=== PATIENT | male | born 1985 | race African-American/Black ===

== ENCOUNTER 2020-08-25 09:07 | Emergency (ER) | payer MEDICAID, OTHER ==
[~2020-08-25] VITALS: Ht 180.3 cm; Wt 83.5 kg
[2020-08-25 09:45] LABS: Basophils # (auto) 0 10 ^3/uL (0-0.2); Basophils % (auto) 0.1 % (0.0-2.0); Eosinophils # (auto) 0.1 10 ^3/uL (0-0.8); Eosinophils % (auto) 2.1 % (0.0-7.0); Hematocrit 33.2 % (41.0-53.0); Hemoglobin 10.3 g/dL (13.5-17.5); Lymphocytes # (auto) 2.1 10 ^3/uL (0.4-5.4); Lymphocytes % (auto) 34.7 % (10.0-50.0); Mean Corpuscular Hemoglobin 19.6 pg (28.0-32.0); Mean Corpuscular Volume 63.2 fL (80.0-100.0); Monocytes # (auto) 0.6 10 ^3/uL (0-1.3); Monocytes % (auto) 10.6 % (0.0-12.0); Neutrophils # (auto) 3.2 10 ^3/uL (1.6-8.6); Neutrophils % (auto) 52.5 % (37.0-80.0); Nucleated Red Blood Cells % 0.1 %; Platelet Count (auto) 218 10^3/uL (140-450); Red Blood Cells 5.25 10^6/uL (4.5-5.90); Red Cell Distribution Width 18.7 % (11.8-14.3)
[2020-08-25] MEDS ORDERED: GASTROGRAFIN 120 ML SOL ONE (09:52)
[2020-08-25 10:01] LABS: Albumin 3.2 g/dL (3.4-5.0); Calcium 9.1 mg/dL (8.5-10.1); Potassium 4.2 mmol/L (3.5-5.1)
[2020-08-25 10:04] LABS: BUN/Creatinine Ratio 17.6; Bilirubin, Total 0.4 mg/dL (0.2-1.0); Total Protein 9.6 g/dL (6.4-8.2)
[2020-08-25] MEDS ORDERED: EZ-GAS II GRANULES (RADIOLOGY USE) PO ONE (10:21)
[2020-08-25 10:35] LABS: Urine Bacteria NONE SEEN /hpf (None Seen); Urine Blood Negative /uL (Negative); Urine Mucus FEW (None Seen); Urine Specific Gravity 1.029 (1.001-1.035); Urine WBC <1 /hpf (0 - 3)
[2020-08-25 11:33] VITALS: BP 121/75
== END 2020-08-25 11:34 | disposition home or self-care (01) ==
LOC: ER 09:07
DX: K21.00 Gastro-esophageal reflux disease with esophagitis, without bleeding (principal); D53.9 Nutritional anemia, unspecified; E46 Unspecified protein-calorie malnutrition; F17.210 Nicotine dependence, cigarettes, uncomplicated; Z68.25 Body mass index [BMI] 25.0-25.9, adult
CPT/HCPCS: 36415; 74220; 80053; 81001; 82150; 83690; 85025; 85049; 99284; Q9963

== ENCOUNTER 2021-05-25 10:00 | Emergency (ER) | payer MEDICAID ==
[~2021-05-25] VITALS: Ht 180.3 cm; Wt 83.5 kg
[2021-05-25 10:02] VITALS: BP 168/94
[2021-05-25] MEDS ORDERED: KETOROLAC TROMETH 60MG/2ML VIAL IM ONE (10:45)
[2021-05-25] MEDS ORDERED: BACL10TA PO (11:42)
[2021-05-25] MEDS ORDERED: IBUP800T27 PO (11:42)
== END 2021-05-25 11:56 | disposition home or self-care (01) ==
LOC: ER 10:00
DX: S29.011A Strain of muscle and tendon of front wall of thorax, initial encounter (principal); K21.9 Gastro-esophageal reflux disease without esophagitis; F17.210 Nicotine dependence, cigarettes, uncomplicated; X58.XXXA Exposure to other specified factors, initial encounter; Y93.89 Activity, other specified; Y92.89 Other specified places as the place of occurrence of the external cause; Y99.8 Other external cause status
CPT/HCPCS: 71101; 96372; 99283; J1885

== ENCOUNTER 2023-08-05 09:08 | Inpatient (IN) | payer MEDICAID ==
[2023-08-05] VITALS (8 sets, daily range): BP systolic 129–151; BP diastolic 75–91; PULSE 63–84; RESP 16–20; TEMP 98–98.8; O2SAT 99–100
[~2023-08-05] VITALS: Ht 180.3 cm; Wt 75.9 kg
[~2023-08-05 09:08] MED LIST: BACL10TA PO; IBUP-1456 PO
[2023-08-05 09:31] LABS: Basophils # (auto) 0 10 ^3/uL (0-0.2); Lymphocytes # (auto) 2.1 10 ^3/uL (0.4-5.4); Neutrophils # (auto) 3.5 10 ^3/uL (1.6-8.6)
[2023-08-05 09:33] LABS: Basophils % (auto) 0.1 % (0.0-2.0); Eosinophils # (auto) 0.1 10 ^3/uL (0-0.8); Eosinophils % (auto) 0.9 % (0.0-7.0); Hematocrit 22.9 % (41.0-53.0); Lymphocytes % (auto) 32.3 % (10.0-50.0); Mean Corpuscular Hemoglobin 14.8 pg (28.0-32.0); Mean Corpuscular Hgb Conc. 27.8 g/dL (32.0-36.0); Monocytes # (auto) 0.8 10 ^3/uL (0-1.3); Monocytes % (auto) 12.6 % (0.0-12.0); Neutrophils % (auto) 54.1 % (37.0-80.0); Nucleated Red Blood Cells % 0.2 %; Red Blood Cells 4.32 10^6/uL (4.5-5.90); White Blood Cell 6.4 10^3/uL (4.4-10.8)
[2023-08-05 09:34] LABS: Red Cell Distribution Width 20.6 % (11.8-14.3)
[2023-08-05 09:38] LABS: Hemoglobin 6.4 g/dL (13.5-17.5)
[2023-08-05 09:47] LABS: Hypochromia Marked; Platelet Estimate Adequate
[2023-08-05 09:48] LABS: Anisocytosis Slight; Ovalocytes FEW; Tear Drop Cells FEW
[2023-08-05 10:05] LABS: Alanine Aminotransferase 14 U/L (7-40); Albumin 3.8 g/dL (3.2-4.8); Alkaline Phosphatase 73 U/L (46-116); Anion Gap 4 (5-15); Aspartate Aminotransferase 31 U/L (13-40); Blood Urea Nitrogen 9 mg/dL (9-23); Calcium 9.3 mg/dL (8.5-10.1); Carbon Dioxide 27 mmol/L (20-30); Chloride 104 mmol/L (98-107); Glucose 100 mg/dL (74-106); Potassium 3.7 mmol/L (3.5-5.1); Sodium 135 mmol/L (136-145)
[2023-08-05 10:06] LABS: Bilirubin, Total 0.4 mg/dL (0.2-1.0); Total Protein 9.3 g/dL (5.7-8.2)
[2023-08-05] MEDS ORDERED: NITROGLYCERIN 0.4 MG SL TAB SL PRN (11:15)
[2023-08-05] MEDS ORDERED: ACETAMINOPHEN 325 MG TAB PO PRN (11:15)
[2023-08-05] MEDS ORDERED: MORPHINE SULFATE INJ 2 MG/ml SYRG IV PRN (11:15)
[2023-08-05] MEDS: PANTOPRAZOLE 80 MG in SODIUM CHL 0.9% 100 ML IV ONE (11:15)
[2023-08-05] MEDS: SODIUM CHLORIDE 0.9% 1,000 ML IV SCH (11:15)
[2023-08-05 11:53] LABS: Urine Bacteria None Seen /hpf (None Seen)
[2023-08-05 12:07] LABS: Urine Blood Negative /uL (Negative); Urine Clarity Clear (Clear); Urine Color Light-Yellow (Yellow); Urine Protein, UAD Negative (Negative); Urine Specific Gravity 1.012 (1.001-1.035); Urine Urobilinogen Normal (Negative); Urine WBC <1 /hpf (0 - 3); Urine pH 6.5 (5.0-9.0)
[2023-08-05 12:15] LABS: Amphetamine Screen, Urine Pos (NEGATIVE); Barbiturate Scree,Urine Neg (NEGATIVE); Benzodiazephine Screen, Urine Neg (NEGATIVE); Cannabinoid Screen, Urine Neg (NEGATIVE); Cocaine Screen, Urine Neg (NEGATIVE); Opiate Scree,Urine Neg (NEGATIVE); Phencyclidine Screen, Urine Neg (NEGATIVE)
[2023-08-05 20:21] LABS: Hematocrit 22.7 % (41.0-53.0)
[2023-08-05 20:33] LABS: Hemoglobin 6.6 g/dL (13.5-17.5)
[2023-08-05] MEDS: BACLOFEN 10 MG TAB PO SCH (23:43)
[2023-08-05] MEDS ORDERED: ARIP20TA4 PO (23:51)
[2023-08-05] MEDS ORDERED: FLUO-125 PO (23:51)
[2023-08-06] VITALS (13 sets, daily range): BP systolic 128–151; BP diastolic 68–91; PULSE 61–69; RESP 15–19; TEMP 98–98.6; O2SAT 95–100
[2023-08-06 08:36] LABS: Basophils # (auto) 0 10 ^3/uL (0-0.2); Hemoglobin 9.3 g/dL (13.5-17.5); White Blood Cell 7.1 10^3/uL (4.4-10.8)
[2023-08-06 08:38] LABS: Basophils % (auto) 0.2 % (0.0-2.0); Eosinophils # (auto) 0.2 10 ^3/uL (0-0.8); Eosinophils % (auto) 2.4 % (0.0-7.0); Hematocrit 30.6 % (41.0-53.0); Lymphocytes # (auto) 2.1 10 ^3/uL (0.4-5.4); Mean Corpuscular Hemoglobin 18.8 pg (28.0-32.0); Mean Corpuscular Hgb Conc. 30.5 g/dL (32.0-36.0); Mean Corpuscular Volume 61.6 fL (80.0-100.0); Monocytes # (auto) 0.7 10 ^3/uL (0-1.3); Monocytes % (auto) 10.2 % (0.0-12.0); Neutrophils # (auto) 4.1 10 ^3/uL (1.6-8.6); Neutrophils % (auto) 57.2 % (37.0-80.0); Nucleated Red Blood Cells % 0.2 %; Red Blood Cells 4.96 10^6/uL (4.5-5.90)
[2023-08-06 08:43] LABS: Red Cell Distribution Width 33.7 % (11.8-14.3)
[2023-08-06 08:59] LABS: Alanine Aminotransferase 13 U/L (7-40); Albumin 3.5 g/dL (3.2-4.8); Alkaline Phosphatase 75 U/L (46-116); Anion Gap 1 (5-15); Aspartate Aminotransferase 27 U/L (13-40); BUN/Creatinine Ratio 9.1 (10.0-20.0); Bilirubin, Total 0.4 mg/dL (0.2-1.0); Blood Urea Nitrogen 9 mg/dL (9-23); Calcium 9.4 mg/dL (8.5-10.1); Carbon Dioxide 28 mmol/L (20-30); Chloride 105 mmol/L (98-107); Glucose 102 mg/dL (74-106); Potassium 4.9 mmol/L (3.5-5.1); Sodium 134 mmol/L (136-145); Total Protein 8.8 g/dL (5.7-8.2)
[2023-08-06 11:09] LABS: INR 1.02 (0.9-1.15); Partial Thromboplastin Time 25.4 SEC (24.5-34.5); Prothrombin Time 10.8 sec (9.3-11.8)
[2023-08-06 11:10] LABS: % Iron Saturation 9.6 % (20-55)
[2023-08-06] MEDS: SODIUM FERR GLUC 62.5MG/5ML 110 ML IV SCH (12:00)
[2023-08-06 12:01] LABS: CRP High Sensitivity 0.03 mg/dL (<1.0)
[2023-08-06 12:19] LABS: Hepatitis B Surface Antibody Positive (Negative)
[2023-08-06 12:31] LABS: Hepatitis B Surface Antigen Negative (Negative)
[2023-08-06 12:52] LABS: Hepatitis C Antibody Negative (Negative)
[2023-08-06] MEDS ORDERED: PANTOPRAZOLE 40 MG/10 ML VIAL INJ IV SCH (22:00)
== END 2023-08-06 13:00 | disposition left against medical advice (07) | DRG 253 ==
LOC: ER 09:15 → OVERFLOW 11:05 → WEST WING 23:25
PROVIDERS: ADMIT Internal Medicine; ATTEND Emergency Medicine
PROC: 30233N1 Transfusion of Nonautologous Red Blood Cells into Peripheral Vein, Percutaneous Approach (ICD-10-PCS; principal; 2023-08-05)
DX: K92.2 Gastrointestinal hemorrhage, unspecified (principal); R16.0 Hepatomegaly, not elsewhere classified; K92.1 Melena; D64.9 Anemia, unspecified; R07.9 Chest pain, unspecified; K21.9 Gastro-esophageal reflux disease without esophagitis; F17.210 Nicotine dependence, cigarettes, uncomplicated; F20.9 Schizophrenia, unspecified; F32.A Depression, unspecified; F41.9 Anxiety disorder, unspecified; F15.10 Other stimulant abuse, uncomplicated; Z53.29 Procedure and treatment not carried out because of patient's decision for other reasons; I51.7 Cardiomegaly
CPT/HCPCS: 36415; 71045; 76705; 80053; 80061; 80307; 81001; 82270; 82728; 83540; 83550; 83735; 84443; 84484; 85014; 85018; 85025; 85045; 85610; 85730; 86141; 86706; 86803; 86850; 86900; 86901; 86920; 87340; 93005; 93306; C9113; G0378

== ENCOUNTER 2023-09-18 19:21 | Inpatient (IN) | payer MEDICAID ==
[~2023-09-18] VITALS: Ht 180.3 cm; Wt 70.0 kg
[~2023-09-18 19:21] MED LIST changes: +ARIP20TA4 PO; +FLUO-125 PO
[2023-09-18 21:00] LABS: Basophils # (auto) 0 10 ^3/uL (0-0.2); Basophils % (auto) 0.1 % (0.0-2.0); Eosinophils # (auto) 0.1 10 ^3/uL (0-0.8); Eosinophils % (auto) 1.3 % (0.0-7.0); Lymphocytes # (auto) 2.2 10 ^3/uL (0.4-5.4); Monocytes # (auto) 0.4 10 ^3/uL (0-1.3); Neutrophils # (auto) 2.5 10 ^3/uL (1.6-8.6); White Blood Cell 5.2 10^3/uL (4.4-10.8)
[2023-09-18 21:02] LABS: Hematocrit 27.9 % (41.0-53.0); Hemoglobin 8.8 g/dL (13.5-17.5); Lymphocytes % (auto) 42.3 % (10.0-50.0); Mean Corpuscular Hemoglobin 21.7 pg (28.0-32.0); Mean Corpuscular Hgb Conc. 31.5 g/dL (32.0-36.0); Mean Corpuscular Volume 68.9 fL (80.0-100.0); Monocytes % (auto) 7.5 % (0.0-12.0); Neutrophils % (auto) 48.8 % (37.0-80.0); Red Blood Cells 4.05 10^6/uL (4.5-5.90)
[2023-09-18 21:04] LABS: Red Cell Distribution Width 36.1 % (11.8-14.3)
[2023-09-18 21:12] LABS: Alanine Aminotransferase 31 U/L (7-40); Albumin 3.2 g/dL (3.2-4.8); Alkaline Phosphatase 68 U/L (46-116); Anion Gap 4 (5-15); Aspartate Aminotransferase 34 U/L (13-40); Bilirubin, Total 0.3 mg/dL (0.2-1.0); Calcium 9.2 mg/dL (8.7-10.4); Carbon Dioxide 27 mmol/L (20-30); Chloride 109 mmol/L (98-107); Glucose 94 mg/dL (74-106); Potassium 3.7 mmol/L (3.5-5.1); Sodium 140 mmol/L (136-145)
[2023-09-18 21:13] LABS: Total Protein 7.9 g/dL (5.7-8.2)
[2023-09-18 21:18] LABS: Blood Urea Nitrogen < 5 mg/dL (9-23)
[2023-09-18 21:31] LABS: Anisocytosis Slight
[2023-09-18 21:32] LABS: Hypochromia Slight; Large Platelets FEW; Macrocytosis Slight; Ovalocytes FEW; Platelet Estimate Adequa
[2023-09-18] MEDS ORDERED: ONDANSETRON HCL 4 MG/2 ML VIAL IV PRN (22:15)
[2023-09-18] MEDS: SODIUM CHLORIDE 0.9% 1,000 ML IV SCH (22:15)
[2023-09-19] MEDS: PANTOPRAZOLE 40 MG/10 ML VIAL INJ IV ONE (00:04)
[2023-09-19 07:37] LABS: Basophils # (auto) 0 10 ^3/uL (0-0.2); Basophils % (auto) 0.1 % (0.0-2.0); Eosinophils # (auto) 0.1 10 ^3/uL (0-0.8); Eosinophils % (auto) 2.1 % (0.0-7.0); Hematocrit 29.1 % (41.0-53.0); Hemoglobin 9.1 g/dL (13.5-17.5); Lymphocytes # (auto) 1.5 10 ^3/uL (0.4-5.4); Lymphocytes % (auto) 38.6 % (10.0-50.0); Mean Corpuscular Hemoglobin 21.8 pg (28.0-32.0); Mean Corpuscular Hgb Conc. 31.2 g/dL (32.0-36.0); Mean Corpuscular Volume 69.7 fL (80.0-100.0); Monocytes # (auto) 0.4 10 ^3/uL (0-1.3); Monocytes % (auto) 9.4 % (0.0-12.0); Neutrophils % (auto) 49.8 % (37.0-80.0); Nucleated Red Blood Cells % 0.2 %; Red Blood Cells 4.17 10^6/uL (4.5-5.90); White Blood Cell 3.9 10^3/uL (4.4-10.8)
[2023-09-19 07:38] LABS: Chloride 109 mmol/L (98-107); Potassium 3.7 mmol/L (3.5-5.1); Sodium 139 mmol/L (136-145)
[2023-09-19 07:39] LABS: Anion Gap 5 (5-15); Calcium 8.9 mg/dL (8.7-10.4); Carbon Dioxide 25 mmol/L (20-30); Red Cell Distribution Width 35.7 % (11.8-14.3)
[2023-09-19 07:44] LABS: BUN/Creatinine Ratio 6.5 (10.0-20.0); Blood Urea Nitrogen 6 mg/dL (9-23); Glucose 99 mg/dL (74-106)
[2023-09-19] MEDS: PANTOPRAZOLE 40 MG/10 ML VIAL INJ IV SCH ×2 (10:08→22:38)
[2023-09-19 11:30] VITALS: PULSE 57; RESP 16; O2SAT 99
[2023-09-19 16:52] VITALS: BP 126/76; PULSE 58; RESP 18; RESP 19; TEMP 98.2; O2SAT 100
[2023-09-19] MEDS: IRON SUCROSE COMPLEX 100 ML IV ONE (18:35)
[2023-09-19 21:00] VITALS: BP 136/73; PULSE 60; RESP 20; TEMP 99.1; O2SAT 97
[2023-09-20] VITALS (7 sets, daily range): BP systolic 122–143; BP diastolic 68–83; PULSE 55–97; RESP 16–22; TEMP 98.2–98.7; O2SAT 95–100
[2023-09-20] MEDS: GOLYTELY 4L KIT PO ONE ×2 (05:27→13:37)
[2023-09-20 07:08] LABS: Anion Gap 3 (5-15); Carbon Dioxide 26 mmol/L (20-30); Chloride 109 mmol/L (98-107); INR 1.09 (0.9-1.15); Potassium 3.9 mmol/L (3.5-5.1); Prothrombin Time 11.5 sec (9.3-11.8); Sodium 138 mmol/L (136-145)
[2023-09-20 07:10] LABS: Calcium 8.5 mg/dL (8.7-10.4)
[2023-09-20 07:11] LABS: Basophils # (auto) 0 10 ^3/uL (0-0.2); Eosinophils # (auto) 0.1 10 ^3/uL (0-0.8); Monocytes # (auto) 0.4 10 ^3/uL (0-1.3); Neutrophils # (auto) 2.1 10 ^3/uL (1.6-8.6); Nucleated Red Blood Cells % 0.1 %; White Blood Cell 3.9 10^3/uL (4.4-10.8)
[2023-09-20 07:14] LABS: Basophils % (auto) 0.1 % (0.0-2.0); Glucose 93 mg/dL (74-106); Hematocrit 28.2 % (41.0-53.0); Lymphocytes # (auto) 1.3 10 ^3/uL (0.4-5.4); Lymphocytes % (auto) 34.7 % (10.0-50.0); Mean Corpuscular Hemoglobin 22.1 pg (28.0-32.0); Mean Corpuscular Hgb Conc. 31.9 g/dL (32.0-36.0); Mean Corpuscular Volume 69.5 fL (80.0-100.0); Monocytes % (auto) 9.1 % (0.0-12.0); Neutrophils % (auto) 54.1 % (37.0-80.0); Red Blood Cells 4.07 10^6/uL (4.5-5.90)
[2023-09-20 07:17] LABS: BUN/Creatinine Ratio 5.9 (10.0-20.0); Blood Urea Nitrogen < 5 mg/dL (9-23)
[2023-09-20 07:28] LABS: Red Cell Distribution Width 35.2 % (11.8-14.3)
[2023-09-20 08:48] LABS: Anisocytosis Moderate; Platelet Estimate Adequate
[2023-09-20 08:49] LABS: Hypochromia Moderate
[2023-09-20] MEDS: IRON SUCROSE COMPLEX 100 ML IV SCH (12:00)
[2023-09-20 23:06] LABS: Urine Bacteria None Seen /hpf (None Seen)
[2023-09-20 23:17] LABS: Urine Blood Negative /uL (Negative); Urine Clarity Clear (Clear); Urine Color Colorless (Yellow); Urine Protein, UAD Negative (Negative); Urine Specific Gravity 1.005 (1.001-1.035); Urine Urobilinogen Normal (Negative); Urine WBC <1 /hpf (0 - 3); Urine pH 6.5 (5.0-9.0)
[2023-09-20 23:29] LABS: Amphetamine Screen, Urine Neg (NEGATIVE); Barbiturate Scree,Urine Neg (NEGATIVE); Benzodiazephine Screen, Urine Neg (NEGATIVE); Cannabinoid Screen, Urine Neg (NEGATIVE); Cocaine Screen, Urine Neg (NEGATIVE); Opiate Scree,Urine Neg (NEGATIVE); Phencyclidine Screen, Urine Neg (NEGATIVE)
[2023-09-21 01:00] VITALS: BP 141/79; PULSE 70; RESP 17; TEMP 98.4; O2SAT 98
[2023-09-21 05:00] VITALS: BP 137/88; PULSE 52; RESP 17; TEMP 98.1; O2SAT 100
[2023-09-21] MEDS: MAGNESIUM CITRATE SOLUTION 300 ML BTL PO ONE (05:33)
[2023-09-21 08:00] VITALS: PULSE 60; RESP 20; O2SAT 98
[2023-09-21 08:45] VITALS: BP 131/80; PULSE 60; RESP 20; TEMP 98; O2SAT 98
[2023-09-21] MEDS ORDERED: MIDAZOLAM HCL 2MG/2ML 2ml VIAL (1mg/ml) ONE (11:04)
[2023-09-21 11:23] VITALS: PULSE 63; RESP 16; O2SAT 100
[2023-09-21] MEDS ORDERED: ONDANSETRON HCL 4 MG/2 ML VIAL IV ONE (11:45)
[2023-09-21 11:58] VITALS: BP 144/92; PULSE 60; RESP 18; TEMP 98.2; O2SAT 100
[2023-09-21] MEDS: NYSTATIN (MOUTH-THROAT) 500,000 UNITS/5 ML SUSP MT SCH (12:42)
[2023-09-21] MEDS: SUCRALFATE 1 GM/10 ML ORAL SUSP PO SCH (12:53)
[2023-09-21] MEDS ORDERED: PANT40TA2 PO (13:58)
[2023-09-21] MEDS ORDERED: NYS5LQ MT (13:58)
[2023-09-21] MEDS ORDERED: SUCR1SUS26 PO (13:58)
[2023-09-21] MEDS ORDERED: PROPOFOL 10 MG/ML 20 ML IV ONE (17:14)
== END 2023-09-21 17:15 | disposition home or self-care (01) | DRG 241 ==
LOC: ER 19:21 → OVERFLOW 22:11 → CENTRAL 09-19 16:52
PROVIDERS: ADMIT Internal Medicine Geriatric Medicine; ATTEND Internal Medicine Geriatric Medicine
PROC: 0DB68ZX Excision of Stomach, Via Natural or Artificial Opening Endoscopic, Diagnostic (ICD-10-PCS; 2023-09-21)
PROC: 0DB58ZX Excision of Esophagus, Via Natural or Artificial Opening Endoscopic, Diagnostic (ICD-10-PCS; 2023-09-21)
PROC: 0DB98ZX Excision of Duodenum, Via Natural or Artificial Opening Endoscopic, Diagnostic (ICD-10-PCS; principal; 2023-09-21 11:01)
DX: K29.71 Gastritis, unspecified, with bleeding (principal); B37.81 Candidal esophagitis; D50.9 Iron deficiency anemia, unspecified; F17.210 Nicotine dependence, cigarettes, uncomplicated; D72.819 Decreased white blood cell count, unspecified; F19.20 Other psychoactive substance dependence, uncomplicated; F20.9 Schizophrenia, unspecified; K59.00 Constipation, unspecified; K21.9 Gastro-esophageal reflux disease without esophagitis; K27.4 Chronic or unspecified peptic ulcer, site unspecified, with hemorrhage; K44.9 Diaphragmatic hernia without obstruction or gangrene; Z79.899 Other long term (current) drug therapy
CPT/HCPCS: 36415; 74176; 80048; 80053; 80307; 81001; 82270; 83036; 83605; 84443; 85025; 85610; 86703; 86850; 86900; 86901; 87389; 93005; 96361; 96365; 96374; 96375; G0378; J1756; J2250; J2470; J2704

== ENCOUNTER 2023-09-21 17:41 | Emergency (ER) | payer MEDICAID ==
[~2023-09-21] VITALS: Ht 180.3 cm; Wt 78.0 kg
[~2023-09-21 17:41] MED LIST changes: +NYS5LQ MT; +PANT40TA2 PO; +SUCR1SUS26 PO
[2023-09-21 18:31] LABS: Basophils # (auto) 0 10 ^3/uL (0-0.2); Eosinophils # (auto) 0.1 10 ^3/uL (0-0.8); Neutrophils # (auto) 4.7 10 ^3/uL (1.6-8.6)
[2023-09-21 18:33] LABS: Basophils % (auto) 0.6 % (0.0-2.0); Eosinophils % (auto) 1.7 % (0.0-7.0); Hematocrit 31.8 % (41.0-53.0); Hemoglobin 10.4 g/dL (13.5-17.5); Mean Corpuscular Hemoglobin 22.9 pg (28.0-32.0); Mean Corpuscular Hgb Conc. 32.7 g/dL (32.0-36.0); Monocytes # (auto) 0.4 10 ^3/uL (0-1.3); Monocytes % (auto) 5.8 % (0.0-12.0); Neutrophils % (auto) 64.9 % (37.0-80.0); Nucleated Red Blood Cells % 0.3 %; Red Blood Cells 4.54 10^6/uL (4.5-5.90); White Blood Cell 7.3 10^3/uL (4.4-10.8)
[2023-09-21 18:39] LABS: Red Cell Distribution Width 35.3 % (11.8-14.3)
[2023-09-21 18:45] LABS: Chloride 106 mmol/L (98-107); Sodium 137 mmol/L (136-145)
[2023-09-21 18:46] LABS: Anion Gap 4 (5-15); Carbon Dioxide 27 mmol/L (20-30)
[2023-09-21 18:47] LABS: Calcium 9.2 mg/dL (8.7-10.4)
[2023-09-21 18:51] LABS: BUN/Creatinine Ratio 10.4 (10.0-20.0); Blood Urea Nitrogen 10 mg/dL (9-23); Glucose 102 mg/dL (74-106)
[2023-09-21 18:52] LABS: Blood Alcohol 3.1 mg/dL (<10)
[2023-09-21 19:13] LABS: Urine Bacteria None Seen /hpf (None Seen)
[2023-09-21 19:28] LABS: Urine Blood Negative /uL (Negative); Urine Clarity Clear (Clear); Urine Color Light-Yellow (Yellow); Urine Protein, UAD Negative (Negative); Urine Urobilinogen Normal (Negative); Urine WBC 1 /hpf (0 - 3)
[2023-09-21 19:44] LABS: Amphetamine Screen, Urine Neg (NEGATIVE); Barbiturate Scree,Urine Neg (NEGATIVE); Benzodiazephine Screen, Urine Pos (NEGATIVE); Cannabinoid Screen, Urine Neg (NEGATIVE); Cocaine Screen, Urine Neg (NEGATIVE); Opiate Scree,Urine Neg (NEGATIVE); Phencyclidine Screen, Urine Neg (NEGATIVE)
[2023-09-21] MEDS: FLUoxetine HCL 20 MG CAP PO ONE (23:02)
[2023-09-21] MEDS: OLANZapine 5 MG TAB PO ONE (23:08)
[2023-09-21] MEDS: LORazepam 0.5 MG TAB PO ONE (23:08)
[2023-09-22 11:40] VITALS: BP 138/88; PULSE 50; RESP 18; TEMP 98.3; O2SAT 98
== END 2023-09-22 11:50 | disposition short-term general hospital (02) ==
LOC: ER 17:41
DX: R45.851 Suicidal ideations (principal); F20.9 Schizophrenia, unspecified; F32.A Depression, unspecified; F41.9 Anxiety disorder, unspecified; K21.9 Gastro-esophageal reflux disease without esophagitis; F17.210 Nicotine dependence, cigarettes, uncomplicated; Z59.00 Homelessness unspecified
CPT/HCPCS: 36415; 80048; 80307; 80320; 81001; 85025

== ENCOUNTER 2024-04-24 20:46 | Inpatient (IN) | payer MEDICAID ==
[~2024-04-24] VITALS: Ht 175.3 cm; Wt 76.0 kg
--- NOTE | 2024-04-24 21:07 | ED.PDOC ---
History of Present Illness HPI Comments 38-year-old male came to emergency room due to headaches. Patient has history of diabetes but as poor compliance to medications. For the past few days patient has been having headaches, dizziness, blurring of vision. Blood pressure taken was 150/100 mm Hg, with a blood sugar of 73 on scene. Patient is homeless. Chief Complaint: High Blood Pressure Time Seen by MD: 21:06 Primary Care Provider: NONE Reviewed Notes: Nurses Notes Allergies: Coded Allergies: NO KNOWN ALLERGIES (Unverified , 08/25/20) Home Meds Active Scripts Pantoprazole Sodium Sesquihydr (Protonix) 40 Mg Tab, 40 MG PO DAILY PRN for 90 Days, #90 TAB Prov:SALOME ELIZABETH RESIDENT 09/21/23 Sucralfate (CARAFATE SUSP) 1 Gm/10 Ml Ss, 1 GM PO QID@0600,1130,1700,2200 for 30 Days, #120 ML Prov:SALOME ELIZABETH RESIDENT 09/21/23 Nystatin (Mouth-Throat) (Mycostatin (Mouth-Throat)) 500,000 Units/5 Ml Ss, 5 ML MT QID for 14 Days, #60 ML Prov:SALOME ELIZABETH RESIDENT 09/21/23 Baclofen (Baclofen) 10 Mg Tab, 10 MG PO BID, #20 TAB Prov:LOLA SOSA 05/25/21 Ibuprofen (Ibuprofen) 800 Mg Tab, 800 MG PO Q8HP PRN, #30 TAB Prov:LOLA SOSA 05/25/21 Reported Medications Fluoxetine Hcl (Fluoxetine Hcl) 20 Mg Cap, 20 MG PO DAILY for 30 Days, MG 08/05/23 Aripiprazole (Abilify) 20 Mg Tab, 15 MG PO QPM, TAB 08/05/23 Mode of Arrival: Ambulatory Severity: Moderate Timing: Hours Duration: Since onset Prehospital treatment: None Medication Refill: For: Other Past Medical History PAST MEDICAL HISTORY: Anxiety, Depression, DM, GERD, Schizophrenia Surgical History: Denies all surgeries Family History Family History: Reviewed,noncontributory to illness Social History Smoker: Cigarettes Alcohol: Denies ETOH Use Drugs: Denies Drug Use Lives In: Home Constitutional: denies: chills, diaphoresis, fatigue, fever, malaise, sweats, weakness, others EENTM: reports: blurred vision; denies: double vision, ear bleeding, ear discharge, ear drainage, ear pain, ear ringing, eye pain, eye redness, hearing loss, mouth pain, mouth swelling, nasal discharge, nose bleeding, nose congestion, nose pain, photophobia, tearing, throat pain, throat swelling, voice changes, others Cardiovascular: denies: chest pain, dizzy spells, diaphoresis, Dyspnea on exertion, edema, irregular heart beat, left arm pain, lightheadedness, palpitations, PND, syncope, others Gastrointestinal: denies: abdomen distended, abdominal pain, blood streaked bowels, constipated, diarrhea, dysphagia, difficulty swallowing, hematemesis, melena, nausea, poor appetite, poor fluid intake, rectal bleeding, rectal pain, vomiting, others Genitourinary: denies: burning, dysuria, flank pain, frequency, hematuria, incontinence, penile discharge, penile sore, pain, testicle pain, testicle swelling, urgency, others Neurological: reports: dizziness, headache; denies: fainting, left sided numbness, left sided weakness, numbness, paresthesia, pre-existing deficit, right sided numbness, right sided weakness, seizure, speech problems, tingling, tremors, weakness, others Musculoskeletal: denies: back pain, gout, joint pain, joint swelling, muscle pain, muscle stiffness, neck pain, others Integumetry: denies: bruises, change in color, change in hair/nails, dryness, laceration, lesions, lumps, rash, wounds, others Allergic/Immunocompromised: denies: Difficulty Healing, Frequent Infections, Hives, Itching, others Hematologic/Lymphatic: denies: anemia, blood clots, easy bleeding, easy bruising, swollen glands, others Endocrine: denies: excessive hunger, excessive sweating, excessive thirst, excessive urination, flushing, intolerance to cold, intolerance to heat, unexplained weight gain, unexplained weight loss, others Psychiatric: reports: anxiety; denies: bipolar disorder, depression, hopeless, panic disorder, schizophrenia, sleepless, suicidal, others Physical Exam General Appearance: No Apparent Distress, Normal HEENT: Normal ENT Inspection, Pharynx Normal, TMs Normal Neck: Full Range of Motion, Non-Tender, Normal, Normal Inspection Respiratory: Chest Non-Tender, Lungs Clear, No Accessory Muscle Use, No Respiratory Distress, Normal Breath Sounds Cardiovascular: No Edema, No JVD, No Murmur, No Gallop, Normal Peripheral Pulses, Regular Rate/Rhythm Breast Exam: Deferred Gastrointestinal: No Organomegaly, Non Tender, No Pulsatile Mass, Normal Bowel Sounds, Soft Genitalia: Deferred Pelvic: Deferred Rectal: Deferred Extremities: No calf tenderness, Normal capillary refill, Normal inspection, Normal range of motion, Non-tender, No pedal edema Musculoskeletal : Apperance: Normal Neurologic: Alert, apron trimmer II-XII nml as Tested, No Motor Deficits, Normal Affect, Normal Mood, No Sensory Deficits Cerebellar Function: Normal Reflexes: Normal Skin: Dry, Normal Color, Warm Lymphatic: No Adenopathy Was a procedure done? Was a procedure done?: No EKG EKG : Pulse Rate (adult): 74 Cardiac Rhythm: NSR Hypertrophy: LVH Differential Dx Considerations may include: Hypoglycemia, electrolyte imbalance, urinary tract infection, homeless X-Ray, Labs, Meds, VS Vital Signs Date Time Temp Pulse Resp B/P (MAP) Pulse Ox O2 Delivery O2 Flow Rate FiO2 04/24/24 21:07 74 04/24/24 20:47 74 04/24/24 20:46 98.9 77 20 153/101 (118) 100 Lab Test 04/24/24 22:05 04/24/24 21:01 Range/Units Troponin I High Sensitivity 8 8 </=54 ng/L White Blood Count 4.6 4.4-10.8 10^3/uL Red Blood Count 4.75 4.5-5.90 10^6/uL Hemoglobin 12.5 L 13.5-17.5 g/dL Hematocrit 38.1 L 41.0-53.0 % Mean Corpuscular Volume 80.1 80.0-100.0 fL Mean Corpuscular Hemoglobin 26.3 L 28.0-32.0 pg Mean Corpuscular Hemoglobin Concent 32.8 32.0-36.0 g/dL Red Cell Distribution Width 17.5 H 11.8-14.3 % Platelet Count 257 140-450 10^3/uL Mean Platelet Volume 7.8 6.9-10.8 fL Neutrophils (%) (Auto) 43.3 37.0-80.0 % Lymphocytes (%) (Auto) 47.0 10.0-50.0 % Monocytes (%) (Auto) 8.5 0.0-12.0 % Eosinophils (%) (Auto) 1.0 0.0-7.0 % Basophils (%) (Auto) 0.2 0.0-2.0 % Neutrophils # (Auto) 2.0 1.6-8.6 10 ^3/uL Lymphocytes # (Auto) 2.2 0.4-5.4 10 ^3/uL Monocytes # (Auto) 0.4 0-1.3 10 ^3/uL Eosinophils # (Auto) 0 0-0.8 10 ^3/uL Basophils # (Auto) 0 0-0.2 10 ^3/uL Nucleated Red Blood Cells 0.1 % Sodium Level 136 136-145 mmol/L Potassium Level 3.5 3.5-5.1 mmol/L Chloride Level 105 98-107 mmol/L Carbon Dioxide Level 25 20-31 mmol/L Anion Gap 6 5-15 Blood Urea Nitrogen 9 9-23 mg/dL Creatinine 1.04 0.700-1.30 mg/dL Glomerular Filtration Rate Calc 93 >90 mL/min BUN/Creatinine Ratio 8.7 L 10.0-20.0 Serum Glucose 129 H 74-106 mg/dL Calcium Level 9.6 8.7-10.4 mg/dL Time of 1ST Reevaluation: 21:00 Reevaluation 1ST: Unchanged Patient Education/Counseling: Diagnosis, Treatment Family Education/Counseling: Need For Follow Up Departure 1 Departure Time of Disposition: 00:11 (Patient presented with hypertension and symptoms concerning for hypertensive emergency. Patient is receiving iv blood pressure medications requiring intensive monitoring. Data: 1. I ordered and reviewed the result of at least 3 labs including a CBC, BMP, and Urinalysis. 2. I independently interpreted the following tests: CT Brain: Which appears benign. EKG which is Normal Sinus RhythmRisk:This patient has a high risk of morbidity due to further diagnostic testing or treatment and may suffer from an acute cardiac disorder. Workup reveals hypertensive emergency and patient should be admitted for further workup. and possible expert consultation. ) Impression: Primary Impression: Hypertensive urgency Additional Impressions: Shortness of breath Paresthesias Disposition: ADMITTED INPATIENT Admit to: Med Surg Condition: Serious Critical Care Note Critical Care Time?: Yes (35 min-critical care time only) Critical care comment: Hypertensive emergency, hypoglycemia Authorized and Performed by: Latasha Viveros MD Total critical care time: Approximately 38 minutes Due to a high probability of clinically significant, life threatening dete rioration, the patient required my highest level of preparedness to intervene emergently and I personally spent this critical care time directly and personally managing the patient. This critical care time included obtaining a history; examining the patient; pulse oximetry; ordering and review of studies; arranging urgent treatment with development of a management plan; evaluation of patient's response to treatment; frequent reassessment; and, discussions with other providers. This critical care time was performed to assess and manage the high probability of imminent, life-threatening deterioration that could result in multi-organ f ailure. It was exclusive of separately billable procedures and treating other patients and teaching time. Please see my other sections and the rest of the note for further information on patient assessment and treatment. Stability Stability form required: No Heart Score Heart Score: Heart Score Response (Comments) Value History N/A 0 EKG N/A 0 Age N/A 0 Risk Factors N/A 0 Troponin N/A 0 Total 0 I personally scribed for LATASHA VIVEROS MD ([email or web address]) on 04/24/24 at 21:07. Electronically submitted by Denver Lea ([facility]). LATASHA VIVEROS MD Apr 24, 2024 21:07
--- NOTE | 2024-04-24 21:21 | DVH ---
CHEST RADIOGRAPH Indication: htn, sob Technique: Single frontal view of the chest was obtained Comparison: XY CHEST PORTABLE on DOS: 08/05/23 FINDINGS: Lines and Tubes: None Lungs: Clear Pleura: No effusion. No pneumothorax. Cardiomediastinal contours: Unremarkable Bones: Unremarkable IMPRESSION: Clear lungs.
[2024-04-24 21:49] LABS: Basophils # (auto) 0 10 ^3/uL (0-0.2); Basophils % (auto) 0.2 % (0.0-2.0); Eosinophils # (auto) 0 10 ^3/uL (0-0.8); Hematocrit 38.1 % (41.0-53.0); Hemoglobin 12.5 g/dL (13.5-17.5); Lymphocytes # (auto) 2.2 10 ^3/uL (0.4-5.4); Mean Corpuscular Hemoglobin 26.3 pg (28.0-32.0); Mean Corpuscular Hgb Conc. 32.8 g/dL (32.0-36.0); Mean Corpuscular Volume 80.1 fL (80.0-100.0); Monocytes # (auto) 0.4 10 ^3/uL (0-1.3); Monocytes % (auto) 8.5 % (0.0-12.0); Neutrophils % (auto) 43.3 % (37.0-80.0); Nucleated Red Blood Cells % 0.1 %; Platelet Count (auto) 257 10^3/uL (140-450); Red Blood Cells 4.75 10^6/uL (4.5-5.90); Red Cell Distribution Width 17.5 % (11.8-14.3); White Blood Cell 4.6 10^3/uL (4.4-10.8)
[2024-04-24 21:51] LABS: Chloride 105 mmol/L (98-107); Sodium 136 mmol/L (136-145)
[2024-04-24 21:52] LABS: Anion Gap 6 (5-15); Calcium 9.6 mg/dL (8.7-10.4); Carbon Dioxide 25 mmol/L (20-31)
[2024-04-24 21:57] LABS: BUN/Creatinine Ratio 8.7 (10.0-20.0); Blood Urea Nitrogen 9 mg/dL (9-23)
[2024-04-24 22:01] LABS: Glucose 129 mg/dL (74-106); Potassium 3.5 mmol/L (3.5-5.1)
[2024-04-25] MEDS ORDERED: HYDROcodone-ACET 5/325MG TAB PO PRN (00:45)
[2024-04-25] MEDS ORDERED: DOCUSATE SOD 100 MG CAP PO PRN (00:45)
[2024-04-25] MEDS ORDERED: ONDANSETRON HCL 4 MG/2 ML VIAL IV PRN (00:45)
[2024-04-25] MEDS ORDERED: DEXTROSE (50%) 50ML SYRG IV PRN (00:45)
[2024-04-25] MEDS ORDERED: ACETAMINOPHEN 325 MG TAB PO PRN (00:45)
[2024-04-25] MEDS ORDERED: hydrALAZINE HCL 20 MG/ML VL IV PRN (00:45)
[2024-04-25] MEDS: SODIUM CHLORIDE 0.9% 1,000 ML IV SCH (03:38)
[2024-04-25] MEDS: LABETALOL HCL 20 MG/4 ML VL IV ONE (03:52)
[2024-04-25 03:59] LABS: Hemoglobin 12.4 g/dL (13.5-17.5); Platelet Count (auto) 248 10^3/uL (140-450); White Blood Cell 4.3 10^3/uL (4.4-10.8)
[2024-04-25 04:03] LABS: Hematocrit 37.7 % (41.0-53.0); Mean Corpuscular Hemoglobin 26.4 pg (28.0-32.0); Mean Corpuscular Volume 80.2 fL (80.0-100.0); Red Cell Distribution Width 17.6 % (11.8-14.3)
[2024-04-25 04:14] LABS: Band Neutrophils % (manual) 0; Basophils % (manual) 0 (0.0-2.0); Blast Cells 0; Metamyelocytes % 0; Monocytes % (manual) 0 (0-12); Myelocytes % 0; Promyelocytes % 0; Reactive Lymphocytes 0
[2024-04-25 04:21] LABS: Alanine Aminotransferase 40 U/L (7-40); Alkaline Phosphatase 76 U/L (46-116); Anion Gap 10 (5-15); BUN/Creatinine Ratio 8.6 (10.0-20.0); Bilirubin, Total 0.4 mg/dL (0.2-1.0); Calcium 9.7 mg/dL (8.7-10.4); Carbon Dioxide 23 mmol/L (20-31); Chloride 105 mmol/L (98-107); Sodium 138 mmol/L (136-145)
[2024-04-25 04:26] LABS: Aspartate Aminotransferase 77 U/L (13-40); Blood Urea Nitrogen 9 mg/dL (9-23); Glucose 144 mg/dL (74-106); Potassium 3.5 mmol/L (3.5-5.1)
--- NOTE | 2024-04-25 04:34 | DVHHP2 ---
History of Present Illness Reason for Visit: Hypertensive urgency History of Present Illness The patient is a 38-year-old male with past medical history of depression, anxiety, DM, GERD, and schizophrenia who presented to [facility] ED with complaint of headache. Patient reports symptoms progressively get worse with blurry vision, dizziness, elevated blood pressure, getting worse that prompted this visit. Patient was seen and evaluated in the ED, laboratory data shows WBC 4.6, platelets 257, sodium 136, potassium 3.5, BUN 9, creatinine 1.04, GFR 93, glucose 129, troponin 8, blood pressure 153/101, heart rate 74, temperature 98.9 F, O2 saturation 99% on room air. Please see medication orders section in the computer. On my assessment, patient denies chest pain, no dizziness, no diaphoresis, no headache at this moment, no shortness of breath, no nausea, no vomiting, no fever, no chills. Patient was admitted further evaluation and medical management. Past Medical History Anxiety, Depression, DM, GERD, Schizophrenia Past Surgical History Denies all surgeries Family History Reviewed, noncontributory to the management of this case. Past Social History The patient lives at home, denies smoking, alcohol or illicit drugs abuse. Review of Systems Constitutional: No: Fever, Chills, Sweats, Weakness, Malaise, Other Eyes: Other (Blurry vision); No: Pain, Vision change, Conjunctivae inflammation, Eyelid inflammation, Redness ENT: No: Ear pain, Ear discharge, Nose pain, Nose discharge, Nose congestion, Mouth pain, Mouth swelling, Throat pain, Throat swelling, Other Respiratory: No: Cough, Dry, Shortness of breath, SOB with excertion, Wheezing, Hemoptysis, Pleuritic Pain, Sputum, Wheezing, Other Cardiovascular: No: Chest Pain, Palpitations, Orthopnea, Paroxysmal Noc. Dyspnea, Edema, Lt Headedness, Other Gastrointestinal: No: Nausea, Vomiting, Abdominal Pain, Diarrhea, Constipation, Melena, Hematochezia, Other Genitourinary: No Dysuria, No Frequency, No Incontinence, No Hematuria, No Retention, No Other Musculoskeletal: No: other, neck pain, shoulder pain, arm pain, back pain, hand pain, leg pain, foot pain Skin: No: Rash, Lesions, Jaundice, Bruising, Other Neurological: Other (Headache, dizziness.); No: Weakness, Numbness, Incoordination, Change in speech, Confusion, Seizures Allergies: Coded Allergies: NO KNOWN ALLERGIES (Unverified , 08/25/20) Medications Current Medications Medications Dose Ordered Sig/Elen Route Start Time Stop Time Status Last Admin Dose Admin Hydralazine HCl 10 mg Q6HP PRN IV 04/25/24 00:45 Amlodipine Besylate 5 mg DAILY PO 04/25/24 10:00 Pantoprazole Sodium 40 mg DAILY IV 04/25/24 10:00 Fluoxetine HCl 20 mg DAILY PO 04/25/24 10:00 Diagnostic Test (Pha) 1 strip ACHS 04/25/24 07:00 Insulin Human Regular ACHS SC 04/25/24 07:00 Dextrose 50 ml UD PRN IV 04/25/24 00:45 Sodium Chloride 1,000 ml @ 60 mls/hr [id number] IV 04/25/24 00:45 04/25/24 03:38 60 MLS/HR Acetaminophen/ Hydrocodone Bitart 1 tab Q4HP PRN PO 04/25/24 00:45 Ondansetron HCl 4 mg Q4HP PRN IV 04/25/24 00:45 Docusate Sodium 100 mg BIDPRN PRN PO 04/25/24 00:45 Acetaminophen 650 mg Q6HP PRN PO 04/25/24 00:45 Exam Vital Signs Vital Signs Date Time Temp Pulse Resp B/P (MAP) Pulse Ox O2 Delivery O2 Flow Rate FiO2 04/25/24 03:52 72 139/90 04/25/24 03:11 18 97 04/24/24 20:46 98.9 General Appearance: Alert, Oriented X3, Cooperative, No acute distress HEENT: Atraumatic, PERRLA, EOMI, Mucous membr. moist/pink Respiratory: Clear to auscultation, Normal air movement Cardiovascular: Regular rate, Normal S1, Normal S2, No murmurs Abdominal: Normal bowel sounds, Soft, No tenderness, No hepatospenomegaly, No masses Extremities: No clubbing, No cyanosis, No edema, Normal pulses, No tenderness/swelling Skin: No rashes, No breakdown, No significant lesion Neuro: Normal gait, Normal speech, Strength at 5/5 X4 ext, Normal tone, Sensation intact, Cranial nerves 3-12 NL, Reflexes 2+ Psych/Mental Status: Mental status NL, Mood NL Labs/Xrays Labs Test 04/25/24 03:28 04/25/24 00:11 04/24/24 21:01 Range/Units White Blood Count 4.3 L 4.4-10.8 10^3/uL Red Blood Count 4.70 4.5-5.90 10^6/uL Hemoglobin 12.4 L 13.5-17.5 g/dL Hematocrit 37.7 L 41.0-53.0 % Mean Corpuscular Volume 80.2 80.0-100.0 fL Mean Corpuscular Hemoglobin 26.4 L 28.0-32.0 pg Mean Corpuscular Hemoglobin Concent 33.0 32.0-36.0 g/dL Red Cell Distribution Width 17.6 H 11.8-14.3 % Platelet Count 248 140-450 10^3/uL Mean Platelet Volume 7.7 6.9-10.8 fL Neutrophils (%) (Auto) 37.0-80.0 % Lymphocytes (%) (Auto) 10.0-50.0 % Monocytes (%) (Auto) 0.0-12.0 % Basophils (%) (Auto) 0.0-2.0 % Neutrophils # (Auto) 1.6-8.6 10 ^3/uL Lymphocytes # (Auto) 0.4-5.4 10 ^3/uL Monocytes # (Auto) 0-1.3 10 ^3/uL Sodium Level 138 136-145 mmol/L Potassium Level 3.5 3.5-5.1 mmol/L Chloride Level 105 98-107 mmol/L Carbon Dioxide Level 23 20-31 mmol/L Anion Gap 10 5-15 Blood Urea Nitrogen 9 9-23 mg/dL Creatinine 1.05 0.700-1.30 mg/dL Glomerular Filtration Rate Calc 92 >90 mL/min BUN/Creatinine Ratio 8.6 L 10.0-20.0 Serum Glucose 144 H 74-106 mg/dL Calcium Level 9.7 8.7-10.4 mg/dL Total Bilirubin 0.4 0.2-1.0 mg/dL Aspartate Amino Transferase (AST) 77 H 13-40 U/L Alanine Aminotransferase (ALT) 40 7-40 U/L Alkaline Phosphatase 76 46-116 U/L Total Protein 8.0 5.7-8.2 g/dL Albumin 4.0 3.2-4.8 g/dL Troponin I High Sensitivity 8 </=54 ng/L Eosinophils (%) (Auto) 1.0 0.0-7.0 % Eosinophils # (Auto) 0 0-0.8 10 ^3/uL Basophils # (Auto) 0 0-0.2 10 ^3/uL Nucleated Red Blood Cells 0.1 % PATIENT: MATTEO L[address] II ACCT: [id number] UNIT: [id number] : 1985 LOC: ER ROOM / BED: / AGE / SEX: 38 / M ADM STATUS: REG ER SERVICE 53 ORDERING PHYSICIAN: LATASHA VIVEROS MD PROCEDURE(s): CXRP - CHEST PORTABLE REASON: htn, sob ORDER NUMBER(s): [id number], ACCESSION NUMBER(s): [id number] CHEST RADIOGRAPH Indication: htn, sob Technique: Single frontal view of the chest was obtained Comparison: XY CHEST PORTABLE on DOS: 08/05/23 FINDINGS: Lines and Tubes: None Lungs: Clear Pleura: No effusion. No pneumothorax. Cardiomediastinal contours: Unremarkable Bones: Unremarkable IMPRESSION: Clear lungs. Assessment/Plan Assessment/Plan Hypertensive urgency Paresthesias Shortness of breath Plan 1. Admit to telemetry unit 2. Breathing treatment 3. Pain control management 4. Management of fluids and electrolytes 5. Consultation for hospitalist 6. Diagnostic tests chest x-ray 7. DVT prophylaxis on SCDs 8. Repeat labs CBC, CMP in a.m. 9. Continue with current medical management 10. Treatment plan discussed with patient and RN. Patient verbalized unders tanding. Plan discussed with: Patient, Other (RN) My Orders Orders - BANDAR QUINTERO DNP Procedure Category Date Status Time Hydralazine Injection PHA 04/25/24 In Process (Apresoline Inject 00:45 Amlodipine Tablet PHA 04/25/24 In Process (Norvasc Tablet) 10:00 Consistent DIET 04/25/24 Transmitted Carb(Ccho)Diabetes Breakfast Pantoprazole PHA 04/25/24 In Process (Protonix) 10:00 Fluoxetine Capsule PHA 04/25/24 In Process (Prozac Capsule) 10:00 Glucose Blood PHA 04/25/24 In Process (Accu-Chek Comfort 07:00 Insulin R (Human) PHA 04/25/24 In Process (Insulin R) 07:00 Dextrose 50% Syringe PHA 04/25/24 In Process 00:45 Allergies VELVET 04/25/24 In Process 00:31 Code Status CODE 04/25/24 Transmitted 00:31 Sodium Chloride 0.9% PHA 04/25/24 In Process 00:45 Oxygen Per Hour RT 04/25/24 Transmitted 00:31 Hydrocodone-Acet PHA 04/25/24 In Process 5/325mg Tab ([place] 00:45 Ondansetron Hcl PHA 04/25/24 In Process (Zofran) 00:45 Docusate Sodium PHA 04/25/24 In Process Capsule (Colace 00:45 Complete Blood Count LAB 04/26/24 Verified 04:00 Comprehensive LAB 04/26/24 Verified Metabolic Panel 04:00 Condition: Serious VELVET 04/25/24 In Process 00:31 Acetaminophen Tablet PHA 04/25/24 In Process (Tylenol Tablet) 00:45 Bedrest With Bathroom VELVET 04/25/24 In Process Privileg 00:31 Sequential VELVET 04/25/24 In Process Compression Device Complete Blood Count LAB 04/25/24 In Process 04:00 Manual Differential LAB 04/25/24 In Process 03:28 Admit ADMIT 04/25/24 Transmitted 04:33 Nitroglycerin PHA 04/25/24 Transmitted Sublingual (Ntrostat 04:45 Morphine Sulfate PHA 04/25/24 Transmitted Injection 04:45 Notify Of Changes [facility] 04/25/24 Transmitted From Base 04:33 Mechanical Fitter For [facility] 04/25/24 Transmitted 24 Hours 04:33 Emergency Dysrhythmia VELVET 04/25/24 Transmitted Protocol 04:33 Rhythm Strips Once [facility] 04/25/24 Transmitted Every Shift 04:33 Oxygen By Nasal RT 04/25/24 Transmitted Cannula 04:33 Problem List: (1) Hypertensive urgency (2) Paresthesias (3) Shortness of breath Date of Service: Apr 25, 2024 Billing Provider: BANDAR QUINTERO DNP Common Visit Codes: [id number] INP/OBS CARE (HIGH) BANDAR QUINTERO DNP Apr 25, 2024 04:34
[2024-04-25] MEDS ORDERED: MORPHINE SULFATE INJ 2 MG/ml SYRG IV PRN (04:45)
[2024-04-25] MEDS ORDERED: NITROGLYCERIN 0.4 MG SL TAB SL PRN (04:45)
[2024-04-25 06:06] LABS: Eosinophils % (manual) 2 (0-7); Lymphocytes % (manual) 72 (10.0-50.0); Platelet Estimate Adequate
--- NOTE | 2024-04-25 06:13 | ECG ---
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
[2024-04-25] MEDS: InsuLIN REG 1unit/0.01ml Soln (100units/ml) SC SCH (07:00)
[2024-04-25] MEDS: ACCU-CHEK COMFORT CURVE STRIP VI SCH (07:03)
[2024-04-25] MEDS: PANTOPRAZOLE 40 MG/10 ML VIAL INJ IV SCH (10:47)
[2024-04-25] MEDS: FLUoxetine HCL 20 MG CAP PO SCH (10:48)
[2024-04-25] MEDS: amLODIPine BESYLATE 5 MG TAB PO SCH (10:48)
[2024-04-25 10:50] VITALS: BP 114/78; PULSE 50; RESP 20; TEMP 97.6; O2SAT 99
[2024-04-25 14:47] VITALS: BP 114/78; PULSE 50; RESP 18; RESP 20; TEMP 97.6; O2SAT 96; O2SAT 99
--- NOTE | 2024-04-25 16:47 | DVHDS2 ---
Discharge Summary Date of Admission Apr 25, 2024 at 05:08 Date of Discharge: Apr 25, 2024 Admitting Diagnosis Accelerated hypertension Labs/Diagnostic Data: Laboratory Results Test 04/25/24 11:34 04/25/24 03:28 04/25/24 00:11 04/24/24 21:01 POC Glucose 232 mg/dl (70-106) White Blood Count 4.3 10^3/uL (4.4-10.8) Red Blood Count 4.70 10^6/uL (4.5-5.90) Hemoglobin 12.4 g/dL (13.5-17.5) Hematocrit 37.7 % (41.0-53.0) Mean Corpuscular Volume 80.2 fL (80.0-100.0) Mean Corpuscular Hemoglobin 26.4 pg (28.0-32.0) Mean Corpuscular Hemoglobin Concent 33.0 g/dL (32.0-36.0) Red Cell Distribution Width 17.6 % (11.8-14.3) Platelet Count 248 10^3/uL (140-450) Mean Platelet Volume 7.7 fL (6.9-10.8) Neutrophils (%) (Auto) % (37.0-80.0) Lymphocytes (%) (Auto) % (10.0-50.0) Monocytes (%) (Auto) % (0.0-12.0) Basophils (%) (Auto) % (0.0-2.0) Neutrophils # (Auto) 10 ^3/uL (1.6-8.6) Lymphocytes # (Auto) 10 ^3/uL (0.4-5.4) Monocytes # (Auto) 10 ^3/uL (0-1.3) Differential Total Cells Counted 100.0 (100) Neutrophils % (Manual) 26 (37.0-80.0) Band Neutrophils % (Manual) 0 Lymphocytes % (Manual) 72 (10.0-50.0) Monocytes % (Manual) 0 (0-12) Eosinophils % (Manual) 2 (0-7) Basophils % (Manual) 0 (0.0-2.0) Metamyelocytes % (manual) 0 Myelocytes % (Manual) 0 Promyelocytes % (Manual) 0 Blast Cells % (Manual) 0 Reactive Lymphocytes 0 Platelet Estimate Adequate Sodium Level 138 mmol/L (136-145) Potassium Level 3.5 mmol/L (3.5-5.1) Chloride Level 105 mmol/L (98-107) Carbon Dioxide Level 23 mmol/L (20-31) Anion Gap 10 (5-15) Blood Urea Nitrogen 9 mg/dL (9-23) Creatinine 1.05 mg/dL (0.700-1.30) Glomerular Filtration Rate Calc 92 mL/min (>90) BUN/Creatinine Ratio 8.6 (10.0-20.0) Serum Glucose 144 mg/dL (74-106) Calcium Level 9.7 mg/dL (8.7-10.4) Total Bilirubin 0.4 mg/dL (0.2-1.0) Aspartate Amino Transferase (AST) 77 U/L (13-40) Alanine Aminotransferase (ALT) 40 U/L (7-40) Alkaline Phosphatase 76 U/L (46-116) Total Protein 8.0 g/dL (5.7-8.2) Albumin 4.0 g/dL (3.2-4.8) Troponin I High Sensitivity 8 ng/L (</=54) Eosinophils (%) (Auto) 1.0 % (0.0-7.0) Eosinophils # (Auto) 0 10 ^3/uL (0-0.8) Basophils # (Auto) 0 10 ^3/uL (0-0.2) Nucleated Red Blood Cells 0.1 % Other Laboratory Tests 04/25/24 03:28 Brief Hx & Hospital Course: History of Present Illness The patient is a 38-year-old male with past medical history of depression, anxiety, DM, GERD, and schizophrenia who presented to [facility] ED with complaint of headache. Patient reports symptoms progressively get worse with blurry vision, dizziness, elevated blood pressure, getting worse that prompted this visit. Patient was seen and evaluated in the ED, laboratory data shows WBC 4.6, platelets 257, sodium 136, potassium 3.5, BUN 9, creatinine 1.04, GFR 93, glucose 129, troponin 8, blood pressure 153/101, heart rate 74, temperature 98.9 F, O2 saturation 99% on room air. Please see medication orders section in the computer. On my assessment, patient denies chest pain, no dizziness, no diaphoresis, no headache at this moment, no shortness of breath, no nausea, no vomiting, no fever, no chills. Patient was admitted further evaluation and medical management. Course of hospitalization: Patient was blood pressure improved. At the time of assessment, the patient was sleeping soundly, and after being awakened, he states that he had hot flashes, cold flashes, headache. Long discussion was made with the patient was well as a nurse, with findings with the patient currently being homeless and needed a place to stay. Social service consultation will be obtained to assist patient with any matters that he may need. Patient will be discharged given there is no medical necessity to stay in the hospital. Patient was agreeable with discharge plan. Physical examination General: Alert and Oriented x3. No acute distress. Well-nourished. Eyes: EOMI. Anicteric. HENT: Moist mucous membranes. Lungs: Clear to auscultation bilaterally. No accessory muscle use. Cardiovascular: Regular rate and rhythm. No murmur. No JVD. Abdomen: Soft, non-tender and non-distended. No palpable masses. Extremities: No edema. Non-tender. Skin: No rashes or lesions. Warm. Neurologic: No focal neurological deficits. CN II-XII grossly intact, but not individually tested. Psychiatric: Cooperative. Appropriate mood and affect. Total time spent with patient discussing and formulating plan of care: 35 minutes. This medical document was created using an electronic medical record system with [employer] dictation system. Although this document has been carefully reviewed, there may still be some phonetic and typographical errors. These areas are purely typographical due to imperfections of the software programs, and do not reflect any compromise in the patient's medical care. Condition at Discharge: Fair Final Diagnosis/Problems List Accelerated hypertension Discharge Disposition: Home Discharge Instruct/Medications Diet: Regular Activity: No Restrictions, As Tolerated Follow Up/Referral: Follow up with PCP, Dr. Hernandez Medications: Continue all home medication 36 Discharge Statement: "Patient was advised to return to the ER or call 911 if any headaches, dizziness, shortness of breath, chest pain, abdominal pain, bleeding, fevers, or worsening of medical condition. Patient was counseled about treatment plan, medications, possible side effects, patientverbalized understanding. All questions were answered to the best of my ability. This discharge took greater then 30 minutes in planning, reviewing documentation, counseling the patient, and discussing with other team members." ASSESSMENT ASSESSMENT Assessment Accelerated hypertension Date of Service: Apr 25, 2024 Billing Provider: ADOLFO COLES NP Common Visit Codes: 09329-UHB/OBS DISCH DAY >30min ADOLFO COLES NP Apr 25, 2024 16:46
[2024-04-25 17:50] VITALS: BP 114/78; PULSE 63; RESP 18; TEMP 98.5; O2SAT 96
== END 2024-04-25 18:20 | disposition home or self-care (01) | DRG 199 ==
LOC: EDBD 20:46 → ER 20:46 → EDSEX 20:46 → OVERFLOW 04-25 04:34
PROVIDERS: ADMIT Nurse Practitioner Acute Care; ATTEND Nurse Practitioner Acute Care
DX: I16.0 Hypertensive urgency (principal); E11.9 Type 2 diabetes mellitus without complications; F17.210 Nicotine dependence, cigarettes, uncomplicated; F20.9 Schizophrenia, unspecified; F41.9 Anxiety disorder, unspecified; K21.9 Gastro-esophageal reflux disease without esophagitis; Z59.00 Homelessness unspecified; Z79.899 Other long term (current) drug therapy; Z79.4 Long term (current) use of insulin
CPT/HCPCS: 36415; 71045; 80048; 80053; 82962; 84484; 85007; 85025; 85027; 93005; 99291; G0378; J1815; J2470

== ENCOUNTER 2024-06-05 17:29 | Inpatient (IN) | payer MEDICAID ==
[~2024-06-05] VITALS: Ht 180.3 cm; Wt 76.2 kg
--- NOTE | 2024-06-05 18:18 | ED.PDOC ---
History of Present Illness(N Chief Complaint: Lower Extremity Time Seen by MD: 17:54 Primary Care Provider: NONE History of Present Illness: Nurses Notes, Medications, Allergies Allergies: Coded Allergies: NO KNOWN ALLERGIES (Unverified , 08/25/20) Home Meds Active Scripts Pantoprazole Sodium Sesquihydr (Protonix) 40 Mg Tab, 40 MG PO DAILY PRN for 90 Days, #90 TAB Prov:SALOME ELIZABETH RESIDENT 09/21/23 Sucralfate (CARAFATE SUSP) 1 Gm/10 Ml Ss, 1 GM PO QID@0600,1130,1700,2200 for 30 Days, #120 ML Prov:SALOME ELIZABETH RESIDENT 09/21/23 Nystatin (Mouth-Throat) (Mycostatin (Mouth-Throat)) 500,000 Units/5 Ml Ss, 5 ML MT QID for 14 Days, #60 ML Prov:SALOME ELIZABETH RESIDENT 09/21/23 Baclofen (Baclofen) 10 Mg Tab, 10 MG PO BID, #20 TAB Prov:LOLA SOSA 05/25/21 Ibuprofen (Ibuprofen) 800 Mg Tab, 800 MG PO Q8HP PRN, #30 TAB Prov:LOLA SOSA 05/25/21 Reported Medications Fluoxetine Hcl (Fluoxetine Hcl) 20 Mg Cap, 20 MG PO DAILY for 30 Days, MG 08/05/23 Aripiprazole (Abilify) 20 Mg Tab, 15 MG PO QPM, TAB 08/05/23 Information Source: Patient Mode of Arrival: Ambulatory Past Medical History PAST MEDICAL HISTORY: Anxiety, Depression, DM, GERD, Schizophrenia Surgical History: Denies all surgeries Family History Family History: Reviewed,noncontributory to illness Social History Smoker: Cigarettes Alcohol: Denies ETOH Use Drugs: Denies Drug Use Lives In: Home Constitutional: denies: chills, diaphoresis, fatigue, fever, malaise, sweats, weakness, others EENTM: denies: blurred vision, double vision, ear bleeding, ear discharge, ear drainage, ear pain, ear ringing, eye pain, eye redness, hearing loss, mouth pain, mouth swelling, nasal discharge, nose bleeding, nose congestion, nose pain, photophobia, tearing, throat pain, throat swelling, voice changes, others Respiratory: denies: cough, hemoptysis, orthopnea, SOB at rest, shortness of breath, SOB with excertion, stridor, wheezing, others Cardiovascular: denies: chest pain, dizzy spells, diaphoresis, Dyspnea on exertion, edema, irregular heart beat, left arm pain, lightheadedness, palpitations, PND, syncope, others Gastrointestinal: denies: abdomen distended, abdominal pain, blood streaked bowels, constipated, diarrhea, dysphagia, difficulty swallowing, hematemesis, melena, nausea, poor appetite, poor fluid intake, rectal bleeding, rectal pain, vomiting, others Genitourinary: denies: burning, dysuria, flank pain, frequency, hematuria, incontinence, penile discharge, penile sore, pain, testicle pain, testicle swelling, urgency, others Neurological: denies: dizziness, fainting, headache, left sided numbness, left sided weakness, numbness, paresthesia, pre-existing deficit, right sided numbness, right sided weakness, seizure, speech problems, tingling, tremors, weakness, others Musculoskeletal: denies: back pain, gout, joint pain, joint swelling, muscle pain, muscle stiffness, neck pain, others Integumetry: reports: wounds; denies: bruises, change in color, change in hair/nails, dryness, laceration, lesions, lumps, rash, others Allergic/Immunocompromised: denies: Difficulty Healing, Frequent Infections, Hives, Itching, others Hematologic/Lymphatic: denies: anemia, blood clots, easy bleeding, easy br uising, swollen glands, others Endocrine: denies: excessive hunger, excessive sweating, excessive thirst, excessive urination, flushing, intolerance to cold, intolerance to heat, unexplained weight gain, unexplained weight loss, others Psychiatric: denies: anxiety, bipolar disorder, depression, hopeless, panic disorder, schizophrenia, sleepless, suicidal, others Was a procedure done? Was a procedure done?: No X-Ray, Labs, Meds, VS Vital Signs Date Time Temp Pulse Resp B/P (MAP) Pulse Ox O2 Delivery O2 Flow Rate FiO2 06/05/24 17:29 97.4 82 18 135/87 (103) 99 97.4 Lab Test 06/05/24 17:49 Range/Units POC Glucose 120 H 70-106 mg/dl Departure 1 Departure Disposition: 01 HOME / SELF CARE / HOMELESS Condition: Stable Discharged With: Self Critical Care Note Critical Care Time?: No Stability Stability form required: GENARO Koroma Jun 05, 2024 18:18
--- NOTE | 2024-06-05 18:31 | ED.PDOC ---
History of Present Illness(SKN HPI Comments This is a 38-year-old type 2 diabetic homeless male with chief complaint of infected left toes. Patient states blister started 1 month ago between the 2nd 3rd and 4th digit left foot has been progressively getting worse over the past week. He reports drainage, severe pain, difficulty ambulating. He has fevers, nausea, vomiting, or chills. Chief Complaint: Lower Extremity Time Seen by MD: 17:54 Primary Care Provider: NONE History of Present Illness: Nurses Notes, Medications, Allergies Allergies: Coded Allergies: NO KNOWN ALLERGIES (Unverified , 08/25/20) Home Meds Active Scripts Pantoprazole Sodium Sesquihydr (Protonix) 40 Mg Tab, 40 MG PO DAILY PRN for 90 Days, #90 TAB Prov:SALOME ELIZABETH RESIDENT 09/21/23 Sucralfate (CARAFATE SUSP) 1 Gm/10 Ml Ss, 1 GM PO QID@0600,1130,1700,2200 for 30 Days, #120 ML Prov:SALOME ELIZABETH RESIDENT 09/21/23 Nystatin (Mouth-Throat) (Mycostatin (Mouth-Throat)) 500,000 Units/5 Ml Ss, 5 ML MT QID for 14 Days, #60 ML Prov:SALOME ELIZABETH RESIDENT 09/21/23 Baclofen (Baclofen) 10 Mg Tab, 10 MG PO BID, #20 TAB Prov:LOLA SOSA 05/25/21 Ibuprofen (Ibuprofen) 800 Mg Tab, 800 MG PO Q8HP PRN, #30 TAB Prov:LOLA SOSA 05/25/21 Reported Medications Fluoxetine Hcl (Fluoxetine Hcl) 20 Mg Cap, 20 MG PO DAILY for 30 Days, MG 08/05/23 Aripiprazole (Abilify) 20 Mg Tab, 15 MG PO QPM, TAB 08/05/23 Information Source: Patient Mode of Arrival: Ambulatory Past Medical History PAST MEDICAL HISTORY: Anxiety, Depression, DM, GERD, Schizophrenia Surgical History: Denies all surgeries Family History Family History: Reviewed,noncontributory to illness Social History Smoker: Cigarettes Alcohol: Denies ETOH Use Drugs: Denies Drug Use Lives In: Home Constitutional: denies: chills, diaphoresis, fatigue, fever, malaise, sweats, weakness, others EENTM: denies: blurred vision, double vision, ear bleeding, ear discharge, ear drainage, ear pain, ear ringing, eye pain, eye redness, hearing loss, mouth pa in, mouth swelling, nasal discharge, nose bleeding, nose congestion, nose pain, photophobia, tearing, throat pain, throat swelling, voice changes, others Respiratory: denies: cough, hemoptysis, orthopnea, SOB at rest, shortness of breath, SOB with excertion, stridor, wheezing, others Cardiovascular: denies: chest pain, dizzy spells, diaphoresis, Dyspnea on exertion, edema, irregular heart beat, left arm pain, lightheadedness, palpitations, PND, syncope, others Gastrointestinal: denies: abdomen distended, abdominal pain, blood streaked bowels, constipated, diarrhea, dysphagia, difficulty swallowing, hematemesis, melena, nausea, poor appetite, poor fluid intake, rectal bleeding, rectal pain, vomiting, others Genitourinary: denies: burning, dysuria, flank pain, frequency, hematuria, incontinence, penile discharge, penile sore, pain, testicle pain, testicle swelling, urgency, others Neurological: denies: dizziness, fainting, headache, left sided numbness, left sided weakness, numbness, paresthesia, pre-existing deficit, right sided numbness, right sided weakness, seizure, speech problems, tingling, tremors, weakness, others Musculoskeletal: denies: back pain, gout, joint pain, joint swelling, muscle pain, muscle stiffness, neck pain, others Integumetry: reports: wounds (left foot 2nd 3rd and 4th digits ); denies: bruises, change in color, change in hair/nails, dryness, laceration, lesions, lumps, rash, others Allergic/Immunocompromised: denies: Difficulty Healing, Frequent Infections, Hives, Itching, others Hematologic/Lymphatic: denies: anemia, blood clots, easy bleeding, easy bruising, swollen glands, others Endocrine: denies: excessive hunger, excessive sweating, excessive thirst, excessive urination, flushing, intolerance to cold, intolerance to heat, unexplained weight gain, unexplained weight loss, others Psychiatric: denies: anxiety, bipolar disorder, depression, hopeless, panic disorder, schizophrenia, sleepless, suicidal, others Physical Exam General Appearance: No Apparent Distress, Normal HEENT: Normal ENT Inspection, Pharynx Normal Neck: Full Range of Motion, Non-Tender Respiratory: Chest Non-Tender, Lungs Clear, No Accessory Muscle Use, No Respiratory Distress, Normal Breath Sounds Cardiovascular: No Edema, No JVD, No Murmur, No Gallop, Normal Peripheral Pulses, Regular Rate/Rhythm Breast Exam: Deferred Gastrointestinal: No Organomegaly, Non Tender, No Pulsatile Mass, Normal Bowel Sounds, Soft Genitalia: Deferred Pelvic: Deferred Rectal: Deferred Extremities: No calf tenderness, Normal capillary refill, Normal inspection, Normal range of motion, Non-tender, Pedal edema (Nonpitting left foot positive pedal pulse strength sensory motion intact) Musculoskeletal : Apperance: Normal Neurologic: Alert, dredge deckhand II-XII nml as Tested, No Motor Deficits, Normal Affect, Normal Mood, No Sensory Deficits Cerebellar Function: Normal Reflexes: Normal Skin: Dry, Normal Color, Warm, Wounds (Left foot 2nd 3rd and 4th digit ulcers with drainage surrounding erythema streaking) Lymphatic: No Adenopathy Was a procedure done? Was a procedure done?: No Differential Diagnosis (INTG) Differential Diagnosis: Abrasion, Cellulitis Differential Diagnosis: Contact Dermatitis, Impetigo X-Ray, Labs, Meds, VS Vital Signs Date Time Temp Pulse Resp B/P (MAP) Pulse Ox O2 Delivery O2 Flow Rate FiO2 06/05/24 19:08 98.3 71 18 159/90 (113) 99 98.3 06/05/24 19:06 71 18 159/90 06/05/24 18:30 82 18 99 Room Air 06/05/24 18:30 97.4 82 18 135/87 (103) 99 97.4 06/05/24 17:29 97.4 82 18 135/87 (103) 99 97.4 Lab Test 06/05/24 18:56 06/05/24 17:49 Range/Units White Blood Count 4.9 4.4-10.8 10^3/uL Red Blood Count 4.68 4.5-5.90 10^6/uL Hemoglobin 12.4 L 13.5-17.5 g/dL Hematocrit 38.0 L 41.0-53.0 % Mean Corpuscular Volume 81.2 80.0-100.0 fL Mean Corpuscular Hemoglobin 26.5 L 28.0-32.0 pg Mean Corpuscular Hemoglobin Concent 32.6 32.0-36.0 g/dL Red Cell Distribution Width 18.1 H 11.8-14.3 % Platelet Count 216 140-450 10^3/uL Mean Platelet Volume 7.9 6.9-10.8 fL Neutrophils (%) (Auto) 43.7 37.0-80.0 % Lymphocytes (%) (Auto) 39.5 10.0-50.0 % Monocytes (%) (Auto) 13.8 H 0.0-12.0 % Eosinophils (%) (Auto) 2.9 0.0-7.0 % Basophils (%) (Auto) 0.1 0.0-2.0 % Neutrophils # (Auto) 2.2 1.6-8.6 10 ^3/uL Lymphocytes # (Auto) 2.0 0.4-5.4 10 ^3/uL Monocytes # (Auto) 0.7 0-1.3 10 ^3/uL Eosinophils # (Auto) 0.1 0-0.8 10 ^3/uL Basophils # (Auto) 0 0-0.2 10 ^3/uL Nucleated Red Blood Cells 0.1 % Sodium Level 138 136-145 mmol/L Potassium Level 3.8 3.5-5.1 mmol/L Chloride Level 107 98-107 mmol/L Carbon Dioxide Level 27 20-31 mmol/L Anion Gap 4 L 5-15 Blood Urea Nitrogen 11 9-23 mg/dL Creatinine 0.88 0.700-1.30 mg/dL Glomerular Filtration Rate Calc 111 >90 mL/min BUN/Creatinine Ratio 12.5 10.0-20.0 Serum Glucose 93 74-106 mg/dL Calcium Level 9.2 8.7-10.4 mg/dL Total Bilirubin 0.4 0.2-1.0 mg/dL Aspartate Amino Transferase (AST) 44 H 13-40 U/L Alanine Aminotransferase (ALT) 31 7-40 U/L Alkaline Phosphatase 83 46-116 U/L Total Protein 8.4 H 5.7-8.2 g/dL Albumin 3.9 3.2-4.8 g/dL POC Glucose 120 H 70-106 mg/dl X-Ray, Labs, Meds, VS Comment IMAGINING: IMPRESSION: 1. Significant soft tissue edema. However there is a small dot of gas or air which is lateral to the 1st tarsometatarsal joint which is concerning for possible underlying infection. Follow-up MRI examination of the is recommended of left foot possible underlining infection with a noted small dot of gas. LABS: CBC within normal limits CMP within normal limits MEDS: Morphine 1 mg IV push Vancomycin 1 g IV piggyback PLAN: Patient diabetic and homeless multiple infected toes left foot we will admit for wound infection. Time of 1ST Reevaluation: 19:14 Reevaluation 1ST: Unchanged Patient Education/Counseling: Diagnosis, Treatment, Prognosis, Need For Follow Up Family Education/Counseling: No Family Present Departure 1 Departure Time of Disposition: 18:52 Impression: Primary Impression: Toe infection Disposition: 09 ADMITTED INPATIENT Condition: Stable Discharged With: Self Critical Care Note Critical Care Time?: No Stability Stability form required: GENARO Koroma Jun 05, 2024 18:31
[2024-06-05] MEDS: MORPHINE SULFATE INJ 2 MG/ml SYRG IV ONE (19:06)
[2024-06-05] MEDS: VANCOMYCIN 1GM/200ML PM 250 ML IV ONE (19:06)
[2024-06-05 19:13] LABS: Basophils # (auto) 0 10 ^3/uL (0-0.2); Basophils % (auto) 0.1 % (0.0-2.0); Eosinophils # (auto) 0.1 10 ^3/uL (0-0.8); Mean Corpuscular Hemoglobin 26.5 pg (28.0-32.0); Monocytes # (auto) 0.7 10 ^3/uL (0-1.3); Nucleated Red Blood Cells % 0.1 %; Platelet Count (auto) 216 10^3/uL (140-450); White Blood Cell 4.9 10^3/uL (4.4-10.8)
[2024-06-05 19:15] LABS: Eosinophils % (auto) 2.9 % (0.0-7.0); Hemoglobin 12.4 g/dL (13.5-17.5); Lymphocytes % (auto) 39.5 % (10.0-50.0); Mean Corpuscular Hgb Conc. 32.6 g/dL (32.0-36.0); Mean Corpuscular Volume 81.2 fL (80.0-100.0); Monocytes % (auto) 13.8 % (0.0-12.0); Neutrophils # (auto) 2.2 10 ^3/uL (1.6-8.6); Neutrophils % (auto) 43.7 % (37.0-80.0); Red Blood Cells 4.68 10^6/uL (4.5-5.90); Red Cell Distribution Width 18.1 % (11.8-14.3)
[2024-06-05 19:23] LABS: Alanine Aminotransferase 31 U/L (7-40); Albumin 3.9 g/dL (3.2-4.8); Alkaline Phosphatase 83 U/L (46-116); Anion Gap 4 (5-15); BUN/Creatinine Ratio 12.5 (10.0-20.0); Bilirubin, Total 0.4 mg/dL (0.2-1.0); Blood Urea Nitrogen 11 mg/dL (9-23); Calcium 9.2 mg/dL (8.7-10.4); Carbon Dioxide 27 mmol/L (20-31); Glucose 93 mg/dL (74-106); Potassium 3.8 mmol/L (3.5-5.1); Sodium 138 mmol/L (136-145)
[2024-06-05 19:25] LABS: Aspartate Aminotransferase 44 U/L (13-40); Chloride 107 mmol/L (98-107); Total Protein 8.4 g/dL (5.7-8.2)
--- NOTE | 2024-06-05 22:28 | DVH ---
EXAMINATION: CT CT L FOOT WO CONTRAST INDICATION: 2nd, 3rd and 4th digit pain and wounds COMPARISON: None TECHNIQUE: CT of the left foot was performed without contrast. Volume transverse images were obtained reconstructed in multiple planes using bone and soft tissue algorithms. CONTRAST: CTDI = 7.75 mGy and DLP = 209.97 mGy cm FINDINGS: Foot is edematous. Bones are intact there is a small dot of air or gas adjacent to the 1st tarsometatarsal joint which i s abnormal. It seen on axial image 90 sagittal image 53. Is worrisome for underlying infection. No ev idence for osteomyelitis. IMPRESSION: 1. Significant soft tissue edema. However there is a small dot of gas or air which is lateral to the 1st tarsometatarsal joint which is concerning for possible underlying infection. Follow-up MRI examin ation of the
[2024-06-06] VITALS (8 sets, daily range): BP systolic 124–142; BP diastolic 76–90; PULSE 64–79; RESP 15–20; TEMP 97.4–98.4; O2SAT 96–100
[2024-06-06] MEDS ORDERED: MORPHINE SULFATE INJ 2 MG/ml SYRG IV PRN
[2024-06-06] MEDS ORDERED: NITROGLYCERIN 0.4 MG SL TAB SL PRN
[2024-06-06] MEDS ORDERED: ONDANSETRON HCL 4 MG/2 ML VIAL IV PRN (00:45)
[2024-06-06] MEDS ORDERED: DEXTROSE (50%) 50ML SYRG IV PRN (00:45)
[2024-06-06] MEDS ORDERED: ACETAMINOPHEN 325 MG TAB PO PRN (00:45)
[2024-06-06] MEDS ORDERED: VANCOMYCIN PER PHARMACY 0 MG IV SCH (00:45)
--- NOTE | 2024-06-06 01:12 | DVHHP2 ---
History of Present Illness Reason for Visit: Left foot infection History of Present Illness 38-year-old male presents for evaluation of infection to his left foot. Patient reports a one month history of noticing redness between his toes and over the past one-week he noticed. Discharge and increased pain at the site. Reports occasional fever. No trauma to the area. No other acute complaints. Past Medical History Diabetes mellitus, GERD, schizophrenia, HIV, depression Past Surgical History Denies Family History Noncontributory Smoke: <1 pack per day ALCOHOL: none Drugs: None Lives: with Family Review of Systems Review of Systems Review of systems are currently negative otherwise addressed in HPI. Allergies: Coded Allergies: NO KNOWN ALLERGIES (Unverified , 08/25/20) Medications Current Medications Medications Dose Ordered Sig/Elen Route Start Time Stop Time Status Last Admin Dose Admin Nitroglycerin 0.4 mg Q5MINP PRN SL 06/06/24 00:00 Morphine Sulfate 2 mg Q30M PRN IV 06/06/24 00:00 Exam Vital Signs Vital Signs Date Time Temp Pulse Resp B/P (MAP) Pulse Ox O2 Delivery O2 Flow Rate FiO2 06/06/24 00:04 98.0 62 20 130/84 (99) 100 98.0 06/05/24 18:30 Room Air Exam Gen: 38-year-old male in mild distress Skin: Warm, dry, normal color and texture, no rash. HEENT: Normocephalic atraumatic, mucous membranes moist and pink. Neck: Cervical and supraclavicular nodes normal without enlargement, trachea is midline, thyroid gland is normal without masses. Pulmonary: Clear to auscultation and percussion bilaterally. Cardiac: Regular rate and rhythm. No murmur Abdomen: Soft, nontender, nondistended, bowel sounds present all 4 quadrants, no guarding, no rigidity, no organomegaly. Extremities: No cyanosis, clubbing, left foot cellulitis with mild purulent discharge in between toes Neuro: Cranial nerves II through XII grossly intact, normal affect and speech, no focal motor deficits. Labs/Xrays ORDERING PHYSICIAN: GENARO BELLE PROCEDURE(s): LFTCT - CT L FOOT WO CONTRAST REASON: 2nd, 3rd and 4th digit pain and wounds ORDER NUMBER(s): [id number], ACCESSION NUMBER(s): [id number] EXAMINATION: CT CT L FOOT WO CONTRAST INDICATION: 2nd, 3rd and 4th digit pain and wounds COMPARISON: None TECHNIQUE: CT of the left foot was performed without contrast. Volume transverse images were obtained reconstructed in multiple planes using bone and soft tissue algorithms. CONTRAST: CTDI = 7.75 mGy and DLP = 209.97 mGy cm FINDINGS: Foot is edematous. Bones are intact there is a small dot of air or gas adjacent to the 1st tarsometatarsal joint which is abnormal. It seen on axial image 90 sagittal image 53. Is worrisome for underlying infection. No evidence for osteomyelitis. IMPRESSION: 1. Significant soft tissue edema. However there is a small dot of gas or air which is lateral to the 1st tarsometatarsal joint which is concerning for possible underlying infection. Follow-up MRI examination of the Labs Test 06/05/24 18:56 06/05/24 17:49 Range/Units White Blood Count 4.9 4.4-10.8 10^3/uL Red Blood Count 4.68 4.5-5.90 10^6/uL Hemoglobin 12.4 L 13.5-17.5 g/dL Hematocrit 38.0 L 41.0-53.0 % Mean Corpuscular Volume 81.2 80.0-100.0 fL Mean Corpuscular Hemoglobin 26.5 L 28.0-32.0 pg Mean Corpuscular Hemoglobin Concent 32.6 32.0-36.0 g/dL Red Cell Distribution Width 18.1 H 11.8-14.3 % Platelet Count 216 140-450 10^3/uL Mean Platelet Volume 7.9 6.9-10.8 fL Neutrophils (%) (Auto) 43.7 37.0-80.0 % Lymphocytes (%) (Auto) 39.5 10.0-50.0 % Monocytes (%) (Auto) 13.8 H 0.0-12.0 % Eosinophils (%) (Auto) 2.9 0.0-7.0 % Basophils (%) (Auto) 0.1 0.0-2.0 % Neutrophils # (Auto) 2.2 1.6-8.6 10 ^3/uL Lymphocytes # (Auto) 2.0 0.4-5.4 10 ^3/uL Monocytes # (Auto) 0.7 0-1.3 10 ^3/uL Eosinophils # (Auto) 0.1 0-0.8 10 ^3/uL Basophils # (Auto) 0 0-0.2 10 ^3/uL Nucleated Red Blood Cells 0.1 % Sodium Level 138 136-145 mmol/L Potassium Level 3.8 3.5-5.1 mmol/L Chloride Level 107 98-107 mmol/L Carbon Dioxide Level 27 20-31 mmol/L Anion Gap 4 L 5-15 Blood Urea Nitrogen 11 9-23 mg/dL Creatinine 0.88 0.700-1.30 mg/dL Glomerular Filtration Rate Calc 111 >90 mL/min BUN/Creatinine Ratio 12.5 10.0-20.0 Serum Glucose 93 74-106 mg/dL Calcium Level 9.2 8.7-10.4 mg/dL Total Bilirubin 0.4 0.2-1.0 mg/dL Aspartate Amino Transferase (AST) 44 H 13-40 U/L Alanine Aminotransferase (ALT) 31 7-40 U/L Alkaline Phosphatase 83 46-116 U/L Total Protein 8.4 H 5.7-8.2 g/dL Albumin 3.9 3.2-4.8 g/dL POC Glucose 120 H 70-106 mg/dl Assessment/Plan Assessment/Plan Assessment Left foot cellulitis Diabetes mellitus Hypertension Plan Admit the patient to [facility] to the hospitalist Podiatry consultation Rocephin/vancomycin MRI of the left foot pending Continue treatment per orders. Plan discussed with: Patient My Orders Orders - TEMITOPE SYED [facility] Procedure Category Date Status Time Admit ADMIT 06/05/24 Transmitted 23:47 Nitroglycerin PHA 06/06/24 In Process Sublingual (Ntrostat 00:00 Morphine Sulfate PHA 06/06/24 In Process Injection 00:00 Stat Ekg For Chest VELVET 06/05/24 In Process Pain 23:47 Notify Of Changes VELVET 06/05/24 In Process From Base 23:47 Dialysis Nurse For VELVET 06/05/24 In Process 24 Hours 23:47 Emergency Dysrhythmia VELVET 06/05/24 In Process Protocol 23:47 Rhythm Strips Once VELVET 06/05/24 In Process Every Shift 23:47 Oxygen By Nasal RT 06/05/24 Transmitted Cannula 23:47 Wound Culture W/ Gs ABHINAV 06/06/24 Uncollected 00:44 Podiatry Consult CONS 06/06/24 Transmitted 00:44 Mri L Foot Wo Contrast MRI 06/06/24 Transmitted 00:44 Fluoxetine Capsule PHA 06/06/24 Logged (Prozac Capsule) 10:00 Losartan Tablet PHA 06/06/24 Logged (Cozaar Tablet) 10:00 Ceftriaxone 1gm/50ml PHA 06/06/24 Logged D5w (Rocephin) 09:00 Vancomycin Per PHA 06/06/24 Logged Pharmacy 00:45 Basic Metabolic Panel LAB 06/07/24 Verified 04:00 Glucose Blood PHA 06/06/24 Logged (Accu-Chek Comfort 07:00 Insulin R (Human) PHA 06/06/24 Logged (Insulin R) 07:00 Dextrose 50% Syringe PHA 06/06/24 Logged 00:45 Hydrocodone-Acet PHA 06/06/24 Logged 5/325mg Tab ([place] 00:45 Ondansetron Hcl PHA 06/06/24 Transmitted (Zofran) 00:45 Complete Blood Count LAB 06/07/24 Verified 04:00 Cardiac DIET 06/06/24 Transmitted Diet-2gna,Lofat,Lochol Breakfast Condition: Stable VELVET 06/06/24 Transmitted 00:44 Acetaminophen Tablet PHA 06/06/24 Transmitted (Tylenol Tablet) 00:45 Bedrest With Bathroom VELVET 06/06/24 Transmitted Privileg 00:44 Date of Service: Jun 05, 2024 Billing Provider: TEMITOPE SYED Common Visit Codes: [id number] INP/OBS CARE (HIGH) TEMITOPE SYED Jun 06, 2024 01:12
[2024-06-06] MEDS: HYDROcodone-ACET 5/325MG TAB PO PRN (01:16)
[2024-06-06] MEDS: InsuLIN REG 1unit/0.01ml Soln (100units/ml) SC SCH (06:09)
[2024-06-06] MEDS: ACCU-CHEK COMFORT CURVE STRIP VI SCH (06:12)
[2024-06-06] MEDS: LOSARTAN POTASSIUM 50 MG TAB PO SCH (08:35)
[2024-06-06] MEDS: FLUoxetine HCL 20 MG CAP PO SCH (08:35)
[2024-06-06] MEDS: cefTRIAXone 1GM/50ML D5W 50 ML IV SCH (08:57)
--- NOTE | 2024-06-06 12:20 | DVH ---
CLINICAL INDICATION: 38 years old, Male; foot infection. COMPARISON: CT CT L FOOT WO CONTRAST on DOS: 06/05/24 TECHNIQUE: Multiplanar, multisequence MRI of the left foot was performed without intravenous contrast . Contrast: None. INTERPRETATION: Bones: No evidence of acute fracture. There is T1 hypointensity in the 1st distal phalanx surrounded by extensive soft tissue edema. There is corresponding edema in the 1st distal phalanx on the sagit scott STIR images. This is consistent with osteomyelitis. Bone marrow signal is otherwise homogeneous a nd unremarkable. There is heterogeneous marrow signal in the distal phalanx of the 2nd through 5th to es which could be related to inhomogeneous fat suppression. There is no T1 hypointensity to suggest o steomyelitis. Soft tissues: No high-grade tendon or ligament injury. Diffuse soft tissue swelling in the dorsal as pect of the forefoot which may reflect cellulitis or sequelae of venous stasis. IMPRESSION: 1. Osteomyelitis in the 1st distal phalanx. 2. Soft tissue swelling in the dorsal forefoot, nonspecific but may represent cellulitis in the appro priate clinical setting.
[2024-06-06] MEDS: VANCOMYCIN 1.25GM/250ML 250 ML IV SCH (13:35)
[2024-06-06 13:42] LABS: Chloride 106 mmol/L (98-107); Potassium 4.4 mmol/L (3.5-5.1); Sodium 138 mmol/L (136-145)
[2024-06-06 13:43] LABS: Anion Gap 4 (5-15); Carbon Dioxide 28 mmol/L (20-31)
[2024-06-06 13:44] LABS: Hemoglobin 12.6 g/dL (13.5-17.5)
[2024-06-06 13:45] LABS: Mean Corpuscular Hemoglobin 26.5 pg (28.0-32.0); Mean Corpuscular Hgb Conc. 32.4 g/dL (32.0-36.0); Mean Corpuscular Volume 81.9 fL (80.0-100.0); Platelet Count (auto) 197 10^3/uL (140-450); Red Blood Cells 4.75 10^6/uL (4.5-5.90)
[2024-06-06 13:48] LABS: BUN/Creatinine Ratio 13.5 (10.0-20.0); Blood Urea Nitrogen 12 mg/dL (9-23); Glucose 102 mg/dL (74-106)
[2024-06-06 13:49] LABS: Basophils % (manual) 0 (0.0-2.0); Blast Cells 0; CRP High Sensitivity 0.45 mg/dL (<1.0); Metamyelocytes % 0; Myelocytes % 0; Promyelocytes % 0
[2024-06-06 13:50] LABS: Phosphorus 3.8 mg/dL (2.4-5.1)
[2024-06-06 13:53] LABS: INR 1.04 (0.9-1.15); Partial Thromboplastin Time 27.3 SEC (24.5-34.5)
[2024-06-06 14:21] LABS: Anisocytosis Slight; Band Neutrophils % (manual) 2; Eosinophils % (manual) 4 (0-7); Lymphocytes % (manual) 32 (10.0-50.0); Monocytes % (manual) 13 (0-12); Platelet Estimate Adequate; Reactive Lymphocytes 4
[2024-06-06 14:35] LABS: Urine Bacteria None Seen /hpf (None Seen)
[2024-06-06 14:46] LABS: Urine Blood Negative /uL (Negative); Urine Clarity Clear (Clear); Urine Color Light-Yellow (Yellow); Urine Protein, UAD Negative (Negative); Urine Specific Gravity 1.016 (1.001-1.035); Urine Squamous Epithelial Cell FEW /hpf (<5); Urine Urobilinogen Normal (Negative); Urine WBC < 1 /HPF (0-3); Urine pH 6.5 (5.0-9.0)
[2024-06-06 15:13] LABS: Amphetamine Screen, Urine Pos (NEGATIVE); Barbiturate Scree,Urine Neg (NEGATIVE); Benzodiazephine Screen, Urine Neg (NEGATIVE); Cannabinoid Screen, Urine Neg (NEGATIVE); Cocaine Screen, Urine Neg (NEGATIVE); Opiate Scree,Urine Neg (NEGATIVE); Phencyclidine Screen, Urine Neg (NEGATIVE)
--- NOTE | 2024-06-06 17:16 | DVHPNRES ---
Progress Note Date Seen: Jun 06, 2024 Resident Creating Document: RENÉ HAGAN RESIDENT Medical Necessity Reason Pt with a Central, PICC or Fol: No Subjective Review of Systems Mason Nguyen II is a 38-year-old male patient who presents to the ED with chief complaint of nonhealing left hallux foot wound which started approximately three weeks ago, but two days before his admission he presented foul-smelling purulent discharge, fever, chills, progressive dyspnea in functional class II associated with productive cough with green phlegm. Additionally patient refers unintentional weight loss of 40 lb in the past six weeks. Patient is homeless, he is trying to get admitted in a longterm, but does longterm did not allow him until he got examined for his nonhealing foot wound. Patient was recently diagnosed with HIV, he has not started any anti-retroviral medication since he could not follow up with any infectious disease specialist. Denies chest pain, palpitation, syncope, abdominal pain, nausea, vomiting, diarrhea, recent travel, sick contacts and motor or sensory deficits Past medical history: Diabetes, GERD, schizophrenia, depression, HIV recently diagnosed which is not treated at this moment. Surgical history: Denies Family history: Noncontributory Social history: He is homeless, trying to get admitted to longterm. Current smoker (approximate 60 pack-year history of smoking, occasionally smokes marijuana, denies drug use (history of methamphetamine use, UDS is positive for meth), he only consumes alcohol when he uses methamphetamines. Denies other drug abuse. Allergies: Denies Home medication: Aripiprazole, baclofen, fluoxetine, pantoprazole, sucralfate, ibuprofen p.r.n. Patient seen and examined at bedside. Currently has no new complaints. Completed MRI with confirms osteomyelitis of the 1st phalanges on left foot. Discussed with lead web developer, planning on surgery for Sunday (06/09/2024), continuing IV antibiotics and consulted Infectious Disease for HIV management. Objective vital signs Vital Sign Date Time Temp Pulse Resp B/P (MAP) Pulse Ox O2 Delivery O2 Flow Rate FiO2 06/06/24 13:00 97.6 66 15 124/89 (101) 100 97.6 06/06/24 08:44 Room Air* 0 21 medications Current Medications Medications Dose Ordered Sig/Elen Route Start Time Stop Time Status Last Admin Dose Admin Nitroglycerin 0.4 mg Q5MINP PRN SL 06/06/24 00:00 Morphine Sulfate 2 mg Q30M PRN IV 06/06/24 00:00 Fluoxetine HCl 20 mg DAILY PO 06/06/24 10:00 06/06/24 08:35 20 MG Losartan Potassium 50 mg DAILY PO 06/06/24 10:00 06/06/24 08:35 50 MG Ceftriaxone Sodium 50 ml @ 100 mls/hr DAILY@09 IV 06/06/24 09:00 06/06/24 08:57 100 MLS/HR Vancomycin HCl 0 ml @ 0 mls/hr UD IV 06/06/24 00:45 Diagnostic Test (Pha) 1 strip ACHS 06/06/24 07:00 06/06/24 16:58 1 STRIP Insulin Human Regular ACHS SC 06/06/24 07:00 Dextrose 50 ml UD PRN IV 06/06/24 00:45 Acetaminophen/ Hydrocodone Bitart 1 tab Q4HP PRN PO 06/06/24 00:45 06/06/24 12:26 1 TAB Ondansetron HCl 4 mg Q4HP PRN IV 06/06/24 00:45 Acetaminophen 650 mg Q6HP PRN PO 06/06/24 00:45 Vancomycin HCl 250 ml @ 200 mls/hr Q12H IV 06/06/24 14:00 06/06/24 13:35 200 MLS/HR Examination Patient lying in bed, in no acute distress General: Lucid, afebrile, mucosae are moist Cardiovascular: Normal S1 and S2. No murmurs, gallops or rubs Respiratory: Normal ventilation mechanics. Clear lung sounds on auscultation Abdomen: Soft, nontender, no organomegaly, normal bowel sounds MSK/skin: Mobilizes 4 limbs. Skin is dry and warm. Food wound between 1st and 2nd digit of left foot, currently with no discharge, dark discoloration of left hallux. Presents weak pulses of bilateral dorsal pedis and posterior tibial artery. Neurological: Oriented in 3 spheres. No motor no sensitive deficits. Pupils are isocoric and reactive laboratory and microbiology Laboratory Tests 06/06/24 13:27 Test 06/06/24 13:27 Range/Units Serum Glucose 102 74-106 mg/dL Problem List/Assessment/Plan Problem List/Assessment/Plan Assessment Osteomyelitis of left hallux Prediabetes (hemoglobin A1c 5.8%) Recent diagnosis of HIV - pending initial treatment Polysubstance abuse (methamphetamine, alcohol and tobacco) Schizophrenia and depression Rule out opportunistic infection Homelessness Hypertension Non adherence Plan Currently in med surge status. Completed foot CT and MRI, evidence soft tissue edema and osteomyelitis of 1st distal phalanx Currently under empiric IV antibiotic (ceftriaxone and vancomycin) Podiatry on board: Ordered MRI which confirms osteomyelitis. Planning on surgery for 06/09/2024, continue with IV antibiotics at the moment Consulted ID specialist for HIV management. Have ordered viral load, acute hepatitis panel and treponema test. Ordered QuantiFERON (low probability of tuberculosis). Obtain blood and wound cultures. Wound care on board Goals of care discussed with patient for over 18 minutes: Full code status Discussed plan with Dr. Govea, patient and nurses: Planning surgery for Sunday, we will continue with empiric IV antibiotic. Consulted ID specialist for management of HIV, pending viral load. Patient has poor prognosis Plan discussed with: Patient, Other (Nurses) My Orders My Orders Orders - RENÉ HAGAN RESIDENT Procedure Category Date Status Time Vitamin B12 LAB 06/06/24 In Process 12:53 * Infectious Filiberto- Dr. GREWAL 06/06/24 Transmitted Tiffanie Sabillon 12:56 Acute Hepatitis Panel LAB 06/06/24 In Process 16:43 Quantiferon-Tb Gold LAB 06/06/24 Logged 16:43 Respiratory Culture ABHINAV 06/06/24 Logged W/ Gs 16:43 Chest Xray 1 View XY 06/06/24 Taken 16:43 Date of Service: Jun 06, 2024 Billing Provider: KAMERON GOVEA MD Common Visit Codes: [id number] INP/OBS CARE(HIGH) RENÉ HAGAN RESIDENT Jun 06, 2024 17:16 ADILIA SABILLON MD Jun 12, 2024 17:54 KAMERON GOVEA MD Jun 17, 2024 20:40
--- NOTE | 2024-06-06 17:46 | DVH ---
EXAM: XR Chest, 1 View CLINICAL INDICATION: SOB TECHNIQUE: Frontal view of the chest. COMPARISON: XY CHEST PORTABLE on DOS: 04/24/24, XY CHEST PORTABLE on DOS: 08/05/23 FINDINGS: LUNGS AND PLEURAL SPACES: Unremarkable. No consolidation. No pneumothorax. HEART: Unremarkable. No cardiomegaly. MEDIASTINUM: Unremarkable. Normal mediastinal contour. BONES/JOINTS: Unremarkable. No acute fracture. OTHER FINDINGS: . None. IMPRESSION: No acute cardiopulmonary process.
[2024-06-07] VITALS (7 sets, daily range): BP systolic 131–151; BP diastolic 81–89; PULSE 62–77; RESP 16–18; TEMP 97.8–98.6; O2SAT 95–100
[2024-06-07 00:54] LABS: COVID19 ANTIGEN SOFIA FIA NEGATIVE (NEGATIVE); Rapid Influenza A Negative (Negative); Rapid Influenza B Negative (Negative)
[2024-06-07] MEDS: ENOXAPARIN SOD 40 MG/0.4 ML SYRINGE SC ONE (01:06)
[2024-06-07] MEDS: SUCRALFATE 1 GM/10 ML ORAL SUSP PO SCH (05:46)
[2024-06-07 05:56] LABS: Basophils # (auto) 0 10 ^3/uL (0-0.2); Basophils % (auto) 0.1 % (0.0-2.0); Eosinophils # (auto) 0.1 10 ^3/uL (0-0.8); Eosinophils % (auto) 3.8 % (0.0-7.0); Hematocrit 38.4 % (41.0-53.0); Hemoglobin 12.5 g/dL (13.5-17.5); Lymphocytes # (auto) 1.5 10 ^3/uL (0.4-5.4); Lymphocytes % (auto) 39.3 % (10.0-50.0); Mean Corpuscular Hemoglobin 26.7 pg (28.0-32.0); Mean Corpuscular Hgb Conc. 32.6 g/dL (32.0-36.0); Mean Corpuscular Volume 81.8 fL (80.0-100.0); Monocytes # (auto) 0.5 10 ^3/uL (0-1.3); Monocytes % (auto) 13.1 % (0.0-12.0); Neutrophils # (auto) 1.6 10 ^3/uL (1.6-8.6); Neutrophils % (auto) 43.7 % (37.0-80.0); Nucleated Red Blood Cells % 0.1 %; Platelet Count (auto) 197 10^3/uL (140-450); Red Blood Cells 4.69 10^6/uL (4.5-5.90); Red Cell Distribution Width 18.3 % (11.8-14.3); White Blood Cell 3.7 10^3/uL (4.4-10.8)
[2024-06-07 06:03] LABS: Anion Gap 7 (5-15); Carbon Dioxide 24 mmol/L (20-31); Chloride 107 mmol/L (98-107); Potassium 3.9 mmol/L (3.5-5.1); Sodium 138 mmol/L (136-145)
[2024-06-07 06:04] LABS: Calcium 9.1 mg/dL (8.7-10.4)
[2024-06-07 06:09] LABS: BUN/Creatinine Ratio 14.9 (10.0-20.0); Blood Urea Nitrogen 15 mg/dL (9-23); Glucose 96 mg/dL (74-106)
[2024-06-07] MEDS: ENOXAPARIN SOD 40 MG/0.4 ML SYRINGE SC SCH (09:31)
[2024-06-07] MEDS: BACLOFEN 10 MG TAB PO SCH (09:31)
[2024-06-07] MEDS: PANTOPRAZOLE 40 MG TAB PO SCH (09:31)
[2024-06-07] MEDS: Juven Orange Powder PACKET 27.5gm PO SCH (10:00)
[2024-06-07] MEDS: ASCORBIC ACID 500 MG TAB PO SCH (11:43)
[2024-06-07] MEDS: Glucerna Carbsteady SHAKE Chocolate 8oz PO SCH (11:52)
[2024-06-07] MEDS ORDERED: BACTRIM 5MG/KG Q8HR PER RX 0 ML IV SCH (13:45)
--- NOTE | 2024-06-07 14:28 | DVH ---
BILATERAL Lower Extremity Arterial Duplex Date: 06/07/2024 10:37 AM Clinical History: Rule out PAD Comparison: None Technique: Duplex Doppler evaluation including color Doppler and spectral/pulsed waveform analysis o f the lower extremity arteries was performed. Finding: RIGHT: Peak systolic velocities are as follows: [employer] P[employer]ER 117 cm/s triphasic Deep femoral 42 cm/s biphasic SFA proximal 97 cm/s triphasic SFA mid-portion 114 cm/s triphasic SFA distal 100 cm/ s triphasic Popliteal 68 cm/s triphasic Posterior tibial 78 cm/s triphasic Dorsalis pedis 71 cm/s triphasic The waveforms are triphasic biphasic waveforms. LEFT: Peak systolic velocities are as follows: [employer]ER 97 cm/s triphasic Deep femoral 76 cm/s triphasic SFA proximal 99 cm/s triphasic SFA mid-portion 109 cm/s triphasic SFA distal 95 cm/s triphasic Popliteal 86 cm/s triphasic Posterior tibial 85 cm/s triphasic Dorsalis pedis 84 cm/s triphasic The waveforms are triphasic. REFERENCE VALUES, [facility] ([facility]) vascular Imaging Lab Criteria: Peak systolic velocity ranges (in cm/sec) are as follows: <150 cm/s - <20 % stenosis 150-200 cm/s - 20-49% stenosis 200-300 cm/s - 50-75% stenosis >300 cm/s -> 75% stenosis IMPRESSION: 1. There is no evidence for peripheral vascular insufficiency in the right lower extremity. 2. There is no evidence for peripheral vascular insufficiency in the left lower extremity. 3. No significant focal stenosis is identified.
[2024-06-07] MEDS: D5W 5% IV SCH (16:00)
[2024-06-07] MEDS: SULFAMETH TRIMETH IV SCH (16:00)
--- NOTE | 2024-06-07 17:20 | DVHPNRES ---
Progress Note Date Seen: Jun 07, 2024 Resident Creating Document: RENÉ HAGAN RESIDENT Medical Necessity Reason Pt with a Central, PICC or Fol: No Subjective Review of Systems Mason Nguyen II is a 38-year-old male patient who presents to the ED with chief complaint of nonhealing left hallux foot wound which started approximately three weeks ago, but two days before his admission he presented foul-smelling purulent discharge, fever, chills, progressive dyspnea in functional class II associated with productive cough with green phlegm. Additionally patient refers unintentional weight loss of 40 lb in the past six weeks. Patient is homeless, he is trying to get admitted in a correction, but does correction did not allow him until he got examined for his nonhealing foot wound. Patient was recently diagnosed with HIV, he has not started any anti-retroviral medication since he could not follow up with any infectious disease specialist. Denies chest pain, palpitation, syncope, abdominal pain, nausea, vomiting, diarrhea, recent travel, sick contacts and motor or sensory deficits Past medical history: Diabetes, GERD, schizophrenia, depression, HIV recently diagnosed which is not treated at this moment. Patient was incarcerated in year 2011 in completed treatment for tuberculosis for four months. Surgical history: Denies Family history: Noncontributory Social history: He is homeless, trying to get admitted to correction. Current smoker (approximate 60 pack-year history of smoking, occasionally smokes marijuana, denies drug use (history of methamphetamine use, UDS is positive for meth), he only consumes alcohol when he uses methamphetamines. Denies other drug abuse. Allergies: Denies Home medication: Aripiprazole, baclofen, fluoxetine, pantoprazole, sucralfate, ibuprofen p.r.n. Patient seen and examined at bedside. Currently has no new complaints. Completed MRI with confirms osteomyelitis of the 1st phalanges on left foot. Discussed with hotel maid, planning on surgery for Sunday (06/09/2024), continuing IV antibiotics and consulted Infectious Disease for HIV management. Objective vital signs Vital Sign Date Time Temp Pulse Resp B/P (MAP) Pulse Ox O2 Delivery O2 Flow Rate FiO2 06/07/24 16:56 98.2 70 16 143/89 (107) 99 98.2 06/07/24 08:00 Room Air* 0 21 Total Intake and Output 06/06/24 06/06/24 06/07/24 15:00 23:00 07:00 Intake Total 50 ml 650 ml 200 ml Output Total 100 ml 100 ml Balance -50 ml 550 ml 200 ml medications Current Medications Medications Dose Ordered Sig/Elen Route Start Time Stop Time Status Last Admin Dose Admin Morphine Sulfate 2 mg Q30M PRN IV 06/06/24 00:00 Fluoxetine HCl 20 mg DAILY PO 06/06/24 10:00 06/07/24 09:31 20 MG Losartan Potassium 50 mg DAILY PO 06/06/24 10:00 06/07/24 09:31 50 MG Ceftriaxone Sodium 50 ml @ 100 mls/hr DAILY@09 IV 06/06/24 09:00 06/07/24 09:32 100 MLS/HR Vancomycin HCl 0 ml @ 0 mls/hr UD IV 06/06/24 00:45 Diagnostic Test (Pha) 1 strip ACHS 06/06/24 07:00 06/07/24 07:00 1 STRIP Insulin Human Regular ACHS SC 06/06/24 07:00 06/07/24 07:00 2 UNITS Dextrose 50 ml UD PRN IV 06/06/24 00:45 Acetaminophen/ Hydrocodone Bitart 1 tab Q4HP PRN PO 06/06/24 00:45 06/07/24 11:44 1 TAB Acetaminophen 650 mg Q6HP PRN PO 06/06/24 00:45 Vancomycin HCl 250 ml @ 200 mls/hr Q12H IV 06/06/24 14:00 06/07/24 15:36 200 MLS/HR Baclofen 10 mg BID PO 06/07/24 10:00 06/07/24 09:31 10 MG Pantoprazole Sodium 40 mg DAILY PO 06/07/24 10:00 06/07/24 09:31 40 MG Sucralfate 1 gm QID@0600,1130,1700,2200 PO 06/07/24 06:00 06/07/24 11:43 1 GM Patient Own Medication 15 mg HS PO 06/07/24 22:00 Enoxaparin Sodium 40 mg DAILY SC 06/07/24 10:00 Ascorbic Acid 500 mg BID PO 06/07/24 10:00 06/07/24 11:43 500 MG Enteral Nutritional Formula 240 ml DAILY@BREAKFAST PO 06/08/24 08:00 Enteral Nutritional Formula 240 ml DAILY@LUNCH PO 06/07/24 12:00 06/07/24 11:52 240 ML Enteral Nutritional Formula 27.5 gm BID PO 06/07/24 10:00 Trimethoprim/ Sulfamethoxazole 0 ml @ 0 mls/hr PER PHARMACY IV 06/07/24 13:45 Trimethoprim/ Sulfamethoxazole 5 ml/Dextrose 505 ml @ 343.333 mls/hr Q8H IV 06/07/24 16:00 Examination Patient lying in bed, in no acute distress General: Lucid, afebrile, mucosae are moist Cardiovascular: Normal S1 and S2. No murmurs, gallops or rubs Respiratory: Normal ventilation mechanics. Clear lung sounds on auscultation Abdomen: Soft, nontender, no organomegaly, normal bowel sounds MSK/skin: Mobilizes 4 limbs. Skin is dry and warm. Food wound between 1st and 2nd digit of left foot, currently with no discharge, dark discoloration of left hallux. Presents weak pulses of bilateral dorsal pedis and posterior tibial artery. Neurological: Oriented in 3 spheres. No motor no sensitive deficits. Pupils are isocoric and reactive laboratory and microbiology Laboratory Tests 06/07/24 04:38 Test 06/07/24 04:38 Range/Units Serum Glucose 96 74-106 mg/dL Microbiology Date/Time Source Procedure Growth Status 06/06/24 08:37 Blood Blood Culture - Preliminary NO GROWTH AFTER 24 HOURS OF INCUBATION. Resulted 06/06/24 08:14 Foot Left Gram Stain - Final Resulted 06/06/24 08:14 Foot Left Wound Culture - Preliminary Resulted Problem List/Assessment/Plan Problem List/Assessment/Plan Assessment Osteomyelitis of left hallux Prediabetes (hemoglobin A1c 5.8%) Recent diagnosis of HIV - pending initial treatment Polysubstance abuse (methamphetamine, alcohol and tobacco) Ruled out peripheral artery disease Schizophrenia and depression Rule out opportunistic infection Homelessness Hypertension Non adherence History of treated tuberculosis (patient was incarcerated) Plan Currently in med surge status. Completed foot CT and MRI, evidence soft tissue edema and osteomyelitis of 1st distal phalanx Currently under empiric IV antibiotic (ceftriaxone and vancomycin) Podiatry on board: Ordered MRI which confirms osteomyelitis. Planning on surgery for 06/09/2024, continue with IV antibiotics at the moment Consulted ID specialist for HIV management. Have ordered viral load, acute hepatitis panel and treponema test. Ordered QuantiFERON (most likely we will be positive due to previously treated tuberculosis). Have isolated patient for tuberculosis precautions, ordered sputum culture for AFB Initiated prophylactic Bactrim (waiting for CD4 count to deescalate) Completed lower extremity arterial duplex: No significant stenosis Obtain blood and wound cultures. Wound care on board Goals of care discussed with patient for over 18 minutes: Full code status Discussed plan with Dr. Sainz, patient and nurses: Planning surgery for Sunday, we will continue with empiric IV antibiotic. Consulted ID specialist for management of HIV, pending viral load. Patient has poor prognosis Plan discussed with: Patient, Other (Nurses) My Orders My Orders Orders - RENÉ HAGAN RESIDENT Procedure Category Date Status Time Baclofen Tablet PHA 06/07/24 In Process (Liorisal Tablet) 10:00 Pantoprazole Tablet PHA 06/07/24 In Process (Protonix Tablet) 10:00 Sucralfate Susp PHA 06/07/24 In Process (Carafate Susp) 06:00 (Nf) Aripiprazole PHA 06/07/24 In Process (Abilify) 22:00 Enoxaparin Sodium PHA 06/07/24 In Process (Lovenox) 10:00 Bilat Low Ext Art US 06/07/24 Resulted Duplex 10:00 Cd4/Cd8 Ratio Profile LAB 06/07/24 Logged 12:57 Afb Cult/Smear Broth ABHINAV 4/6/25 Logged Suscep 05:00 Afb Cult/Smear Broth ABHINAV 4/7/25 Logged Suscep 05:00 Afb Cult/Smear Broth ABHINAV 4/8/25 Logged Suscep 05:00 Isolation Order ORDERS 06/07/24 Transmitted 12:57 Bactrim 5mg/Kg Q8hr PHA 06/07/24 In Process Per Rx (Bactrim) 13:45 Sulfameth-Trimeth PHA 06/07/24 In Process 80/16mg-Ml (Bactrim) 16:00 Dietary Evaluation Review Recommendations by RD: Protein Supplementation Comments: 1) Initiate Glucerna bid d/t recent unintentional weight loss and increased needs 2) Initiate Dread @ 1 pk bid 3) Initiate vitamin C @ 500 mg bid and zinc sulfate @ 220 mg qd for 7-10 days 4) Follow-up with infectious disease specialist r/t recent HIV 5) Follow-up with administrator social welfare 6) Continue to monitor I&O, labs, and skin integrity Expected Outcomes/Goals: 1) appetite and labs to improve 2) wound to improve 2) f/u in 2-3 days Date of Service: Jun 07, 2024 Billing Provider: KAMERON SAINZ MD Common Visit Codes: [id number] INP/OBS CARE(HIGH) RENÉ HAGAN RESIDENT Jun 07, 2024 17:20 KAMERON SAINZ MD Jun 17, 2024 20:47
[2024-06-08] VITALS (8 sets, daily range): BP systolic 127–152; BP diastolic 72–85; PULSE 64–80; RESP 16–18; TEMP 98–98.9; O2SAT 98–100
[2024-06-08 06:55] LABS: Basophils # (auto) 0 10 ^3/uL (0-0.2); Eosinophils # (auto) 0.1 10 ^3/uL (0-0.8); Hemoglobin 12.7 g/dL (13.5-17.5); Lymphocytes # (auto) 1.9 10 ^3/uL (0.4-5.4); Nucleated Red Blood Cells % 0.3 %; White Blood Cell 4.8 10^3/uL (4.4-10.8)
[2024-06-08 06:59] LABS: Eosinophils % (auto) 2.9 % (0.0-7.0); Hematocrit 38.9 % (41.0-53.0); Lymphocytes % (auto) 38.3 % (10.0-50.0); Mean Corpuscular Hemoglobin 26.5 pg (28.0-32.0); Mean Corpuscular Hgb Conc. 32.7 g/dL (32.0-36.0); Mean Corpuscular Volume 81.1 fL (80.0-100.0); Monocytes # (auto) 0.6 10 ^3/uL (0-1.3); Monocytes % (auto) 12.7 % (0.0-12.0); Neutrophils # (auto) 2.2 10 ^3/uL (1.6-8.6); Neutrophils % (auto) 46.1 % (37.0-80.0); Platelet Count (auto) 190 10^3/uL (140-450); Red Blood Cells 4.79 10^6/uL (4.5-5.90); Red Cell Distribution Width 18.2 % (11.8-14.3)
[2024-06-08] MEDS: Glucerna Carbsteady SHAKE Vanilla 8oz PO SCH (09:19)
[2024-06-08] MEDS: SULFAMETH-TRIMETH 80/16MG-ML 20 ML in D5W 5% 500 ML IV SCH (12:11)
--- NOTE | 2024-06-08 12:42 | DVHPNRES ---
Progress Note Date Seen: Jun 08, 2024 Resident Creating Document: SALOME ELIZABETH RESIDENT Medical Necessity Reason Pt with a Central, PICC or Fol: No Subjective Review of Systems No new complaints NPO Possible incision and drainage of left foot and bone biopsy tomorrow Asymptomatic Objective vital signs Vital Sign Date Time Temp Pulse Resp B/P (MAP) Pulse Ox O2 Delivery O2 Flow Rate FiO2 06/08/24 09:21 146/85 06/08/24 09:07 98.7 72 16 99 98.7 06/08/24 07:30 Room Air* 0 21 Total Intake and Output 06/07/24 06/07/24 06/08/24 15:00 23:00 07:00 Intake Total 700 ml 1200 ml Balance 700 ml 1200 ml medications Current Medications Medications Dose Ordered Sig/Elen Route Start Time Stop Time Status Last Admin Dose Admin Morphine Sulfate 2 mg Q30M PRN IV 06/06/24 00:00 Fluoxetine HCl 20 mg DAILY PO 06/06/24 10:00 06/08/24 09:23 20 MG Losartan Potassium 50 mg DAILY PO 06/06/24 10:00 06/08/24 09:21 50 MG Ceftriaxone Sodium 50 ml @ 100 mls/hr DAILY@09 IV 06/06/24 09:00 06/08/24 09:19 100 MLS/HR Vancomycin HCl 0 ml @ 0 mls/hr UD IV 06/06/24 00:45 Diagnostic Test (Pha) 1 strip ACHS 06/06/24 07:00 06/07/24 21:36 1 STRIP Insulin Human Regular ACHS SC 06/06/24 07:00 06/07/24 07:00 2 UNITS Dextrose 50 ml UD PRN IV 06/06/24 00:45 Acetaminophen/ Hydrocodone Bitart 1 tab Q4HP PRN PO 06/06/24 00:45 06/07/24 21:33 1 TAB Acetaminophen 650 mg Q6HP PRN PO 06/06/24 00:45 Vancomycin HCl 250 ml @ 200 mls/hr Q12H IV 06/06/24 14:00 06/08/24 03:17 200 MLS/HR Baclofen 10 mg BID PO 06/07/24 10:00 06/08/24 09:21 10 MG Pantoprazole Sodium 40 mg DAILY PO 06/07/24 10:00 06/08/24 09:20 40 MG Sucralfate 1 gm QID@0600,1130,1700,2200 PO 06/07/24 06:00 06/08/24 12:02 1 GM Patient Own Medication 15 mg HS PO 06/07/24 22:00 Enoxaparin Sodium 40 mg DAILY SC 06/07/24 10:00 Ascorbic Acid 500 mg BID PO 06/07/24 10:00 06/08/24 09:20 500 MG Enteral Nutritional Formula 240 ml DAILY@BREAKFAST PO 06/08/24 08:00 06/08/24 09:19 240 ML Enteral Nutritional Formula 240 ml DAILY@LUNCH PO 06/07/24 12:00 06/08/24 12:03 240 ML Enteral Nutritional Formula 27.5 gm BID PO 06/07/24 10:00 Trimethoprim/ Sulfamethoxazole 0 ml @ 0 mls/hr PER PHARMACY IV 06/07/24 13:45 Trimethoprim/ Sulfamethoxazole 20 ml/Dextrose 520 ml @ 353.541 mls/hr Q8H IV 06/08/24 12:00 06/08/24 12:11 353.541 MLS/HR Examination General Appearance: Cooperative. Well developed. Well nourished. NAD Head Exam: Normal inspection Neck Exam: Normal inspection. Non-tender. Normal alignment Pulmonary/Respiratory: Chest non-tender. Clear bilateral breath sounds Cardiovascular/Chest: Regular rate and rhythm. No murmurs. No JVD. Peripheral Pulses: 2+ Radial (R). 2+ Radial (L). 2+ Pedal (R). 2+ Pedal (L) Abdominal Exam: Normal bowel sounds. Soft. Nontender. No hepatospenomegaly. No masses Ankle Exam: Negative ankle edema Lower extremities: Negative lower extremity edema Neuro/Mental Status: A&O x4. Coherent Thoughts/Psych: Normal thought pattern. Appropriate mood and affect. Good judgement and insight Appearance: In no acute distress Skin Exam: Normal inspection. Normal color. Warm. Dry laboratory and microbiology Laboratory Tests 06/08/24 06:05 06/07/24 04:38 Test 06/07/24 04:38 Range/Units Serum Glucose 96 74-106 mg/dL Microbiology Date/Time Source Procedure Growth Status 06/07/24 06:11 Sputum Gram Stain Pending Resulted 06/07/24 06:11 Sputum Respiratory Culture - Preliminary Resulted 06/06/24 08:37 Blood Blood Culture - Preliminary NO GROWTH AFTER 48 HOURS OF INCUBATION. Resulted 06/06/24 08:14 Foot Left Gram Stain - Final Resulted 06/06/24 08:14 Foot Left Wound Culture - Preliminary Resulted Problem List/Assessment/Plan Problem List/Assessment/Plan Osteomyelitis of left hallux Prediabetes (hemoglobin A1c 5.8%) Recent diagnosis of HIV - pending initial treatment Polysubstance abuse (methamphetamine, alcohol and tobacco) Ruled out peripheral artery disease Schizophrenia and depression Rule out opportunistic infection Homelessness Hypertension Non adherence History of treated tuberculosis (patient was incarcerated) Plan Keep NPO from midnight. As per podiatry possible incision and drainage of left hallux and bone biopsy tomorrow. Continue IV antibiotics, pending consultation with ID for HIV management. Completed foot CT and MRI, evidence soft tissue edema and osteomyelitis of 1st distal phalanx Currently under empiric IV antibiotic (ceftriaxone and vancomycin) Podiatry on board: Ordered MRI which confirms osteomyelitis. Planning on surgery for 06/09/2024, continue with IV antibiotics at the moment Consulted ID specialist for HIV management. Have ordered viral load, acute hepatitis panel and treponema test. Ordered QuantiFERON (most likely we will be positive due to previously treated tuberculosis). Have isolated patient for tuberculosis precautions, ordered sputum culture for AFB Initiated prophylactic Bactrim (waiting for CD4 count to deescalate) Completed lower extremity arterial duplex: No significant stenosis Obtain blood and wound cultures. Wound care on board Goals of care discussed with patient for over 18 minutes: Full code status Discussed plan with Dr. Sainz Plan discussed with: Patient, Other (RN) Dietary Evaluation Review Recommendations by RD: Protein Supplementation Comments: 1) Initiate Glucerna bid d/t recent unintentional weight loss and increased needs 2) Initiate Dread @ 1 pk bid 3) Initiate vitamin C @ 500 mg bid and zinc sulfate @ 220 mg qd for 7-10 days 4) Follow-up with infectious disease specialist r/t recent HIV 5) Follow-up with social human services assistants 6) Continue to monitor I&O, labs, and skin integrity Expected Outcomes/Goals: 1) appetite and labs to improve 2) wound to improve 2) f/u in 2-3 days Date of Service: Jun 08, 2024 Billing Provider: KAMERON SAINZ MD Common Visit Codes: [id number] INP/OBS CARE(HIGH) SALOME ELIZABETH RESIDENT Jun 08, 2024 12:42 KAMERON SAINZ MD Jun 17, 2024 20:59
[2024-06-08] MEDS: VANCOMYCIN 1.5GM/300ML 300 ML IV SCH (15:38)
--- NOTE | 2024-06-08 20:47 | DVHINCON2 ---
Date of service: Jun 06, 2024 Family History: FH: bipolar disorder G8 MOTHER, FH: schizophrenia G8 MOTHER, Allergies: Coded Allergies: NO KNOWN ALLERGIES (Unverified , 08/25/20) Home Meds Active Scripts Pantoprazole Sodium Sesquihydr (Protonix) 40 Mg Tab, 40 MG PO DAILY PRN for 90 Days, #90 TAB Prov:SALOME ELIZABETH RESIDENT 09/21/23 Sucralfate (CARAFATE SUSP) 1 Gm/10 Ml Ss, 1 GM PO QID@0600,1130,1700,2200 for 30 Days, #120 ML Prov:SALOME ELIZABETH RESIDENT 09/21/23 Nystatin (Mouth-Throat) (Mycostatin (Mouth-Throat)) 500,000 Units/5 Ml Ss, 5 ML MT QID for 14 Days, #60 ML Prov:SALOME ELIZABETH RESIDENT 09/21/23 Baclofen (Baclofen) 10 Mg Tab, 10 MG PO BID, #20 TAB Prov:LOLA SOSA 05/25/21 Ibuprofen (Ibuprofen) 800 Mg Tab, 800 MG PO Q8HP PRN, #30 TAB Prov:LOLA SOSA 05/25/21 Reported Medications Fluoxetine Hcl (Fluoxetine Hcl) 20 Mg Cap, 20 MG PO DAILY for 30 Days, MG 08/05/23 Aripiprazole (Abilify) 20 Mg Tab, 15 MG PO QPM, TAB 08/05/23 Current Medications Current Medications Medications (Trade) Dose Ordered Sig/Elen Route PRN Reason Start Time Stop Time Status Last Admin Patient Own Medication 15 mg HS PO 06/07/24 22:00 Enteral Nutritional Formula (Glucerna Carbsteady SHAKE) 240 ml DAILY@BREAKFAST PO 06/08/24 08:00 06/08/24 09:19 Trimethoprim/ Sulfamethoxazole 20 ml/Dextrose 520 ml @ 353.541 mls/hr Q8H IV 06/08/24 12:00 06/08/24 12:11 Vancomycin HCl 300 ml @ 200 mls/hr Q12H IV 06/08/24 15:00 06/08/24 15:38 Vital Signs Vital Signs Date Time Temp Pulse Resp B/P (MAP) Pulse Ox O2 Delivery O2 Flow Rate FiO2 06/08/24 16:49 98.0 76 16 129/82 (98) 99 98.0 06/08/24 07:30 Room Air* 0 21 Labs/Diagnostic Data Labs Test 06/08/24 06:05 06/08/24 05:23 06/08/24 01:44 06/07/24 04:38 Range/Units White Blood Count 4.8 # 4.4-10.8 10^3/uL Red Blood Count 4.79 4.5-5.90 10^6/uL Hemoglobin 12.7 L 13.5-17.5 g/dL Hematocrit 38.9 L 41.0-53.0 % Mean Corpuscular Volume 81.1 80.0-100.0 fL Mean Corpuscular Hemoglobin 26.5 L 28.0-32.0 pg Mean Corpuscular Hemoglobin Concent 32.7 32.0-36.0 g/dL Red Cell Distribution Width 18.2 H 11.8-14.3 % Platelet Count 190 140-450 10^3/uL Mean Platelet Volume 8.6 6.9-10.8 fL Neutrophils (%) (Auto) 46.1 37.0-80.0 % Lymphocytes (%) (Auto) 38.3 10.0-50.0 % Monocytes (%) (Auto) 12.7 H 0.0-12.0 % Eosinophils (%) (Auto) 2.9 0.0-7.0 % Basophils (%) (Auto) 0.0 0.0-2.0 % Neutrophils # (Auto) 2.2 1.6-8.6 10 ^3/uL Lymphocytes # (Auto) 1.9 0.4-5.4 10 ^3/uL Monocytes # (Auto) 0.6 0-1.3 10 ^3/uL Eosinophils # (Auto) 0.1 0-0.8 10 ^3/uL Basophils # (Auto) 0 0-0.2 10 ^3/uL Nucleated Red Blood Cells 0.3 % Creatinine 1.05 0.700-1.30 mg/dL Glomerular Filtration Rate Calc 92 >90 mL/min POC Glucose 107 H 70-106 mg/dl Vancomycin Level Trough 6.1 5-10 ug/mL Sodium Level 138 136-145 mmol/L Potassium Level 3.9 3.5-5.1 mmol/L Chloride Level 107 98-107 mmol/L Carbon Dioxide Level 24 20-31 mmol/L Anion Gap 7 5-15 Blood Urea Nitrogen 15 9-23 mg/dL BUN/Creatinine Ratio 14.9 10.0-20.0 Serum Glucose 96 74-106 mg/dL Calcium Level 9.1 8.7-10.4 mg/dL Test 06/06/24 23:59 06/06/24 17:17 06/06/24 14:25 06/06/24 13:27 Range/Units Influenza Type A Antigen Negative Negative Influenza Type B Antigen Negative Negative SARS-CoV-2 Antigen (Rapid) Negative NEGATIVE Urine Color Light-yellow Yellow Urine Clarity Clear Clear Urine pH 6.5 5.0-9.0 Urine Specific [place] 1.016 1.001-1.035 Urine Protein Negative Negative Urine Ketones Negative Negative Urine Blood Negative Negative /uL Urine Nitrite Negative Negative Urine Bilirubin Negative Negative Urine Urobilinogen Normal Negative mg/dL Urine Leukocyte Esterase Negative Negative /uL Urine RBC 1 0 - 3 /hpf Urine Microscopic WBC < 1 0-3 /HPF Urine Squamous Epithelial Cells Few <5 /hpf Urine Bacteria None seen None Seen /hpf Urine Glucose Normal Normal mg/dL Urine Opiates Screen Neg NEGATIVE Urine Fentanyl Screen Neg NEGATIVE Urine Barbiturates Screen Neg NEGATIVE Urine Phencyclidine Screen Neg NEGATIVE Urine Amphetamines Screen Pos NEGATIVE Urine Benzodiazepines Screen Neg NEGATIVE Urine Cocaine Screen Neg NEGATIVE Urine Cannabinoids Screen Neg NEGATIVE Differential Total Cells Counted 100.0 100 Neutrophils % (Manual) 45 37.0-80.0 Band Neutrophils % (Manual) 2 Lymphocytes % (Manual) 32 10.0-50.0 Monocytes % (Manual) 13 H 0-12 Eosinophils % (Manual) 4 0-7 Basophils % (Manual) 0 0.0-2.0 Metamyelocytes % (manual) 0 Myelocytes % (Manual) 0 Promyelocytes % (Manual) 0 Blast Cells % (Manual) 0 Reactive Lymphocytes 4 Platelet Estimate Adequate Anisocytosis (manual) Slight Prothrombin Time 11.0 9.3-11.8 sec Prothrombin Time INR 1.04 0.9-1.15 Activated Partial Thromboplast Time 27.3 24.5-34.5 SEC Hemoglobin A1c 5.8 H <5.7 % A1C Phosphorus Level 3.8 2.4-5.1 mg/dL Magnesium Level 2.0 1.6-2.6 mg/dL C-Reactive Protein High Sensitivity 0.45 <1.0 mg/dL Vitamin D 25-Hydroxy 36.8 30.0-100 ng/mL Thyroid Stimulating Hormone (TSH) 0.71 0.55-4.78 uIU/mL Treponema pallidum Antibody Non-reactive Negative Test 06/06/24 01:28 06/05/24 18:56 Range/Units Lactic Acid Level 1.1 0.4-2.0 mmol/L Total Bilirubin 0.4 0.2-1.0 mg/dL Aspartate Amino Transferase (AST) 44 H 13-40 U/L Alanine Aminotransferase (ALT) 31 7-40 U/L Alkaline Phosphatase 83 46-116 U/L Total Protein 8.4 H 5.7-8.2 g/dL Albumin 3.9 3.2-4.8 g/dL Microbiology Date/Time Source Procedure Growth Status 06/07/24 06:11 Sputum Gram Stain - Final Resulted 06/07/24 06:11 Sputum Respiratory Culture - Preliminary Resulted 06/06/24 08:37 Blood Blood Culture - Preliminary NO GROWTH AFTER 48 HOURS OF INCUBATION. Resulted 06/06/24 08:14 Foot Left Gram Stain - Final Resulted 06/06/24 08:14 Foot Left Wound Culture - Preliminary Resulted Problems(with codes): (1) Cellulitis of left foot (2) Osteomyelitis of left foot (3) HIV (human immunodeficiency virus infection) (4) IVDU (intravenous drug user) (5) Latent tuberculosis (6) Toe infection (7) Suicidal ideation (8) Schizophrenia (9) Depression Plan/Recommendation ASSESSMENT AND PLAN: ID Problem List: - HIV infection (non-compliant with ART) - Left great toe osteomyelitis - Left foot cellulitis - Diabetes mellitus - Schizophrenia - Depression - Homelessness - IV drug use (methamphetamine) - Non-compliance with medications GERD - latent TB Assessment This is a 38 y.o. male with a past medical history of HIV infection (non- compliant with ART), diabetes mellitus, schizophrenia, depression, GERD, and IV drug use (methamphetamine), who presents with a left foot infection. Left great toe with osteomyelitis confirmed by MRI, with associated cellulitis and a small ulcer with malodorous discharge between the toes. Laboratory studies notable for hemoglobin 12.6 g/dL, platelet count of 97 x10^3/L, BUN 15 mg/dL, creatinine 1.01 mg/dL, ALT 31 U/L, alkaline phosphatase 83 U/L, and total bilirubin 1.4 mg/dL. Foot CT showed significant soft tissue edema and a small abscess lateral to the first metatarsal. MRI confirms osteomyelitis of the distal phalanx of the left great toe. Chest X-ray without acute cardiopulmonary process. Doppler arterial ultrasound without evidence of peripheral arterial disease. Urine drug screen positive for amphetamines. Plan: - Continue vancomycin and ceftriaxone for osteomyelitis. > defer to podiatry on need for operative debridement of L great toe ulcer. if done please send for deep tissue and bone cultures (aerobic, anaerobic, fungal, afb) - for likely hx of latent tb, can confirm positive quantiferon and pursue treatment as outpatient (fu with infectious disease in 2 weeks) - confirm HIV diagnosis, check viral load and CD4 - Monitor wound and clinical response while inpatient. - Recommend initiation of antiretroviral therapy; however, patient expresses concerns about medication adherence due to homelessness. hold art, will need Bactrim 1DS daily plus or minus azithromycin MWF depending on CD4 count. - Consult social work for assistance with housing and resources to improve medication compliance. - Consult psychiatry for evaluation and management of schizophrenia and depression. - Discuss harm reduction strategies and treatment options for substance use. - not a candidate for IV antibiotics (IVDU) can use oral antibiotics based on operative findings. Isolation Precautions: standard Assessment and plan was discussed with the patient as written above Plan is subject to change pending incorporation of new incoming information/diagnostics. Updates may be added as addendum at the bottom (OR TOP) of this note Thank you for interesting consult. ID will continue to follow. Please contact Infectious disease for any questions or concerns. Adilia Sabillon M.D. [facility] Ph: ? Electronically signed by: Adilia Sabillon MD, 06/06/2024 History: The patient's chart and medications were reviewed in detail and the patient was seen and examined. History obtained from: patient, medical records Mr. Boykin is a 38 y.o. male with a past medical history of HIV infection (non- compliant with ART), diabetes mellitus, schizophrenia, depression, GERD, and IV drug use (methamphetamine), who presents with a left foot infection. Over the last month, he noticed increasing redness, pain, and discharge at the tip of the left great toe near the base of the nail bed. He reports a malodorous discharge and a small ulcer between the toes. He is homeless, smokes less than one pack per day, denies alcohol use, and has been generally non-compliant with medications at home. Review of Systems: A complete 10 system review of systems was completed and negative except as noted in the HPI or here. ROS: - CONSTITUTIONAL: Reports fever and left foot pain. - HEENT: Denies changes in vision and hearing. - RESPIRATORY: Denies shortness of breath and cough. - CV: Denies palpitations and chest pain. - GI: Denies abdominal pain, nausea, vomiting, and diarrhea. - : Denies dysuria and urinary frequency. - MSK: Reports pain and swelling in the left foot. - SKIN: Reports redness and discharge from the left foot. - NEUROLOGICAL: Denies headache and syncope. - PSYCHIATRIC: Reports history of depression and schizophrenia. Past Medical History: Diagnosis Date HIV infection (non-compliant with ART) Diabetes mellitus Schizophrenia Depression GERD IV drug use (methamphetamine) Past Surgical History: History reviewed. No pertinent surgical history. Home Medications: Patient not currently taking any home medications due to non-compliance. Allergies: Allergies No Known Drug Allergies Family History: Family history is unknown due to patient's homelessness and lack of contact with family. Social History: Socioeconomic History Marital status: Not on file Number of children: Not on file Years of education: Not on file Highest education level: Not on file Occupational History Not on file Tobacco Use Smoking status: Smokes less than one pack per day Smokeless tobacco: Never Vaping Use Vaping status: Never Used Substance and Sexual Activity Alcohol use: Denies Drug use: Positive for amphetamines on urine drug screen Sexual activity: Not on file Other Topics Concern Homelessness Social History Narrative The patient is homeless and expresses concerns about medication adherence due to lack of stable housing. Social Determinants of Health Financial Resource Strain: High Risk Difficulty of Paying Living Expenses: Reports significant difficulty due to homelessness. Food Insecurity: High Risk Reports difficulty accessing regular meals. Transportation Needs: High Risk Has limited access to transportation for medical appointments. Physical Activity: Not on file Stress: Not on file Social Connections: Not on file Intimate Partner Violence: Not on file Objective: Vital Signs on Arrival: Temp: 100.9 F (38.3 C)?BP: 152/68?Pulse: 75?Resp: 16?SpO2: 100% on room air Most Recent Vital Signs: Temp: 100.9 F?BP: 152/68?Pulse: 75?Resp: 16?SpO2: 100% on room air Admission Weight: Weight: Not specified??BMI: Not specified Physical Exam: General: Patient appears uncomfortable due to foot pain. Neck: Supple. No masses. HEENT: PERRL. Normal lids and conjunctiva. Moist mucous membranes. Oropharynx without lesions, exudates or excessive erythema. Normal appearance of the external aspects of the nose and ears. Heart: Regular rhythm, normal rate. No murmur. No lower extremity edema. Lungs: Normal respiratory effort. Clear to auscultation bilaterally. No wheezes. No crackles. Abdomen: Soft. Non-tender. Non-distended. No masses or abdominal hernia. Msk: Left foot with tenderness, redness, and swelling over the great toe. Decreased range of motion due to pain. Skin: Left foot with malodorous discharge between the toes and a small ulcer. Redness and swelling of the left great toe. Neuro: Alert. No facial droop or slurred speech. Extra-ocular movements intact. Sensation intact to soft touch in all 4 limbs. Psych: Affect appropriate to situation. Patient appears anxious. Repo rts history of depression and schizophrenia. Oriented to person, place, time, and situation. Diagnostic Studies: Available diagnostic studies were reviewed personally. Significant relevant results and findings are outlined below or addressed in the Assessment and Plan above. Pertinent Imaging: Recent Results (from the past 360 hour(s)) MRI Left Foot - Impression IMPRESSION: MRI confirms osteomyelitis of the distal phalanx of the left great toe with associated soft tissue swelling. CT Left Foot - Impression IMPRESSION: Significant soft tissue edema with a small abscess lateral to the first metatarsal. Chest X-Ray - Impression IMPRESSION: No acute cardiopulmonary process. Doppler Arterial Ultrasound Left Lower Extremity - Impression IMPRESSION: No evidence of peripheral arterial disease. Laboratory Studies: - Hemoglobin: 12.6 g/dL - Platelet count: 97 x10^3/L - WBC count: [Value not provided] - Sodium: 138 mmol/L - BUN: 15 mg/dL - Creatinine: 1.01 mg/dL - Lactic acid: 1.1 mmol/L INR: 1.04 ALT: 31 U/L - Alkaline phosphatase: 83 U/L - Total bilirubin: 1.4 mg/dL - Urine drug screen: Positive for amphetamines Plan discussed with: Patient ADILIA SABILLON MD Jun 08, 2024 20:47
[2024-06-09] VITALS (8 sets, daily range): BP systolic 92–153; BP diastolic 59–87; PULSE 59–85; RESP 16–18; TEMP 97.9–98.8; O2SAT 97–100
[2024-06-09 10:38] LABS: Hepatitis A Ab IgM Negative; Hepatitis B Core IgM Negative (Negative); Hepatitis B Surface Antigen Negative (Negative); Hepatitis C Antibody Negative (Negative)
[2024-06-09 11:23] LABS: Basophils # (auto) 0 10 ^3/uL (0-0.2); Basophils % (auto) 0.1 % (0.0-2.0); Eosinophils # (auto) 0.1 10 ^3/uL (0-0.8); Eosinophils % (auto) 1.2 % (0.0-7.0); Hematocrit 43.2 % (41.0-53.0); Hemoglobin 14.5 g/dL (13.5-17.5); Lymphocytes # (auto) 2.3 10 ^3/uL (0.4-5.4); Lymphocytes % (auto) 41.2 % (10.0-50.0); Mean Corpuscular Hemoglobin 27.7 pg (28.0-32.0); Mean Corpuscular Hgb Conc. 33.7 g/dL (32.0-36.0); Mean Corpuscular Volume 82.2 fL (80.0-100.0); Monocytes # (auto) 0.5 10 ^3/uL (0-1.3); Monocytes % (auto) 8.8 % (0.0-12.0); Neutrophils # (auto) 2.7 10 ^3/uL (1.6-8.6); Neutrophils % (auto) 48.7 % (37.0-80.0); Nucleated Red Blood Cells % 0.1 %; Platelet Count (auto) 214 10^3/uL (140-450); Red Blood Cells 5.25 10^6/uL (4.5-5.90); Red Cell Distribution Width 17.9 % (11.8-14.3); White Blood Cell 5.6 10^3/uL (4.4-10.8)
[2024-06-09 11:37] LABS: Anion Gap 6 (5-15); Carbon Dioxide 30 mmol/L (20-31); Chloride 99 mmol/L (98-107); Potassium 4.2 mmol/L (3.5-5.1)
[2024-06-09 11:38] LABS: Calcium 9.9 mg/dL (8.7-10.4)
[2024-06-09 11:43] LABS: BUN/Creatinine Ratio 18.8 (10.0-20.0); Blood Urea Nitrogen 18 mg/dL (9-23); Glucose 82 mg/dL (74-106)
[2024-06-09 11:47] LABS: Sodium 135 mmol/L (136-145)
--- NOTE | 2024-06-09 13:34 | DVHPNRES ---
Progress Note Date Seen: Jun 09, 2024 Resident Creating Document: SALOME ELIZABETH RESIDENT Medical Necessity Reason Pt with a Central, PICC or Fol: No Subjective Review of Systems patient was planned for surgery but he ate breakfast no other complains Objective vital signs Vital Sign Date Time Temp Pulse Resp B/P (MAP) Pulse Ox O2 Delivery O2 Flow Rate FiO2 06/09/24 10:00 92/59 06/09/24 09:00 97.9 69 18 97 97.9 06/09/24 08:00 Room Air* 0 21 Total Intake and Output 06/08/24 06/08/24 06/09/24 15:00 23:00 07:00 Intake Total 2040 ml 1700 ml Output Total 4 ml Balance 2040 ml 1696 ml medications Current Medications Medications Dose Ordered Sig/Elen Route Start Time Stop Time Status Last Admin Dose Admin Morphine Sulfate 2 mg Q30M PRN IV 06/06/24 00:00 Fluoxetine HCl 20 mg DAILY PO 06/06/24 10:00 06/09/24 09:40 20 MG Losartan Potassium 50 mg DAILY PO 06/06/24 10:00 06/08/24 09:21 50 MG Ceftriaxone Sodium 50 ml @ 100 mls/hr DAILY@09 IV 06/06/24 09:00 06/09/24 09:41 100 MLS/HR Vancomycin HCl 0 ml @ 0 mls/hr UD IV 06/06/24 00:45 Diagnostic Test (Pha) 1 strip ACHS 06/06/24 07:00 06/09/24 11:46 1 STRIP Insulin Human Regular ACHS SC 06/06/24 07:00 06/07/24 07:00 2 UNITS Dextrose 50 ml UD PRN IV 06/06/24 00:45 Acetaminophen/ Hydrocodone Bitart 1 tab Q4HP PRN PO 06/06/24 00:45 06/09/24 11:46 1 TAB Acetaminophen 650 mg Q6HP PRN PO 06/06/24 00:45 Baclofen 10 mg BID PO 06/07/24 10:00 06/09/24 09:40 10 MG Pantoprazole Sodium 40 mg DAILY PO 06/07/24 10:00 06/09/24 09:40 40 MG Sucralfate 1 gm QID@0600,1130,1700,2200 PO 06/07/24 06:00 06/09/24 06:00 1 GM Patient Own Medication 15 mg HS PO 06/07/24 22:00 Enoxaparin Sodium 40 mg DAILY SC 06/07/24 10:00 Ascorbic Acid 500 mg BID PO 06/07/24 10:00 06/09/24 09:40 500 MG Enteral Nutritional Formula 240 ml DAILY@BREAKFAST PO 06/08/24 08:00 06/08/24 09:19 240 ML Enteral Nutritional Formula 240 ml DAILY@LUNCH PO 06/07/24 12:00 06/08/24 12:03 240 ML Enteral Nutritional Formula 27.5 gm BID PO 06/07/24 10:00 06/08/24 22:01 27.5 GM Trimethoprim/ Sulfamethoxazole 0 ml @ 0 mls/hr PER PHARMACY IV 06/07/24 13:45 Cancel Vancomycin HCl 300 ml @ 200 mls/hr Q12H IV 06/08/24 15:00 06/09/24 03:00 200 MLS/HR Examination General Appearance: Cooperative. Well developed. Well nourished. NAD Head Exam: Normal inspection Neck Exam: Normal inspection. Non-tender. Normal alignment Pulmonary/Respiratory: Chest non-tender. Clear bilateral breath sounds Cardiovascular/Chest: Regular rate and rhythm. No murmurs. No JVD. Peripheral Pulses: 2+ Radial (R). 2+ Radial (L). 2+ Pedal (R). 2+ Pedal (L) Abdominal Exam: Normal bowel sounds. Soft. Nontender. No hepatospenomegaly. No masses Ankle Exam: Negative ankle edema Lower extremities: Negative lower extremity edema Neuro/Mental Status: A&O x4. Coherent Thoughts/Psych: Normal thought pattern. Appropriate mood and affect. Good judgement and insight Appearance: In no acute distress Skin Exam: Normal inspection. Normal color. Warm. Dry laboratory and microbiology Laboratory Tests 06/09/24 10:30 Test 06/09/24 10:30 Range/Units Serum Glucose 82 74-106 mg/dL Microbiology Date/Time Source Procedure Growth Status 06/07/24 06:11 Sputum Gram Stain - Final Resulted 06/07/24 06:11 Sputum Respiratory Culture - Preliminary Resulted 06/06/24 08:37 Blood Blood Culture - Preliminary NO GROWTH AFTER 72 HOURS OF INCUBATION. Resulted 06/06/24 08:14 Foot Left Gram Stain - Final Resulted 4/4/25 08:14 Foot Left Wound Culture - Preliminary Resulted Problem List/Assessment/Plan Problem List/Assessment/Plan Osteomyelitis of left hallux Prediabetes (hemoglobin A1c 5.8%) Recent diagnosis of HIV - pending initial treatment Polysubstance abuse (methamphetamine, alcohol and tobacco) Ruled out peripheral artery disease Schizophrenia and depression Rule out opportunistic infection Homelessness Hypertension Non adherence History of treated tuberculosis (patient was incarcerated) Plan Keep NPO from midnight. possible incision and drainage of left hallux and bone biopsy . Continue IV antibiotics, pending consultation with ID for HIV management. Completed foot CT and MRI, evidence soft tissue edema and osteomyelitis of 1st distal phalanx Currently under empiric IV antibiotic (ceftriaxone and vancomycin) Podiatry on board: Ordered MRI which confirms osteomyelitis. Planning on surgery for 06/09/2024, continue with IV antibiotics at the moment Consulted ID specialist for HIV management. Have ordered viral load, acute hepatitis panel and treponema test. Ordered QuantiFERON (most likely we will be positive due to previously treated tuberculosis). pending CD 4 count Completed lower extremity arterial duplex: No significant stenosis Obtain blood and wound cultures. Wound care on board Goals of care discussed with patient for over 18 minutes: Full code status Discussed plan with Dr. Sainz Plan discussed with: Patient Dietary Evaluation Review Recommendations by RD: Protein Supplementation Comments: 1) Initiate Glucerna bid d/t recent unintentional weight loss and increased needs 2) Initiate Dread @ 1 pk bid 3) Initiate vitamin C @ 500 mg bid and zinc sulfate @ 220 mg qd for 7-10 days 4) Follow-up with infectious disease specialist r/t recent HIV 5) Follow-up with clinical social worker 6) Continue to monitor I&O, labs, and skin integrity Expected Outcomes/Goals: 1) appetite and labs to improve 2) wound to improve 2) f/u in 2-3 days Date of Service: Jun 09, 2024 Billing Provider: KAMERON SAINZ MD Common Visit Codes: [id number] INP/OBS CARE(HIGH) SALOME ELIZABETH RESIDENT Jun 09, 2024 13:34 KAMERON SAINZ MD Jun 17, 2024 21:04
--- NOTE | 2024-06-09 14:29 | DVHINCON2 ---
Date Seen: Jun 09, 2024 Reason for Consultation Left foot wound History of Present Illness 38-year-old male presents for evaluation of infection to his left foot. Patient reports a one month history of noticing redness between his toes and over the past one-week he noticed. Discharge and increased pain at the site. Reports occasional fever. No trauma to the area. No other acute complaints. Past Medical History See H&P Past Surgical History See H&P Family History: FH: bipolar disorder G8 MOTHER, FH: schizophrenia G8 MOTHER, Allergies: Coded Allergies: NO KNOWN ALLERGIES (Unverified , 08/25/20) Home Meds Active Scripts Pantoprazole Sodium Sesquihydr (Protonix) 40 Mg Tab, 40 MG PO DAILY PRN for 90 Days, #90 TAB Prov:SALOME ELIZABETH RESIDENT 09/21/23 Sucralfate (CARAFATE SUSP) 1 Gm/10 Ml Ss, 1 GM PO QID@0600,1130,1700,2200 for 30 Days, #120 ML Prov:SALOME ELIZABETH RESIDENT 09/21/23 Nystatin (Mouth-Throat) (Mycostatin (Mouth-Throat)) 500,000 Units/5 Ml Ss, 5 ML MT QID for 14 Days, #60 ML Prov:SALOME ELIZABETH RESIDENT 09/21/23 Baclofen (Baclofen) 10 Mg Tab, 10 MG PO BID, #20 TAB Prov:LOLA SOSA 05/25/21 Ibuprofen (Ibuprofen) 800 Mg Tab, 800 MG PO Q8HP PRN, #30 TAB Prov:LOLA SOSA 05/25/21 Reported Medications Fluoxetine Hcl (Fluoxetine Hcl) 20 Mg Cap, 20 MG PO DAILY for 30 Days, MG 08/05/23 Aripiprazole (Abilify) 20 Mg Tab, 15 MG PO QPM, TAB 08/05/23 Current Medications Current Medications Medications (Trade) Dose Ordered Sig/Elen Route PRN Reason Start Time Stop Time Status Last Admin Vancomycin HCl 300 ml @ 200 mls/hr Q12H IV 06/08/24 15:00 06/09/24 03:00 Vital Signs Vital Signs Date Time Temp Pulse Resp B/P (MAP) Pulse Ox O2 Delivery O2 Flow Rate FiO2 06/09/24 10:00 92/59 06/09/24 09:00 97.9 69 18 97 97.9 06/09/24 08:00 Room Air* 0 21 Physical Exam DERMATOLOGIC EXAM: - Skin is dry and cool to the touch dry bilaterally. - Nails 1-5 of the bilateral foot are thickened, discolored, dystrophic, and tender to palpate with subungual debris - Hair loss noted to bilateral feet - multiple wounds on the left foot VASCULAR EXAM: - DP and PT pulses are palpable bilaterally. - FITTINGS FINISHER is brisk to all digits. - Feet are cool to touch compared to lower legs bilaterally. NEUROLOGIC EXAM: - Normal light touch sensation to the superficial peroneal, deep peroneal, sural, saphenous, and tibial nerve branches. - Protective sensation is diminished as tested with a 5.07 10g [place] bilaterally. MUSCULOSKELETAL EXAM: - No gross deformities - Muscle strength is 5/5 and active motion is pain-free and symmetrical bilaterally - No pain or crepitation with passive range of motion bilaterally to all major pedal joints Labs/Diagnostic Data Labs Test 06/09/24 11:43 06/09/24 10:30 06/08/24 01:44 06/06/24 23:59 Range/Units POC Glucose 85 70-106 mg/dl White Blood Count 5.6 4.4-10.8 10^3/uL Red Blood Count 5.25 4.5-5.90 10^6/uL Hemoglobin 14.5 13.5-17.5 g/dL Hematocrit 43.2 # 41.0-53.0 % Mean Corpuscular Volume 82.2 80.0-100.0 fL Mean Corpuscular Hemoglobin 27.7 L 28.0-32.0 pg Mean Corpuscular Hemoglobin Concent 33.7 32.0-36.0 g/dL Red Cell Distribution Width 17.9 H 11.8-14.3 % Platelet Count 214 140-450 10^3/uL Mean Platelet Volume 8.7 6.9-10.8 fL Neutrophils (%) (Auto) 48.7 37.0-80.0 % Lymphocytes (%) (Auto) 41.2 10.0-50.0 % Monocytes (%) (Auto) 8.8 0.0-12.0 % Eosinophils (%) (Auto) 1.2 0.0-7.0 % Basophils (%) (Auto) 0.1 0.0-2.0 % Neutrophils # (Auto) 2.7 1.6-8.6 10 ^3/uL Lymphocytes # (Auto) 2.3 0.4-5.4 10 ^3/uL Monocytes # (Auto) 0.5 0-1.3 10 ^3/uL Eosinophils # (Auto) 0.1 0-0.8 10 ^3/uL Basophils # (Auto) 0 0-0.2 10 ^3/uL Nucleated Red Blood Cells 0.1 % Sodium Level 135 L 136-145 mmol/L Potassium Level 4.2 3.5-5.1 mmol/L Chloride Level 99 98-107 mmol/L Carbon Dioxide Level 30 20-31 mmol/L Anion Gap 6 5-15 Blood Urea Nitrogen 18 9-23 mg/dL Creatinine 0.96 0.700-1.30 mg/dL Glomerular Filtration Rate Calc 102 >90 mL/min BUN/Creatinine Ratio 18.8 10.0-20.0 Serum Glucose 82 74-106 mg/dL Calcium Level 9.9 8.7-10.4 mg/dL HIV (1&2) Antibody Deferred Negative Vancomycin Level Trough 6.1 5-10 ug/mL Influenza Type A Antigen Negative Negative Influenza Type B Antigen Negative Negative SARS-CoV-2 Antigen (Rapid) Negative NEGATIVE Test 06/06/24 17:17 06/06/24 14:25 06/06/24 13:27 06/06/24 01:28 Range/Units Urine Color Light-yellow Yellow Urine Clarity Clear Clear Urine pH 6.5 5.0-9.0 Urine Specific [place] 1.016 1.001-1.035 Urine Protein Negative Negative Urine Ketones Negative Negative Urine Blood Negative Negative /uL Urine Nitrite Negative Negative Urine Bilirubin Negative Negative Urine Urobilinogen Normal Negative mg/dL Urine Leukocyte Esterase Negative Negative /uL Urine RBC 1 0 - 3 /hpf Urine Microscopic WBC < 1 0-3 /HPF Urine Squamous Epithelial Cells Few <5 /hpf Urine Bacteria None seen None Seen /hpf Urine Glucose Normal Normal mg/dL Urine Opiates Screen Neg NEGATIVE Urine Fentanyl Screen Neg NEGATIVE Urine Barbiturates Screen Neg NEGATIVE Urine Phencyclidine Screen Neg NEGATIVE Urine Amphetamines Screen Pos NEGATIVE Urine Benzodiazepines Screen Neg NEGATIVE Urine Cocaine Screen Neg NEGATIVE Urine Cannabinoids Screen Neg NEGATIVE Differential Total Cells Counted 100.0 100 Neutrophils % (Manual) 45 37.0-80.0 Band Neutrophils % (Manual) 2 Lymphocytes % (Manual) 32 10.0-50.0 Monocytes % (Manual) 13 H 0-12 Eosinophils % (Manual) 4 0-7 Basophils % (Manual) 0 0.0-2.0 Metamyelocytes % (manual) 0 Myelocytes % (Manual) 0 Promyelocytes % (Manual) 0 Blast Cells % (Manual) 0 Reactive Lymphocytes 4 Platelet Estimate Adequate Anisocytosis (manual) Slight Prothrombin Time 11.0 9.3-11.8 sec Prothrombin Time INR 1.04 0.9-1.15 Activated Partial Thromboplast Time 27.3 24.5-34.5 SEC Hemoglobin A1c 5.8 H <5.7 % A1C Phosphorus Level 3.8 2.4-5.1 mg/dL Magnesium Level 2.0 1.6-2.6 mg/dL C-Reactive Protein High Sensitivity 0.45 <1.0 mg/dL Vitamin B12 Level 680 211-911 pg/mL Vitamin D 25-Hydroxy 36.8 30.0-100 ng/mL Thyroid Stimulating Hormone (TSH) 0.71 0.55-4.78 uIU/mL Treponema pallidum Antibody Non-reactive Negative Hepatitis A IgM Antibody Negative Hepatitis B Surface Antigen Negative Negative Hepatitis B Core IgM Antibody Negative Negative Hepatitis C Antibody Negative Negative Lactic Acid Level 1.1 0.4-2.0 mmol/L Test 06/05/24 18:56 Range/Units Total Bilirubin 0.4 0.2-1.0 mg/dL Aspartate Amino Transferase (AST) 44 H 13-40 U/L Alanine Aminotransferase (ALT) 31 7-40 U/L Alkaline Phosphatase 83 46-116 U/L Total Protein 8.4 H 5.7-8.2 g/dL Albumin 3.9 3.2-4.8 g/dL Microbiology Date/Time Source Procedure Growth Status 06/07/24 06:11 Sputum Gram Stain - Final Resulted 06/07/24 06:11 Sputum Respiratory Culture - Preliminary Resulted 06/06/24 08:37 Blood Blood Culture - Preliminary NO GROWTH AFTER 72 HOURS OF INCUBATION. 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 - reviewed advanced imaging - discussed plan is to perform an incision and drainage - patient will be NPO at midnight - take him to the OR tomorrow - would have taken patient today but he had breakfast - we will get cultures in the OR - can weightbear as tolerated in postoperative shoe All questions were answered and concerns addressed to the patient's satisfaction. The patient was given the phone number to the clinic and was told how to make contact with the clinic should any concerns or questions arise. Patient understands that if any questions or concerns arise prior to the next appointment, we should be contacted immediately. FOLLOW-UP: Continue to follow while inpatient Plan discussed with: Patient Date of Service: Jun 09, 2024 Billing Provider: BARBARA CAMPA DPM Common Visit Codes: CONSULT ONLY Consultation Codes: [id number] CONSULT <80MIN BARBARA CAMPA DPM Jun 09, 2024 14:29
[2024-06-10] VITALS (7 sets, daily range): BP systolic 128–141; BP diastolic 71–83; PULSE 63–97; RESP 12–30; TEMP 97.9–98.5; O2SAT 98–100
[2024-06-10 05:08] LABS: Basos 0 % (Not Estab.); Eos 1 % (Not Estab.); Eos (Absolute) 0.1 x10E3/uL (0.0-0.4); Hematocrit 46.4 % (37.5-51.0); Hemoglobin 14.9 g/dL (13.0-17.7); Immature Granulocytes (Abs) 0 x10E3/uL (0.0-0.1); Lymphs 42 % (Not Estab.); Lymphs (Absolute) 2.3 x10E3/uL (0.7-3.1); MCH 26.8 pg (26.6-33.0); MCHC 32.1 g/dL (31.5-35.7); MCV 84 fL (79-97); Monocytes 7 % (Not Estab.); Monocytes (Absolute) 0.4 x10E3/uL (0.1-0.9); Neutrophils 50 % (Not Estab.); Neutrophils (Absolute) 2.7 x10E3/uL (1.4-7.0); Platelets 256 x10E3/uL (150-450); RBC 5.55 x10E6/uL (4.14-5.80); WBC 5.6 x10E3/uL (3.4-10.8)
[2024-06-10] MEDS ORDERED: VANCOMYCIN 1GM/200ML PM 250 ML IV SCH (11:00)
[2024-06-10 11:07] LABS: % CD 4 Pos Lymph 13.6 % (30.8-58.5); % CD 8 Pos Lymph 76.1 % (12.0-35.5); Absolute CD 4 Helper 313 /uL (359-1519); CD4/CD8 Ratio 0.18 (0.92-3.72)
[2024-06-10] MEDS: VANCOMYCIN 1GM/200ML PM 200 ML IV SCH (11:07)
[2024-06-10] MEDS ORDERED: MORPHINE SULFATE INJ 2 MG/ml SYRG IV PRN (11:45)
[2024-06-10] MEDS ORDERED: ONDANSETRON HCL 4 MG/2 ML VIAL IV ONE (11:45)
[2024-06-10] MEDS ORDERED: ACCU-CHEK COMFORT CURVE STRIP VI ONE (11:45)
[2024-06-10] MEDS ORDERED: MORPHINE SULFATE 4 MG/ML SYR/VIAL IV PRN (11:45)
[2024-06-10] MEDS ORDERED: HYDROmorphone HCL 2 MG/ML VL/or syr IV PRN ×2 (11:45)
[2024-06-10] MEDS ORDERED: KETOROLAC TROMETH 30 MG/ML 1ML VIAL IV ONE (11:45)
[2024-06-10] MEDS ORDERED: KETAMINE 50mg/ML 1ml syringe ONE (11:51)
[2024-06-10] MEDS ORDERED: MIDAZOLAM HCL 2MG/2ML 2ml VIAL (1mg/ml) ONE (11:52)
[2024-06-10] MEDS ORDERED: ONDANSETRON HCL 4 MG/2 ML VIAL ONE (11:52)
[2024-06-10] MEDS ORDERED: PROPOFOL 10 MG/ML 20 ML IV ONE (11:52)
[2024-06-10] MEDS ORDERED: SODIUM CHLORIDE LOCK 10 ML ONE (11:52)
[2024-06-10] MEDS ORDERED: LIDOCAINE 1% INJ PF 5ML AMP ONE (11:52)
[2024-06-10] MEDS ORDERED: fentaNYL CITRATE 100 MCG/2 ML VL ONE (11:52)
[2024-06-10] MEDS ORDERED: KETOROLAC TROMETH 30 MG/ML 1ML VIAL ONE (11:52)
[2024-06-10] MEDS ORDERED: VANCOMYCIN HCL 1000 MG VL ONE (12:04)
[2024-06-10 12:19] LABS: Basophils # (auto) 0 10 ^3/uL (0-0.2); Eosinophils # (auto) 0.1 10 ^3/uL (0-0.8); Eosinophils % (auto) 2.1 % (0.0-7.0); Hematocrit 40.9 % (41.0-53.0); Hemoglobin 13.4 g/dL (13.5-17.5); Lymphocytes # (auto) 1.8 10 ^3/uL (0.4-5.4); Lymphocytes % (auto) 38.7 % (10.0-50.0); Mean Corpuscular Hemoglobin 26.8 pg (28.0-32.0); Mean Corpuscular Hgb Conc. 32.7 g/dL (32.0-36.0); Mean Corpuscular Volume 81.9 fL (80.0-100.0); Monocytes # (auto) 0.5 10 ^3/uL (0-1.3); Monocytes % (auto) 11.2 % (0.0-12.0); Neutrophils # (auto) 2.2 10 ^3/uL (1.6-8.6); Nucleated Red Blood Cells % 0.1 %; Platelet Count (auto) 174 10^3/uL (140-450); Red Blood Cells 4.99 10^6/uL (4.5-5.90); Red Cell Distribution Width 18.2 % (11.8-14.3); White Blood Cell 4.6 10^3/uL (4.4-10.8)
--- NOTE | 2024-06-10 12:35 | DVHPN2 ---
Subjective 38-year-old male presents for evaluation of infection to his left foot. Patient reports a one month history of noticing redness between his toes and over the past one-week he noticed. Discharge and increased pain at the site. Reports occasional fever. No trauma to the area. No other acute complaints. Changes from previous H/P or p: No Changes Objective Vitals Vital Signs Date Time Temp Pulse Resp B/P (MAP) Pulse Ox O2 Delivery O2 Flow Rate FiO2 06/10/24 09:48 128/77 06/10/24 09:00 98.0 65 16 98 98.0 06/10/24 08:00 Room Air* 0 21 Intake/Output Intake and Output 06/10/24 07:00 Intake Total 1362 ml Balance 1362 ml Intake Oral 600 ml IV Total 50 ml Tube Feeding 712 ml # Voids 9 # Bowel Movements 2 Exam DERMATOLOGIC EXAM: - Skin is dry and cool to the touch dry bilaterally. - Nails 1-5 of the bilateral foot are thickened, discolored, dystrophic, and tender to palpate with subungual debris - Hair loss noted to bilateral feet - multiple wounds on the left foot VASCULAR EXAM: - DP and PT pulses are palpable bilaterally. - TEXTILE KNITTER is brisk to all digits. - Feet are cool to touch compared to lower legs bilaterally. NEUROLOGIC EXAM: - Normal light touch sensation to the superficial peroneal, deep peroneal, sural, saphenous, and tibial nerve branches. - Protective sensation is diminished as tested with a 5.07 10g [place] bilaterally. MUSCULOSKELETAL EXAM: - No gross deformities - Muscle strength is 5/5 and active motion is pain-free and symmetrical bilaterally - No pain or crepitation with passive range of motion bilaterally to all major pedal joints Medications Current Medications Medications Dose Ordered Sig/Elen Route Start Time Stop Time Status Last Admin Dose Admin Morphine Sulfate 2 mg Q30M PRN IV 06/06/24 00:00 Fluoxetine HCl 20 mg DAILY PO 06/06/24 10:00 06/09/24 09:40 20 MG Losartan Potassium 50 mg DAILY PO 06/06/24 10:00 06/08/24 09:21 50 MG Ceftriaxone Sodium 50 ml @ 100 mls/hr DAILY@09 IV 06/06/24 09:00 06/10/24 09:48 100 MLS/HR Vancomycin HCl 0 ml @ 0 mls/hr UD IV 06/06/24 00:45 Diagnostic Test (Pha) 1 strip ACHS 06/06/24 07:00 06/10/24 12:16 1 STRIP Insulin Human Regular ACHS SC 06/06/24 07:00 06/07/24 07:00 2 UNITS Dextrose 50 ml UD PRN IV 06/06/24 00:45 Acetaminophen/ Hydrocodone Bitart 1 tab Q4HP PRN PO 06/06/24 00:45 06/09/24 16:44 1 TAB Acetaminophen 650 mg Q6HP PRN PO 06/06/24 00:45 Baclofen 10 mg BID PO 06/07/24 10:00 06/09/24 22:42 10 MG Pantoprazole Sodium 40 mg DAILY PO 06/07/24 10:00 06/09/24 09:40 40 MG Sucralfate 1 gm QID@0600,1130,1700,2200 PO 06/07/24 06:00 06/09/24 22:42 1 GM Patient Own Medication 15 mg HS PO 06/07/24 22:00 Enoxaparin Sodium 40 mg DAILY SC 06/07/24 10:00 Ascorbic Acid 500 mg BID PO 06/07/24 10:00 06/09/24 22:42 500 MG Enteral Nutritional Formula 240 ml DAILY@BREAKFAST PO 06/08/24 08:00 06/08/24 09:19 240 ML Enteral Nutritional Formula 240 ml DAILY@LUNCH PO 06/07/24 12:00 06/08/24 12:03 240 ML Enteral Nutritional Formula 27.5 gm BID PO 06/07/24 10:00 06/09/24 22:00 27.5 GM Trimethoprim/ Sulfamethoxazole 0 ml @ 0 mls/hr PER PHARMACY IV 06/07/24 13:45 Cancel Vancomycin HCl 200 ml @ 200 mls/hr Q8H IV 06/10/24 11:00 06/10/24 11:07 200 MLS/HR Morphine Sulfate 2 mg Q4H PRN IV 06/10/24 11:45 06/10/24 15:46 Morphine Sulfate 1 mg Q30M PRN IV 06/10/24 11:45 06/10/24 13:46 Laboratory Results Laboratory Tests 06/09/24 10:30 06/10/24 12:00 Urinalysis Test 06/06/24 14:25 Urine Color Light-yellow (Yellow) Urine Clarity Clear (Clear) Urine pH 6.5 (5.0-9.0) Urine Specific [place] 1.016 (1.001-1.035) Urine Protein Negative (Negative) Urine Ketones Negative (Negative) Urine Blood Negative /uL (Negative) Urine Nitrite Negative (Negative) Urine Bilirubin Negative (Negative) Urine Urobilinogen Normal mg/dL (Negative) Urine Leukocyte Esterase Negative /uL (Negative) Urine RBC 1 /hpf (0 - 3) Urine Microscopic WBC < 1 /HPF (0-3) Urine Squamous Epithelial Cells Few /hpf (<5) Urine Bacteria None seen /hpf (None Seen) Urine Glucose Normal mg/dL (Normal) Microbiology Microbiology Date/Time Source Procedure Growth Status 06/07/24 06:11 Sputum Gram Stain - Final Complete 06/07/24 06:11 Respiratory Culture - Final Staphylococcus aureus Complete 06/06/24 08:37 Blood Blood Culture - Preliminary NO GROWTH AFTER 72 HOURS OF INCUBATION. Resulted 06/06/24 08:14 Foot Left Gram Stain - Final Resulted 06/06/24 08:14 Foot Left Wound Culture - Preliminary Resulted Assessment/Plan Assessment/Plan ASSESSMENT: Patient is a [age] year old seen on the floor for a worsening ulcer PLAN: - The patients chart was reviewed, clinical findings were discussed with the patient, the etiologies of the conditions were discussed in detail, and a treatment plan was agreed to at this time, with both oral and written instructions provided. - reviewed advanced imaging - discussed plan is to perform an incision and drainage - patient will be NPO at midnight - take him to the OR tomorrow - would have taken patient today but he had breakfast - we will get cultures in the OR - can weightbear as tolerated in postoperative shoe All questions were answered and concerns addressed to the patient's satisfaction. The patient was given the phone number to the clinic and was told how to make contact with the clinic should any concerns or questions arise. Patient understands that if any questions or concerns arise prior to the next appointment, we should be contacted immediately. FOLLOW-UP: Continue to follow while inpatient Plan discussed with: Patient My Orders Orders - BARBARA CAMPA DPM Procedure Category Date Status Time Cardiac DIET 06/09/24 Transmitted Diet-2gna,Lofat,Lochol Dinner Npo After Midnight ORDERS 06/09/24 Transmitted Problem List: (1) Toe infection (2) Depression (3) Schizophrenia (4) Suicidal ideation (5) HIV (human immunodeficiency virus infection) (6) Latent tuberculosis (7) Osteomyelitis of left foot (8) Cellulitis of left foot (9) Constipation (10) Muscle strain (11) Muscle strain (12) Shortness of breath (13) Microcytic anemia (14) Paresthesias (15) GI bleed (16) Lower GI bleed (17) Mild protein malnutrition (18) Hypertensive urgency (19) Nonspecific abdominal pain (20) Severe anemia (21) Chest pain of unknown etiology (22) GERD with esophagitis Date of Service: Jun 10, 2024 Billing Provider: BARBARA CAMPA DPM Common Visit Codes: [id number] INP/OBS CARE(HIGH) BARBARA CAMPA DPM Jun 10, 2024 12:35
[2024-06-10] MEDS: BUPIVACAINE 0.5% MPF INJ 30ML SDV IJ ONE (12:45)
--- NOTE | 2024-06-10 12:56 | DVHOP2 ---
Operative Report - 2 Report Details Date: 06/10/24 Preop Diagnosis: 1. Left foot third toe osteomyelitis 2. Left foot fourth toe osteomyelitis 3. Left foot abscess 4. Left foot cellulitis Postop Diagnosis: Same as preop Surgeon: Barbara Campa MD Anesthesiologist: See anesthesia Anesthesia: Mac Consent: The patient was informed of the risks and benefits of the procedure. These include but are not limited to complications of anesthesia, postoperative infection, incomplete relief of symptoms, recurrence of symptoms, damage to blood vessels, nerves and tendons, deep venous thrombosis, pulmonary embolism and possible need for repeat surgery in the future. Complications: None Estimated Blood Loss: Minimal Fluids: See anesthesia Findings: Consistent with diagnosis Indications for Surgery: Worsening left foot wounds Name of Procedure Performed 1. Left foot third toe I&D () 2. Left foot fourth toe I&D () 3. Left foot bone biopsy third toe () 4. Left foot delayed closure (03570) Procedure Details Procedure Details: PRE-PROCEDURE INFORMATION: In the pre-op holding area, the extremity to be operated on was clearly marked and the patient verified correct laterality of the marking. The patient was transferred to the OR table and placed in a supine position. A timeout was performed in which identification of the correct patient, procedure, location, and materials was done. The _ foot and leg were prepped and draped in normal sterile fashion. The foot and leg were exsanguinated and the _ tourniquet was inflated to 300 mmHg. DESCRIPTION OF PROCEDURE: Attention was directed to the left 4th medial toe where area of fluctuance was noted. An incision was made over this area and was deepened through blunt dissection. The incision was deepened to the level of abscess and bone. Care was taken to the dissection to avoid any neurovascular and tendinous structures. The incision was deepened to the bone, and the abscess appeared to be purulent fluid consistent with pus. The cortices of the bone was then removed with Hardik an all necrotic tissue. After the abscess was drained, the area was irrigated with 3 L normal saline using cysto tubing. Deep cultures were then obtained from the wound. The area was then inspected and any areas of tracking, especially along the tendons were also drained. A delayed closure was then performed using 2-0 nylon after was deemed appropriate with no longer concern for infection. Attention was directed to the left 3rd medial toe where area of fluctuance was noted. An incision was made over this area and was deepened through blunt dissection. The incision was deepened to the level of abscess and bone. Care was taken to the dissection to avoid any neurovascular and tendinous structures. The incision was deepened to the bone, and the abscess appeared to be purulent fluid consistent with pus. The cortices of the bone was then removed with Hardik an all necrotic tissue. After the abscess was drained, the area was irrigated with 3 L normal saline using cysto tubing. Deep cultures were then obtained from the wound. The area was then inspected and any areas of tracking, especially along the tendons were also drained. A delayed closure was then performed using 2-0 nylon after was deemed appropriate with no longer concern for infection. All surgical wounds were irrigated copiously with saline and closed in layers with the aforementioned suture material. A dry sterile dressing was placed on the surgical extremity. The patient was placed in a postop shoe POSTOPERATIVE INFORMATION: The patient tolerated the above noted procedure and anesthesia well and was transferred to the PACU with vital signs stable, and vascular status intact with capillary refill intact to all digits. Deep cultures were taken and bone biopsy 7. Patient will return to the floor and continue IV antibiotics. Patient can be placed on 3 weeks of p.o. antibiotics. Patient can have dressings changed every other day with Betadine-soaked gauze, Kerlix, Aaron bandage. Specimen: Left 3rd proximal phalanx Condition Good Disposition Still a Patient BARBARA CAMPA DPM Jun 10, 2024 12:56
[2024-06-10 15:07] LABS: QuantiFERON-TB Gold Plus Negative (Negative)
--- NOTE | 2024-06-10 16:50 | DVHPNRES ---
Progress Note Date Seen: Jun 10, 2024 Resident Creating Document: SALOME ELIZABETH RESIDENT Medical Necessity Reason Pt with a Central, PICC or Fol: No Subjective Patient reports: No new complaints Changes from previous H/P or p: No Changes Review of Systems: HEENT:Normal, CVS:Normal, RESPIRATORY:Normal, GI:Normal, :Normal, MSK:Abnormal, NEURO:Normal Objective vital signs Vital Sign Date Time Temp Pulse Resp B/P (MAP) Pulse Ox O2 Delivery O2 Flow Rate FiO2 06/10/24 13:26 71 17 130/91 (104) 100 06/10/24 12:56 97.8 97.8 06/10/24 12:56 Mask 6.0 06/10/24 08:00 21 Total Intake and Output 06/09/24 06/09/24 06/10/24 15:00 23:00 07:00 Intake Total 762 ml 600 ml Balance 762 ml 600 ml medications Current Medications Medications Dose Ordered Sig/Elen Route Start Time Stop Time Status Last Admin Dose Admin Morphine Sulfate 2 mg Q30M PRN IV 06/06/24 00:00 Fluoxetine HCl 20 mg DAILY PO 06/06/24 10:00 06/10/24 16:04 20 MG Losartan Potassium 50 mg DAILY PO 06/06/24 10:00 06/08/24 09:21 50 MG Ceftriaxone Sodium 50 ml @ 100 mls/hr DAILY@09 IV 06/06/24 09:00 06/10/24 09:48 100 MLS/HR Vancomycin HCl 0 ml @ 0 mls/hr UD IV 06/06/24 00:45 Diagnostic Test (Pha) 1 strip ACHS 06/06/24 07:00 06/10/24 12:16 1 STRIP Insulin Human Regular ACHS SC 06/06/24 07:00 06/07/24 07:00 2 UNITS Dextrose 50 ml UD PRN IV 06/06/24 00:45 Acetaminophen/ Hydrocodone Bitart 1 tab Q4HP PRN PO 06/06/24 00:45 06/10/24 16:04 1 TAB Acetaminophen 650 mg Q6HP PRN PO 06/06/24 00:45 Baclofen 10 mg BID PO 06/07/24 10:00 06/09/24 22:42 10 MG Pantoprazole Sodium 40 mg DAILY PO 06/07/24 10:00 06/09/24 09:40 40 MG Sucralfate 1 gm QID@0600,1130,1700,2200 PO 06/07/24 06:00 06/09/24 22:42 1 GM Patient Own Medication 15 mg HS PO 06/07/24 22:00 Enoxaparin Sodium 40 mg DAILY SC 06/07/24 10:00 Ascorbic Acid 500 mg BID PO 06/07/24 10:00 06/09/24 22:42 500 MG Enteral Nutritional Formula 240 ml DAILY@BREAKFAST PO 06/08/24 08:00 06/08/24 09:19 240 ML Enteral Nutritional Formula 240 ml DAILY@LUNCH PO 06/07/24 12:00 06/08/24 12:03 240 ML Enteral Nutritional Formula 27.5 gm BID PO 06/07/24 10:00 06/09/24 22:00 27.5 GM Trimethoprim/ Sulfamethoxazole 0 ml @ 0 mls/hr PER PHARMACY IV 06/07/24 13:45 Cancel Vancomycin HCl 200 ml @ 200 mls/hr Q8H IV 06/10/24 11:00 06/10/24 11:07 200 MLS/HR Examination General Appearance: Cooperative. Well developed. Well nourished. NAD Head Exam: Normal inspection Neck Exam: Normal inspection. Non-tender. Normal alignment Pulmonary/Respiratory: Chest non-tender. Clear bilateral breath sounds Cardiovascular/Chest: Regular rate and rhythm. No murmurs. No JVD. Peripheral Pulses: 2+ Radial (R). 2+ Radial (L). 2+ Pedal (R). 2+ Pedal (L) Abdominal Exam: Normal bowel sounds. Soft. Nontender. No hepatospenomegaly. No masses Ankle Exam: Negative ankle edema Lower extremities: Negative lower extremity edema Neuro/Mental Status: A&O x4. Coherent Thoughts/Psych: Normal thought pattern. Appropriate mood and affect. Good judgement and insight Appearance: In no acute distress Skin Exam: Normal inspection. Normal color. Warm. Dry laboratory and microbiology Laboratory Tests 06/10/24 12:00 06/09/24 10:30 Test 06/09/24 10:30 Range/Units Serum Glucose 82 74-106 mg/dL Microbiology Date/Time Source Procedure Growth Status 06/07/24 06:11 Sputum Gram Stain - Final Complete 06/07/24 06:11 Respiratory Culture - Final Staphylococcus aureus Complete 06/06/24 08:37 Blood Blood Culture - Preliminary NO GROWTH AFTER 72 HOURS OF INCUBATION. Resulted 06/06/24 08:14 Foot Left Gram Stain - Final Resulted 06/06/24 08:14 Foot Left Wound Culture - Preliminary Resulted Problem List/Assessment/Plan Problem List/Assessment/Plan Left foot 3rd toe osteomyelitis Left foot 4th toe osteomyelitis Left foot abscess Left foot cellulitis Prediabetes (hemoglobin A1c 5.8%) Recent diagnosis of HIV - pending initial treatment Polysubstance abuse (methamphetamine, alcohol and tobacco) Ruled out peripheral artery disease Schizophrenia and depression Rule out opportunistic infection Homelessness Hypertension Non adherence History of treated tuberculosis (patient was incarcerated) Plan Status post I&D of left foot on 06/10/[address] and MRI, evidence soft tissue edema and osteomyelitis of 1st distal phalanx Currently under empiric IV antibiotic (ceftriaxone and vancomycin) Podiatry on board: Ordered MRI which confirms osteomyelitis. Planning on surgery for 06/09/2024, continue with IV antibiotics at the moment Consulted ID specialist for HIV management. Have ordered viral load, acute hepatitis panel and treponema test. Ordered QuantiFERON (most likely we will be positive due to previously treated tuberculosis). Absolute CD4 count 313. Completed lower extremity arterial duplex: No significant stenosis Goals of care discussed with patient for over 18 minutes: Full code status Discussed plan with Dr. Davies Plan discussed with: Patient, Other (RN) Dietary Evaluation Review Recommendations by RD: Protein Supplementation Comments: 1) Initiate Glucerna bid d/t recent unintentional weight loss and increased needs 2) Initiate Dread @ 1 pk bid 3) Initiate vitamin C @ 500 mg bid and zinc sulfate @ 220 mg qd for 7-10 days 4) Follow-up with infectious disease specialist r/t recent HIV 5) Follow-up with vp digital marketing social media and crm 6) Continue to monitor I&O, labs, and skin integrity Expected Outcomes/Goals: 1) appetite and labs to improve 2) wound to improve 2) f/u in 2-3 days Date of Service: Jun 10, 2024 Billing Provider: NARESH DAVIES MD Common Visit Codes: [id number] INP/OBS CARE(HIGH) SALOME ELIZABETH RESIDENT Jun 10, 2024 16:50 NARESH DAVIES MD Jun 10, 2024 18:33
[2024-06-11 07:25] LABS: Basophils # (auto) 0 10 ^3/uL (0-0.2); Basophils % (auto) 0.1 % (0.0-2.0); Eosinophils # (auto) 0.2 10 ^3/uL (0-0.8); Eosinophils % (auto) 2.5 % (0.0-7.0); Hematocrit 36.3 % (41.0-53.0); Hemoglobin 12.2 g/dL (13.5-17.5); Lymphocytes # (auto) 2.5 10 ^3/uL (0.4-5.4); Lymphocytes % (auto) 35.2 % (10.0-50.0); Mean Corpuscular Hemoglobin 27.7 pg (28.0-32.0); Mean Corpuscular Hgb Conc. 33.6 g/dL (32.0-36.0); Mean Corpuscular Volume 82.5 fL (80.0-100.0); Monocytes # (auto) 0.8 10 ^3/uL (0-1.3); Monocytes % (auto) 11.4 % (0.0-12.0); Neutrophils # (auto) 3.7 10 ^3/uL (1.6-8.6); Neutrophils % (auto) 50.8 % (37.0-80.0); Nucleated Red Blood Cells % 0.1 %; Platelet Count (auto) 153 10^3/uL (140-450); Red Blood Cells 4.41 10^6/uL (4.5-5.90); Red Cell Distribution Width 17.9 % (11.8-14.3); White Blood Cell 7.2 10^3/uL (4.4-10.8)
[2024-06-11 07:28] LABS: Anion Gap 6 (5-15); Carbon Dioxide 27 mmol/L (20-31); Chloride 105 mmol/L (98-107); Potassium 4.3 mmol/L (3.5-5.1); Sodium 138 mmol/L (136-145)
[2024-06-11 07:29] LABS: Calcium 9.3 mg/dL (8.7-10.4)
[2024-06-11 07:34] LABS: BUN/Creatinine Ratio 24.2 (10.0-20.0); Glucose 94 mg/dL (74-106)
[2024-06-11 07:39] LABS: Blood Urea Nitrogen 24 mg/dL (9-23)
[2024-06-11 08:00] VITALS: PULSE 61; RESP 20; O2SAT 100
[2024-06-11 09:00] VITALS: BP 143/63; PULSE 60; RESP 20; TEMP 98; O2SAT 100
--- NOTE | 2024-06-11 10:53 | DVHPNRES ---
Progress Note Date Seen: Jun 11, 2024 Resident Creating Document: SAOLME ELIZABETH RESIDENT Medical Necessity Reason Pt with a Central, PICC or Fol: No Objective vital signs Vital Sign Date Time Temp Pulse Resp B/P (MAP) Pulse Ox O2 Delivery O2 Flow Rate FiO2 06/11/24 10:24 143/84 06/11/24 09:00 98.0 60 20 100 98.0 06/10/24 20:00 Room Air* 0 21 Total Intake and Output 06/10/24 06/10/24 06/11/24 15:00 23:00 07:00 Intake Total 260 ml 600 ml 2000 ml Balance 260 ml 600 ml 2000 ml medications Current Medications Medications Dose Ordered Sig/Elen Route Start Time Stop Time Status Last Admin Dose Admin Morphine Sulfate 2 mg Q30M PRN IV 06/06/24 00:00 Fluoxetine HCl 20 mg DAILY PO 06/06/24 10:00 06/11/24 10:25 20 MG Losartan Potassium 50 mg DAILY PO 06/06/24 10:00 06/11/24 10:24 50 MG Vancomycin HCl 0 ml @ 0 mls/hr UD IV 06/06/24 00:45 Diagnostic Test (Pha) 1 strip ACHS 06/06/24 07:00 06/11/24 06:13 1 STRIP Insulin Human Regular ACHS SC 06/06/24 07:00 06/10/24 17:58 2 UNITS Dextrose 50 ml UD PRN IV 06/06/24 00:45 Acetaminophen/ Hydrocodone Bitart 1 tab Q4HP PRN PO 06/06/24 00:45 06/11/24 07:58 1 TAB Acetaminophen 650 mg Q6HP PRN PO 06/06/24 00:45 Baclofen 10 mg BID PO 06/07/24 10:00 06/11/24 10:24 10 MG Pantoprazole Sodium 40 mg DAILY PO 06/07/24 10:00 06/11/24 10:24 40 MG Sucralfate 1 gm QID@0600,1130,1700,2200 PO 06/07/24 06:00 06/11/24 06:13 1 GM Patient Own Medication 15 mg HS PO 06/07/24 22:00 Enoxaparin Sodium 40 mg DAILY SC 06/07/24 10:00 06/11/24 10:25 40 MG Ascorbic Acid 500 mg BID PO 06/07/24 10:00 06/11/24 10:24 500 MG Enteral Nutritional Formula 240 ml DAILY@BREAKFAST PO 06/08/24 08:00 06/08/24 09:19 240 ML Enteral Nutritional Formula 240 ml DAILY@LUNCH PO 06/07/24 12:00 06/08/24 12:03 240 ML Enteral Nutritional Formula 27.5 gm BID PO 06/07/24 10:00 06/09/24 22:00 27.5 GM Trimethoprim/ Sulfamethoxazole 0 ml @ 0 mls/hr PER PHARMACY IV 06/07/24 13:45 Cancel Vancomycin HCl 200 ml @ 200 mls/hr Q8H IV 06/10/24 11:00 06/10/24 18:32 200 MLS/HR laboratory and microbiology Laboratory Tests 06/11/24 05:13 Test 06/11/24 05:13 Range/Units Serum Glucose 94 74-106 mg/dL Microbiology Date/Time Source Procedure Growth Status 06/07/24 06:11 Sputum Gram Stain - Final Complete 06/07/24 06:11 Respiratory Culture - Final Staphylococcus aureus Complete 06/06/24 08:37 Blood Blood Culture - Final NO GROWTH AFTER 5 DAYS OF INCUBATION. Complete 06/06/24 08:14 Foot Left Gram Stain - Final Complete 06/06/24 08:14 Wound Culture - Final Staphylococcus aureus Streptococcus Group A Complete Problem List/Assessment/Plan Problem List/Assessment/Plan Left foot 3rd toe osteomyelitis Left foot 4th toe osteomyelitis Left foot abscess Left foot cellulitis -IV antibiotic with vancomycin, underwent I and D of left foot on 06/10/2024 -podiatry -Infectious Disease on board -wound culture -Completed lower extremity arterial duplex: No significant stenosis Newly diagnosed HIV -CD4 count 317 -Infectious Disease on board: Not on home anti-retroviral therapy at this point -pending viral load, negative trepenama palladium antibody, negative hepatitis panel. Prediabetic hemoglobin A1c 5.8 -advised on lifestyle modification including healthy diet options, regular exercise Schizophrenia and depression -resume home medication -repeat psych evaluation Homelessness -social service consulted History of treated latent TB -TB gold interferon negative Medication nonadherence Hypertension -resume home medication Goals of care discussed with patient for over 18 minutes: Full code status Discussed plan with Dr. Davies Plan discussed with: Patient, Other (RN) My Orders My Orders Orders - SALOME ELIZABETH RESIDENT Procedure Category Date Status Time Soc Telemed Psych CONS 06/11/24 Transmitted Consult 10:42 Dietary Evaluation Review Recommendations by RD: Protein Supplementation Comments: 1) Initiate Glucerna bid d/t recent unintentional weight loss and increased needs 2) Initiate Dread @ 1 pk bid 3) Initiate vitamin C @ 500 mg bid and zinc sulfate @ 220 mg qd for 7-10 days 4) Follow-up with infectious disease specialist r/t recent HIV 5) Follow-up with delinquency prevention social worker 6) Continue to monitor I&O, labs, and skin integrity Expected Outcomes/Goals: 1) appetite and labs to improve 2) wound to improve 2) f/u in 2-3 days Date of Service: Jun 11, 2024 Billing Provider: NARESH DAVIES MD Common Visit Codes: [id number] INP/OBS CARE(HIGH) SALOME ELIZABETH RESIDENT Jun 11, 2024 10:53 NARESH DAVIES MD Jun 11, 2024 17:16
[2024-06-11 20:00] VITALS: PULSE 74; RESP 20; O2SAT 98
[2024-06-12] VITALS (7 sets, daily range): BP systolic 113–141; BP diastolic 57–109; PULSE 63–79; RESP 18–19; TEMP 98–98.6; O2SAT 96–100
[2024-06-12 05:49] LABS: Basophils # (auto) 0 10 ^3/uL (0-0.2); Eosinophils # (auto) 0.2 10 ^3/uL (0-0.8); Eosinophils % (auto) 3.4 % (0.0-7.0); Hematocrit 35.8 % (41.0-53.0); Hemoglobin 11.9 g/dL (13.5-17.5); Lymphocytes # (auto) 2.6 10 ^3/uL (0.4-5.4); Lymphocytes % (auto) 41.7 % (10.0-50.0); Mean Corpuscular Hemoglobin 27.2 pg (28.0-32.0); Mean Corpuscular Hgb Conc. 33.1 g/dL (32.0-36.0); Mean Corpuscular Volume 82.2 fL (80.0-100.0); Monocytes # (auto) 0.7 10 ^3/uL (0-1.3); Monocytes % (auto) 12.2 % (0.0-12.0); Neutrophils # (auto) 2.6 10 ^3/uL (1.6-8.6); Neutrophils % (auto) 42.7 % (37.0-80.0); Nucleated Red Blood Cells % 0.2 %; Platelet Count (auto) 153 10^3/uL (140-450); Red Blood Cells 4.36 10^6/uL (4.5-5.90); Red Cell Distribution Width 17.9 % (11.8-14.3); White Blood Cell 6.1 10^3/uL (4.4-10.8)
--- NOTE | 2024-06-12 09:39 | DVHPNRES ---
Progress Note Date Seen: Jun 12, 2024 Resident Creating Document: SALOME ELIZABETH RESIDENT Medical Necessity Reason Pt with a Central, PICC or Fol: No Subjective Review of Systems Mason Nguyen II is a 38-year-old male patient who presents to the ED with chief complaint of nonhealing left hallux foot wound which started approximately three weeks ago, but two days before his admission he presented foul-smelling purulent discharge, fever, chills, progressive dyspnea in functional class II associated with productive cough with green phlegm. Additionally patient refers unintentional weight loss of 40 lb in the past six weeks. Patient is homeless, he [place] [facility] [facility] [place] until he got examined for his nonhealing foot wound. Patient was recently diagnosed with HIV, he has not started any anti-retroviral medication since he could not follow up with any infectious disease specialist. Denies chest pain, palpitation, syncope, abdominal pain, nausea, vomiting, diarrhea, recent travel, sick contacts and motor or sensory deficits Past medical history: Diabetes, GERD, schizophrenia, depression, HIV recently diagnosed which is not treated at this moment. Patient was incarcerated in year 2011 in completed treatment for tuberculosis for four months. Surgical history: Denies Family history: Noncontributory Social history: He is homeless, trying [place] [facility]. Current smoker (approximate 60 pack-year history of smoking, occasionally smokes marijuana, denies drug use (history of methamphetamine use, UDS is positive for meth), he only consumes alcohol when he uses methamphetamines. Denies other drug abuse. Allergies: Denies Home medication: Aripiprazole, baclofen, fluoxetine, pantoprazole, sucralfate, ibuprofen p.r.n. Patient seen and examined at bedside. Currently has no new complaints. S/P I and D. complaining of mild foot pain. Denied fever, chills, any other symptoms. ROS Eyes: No Pain, No Vision change, No Conjunctivae inflammation, No Eyelid inflammation, No Other, No Redness ENT: No Ear pain, No Ear discharge, No Nose pain, No Nose discharge, No Nose congestion, No Mouth pain, No Mouth swelling, No Throat pain, No Throat swelling, No Other Cardiovascular: No Chest Pain, No Palpitations, No Orthopnea, No Paroxysmal Noc. Dyspnea, No Edema, No Lt Headedness, No Other Respiratory: No Cough, No Dry, No Shortness of breath, No SOB with excertion, No Wheezing, No Hemoptysis, No Pleuritic Pain, No Sputum, No Other Gastrointestinal: No Nausea, No Vomiting, No Abdominal Pain, No Diarrhea, No Constipation, No Melena, No Hematochezia, No Other Genitourinary: No Dysuria, No Frequency, No Incontinence, No Hematuria, No Retention, No Other Musculoskeletal: No other, No neck pain, No shoulder pain, No arm pain, No back pain, No hand pain, No leg pain, foot pain Skin: No Rash, No Lesions, No Jaundice, No Bruising, No Other Objective vital signs Vital Sign Date Time Temp Pulse Resp B/P (MAP) Pulse Ox O2 Delivery O2 Flow Rate FiO2 06/12/24 08:34 98.3 63 19 131/109 (116) 100 98.3 06/11/24 20:00 Room Air* 0 21 Total Intake and Output 06/11/24 06/11/24 06/12/24 15:00 23:00 07:00 Intake Total 200 ml 1300 ml 150 ml Balance 200 ml 1300 ml 150 ml medications Current Medications Medications Dose Ordered Sig/Elen Route Start Time Stop Time Status Last Admin Dose Admin Morphine Sulfate 2 mg Q30M PRN IV 06/06/24 00:00 Fluoxetine HCl 20 mg DAILY PO 06/06/24 10:00 06/11/24 10:25 20 MG Losartan Potassium 50 mg DAILY PO 06/06/24 10:00 06/11/24 10:24 50 MG Vancomycin HCl 0 ml @ 0 mls/hr UD IV 06/06/24 00:45 Dextrose 50 ml UD PRN IV 06/06/24 00:45 Acetaminophen/ Hydrocodone Bitart 1 tab Q4HP PRN PO 06/06/24 00:45 06/12/24 01:54 1 TAB Acetaminophen 650 mg Q6HP PRN PO 06/06/24 00:45 Baclofen 10 mg BID PO 06/07/24 10:00 06/11/24 10:24 10 MG Pantoprazole Sodium 40 mg DAILY PO 06/07/24 10:00 06/11/24 10:24 40 MG Sucralfate 1 gm QID@0600,1130,1700,2200 PO 06/07/24 06:00 06/12/24 05:18 1 GM Patient Own Medication 15 mg HS PO 06/07/24 22:00 Enoxaparin Sodium 40 mg DAILY SC 06/07/24 10:00 06/11/24 10:25 40 MG Ascorbic Acid 500 mg BID PO 06/07/24 10:00 06/11/24 10:24 500 MG Enteral Nutritional Formula 240 ml DAILY@BREAKFAST PO 06/08/24 08:00 06/08/24 09:19 240 ML Enteral Nutritional Formula 240 ml DAILY@LUNCH PO 06/07/24 12:00 06/11/24 12:50 240 ML Enteral Nutritional Formula 27.5 gm BID PO 06/07/24 10:00 06/11/24 21:35 27.5 GM Trimethoprim/ Sulfamethoxazole 0 ml @ 0 mls/hr PER PHARMACY IV 06/07/24 13:45 Cancel Vancomycin HCl 200 ml @ 200 mls/hr Q8H IV 06/10/24 11:00 06/12/24 02:50 200 MLS/HR Examination General Appearance: Cooperative. Well developed. Well nourished. NAD Head Exam: Normal inspection Neck Exam: Normal inspection. Non-tender. Normal alignment Pulmonary/Respiratory: Chest non-tender. Clear bilateral breath sounds Cardiovascular/Chest: Regular rate and rhythm. No murmurs. No JVD. Peripheral Pulses: 2+ Radial (R). 2+ Radial (L). 2+ Pedal (R). 2+ Pedal (L) Abdominal Exam: Normal bowel sounds. Soft. Nontender. No hepatospenomegaly. No masses Ankle Exam: Negative ankle edema Lower extremities: Negative lower extremity edema Neuro/Mental Status: A&O x4. Coherent Thoughts/Psych: Normal thought pattern. Appropriate mood and affect. Good judgement and insight Appearance: In no acute distress Skin Exam: Normal inspection. Normal color. Warm. Dry laboratory and microbiology Laboratory Tests 06/12/24 05:11 06/11/24 05:13 Test 06/11/24 05:13 Range/Units Serum Glucose 94 74-106 mg/dL Microbiology Date/Time Source Procedure Growth Status 06/07/24 06:11 Sputum Gram Stain - Final Complete 06/07/24 06:11 Respiratory Culture - Final Staphylococcus aureus Complete 06/06/24 08:37 Blood Blood Culture - Final NO GROWTH AFTER 5 DAYS OF INCUBATION. Complete 06/06/24 08:14 Foot Left Gram Stain - Final Complete 06/06/24 08:14 Wound Culture - Final Staphylococcus aureus Streptococcus Group A Complete Problem List/Assessment/Plan Problem List/Assessment/Plan Left foot 3rd toe osteomyelitis Left foot 4th toe osteomyelitis Left foot abscess Left foot cellulitis -IV antibiotic with vancomycin, underwent I and D of left foot on 06/10/2024 -podiatry -Infectious Disease on board -wound culture -Completed lower extremity arterial duplex: No significant stenosis Newly diagnosed HIV -CD4 count 317 -Infectious Disease on board: Not on home anti-retroviral therapy at this point -pending viral load, negative trepenama palladium antibody, negative hepatitis panel. -Outpatient follow up with ID Prediabetic hemoglobin A1c 5.8 -advised on lifestyle modification including healthy diet options, regular exercise Schizophrenia and depression -resume home medication -repeat psych evaluation:refused Homelessness -social service consulted History of treated latent TB -TB gold interferon negative Medication nonadherence Hypertension -resume home medication Goals of care discussed with patient for over 18 minutes: Full code status Discussed plan with Dr. Davies Plan discussed with: Patient, Other My Orders My Orders Orders - SALOME ELIZABETH RESIDENT Procedure Category Date Status Time Soc Telemed Psych CONS 06/11/24 Transmitted Consult 10:42 Dietary Evaluation Review Recommendations by RD: Protein Supplementation Comments: 1) Initiate Glucerna bid d/t recent unintentional weight loss and increased needs 2) Initiate Dread @ 1 pk bid 3) Initiate vitamin C @ 500 mg bid and zinc sulfate @ 220 mg qd for 7-10 days 4) Follow-up with infectious disease specialist r/t recent HIV 5) Follow-up with psychologist social 6) Continue to monitor I&O, labs, and skin integrity Expected Outcomes/Goals: 1) appetite and labs to improve 2) wound to improve 2) f/u in 2-3 days Date of Service: Jun 12, 2024 Billing Provider: NARESH DAVIES MD Common Visit Codes: [id number] INP/OBS CARE(MOD) SALOME ELIZABETH RESIDENT Jun 12, 2024 09:39 NARESH DAVIES MD Jun 12, 2024 10:09
--- NOTE | 2024-06-12 17:56 | DVHPN2 ---
Consult Progress Note Date Seen: Jun 09, 2024 Subjective Patient reports: Feels better (no fever or chills) Objective vital signs Vital Sign Date Time Temp Pulse Resp B/P (MAP) Pulse Ox O2 Delivery O2 Flow Rate FiO2 06/12/24 16:31 98.0 77 18 113/57 (75) 96 98.0 06/11/24 20:00 Room Air* 0 21 Total Intake and Output 06/11/24 06/11/24 06/12/24 15:00 23:00 07:00 Intake Total 200 ml 1300 ml 150 ml Balance 200 ml 1300 ml 150 ml medications Current Medications Medications Dose Ordered Sig/Elen Route Start Time Stop Time Status Last Admin Dose Admin Morphine Sulfate 2 mg Q30M PRN IV 06/06/24 00:00 Fluoxetine HCl 20 mg DAILY PO 06/06/24 10:00 06/12/24 09:55 20 MG Losartan Potassium 50 mg DAILY PO 06/06/24 10:00 06/12/24 09:55 50 MG Vancomycin HCl 0 ml @ 0 mls/hr UD IV 06/06/24 00:45 Dextrose 50 ml UD PRN IV 06/06/24 00:45 Acetaminophen/ Hydrocodone Bitart 1 tab Q4HP PRN PO 06/06/24 00:45 06/12/24 09:57 1 TAB Acetaminophen 650 mg Q6HP PRN PO 06/06/24 00:45 Baclofen 10 mg BID PO 06/07/24 10:00 06/12/24 09:55 10 MG Pantoprazole Sodium 40 mg DAILY PO 06/07/24 10:00 06/12/24 09:56 40 MG Sucralfate 1 gm QID@0600,1130,1700,2200 PO 06/07/24 06:00 06/12/24 13:34 1 GM Patient Own Medication 15 mg HS PO 06/07/24 22:00 Enoxaparin Sodium 40 mg DAILY SC 06/07/24 10:00 06/12/24 09:55 40 MG Ascorbic Acid 500 mg BID PO 06/07/24 10:00 06/12/24 09:56 500 MG Enteral Nutritional Formula 240 ml DAILY@BREAKFAST PO 06/08/24 08:00 06/08/24 09:19 240 ML Enteral Nutritional Formula 240 ml DAILY@LUNCH PO 06/07/24 12:00 06/11/24 12:50 240 ML Enteral Nutritional Formula 27.5 gm BID PO 06/07/24 10:00 06/11/24 21:35 27.5 GM Trimethoprim/ Sulfamethoxazole 0 ml @ 0 mls/hr PER PHARMACY IV 06/07/24 13:45 Cancel Vancomycin HCl 200 ml @ 200 mls/hr Q8H IV 06/10/24 11:00 06/12/24 13:34 200 MLS/HR laboratory and microbiology Laboratory Tests 06/12/24 05:11 06/11/24 05:13 Test 06/11/24 05:13 Range/Units Serum Glucose 94 74-106 mg/dL Problem List/Assessment/Plan Problem List/Assessment/Plan Physical Exam: General: Patient appears uncomfortable due to foot pain. Neck: Supple. No masses. HEENT: PERRL. Normal lids and conjunctiva. Moist mucous membranes. Oropharynx without lesions, exudates or excessive erythema. Normal appearance of the external aspects of the nose and ears. Heart: Regular rhythm, normal rate. No murmur. No lower extremity edema. Lungs: Normal respiratory effort. Clear to auscultation bilaterally. No wheezes. No crackles. Abdomen: Soft. Non-tender. Non-distended. No masses or abdominal hernia. Msk: Left foot with tenderness, redness, and swelling over the great toe. Decreased range of motion due to pain. Skin: Left foot with malodorous discharge between the toes and a small ulcer. Redness and swelling of the left great toe. Neuro: Alert. No facial droop or slurred speech. Extra-ocular movements intact. Sensation intact to soft touch in all 4 limbs. Psych: Affect appropriate to situation. Patient appears anxious. Reports history of depression and schizophrenia. Oriented to person, place, time, and situation. Problems(with codes): (1) Cellulitis of left foot (2) Osteomyelitis of left foot (3) HIV (human immunodeficiency virus infection) (4) IVDU (intravenous drug user) (5) Latent tuberculosis (6) Toe infection (7) Suicidal ideation (8) Schizophrenia (9) Depression Plan/Recommendation ASSESSMENT AND PLAN: ID Problem List: - HIV infection (non-compliant with ART) - Left great toe osteomyelitis - Left foot cellulitis - Diabetes mellitus - Schizophrenia - Depression - Homelessness - IV drug use (methamphetamine) - Non-compliance with medications GERD - latent TB Assessment This is a 38 y.o. male with a past medical history of HIV infection (non- compliant with ART), diabetes mellitus, schizophrenia, depression, GERD, and IV drug use (methamphetamine), who presents with a left foot infection. Left great toe with osteomyelitis confirmed by MRI, with associated cellulitis and a small ulcer with malodorous discharge between the toes. Laboratory studies notable for hemoglobin 12.6 g/dL, platelet count of 97 x10^3/L, BUN 15 mg/dL, creatinine 1.01 mg/dL, ALT 31 U/L, alkaline phosphatase 83 U/L, and total bilirubin 1.4 mg/dL. Foot CT showed significant soft tissue edema and a small abscess lateral to the first metatarsal. MRI confirms osteomyelitis of the distal phalanx of the left great toe. Chest X-ray without acute cardiopulmonary process. Doppler arterial ultrasound without evidence of peripheral arterial disease. Urine drug screen positive for amphetamines. Plan: - Continue vancomycin and ceftriaxone for osteomyelitis. > defer to podiatry on need for operative debridement of L great toe ulcer. if done please send for deep tissue and bone cultures (aerobic, anaerobic, fungal, afb) - for likely hx of latent tb, can confirm positive quantiferon and pursue treatment as outpatient (fu with infectious disease in 2 weeks) - Monitor wound and clinical response while inpatient. - Recommend initiation of antiretroviral therapy; however, patient expresses concerns about medication adherence due to homelessness. hold art, CD4>200, can stop bactrim and azithromycin ppx. - Consult social work for assistance with housing and resources to improve medication compliance. - Consult psychiatry for evaluation and management of schizophrenia and depression. - Discuss harm reduction strategies and treatment options for substance use. - not a candidate for IV antibiotics (IVDU) can use oral antibiotics based on operative findings. Isolation Precautions: standard Assessment and plan was discussed with the patient as written above Plan is subject to change pending incorporation of new incoming information/diagnostics. Updates may be added as addendum at the bottom (OR TOP) of this note Thank you for interesting consult. ID will continue to follow. Please contact Infectious disease for any questions or concerns. Adilia Sabillon M.D. [facility] Ph: ? Plan discussed with: Patient Dietary Evaluation Review Recommendations by RD: Protein Supplementation Comments: 1) Initiate Glucerna bid d/t recent unintentional weight loss and increased needs 2) Initiate Dread @ 1 pk bid 3) Initiate vitamin C @ 500 mg bid and zinc sulfate @ 220 mg qd for 7-10 days 4) Follow-up with infectious disease specialist r/t recent HIV 5) Follow-up with social and political studies professor 6) Continue to monitor I&O, labs, and skin integrity Expected Outcomes/Goals: 1) appetite and labs to improve 2) wound to improve 2) f/u in 2-3 days ADILIA SABILLON MD Jun 12, 2024 17:56
[2024-06-12] MEDS: VANCOMYCIN 1.5GM/300ML 300 ML IV SCH (22:31)
[2024-06-13 00:50] VITALS: BP 137/79; PULSE 67; RESP 16; TEMP 98.2; O2SAT 98
[2024-06-13 04:54] VITALS: BP 148/87; PULSE 65; RESP 16; TEMP 97.9; O2SAT 97
[2024-06-13 08:10] VITALS: PULSE 66; RESP 18; O2SAT 100
[2024-06-13 09:00] VITALS: BP 128/77; PULSE 66; RESP 17; TEMP 98; O2SAT 98
[2024-06-13] MEDS ORDERED: LOSA-534 PO (09:24)
[2024-06-13] MEDS ORDERED: LEVO750T40 PO (09:24)
[2024-06-13] MEDS ORDERED: DOXY1CAP57 PO (09:24)
--- NOTE | 2024-06-13 09:24 | DVHDSRES ---
Discharge Summary Date of Admission Resident Creating Document: SALOME ELIZABETH RESIDENT Jun 05, 2024 at 23:47 Date of Discharge: Jun 13, 2024 Labs/Diagnostic Data: Laboratory Results Test 06/12/24 20:00 06/12/24 05:11 06/11/24 12:47 06/11/24 05:13 Vancomycin Level Trough 9.5 ug/mL (5-10) White Blood Count 6.1 10^3/uL (4.4-10.8) Red Blood Count 4.36 10^6/uL (4.5-5.90) Hemoglobin 11.9 g/dL (13.5-17.5) Hematocrit 35.8 % (41.0-53.0) Mean Corpuscular Volume 82.2 fL (80.0-100.0) Mean Corpuscular Hemoglobin 27.2 pg (28.0-32.0) Mean Corpuscular Hemoglobin Concent 33.1 g/dL (32.0-36.0) Red Cell Distribution Width 17.9 % (11.8-14.3) Platelet Count 153 10^3/uL (140-450) Mean Platelet Volume 8.7 fL (6.9-10.8) Neutrophils (%) (Auto) 42.7 % (37.0-80.0) Lymphocytes (%) (Auto) 41.7 % (10.0-50.0) Monocytes (%) (Auto) 12.2 % (0.0-12.0) Eosinophils (%) (Auto) 3.4 % (0.0-7.0) Basophils (%) (Auto) 0.0 % (0.0-2.0) Neutrophils # (Auto) 2.6 10 ^3/uL (1.6-8.6) Lymphocytes # (Auto) 2.6 10 ^3/uL (0.4-5.4) Monocytes # (Auto) 0.7 10 ^3/uL (0-1.3) Eosinophils # (Auto) 0.2 10 ^3/uL (0-0.8) Basophils # (Auto) 0 10 ^3/uL (0-0.2) Nucleated Red Blood Cells 0.2 % Creatinine 0.92 mg/dL (0.700-1.30) Glomerular Filtration Rate Calc 108 mL/min (>90) POC Glucose 81 mg/dl (70-106) Sodium Level 138 mmol/L (136-145) Potassium Level 4.3 mmol/L (3.5-5.1) Chloride Level 105 mmol/L (98-107) Carbon Dioxide Level 27 mmol/L (20-31) Anion Gap 6 (5-15) Blood Urea Nitrogen 24 mg/dL (9-23) BUN/Creatinine Ratio 24.2 (10.0-20.0) Serum Glucose 94 mg/dL (74-106) Calcium Level 9.3 mg/dL (8.7-10.4) Test 06/09/24 10:30 06/06/24 23:59 06/06/24 17:17 06/06/24 14:25 Absolute Neutrophils (auto) 2.7 x10E3/uL (1.4-7.0) Absolute Lymphocytes (auto) 2.3 x10E3/uL (0.7-3.1) Absolute Monocytes (auto) 0.4 x10E3/uL (0.1-0.9) Absolute Eosinophils (auto) 0.1 x10E3/uL (0.0-0.4) Absolute Basophils (auto) 0.0 x10E3/uL (0.0-0.2) Immature Granulocytes % 0 % (Not Estab.) Immature Granulocytes # 0 x10E3/uL (0.0-0.1) Immature Blood Cells (.) Hematology Comments (.) Percent CD4 Cells 13.6 % (30.8-58.5) Absolute CD4 Count 313 /uL (359-1519) T-Lymphocyte CD4/CD8 Ratio 0.18 (0.92-3.72) Percent CD8 Cells 76.1 % (12.0-35.5) Absolute CD8 Count 1750 /uL (109-897) HIV-1 RNA (PCR) 24257 copies/mL (.) HIV-1 RNA (PCR) log10 Value 4.644 (.) HIV (1&2) Ag and Ab, 4th Generation (.) HIV (1&2) Antibody Deferred (Negative) Influenza Type A Antigen Negative (Negative) Influenza Type B Antigen Negative (Negative) SARS-CoV-2 Antigen (Rapid) Negative (NEGATIVE) TB Test (QFT) Gold Plus Negative (Negative) TB Test (QFT) Nil 0.07 IU/mL (.) TB Test (QFT) Mitogen >10.00 IU/mL (.) TB Test (QFT) Antigen 1 0.13 IU/mL (.) TB Test (QFT) Antigen 2 0.08 IU/mL (.) TB Test (QFT) Criteria Comment (.) Urine Color Light-yellow (Yellow) Urine Clarity Clear (Clear) Urine pH 6.5 (5.0-9.0) Urine Specific [place] 1.016 (1.001-1.035) Urine Protein Negative (Negative) Urine Ketones Negative (Negative) Urine Blood Negative /uL (Negative) Urine Nitrite Negative (Negative) Urine Bilirubin Negative (Negative) Urine Urobilinogen Normal mg/dL (Negative) Urine Leukocyte Esterase Negative /uL (Negative) Urine RBC 1 /hpf (0 - 3) Urine Microscopic WBC < 1 /HPF (0-3) Urine Squamous Epithelial Cells Few /hpf (<5) Urine Bacteria None seen /hpf (None Seen) Urine Glucose Normal mg/dL (Normal) Urine Opiates Screen Neg (NEGATIVE) Urine Fentanyl Screen Neg (NEGATIVE) Urine Barbiturates Screen Neg (NEGATIVE) Urine Phencyclidine Screen Neg (NEGATIVE) Urine Amphetamines Screen Pos (NEGATIVE) Urine Benzodiazepines Screen Neg (NEGATIVE) Urine Cocaine Screen Neg (NEGATIVE) Urine Cannabinoids Screen Neg (NEGATIVE) Test 06/06/24 13:27 06/06/24 01:28 06/05/24 18:56 Differential Total Cells Counted 100.0 (100) Neutrophils % (Manual) 45 (37.0-80.0) Band Neutrophils % (Manual) 2 Lymphocytes % (Manual) 32 (10.0-50.0) Monocytes % (Manual) 13 (0-12) Eosinophils % (Manual) 4 (0-7) Basophils % (Manual) 0 (0.0-2.0) Metamyelocytes % (manual) 0 Myelocytes % (Manual) 0 Promyelocytes % (Manual) 0 Blast Cells % (Manual) 0 Reactive Lymphocytes 4 Platelet Estimate Adequate Anisocytosis (manual) Slight Prothrombin Time 11.0 sec (9.3-11.8) Prothrombin Time INR 1.04 (0.9-1.15) Activated Partial Thromboplast Time 27.3 SEC (24.5-34.5) Hemoglobin A1c 5.8 % A1C (<5.7) Phosphorus Level 3.8 mg/dL (2.4-5.1) Magnesium Level 2.0 mg/dL (1.6-2.6) C-Reactive Protein High Sensitivity 0.45 mg/dL (<1.0) Vitamin B12 Level 680 pg/mL (211-911) Vitamin D 25-Hydroxy 36.8 ng/mL (30.0-100) Thyroid Stimulating Hormone (TSH) 0.71 uIU/mL (0.55-4.78) Treponema pallidum Antibody Non-reactive (Negative) Hepatitis A IgM Antibody Negative Hepatitis B Surface Antigen Negative (Negative) Hepatitis B Core IgM Antibody Negative (Negative) Hepatitis C Antibody Negative (Negative) Lactic Acid Level 1.1 mmol/L (0.4-2.0) Total Bilirubin 0.4 mg/dL (0.2-1.0) Aspartate Amino Transferase (AST) 44 U/L (13-40) Alanine Aminotransferase (ALT) 31 U/L (7-40) Alkaline Phosphatase 83 U/L (46-116) Total Protein 8.4 g/dL (5.7-8.2) Albumin 3.9 g/dL (3.2-4.8) Other Laboratory Tests 06/12/24 05:11 06/11/24 05:13 Brief Hx & Hospital Course: Patient is a 38-year-old male with past medical history of Diabetes, GERD, schizophrenia, depression, HIV recently diagnosed , IV drug use, homeless which is not treated at this moment. Patient was incarcerated in year 2011 in completed treatment for tuberculosis for four month who presented to hospital with a chief complaint of nonhealing left hallux foot wound which started approximately three weeks ago, but two days before his admission he presented foul-smelling purulent discharge, fever, chills, progressive dyspnea in functional class II associated with productive cough with green phlegm. Additionally patient refers unintentional weight loss of 40 lb in the past six weeks. Patient was diagnosed with HIV, osteomyelitis of left foot.Osteomyelitis in the 1st distal phalanx. Underwent 1. Left foot third toe I&D 2. Left foot fourth toe I&D 3.Left foot bone biopsy third toe Left foot delayed closure recommended oral antibiotic. Meanwhile patient received IV antibiotic with IV vancomycin. Podiatry and Infectious Disease recommended oral antibiotic of at least six weeks. Patient discharged levofloxacin and doxycycline orally for six weeks. Patient advised to follow with primary care physician, infectious Disease and Podiatry for future follow up. Patient will be discharged to his residential arrangement to retirement. Consults/Reason for consult Condition at Discharge: Good Final Diagnosis/Problems List Left foot 3rd toe osteomyelitis Left foot 4th toe osteomyelitis Left foot abscess Left foot cellulitis Newly diagnosed HIV Prediabetic hemoglobin A1c 5.8 Schizophrenia and depression Homelessness History of treated latent TB Medication nonadherence Hypertension Discharge Disposition: Home Discharge Instruct/Medications Diet: Regular Activity: No Restrictions, As Tolerated Follow Up/Referral: -FOLLOW UP WITH pcp IN 2 WEEKS. [facility] CLINIC IN 1 WEEK Medications: SEE PRESCRITION: LEVOFLOXIN AND DOXYCYLINE 6 WEEKS Discharge Statement: "Patient was advised to return to the ER or call 911 if any headaches, dizziness, shortness of breath, chest pain, abdominal pain, bleeding, fevers, or worsening of medical condition. Patient was counseled about treatment plan, medications, possible side effects, patientverbalized understanding. All questions were answered to the best of my ability. This discharge took greater then 30 minutes in planning, reviewing documentation, counseling the patient, and discussing with other team members." ASSESSMENT ASSESSMENT Assessment Left foot 3rd toe osteomyelitis Left foot 4th toe osteomyelitis Left foot abscess Left foot cellulitis hiv SALOME ELIZABETH RESIDENT Jun 13, 2024 09:24
[2024-06-13 15:58] VITALS: BP 128/77; PULSE 66; TEMP 36.7; O2SAT 98
--- NOTE | 2024-06-14 21:09 | DVHPN2 ---
Consult Progress Note Date Seen: Jun 10, 2024 Subjective Patient reports: Feels better (sp toe debridement, lethargic post procedure) Objective vital signs Vital Sign Date Time Temp Pulse Resp B/P (MAP) Pulse Ox O2 Delivery O2 Flow Rate FiO2 06/13/24 15:58 36.7 66 98 06/13/24 09:00 17 128/77 (94) 06/13/24 08:10 Room Air* 0 21 medications Current Medications Medications Dose Ordered Sig/Elen Route Start Time Stop Time Status Last Admin Dose Admin Trimethoprim/ Sulfamethoxazole 0 ml @ 0 mls/hr PER PHARMACY IV 06/07/24 13:45 Cancel laboratory and microbiology Laboratory Tests 06/12/24 05:11 06/11/24 05:13 Test 06/11/24 05:13 Range/Units Serum Glucose 94 74-106 mg/dL Problem List/Assessment/Plan Problem List/Assessment/Plan Physical Exam: General: Patient appears uncomfortable due to foot pain. Neck: Supple. No masses. HEENT: PERRL. Normal lids and conjunctiva. Moist mucous membranes. Oropharynx without lesions, exudates or excessive erythema. Normal appearance of the external aspects of the nose and ears. Heart: Regular rhythm, normal rate. No murmur. No lower extremity edema. Lungs: Normal respiratory effort. Clear to auscultation bilaterally. No wheezes. No crackles. Abdomen: Soft. Non-tender. Non-distended. No masses or abdominal hernia. Msk: Left foot with tenderness, redness, and swelling over the great toe. Decreased range of motion due to pain. Skin: Left foot with malodorous discharge between the toes and a small ulcer. Redness and swelling of the left great toe. Neuro: Alert. No facial droop or slurred speech. Extra-ocular movements intact. Sensation intact to soft touch in all 4 limbs. Psych: Affect appropriate to situation. Patient appears anxious. Reports history of depression and schizophrenia. Oriented to person, place, time, and situation. Problems(with codes): (1) Cellulitis of left foot (2) Osteomyelitis of left foot (3) HIV (human immunodeficiency virus infection) (4) IVDU (intravenous drug user) (5) Latent tuberculosis (6) Toe infection (7) Suicidal ideation (8) Schizophrenia (9) Depression Plan/Recommendation ASSESSMENT AND PLAN: ID Problem List: - HIV infection (non-compliant with ART) - Left great toe osteomyelitis - Left foot cellulitis - Diabetes mellitus - Schizophrenia - Depression - Homelessness - IV drug use (methamphetamine) - Non-compliance with medications GERD - latent TB Assessment This is a 38 y.o. male with a past medical history of HIV infection (non- compliant with ART), diabetes mellitus, schizophrenia, depression, GERD, and IV drug use (methamphetamine), who presents with a left foot infection. Left great toe with osteomyelitis confirmed by MRI, with associated cellulitis and a small ulcer with malodorous discharge between the toes. Laboratory studies notable for hemoglobin 12.6 g/dL, platelet count of 97 x10^3/L, BUN 15 mg/dL, creatinine 1.01 mg/dL, ALT 31 U/L, alkaline phosphatase 83 U/L, and total bilirubin 1.4 mg/dL. Foot CT showed significant soft tissue edema and a small abscess lateral to the first metatarsal. MRI confirms osteomyelitis of the distal phalanx of the left great toe. Chest X-ray without acute cardiopulmonary process. Doppler arterial ultrasound without evidence of peripheral arterial disease. Urine drug screen positive for amphetamines. sp 3rd toe ind 06/10, per operative results ,"left 3rd medial toe where area of fluctuance was noted. An incision was made over this area and was deepened through blunt dissection. The incision was deepened to the level of abscess and bone. Care was taken to the dissection to avoid any neurovascular and tendinous structures. The incision was deepened to the bone, and the abscess appeared to be purulent fluid consistent with pus. " Plan: - Continue vancomycin and ceftriaxone for osteomyelitis. > will fu on deep tissue and bone cultures (aerobic, anaerobic, fungal, afb) - for likely hx of latent tb, can confirm positive quantiferon and pursue treatment as outpatient (fu with infectious disease in 2 weeks) - Monitor wound and clinical response while inpatient. - Recommend initiation of antiretroviral therapy; however, patient expresses concerns about medication adherence due to homelessness. hold art, CD4>200, can stop bactrim and azithromycin ppx. - Consult social work for assistance with housing and resources to improve medication compliance. - Consult psychiatry for evaluation and management of schizophrenia and depression. - Discuss harm reduction strategies and treatment options for substance use. - not a candidate for IV antibiotics (IVDU) can use oral antibiotics based on operative findings. Isolation Precautions: standard Assessment and plan was discussed with the patient as written above Plan is subject to change pending incorporation of new incoming information/diagnostics. Updates may be added as addendum at the bottom (OR TOP) of this note Thank you for interesting consult. ID will continue to follow. Please contact Infectious disease for any questions or concerns. Adilia Sabillon M.D. [facility] Ph: ? Plan discussed with: Patient Dietary Evaluation Review Recommendations by RD: Protein Supplementation Comments: 1) Initiate Glucerna bid d/t recent unintentional weight loss and increased needs 2) Initiate Dread @ 1 pk bid 3) Initiate vitamin C @ 500 mg bid and zinc sulfate @ 220 mg qd for 7-10 days 4) Follow-up with infectious disease specialist r/t recent HIV 5) Follow-up with child protective services social worker 6) Continue to monitor I&O, labs, and skin integrity Expected Outcomes/Goals: 1) appetite and labs to improve 2) wound to improve 2) f/u in 2-3 days ADILIA SABILLON MD Jun 14, 2024 21:09
--- NOTE | 2024-06-14 21:12 | DVHPN2 ---
Consult Progress Note Date Seen: Jun 11, 2024 Subjective Patient reports: Feels better (imrpvoed pain in L foot, open surgical site with gauze protection) Objective vital signs Vital Sign Date Time Temp Pulse Resp B/P (MAP) Pulse Ox O2 Delivery O2 Flow Rate FiO2 06/13/24 15:58 36.7 66 98 06/13/24 09:00 17 128/77 (94) 06/13/24 08:10 Room Air* 0 21 medications Current Medications Medications Dose Ordered Sig/Elen Route Start Time Stop Time Status Last Admin Dose Admin Trimethoprim/ Sulfamethoxazole 0 ml @ 0 mls/hr PER PHARMACY IV 06/07/24 13:45 Cancel laboratory and microbiology Laboratory Tests 06/12/24 05:11 06/11/24 05:13 Test 06/11/24 05:13 Range/Units Serum Glucose 94 74-106 mg/dL Problem List/Assessment/Plan Problem List/Assessment/Plan Physical Exam: General: Patient appears uncomfortable due to foot pain. Neck: Supple. No masses. HEENT: PERRL. Normal lids and conjunctiva. Moist mucous membranes. Oropharynx without lesions, exudates or excessive erythema. Normal appearance of the external aspects of the nose and ears. Heart: Regular rhythm, normal rate. No murmur. No lower extremity edema. Lungs: Normal respiratory effort. Clear to auscultation bilaterally. No wheezes. No crackles. Abdomen: Soft. Non-tender. Non-distended. No masses or abdominal hernia. Msk: Left foot with tenderness, redness, and swelling over the great toe. Decreased range of motion due to pain. Skin: Left foot with malodorous discharge between the toes and a small ulcer. Redness and swelling of the left great toe. Neuro: Alert. No facial droop or slurred speech. Extra-ocular movements intact. Sensation intact to soft touch in all 4 limbs. Psych: Affect appropriate to situation. Patient appears anxious. Reports history of depression and schizophrenia. Oriented to person, place, time, and situation. Problems(with codes): (1) Cellulitis of left foot (2) Osteomyelitis of left foot (3) HIV (human immunodeficiency virus infection) (4) IVDU (intravenous drug user) (5) Latent tuberculosis (6) Toe infection (7) Suicidal ideation (8) Schizophrenia (9) Depression Plan/Recommendation ASSESSMENT AND PLAN: ID Problem List: - HIV infection (non-compliant with ART) - Left great toe osteomyelitis - Left foot cellulitis - Diabetes mellitus - Schizophrenia - Depression - Homelessness - IV drug use (methamphetamine) - Non-compliance with medications GERD - latent TB Assessment This is a 38 y.o. male with a past medical history of HIV infection (non- compliant with ART), diabetes mellitus, schizophrenia, depression, GERD, and IV drug use (methamphetamine), who presents with a left foot infection. Left great toe with osteomyelitis confirmed by MRI, with associated cellulitis and a small ulcer with malodorous discharge between the toes. Laboratory studies notable for hemoglobin 12.6 g/dL, platelet count of 97 x10^3/L, BUN 15 mg/dL, creatinine 1.01 mg/dL, ALT 31 U/L, alkaline phosphatase 83 U/L, and total bilirubin 1.4 mg/dL. Foot CT showed significant soft tissue edema and a small abscess lateral to the first metatarsal. MRI confirms osteomyelitis of the distal phalanx of the left great toe. Chest X-ray without acute cardiopulmonary process. Doppler arterial ultrasound without evidence of peripheral arterial disease. Urine drug screen positive for amphetamines. sp 3rd toe ind 06/10, per operative results ,"left 3rd medial toe where area of fluctuance was noted. An incision was made over this area and was deepened through blunt dissection. The incision was deepened to the level of abscess and bone. Care was taken to the dissection to avoid any neurovascular and tendinous structures. The incision was deepened to the bone, and the abscess appeared to be purulent fluid consistent with pus. " 06/11: prelim GPC on operative cultures, strep group A and MSSA on superificial cultures Plan: - Continue vancomycin and ceftriaxone for osteomyelitis. > will fu on deep tissue and bone cultures (aerobic, anaerobic, fungal, afb) - for likely hx of latent tb, can confirm positive quantiferon and pursue treatment as outpatient (fu with infectious disease in 2 weeks) - Monitor wound and clinical response while inpatient. - Recommend initiation of antiretroviral therapy; however, patient expresses concerns about medication adherence due to homelessness. hold art, CD4>200, can stop bactrim and azithromycin ppx. - Consult social work for assistance with housing and resources to improve medication compliance. - Consult psychiatry for evaluation and management of schizophrenia and depression. - Discuss harm reduction strategies and treatment options for substance use. - not a candidate for IV antibiotics (IVDU) can use oral antibiotics based on operative findings. Isolation Precautions: standard Assessment and plan was discussed with the patient as written above Plan is subject to change pending incorporation of new incoming information/diagnostics. Updates may be added as addendum at the bottom (OR TOP) of this note Thank you for interesting consult. ID will continue to follow. Please contact Infectious disease for any questions or concerns. Adilia Sabillon M.D. [facility] Ph: ? Plan discussed with: Patient Dietary Evaluation Review Recommendations by RD: Protein Supplementation Comments: 1) Initiate Glucerna bid d/t recent unintentional weight loss and increased needs 2) Initiate Dread @ 1 pk bid 3) Initiate vitamin C @ 500 mg bid and zinc sulfate @ 220 mg qd for 7-10 days 4) Follow-up with infectious disease specialist r/t recent HIV 5) Follow-up with social security assessor 6) Continue to monitor I&O, labs, and skin integrity Expected Outcomes/Goals: 1) appetite and labs to improve 2) wound to improve 2) f/u in 2-3 days ADILIA SABILLON MD Jun 14, 2024 21:12
--- NOTE | 2024-06-14 21:16 | DVHPN2 ---
Consult Progress Note Date Seen: Jun 13, 2024 Subjective Patient reports: Feels better (able to ambulate on left foot) Objective vital signs Vital Sign Date Time Temp Pulse Resp B/P (MAP) Pulse Ox O2 Delivery O2 Flow Rate FiO2 06/13/24 15:58 36.7 66 98 06/13/24 09:00 17 128/77 (94) 06/13/24 08:10 Room Air* 0 21 medications Current Medications Medications Dose Ordered Sig/Elen Route Start Time Stop Time Status Last Admin Dose Admin Trimethoprim/ Sulfamethoxazole 0 ml @ 0 mls/hr PER PHARMACY IV 06/07/24 13:45 Cancel laboratory and microbiology Laboratory Tests 06/12/24 05:11 06/11/24 05:13 Test 06/11/24 05:13 Range/Units Serum Glucose 94 74-106 mg/dL Problem List/Assessment/Plan Problem List/Assessment/Plan Physical Exam: General: Patient appears uncomfortable due to foot pain. Neck: Supple. No masses. HEENT: PERRL. Normal lids and conjunctiva. Moist mucous membranes. Oropharynx without lesions, exudates or excessive erythema. Normal appearance of the external aspects of the nose and ears. Heart: Regular rhythm, normal rate. No murmur. No lower extremity edema. Lungs: Normal respiratory effort. Clear to auscultation bilaterally. No wheezes. No crackles. Abdomen: Soft. Non-tender. Non-distended. No masses or abdominal hernia. Msk: Left foot with tenderness, redness, and swelling over the great toe. Decreased range of motion due to pain. Skin: Left foot with malodorous discharge between the toes and a small ulcer. Redness and swelling of the left great toe. Neuro: Alert. No facial droop or slurred speech. Extra-ocular movements intact. Sensation intact to soft touch in all 4 limbs. Psych: Affect appropriate to situation. Patient appears anxious. Reports history of depression and schizophrenia. Oriented to person, place, time, and situation. Problems(with codes): (1) Cellulitis of left foot (2) Osteomyelitis of left foot (3) HIV (human immunodeficiency virus infection) (4) IVDU (intravenous drug user) (5) Latent tuberculosis (6) Toe infection (7) Suicidal ideation (8) Schizophrenia (9) Depression Plan/Recommendation ASSESSMENT AND PLAN: ID Problem List: - HIV infection (non-compliant with ART) - Left great toe osteomyelitis - Left foot cellulitis - Diabetes mellitus - Schizophrenia - Depression - Homelessness - IV drug use (methamphetamine) - Non-compliance with medications GERD - latent TB Assessment This is a 38 y.o. male with a past medical history of HIV infection (non- compliant with ART), diabetes mellitus, schizophrenia, depression, GERD, and IV drug use (methamphetamine), who presents with a left foot infection. Left great toe with osteomyelitis confirmed by MRI, with associated cellulitis and a small ulcer with malodorous discharge between the toes. Laboratory studies notable for hemoglobin 12.6 g/dL, platelet count of 97 x10^3/L, BUN 15 mg/dL, creatinine 1.01 mg/dL, ALT 31 U/L, alkaline phosphatase 83 U/L, and total bilirubin 1.4 mg/dL. Foot CT showed significant soft tissue edema and a small abscess lateral to the first metatarsal. MRI confirms osteomyelitis of the distal phalanx of the left great toe. Chest X-ray without acute cardiopulmonary process. Doppler arterial ultrasound without evidence of peripheral arterial disease. Urine drug screen positive for amphetamines. sp 3rd toe ind 06/10, per operative results ,"left 3rd medial toe where area of fluctuance was noted. An incision was made over this area and was deepened through blunt dissection. The incision was deepened to the level of abscess and bone. Care was taken to the dissection to avoid any neurovascular and tendinous structures. The incision was deepened to the bone, and the abscess appeared to be purulent fluid consistent with pus. " 06/11: prelim GPC on operative cultures, strep group A and MSSA on superificial cultures 06/12 MSSA on operative culture Plan: - arrange wound care for l toe as outpatient - Continue vancomycin and ceftriaxone for osteomyelitis. recommend 6 weeks oral doxycycline 100mg po bid and levofloxacin 750mg qd when patient is ready for discharge > will fu on deep tissue and bone cultures (aerobic, anaerobic, fungal, afb) - for likely hx of latent tb, can confirm positive quantiferon and pursue treatment as outpatient (fu with infectious disease in 2 weeks) - Monitor wound and clinical response while inpatient. - Recommend initiation of antiretroviral therapy; however, patient expresses concerns about medication adherence due to homelessness. hold art, CD4>200, can stop bactrim and azithromycin ppx. - Consult social work for assistance with housing and resources to improve medication compliance. - Consult psychiatry for evaluation and management of schizophrenia and depression. - Discuss harm reduction strategies and treatment options for substance use. - not a candidate for IV antibiotics (IVDU) can use oral antibiotics based on operative findings. Isolation Precautions: standard Assessment and plan was discussed with the patient as written above Plan is subject to change pending incorporation of new incoming information/diagnostics. Updates may be added as addendum at the bottom (OR TOP) of this note Thank you for interesting consult. ID will continue to follow. Please contact Infectious disease for any questions or concerns. Adilia Sabillon M.D. [facility] Ph: ? Plan discussed with: Patient Dietary Evaluation Review Recommendations by RD: Protein Supplementation Comments: 1) Initiate Glucerna bid d/t recent unintentional weight loss and increased needs 2) Initiate Dread @ 1 pk bid 3) Initiate vitamin C @ 500 mg bid and zinc sulfate @ 220 mg qd for 7-10 days 4) Follow-up with infectious disease specialist r/t recent HIV 5) Follow-up with social organization professor 6) Continue to monitor I&O, labs, and skin integrity Expected Outcomes/Goals: 1) appetite and labs to improve 2) wound to improve 2) f/u in 2-3 days ADILIA SABILLON MD Jun 14, 2024 21:16
== END 2024-06-13 16:20 | disposition home or self-care (01) | DRG 320 ==
LOC: ER 17:29 → OVERFLOW 23:47 → WEST WING 06-06 18:38 → EAST 06-11 22:03
PROVIDERS: ADMIT Nurse Practitioner Acute Care; ATTEND Nurse Practitioner Adult Health
PROC: 0Q9R0ZZ Drainage of Left Toe Phalanx, Open Approach (ICD-10-PCS; 2024-06-10)
PROC: 0QBR0ZX Excision of Left Toe Phalanx, Open Approach, Diagnostic (ICD-10-PCS; 2024-06-10)
PROC: 0Q9R0ZZ Drainage of Left Toe Phalanx, Open Approach (ICD-10-PCS; principal; 2024-06-10 12:37)
DX: E11.69 Type 2 diabetes mellitus with other specified complication (principal); M86.8X7 Other osteomyelitis, ankle and foot; L03.116 Cellulitis of left lower limb; F17.210 Nicotine dependence, cigarettes, uncomplicated; L02.612 Cutaneous abscess of left foot; F15.90 Other stimulant use, unspecified, uncomplicated; F20.9 Schizophrenia, unspecified; I10 Essential (primary) hypertension; F32.A Depression, unspecified; K21.9 Gastro-esophageal reflux disease without esophagitis; Z59.00 Homelessness unspecified; Z79.1 Long term (current) use of non-steroidal anti-inflammatories (NSAID); Z79.899 Other long term (current) drug therapy; Z81.8 Family history of other mental and behavioral disorders; Z91.148 Patient's other noncompliance with medication regimen for other reason
CPT/HCPCS: 36415; 71045; 73700; 73718; 80048; 80053; 80074; 80202; 80307; 81001; 82306; 82565; 82607; 82962; 83036; 83605; 83735; 84100; 84443; 85007; 85025; 85027; 85610; 85730; 86141; 86360; 86703; 86780; 87040; 87070; 87077; 87186; 87205; 87389; 87426; 87536; 87804; 93925; G0378; J1815; J1885; J2250; J2405; J2704; J3490

== ENCOUNTER 2024-07-27 16:16 | Emergency (ER) | payer MEDICAID ==
[~2024-07-27] VITALS: Ht 180.3 cm; Wt 74.1 kg
[~2024-07-27 16:16] MED LIST changes: +DOXY1CAP57 PO; +LEVO750T40 PO; +LOSA-534 PO
--- NOTE | 2024-07-27 17:23 | ED.PDOC ---
GI ASSESSMENT HPI Comments 38 y.o male with PMHx of HTN, DM, schizophrenia, bipolar disorder, anxiety, presents to the ED for an evaluation of bloody stool that started 2 weeks ago. Patient reports bleeding is a dark shade of red with no melena noted. He denies any history of hemorrhoids, diarrhea, fever, chills, nausea or vomiting. Patient admits to using methamphetamine 9 days ago and mentions smoking 2 packs of cigarettes per day. Chief Complaint: GI Bleed Time Seen by MD: 17:09 Primary Care Provider: GREY Reviewed Notes: Nurses Notes, Medications, Allergies Allergies: Coded Allergies: NO KNOWN ALLERGIES (Unverified , 08/25/20) Home Meds Active Scripts Hydrocortisone Acetate (Anusol-Hc) 25 Mg Sup, 1 SUPP OR BID, #14 SUPP Prov:TAD VELASCO MD 07/27/24 Doxycycline Monohydrate (Doxycycline Monohydrate) 100 Mg Cap, 1 CAP PO BID for 42 Days, #84 CAP Prov:SALOME ELIZABETH 06/13/24 Levofloxacin Hemihydrate (LEVOFLOXACIN) 750 Mg Tab, 1 TAB PO DAILY for 42 Days, #42 TAB Prov:SALOME ELIZABETH 06/13/24 Losartan Potassium (Losartan Potassium) 50 Mg Tab, 50 MG PO DAILY for 20 Days, #20 TAB Prov:SALOME ELIZABETH 06/13/24 Pantoprazole Sodium Sesquihydr (Protonix) 40 Mg Tab, 40 MG PO DAILY PRN for 90 Days, #90 TAB Prov:SALOME ELIZABETH 09/21/23 Sucralfate (CARAFATE SUSP) 1 Gm/10 Ml Ss, 1 GM PO QID@0600,1130,1700,2200 for 30 Days, #120 ML Prov:SALOME ELIZABETH 09/21/23 Nystatin (Mouth-Throat) (Mycostatin (Mouth-Throat)) 500,000 Units/5 Ml Ss, 5 ML MT QID for 14 Days, #60 ML Prov:SALOME ELIZABETH RESIDENT 09/21/23 Baclofen (Baclofen) 10 Mg Tab, 10 MG PO BID, #20 TAB Prov:LOLA SOSA 05/25/21 Ibuprofen (Ibuprofen) 800 Mg Tab, 800 MG PO Q8HP PRN, #30 TAB Prov:LOLA SOSA 05/25/21 Reported Medications Fluoxetine Hcl (Fluoxetine Hcl) 20 Mg Cap, 20 MG PO DAILY for 30 Days, MG 08/05/23 Aripiprazole (Abilify) 20 Mg Tab, 15 MG PO QPM, TAB 08/05/23 Information Source: Patient Mode of Arrival: Ambulatory Timing: Weeks (2) Duration: Since onset Quality: Aching Vomitus: None Stool: Blood Streaked Severity: Moderate Recent: None Recent Hx of: None Pain Location: Diffuse Modifying Factors: Nothing Associated sign and symptoms: Blood in Stool Past Medical History PAST MEDICAL HISTORY: Anxiety, Depression, DM, GERD, High Lipids, Schizophrenia Past Medical History (Other): Bipolar disorder Surgical History (Other): left foot Family History Family History: Reviewed,noncontributory to illness Social History Smoker: Cigarettes, Greater Than 1 Pack/Day Alcohol: Denies ETOH Use Drugs: Methamphetamine Lives In: Home Constitutional: denies: chills, diaphoresis, fatigue, fever, malaise, sweats, weakness, others EENTM: denies: blurred vision, double vision, ear bleeding, ear discharge, ear drainage, ear pain, ear ringing, eye pain, eye redness, hearing loss, mouth pain, mouth swelling, nasal discharge, nose bleeding, nose congestion, nose pain, photophobia, tearing, throat pain, throat swelling, voice changes, others Respiratory: denies: cough, hemoptysis, orthopnea, SOB at rest, shortness of breath, SOB with excertion, stridor, wheezing, others Cardiovascular: denies: chest pain, dizzy spells, diaphoresis, Dyspnea on exertion, edema, irregular heart beat, left arm pain, lightheadedness, palpitations, PND, syncope, others Gastrointestinal: reports: abdominal pain, rectal bleeding; denies: abdomen distended, blood streaked bowels, constipated, diarrhea, dysphagia, difficulty swallowing, hematemesis, melena, nausea, poor appetite, poor fluid intake, rectal pain, vomiting, others Genitourinary: denies: burning, dysuria, flank pain, frequency, hematuria, incontinence, penile discharge, penile sore, pain, testicle pain, testicle swelling, urgency, others Neurological: denies: dizziness, fainting, headache, left sided numbness, left sided weakness, numbness, paresthesia, pre-existing deficit, right sided numbness, right sided weakness, seizure, speech problems, tingling, tremors, weakness, others Musculoskeletal: denies: back pain, gout, joint pain, joint swelling, muscle pain, muscle stiffness, neck pain, others Integumetry: denies: bruises, change in color, change in hair/nails, dryness, laceration, lesions, lumps, rash, wounds, others Allergic/Immunocompromised: denies: Difficulty Healing, Frequent Infections, Hives, Itching, others Hematologic/Lymphatic: denies: anemia, blood clots, easy bleeding, easy bruising, swollen glands, others Endocrine: denies: excessive hunger, excessive sweating, excessive thirst, excessive urination, flushing, intolerance to cold, intolerance to heat, unexplained weight gain, unexplained weight loss, others Psychiatric: denies: anxiety, bipolar disorder, depression, hopeless, panic disorder, schizophrenia, sleepless, suicidal, others All Other Systems: Reviewed and Negative Physical Exam General Appearance: No Apparent Distress HEENT: Normal ENT Inspection, Pharynx Normal, TMs Normal Neck: Full Range of Motion, Non-Tender, Normal, Normal Inspection Respiratory: Chest Non-Tender, Lungs Clear, No Accessory Muscle Use, No Respiratory Distress, Normal Breath Sounds Cardiovascular: No Edema, No JVD, No Murmur, No Gallop, Normal Peripheral Pulses, Regular Rate/Rhythm Breast Exam: Deferred Gastrointestinal: No Organomegaly, Non Tender, No Pulsatile Mass, Normal Bowel Sounds, Soft Genitalia: Deferred Pelvic: Deferred Rectal: Deferred Extremities: No calf tenderness, Normal capillary refill, Normal inspection, Normal range of motion, Non-tender, No pedal edema Musculoskeletal : Apperance: Normal Neurologic: Alert, coupler II-XII nml as Tested, No Motor Deficits, Normal Affect, Normal Mood, No Sensory Deficits Cerebellar Function: Normal Reflexes: Normal Skin: Dry, Normal Color, Warm Lymphatic: No Adenopathy Was a procedure done? Was a procedure done?: No GI differential Dx Differential Diagnosis: Gastritis/PUD, GI hemorrhage, Inflammatory BD, Drug toxicity, Anemia, Esophageal Varicies, Stress Ulcer X-Ray, Labs, Meds, VS Vital Signs Date Time Temp Pulse Resp B/P (MAP) Pulse Ox O2 Delivery O2 Flow Rate FiO2 07/27/24 17:12 99.9 96 18 127/84 (98) 97 99.9 Patient was given prescription of Anusol The patient is being discharged with a diagnosis of internal hemorrhoids The KUB was negative for any masses or foreign body There are no signs of any obstructive bowel pattern Images Reviewed?: Images reviewed and evaluated by me Time of 1ST Reevaluation: 17:19 Reevaluation 1ST: Unchanged Patient Education/Counseling: Diagnosis, Treatment, Prognosis, Need For Follow Up Family Education/Counseling: No Family Present Departure 1 Departure Time of Disposition: 18:14 Impression: Primary Impression: Internal hemorrhoids Disposition: 01 HOME / SELF CARE / HOMELESS Condition: Fair e-Prescriptions Hydrocortisone Acetate (Anusol-Hc) 25 Mg Sup 1 SUPP OR BID, #14 SUPP Prov: TAD VELASCO MD 07/27/24 Discharged With: Self Critical Care Note Critical Care Time?: No Stability Stability form required: No Heart Score Heart Score: Heart Score Response (Comments) Value History N/A 0 EKG N/A 0 Age N/A 0 Risk Factors N/A 0 Troponin N/A 0 Total 0 I personally scribed for TAD VELASCO MD ([email or web address]) on 07/27/24 at 17:23. Electronically submitted by Lianet Tang ([facility]). TAD VELASCO MD July 27, 2024 17:23
--- NOTE | 2024-07-27 18:11 | DVH ---
Date: 07/27/2024 05:53 PM Examination: XY KUB ABDOMEN SINGLE VIEW History: pain Comparison: None TECHNIQUE: Frontal views of the abdomen was obtained. FINDINGS: Bowel gas pattern is unremarkable. The lung bases are unremarkable. No acute osseous abnormality identified. IMPRESSION: 1. Nonobstructive bowel gas pattern. 2. Stool in the right and transverse colon. HS:Y
[2024-07-27] MEDS ORDERED: HYDR25SU21 PR (18:13)
[2024-07-27 18:55] VITALS: BP 146/84; PULSE 100; RESP 18; TEMP 98; O2SAT 100
== END 2024-07-27 19:03 | disposition home or self-care (01) ==
LOC: ER 16:16
DX: K64.8 Other hemorrhoids (principal); F41.9 Anxiety disorder, unspecified; E11.9 Type 2 diabetes mellitus without complications; I10 Essential (primary) hypertension; F20.9 Schizophrenia, unspecified; F32.A Depression, unspecified; E78.5 Hyperlipidemia, unspecified; K21.9 Gastro-esophageal reflux disease without esophagitis; F17.210 Nicotine dependence, cigarettes, uncomplicated; F19.90 Other psychoactive substance use, unspecified, uncomplicated; Z98.890 Other specified postprocedural states; Z79.899 Other long term (current) drug therapy
CPT/HCPCS: 74018; 82947

== ENCOUNTER 2024-10-02 19:36 | Inpatient (IN) | payer MEDICAID ==
[~2024-10-02] VITALS: Ht 177.8 cm; Wt 77.1 kg
[~2024-10-02 19:36] MED LIST changes: +HYDR25SU21 PR
--- NOTE | 2024-10-02 19:50 | ED.PDOC ---
History of Present Illness HPI Comments 38 year old male with a Hx of HTN, HIV, DM, High Lipids, and Methamphetamine abuse was BIBA for the c/c of Generalized Weakness w/ associated diffuse body pains. EMS states that pts symptoms started at approx 1300 this afternoon, and has found no alleviating factors, prompting his visit to the ED. Pt notes of his Oral Secretions tasting like "bleach". Pt is noted to be a poor historian, and refusing to cooperate to answering questions appropriately. No other associated symptoms, modifiers, recent injuries or sick contacts present at this time. Time Seen by MD: 19:45 Primary Care Provider: GREY Reviewed Notes: Nurses Notes, Principal Examiner Notes, Medications, Allergies Allergies: Coded Allergies: NO KNOWN ALLERGIES (Unverified , 08/25/20) Home Meds Active Scripts Hydrocortisone Acetate (Anusol-Hc) 25 Mg Sup, 1 SUPP OR BID, #14 SUPP Prov:TAD VELASCO MD 07/27/24 Doxycycline Monohydrate (Doxycycline Monohydrate) 100 Mg Cap, 1 CAP PO BID for 42 Days, #84 CAP Prov:SALOME ELIZABETH 06/13/24 Levofloxacin Hemihydrate (LEVOFLOXACIN) 750 Mg Tab, 1 TAB PO DAILY for 42 Days, #42 TAB Prov:SALOME ELIZABETH 06/13/24 Losartan Potassium (Losartan Potassium) 50 Mg Tab, 50 MG PO DAILY for 20 Days, #20 TAB Prov:SALOME ELIZABETH 06/13/24 Pantoprazole Sodium Sesquihydr (Protonix) 40 Mg Tab, 40 MG PO DAILY PRN for 90 Days, #90 TAB Prov:SALOME ELIZABETH 09/21/23 Sucralfate (CARAFATE SUSP) 1 Gm/10 Ml Ss, 1 GM PO QID@0600,1130,1700,2200 for 30 Days, #120 ML Prov:SALOME ELIZABETH 09/21/23 Nystatin (Mouth-Throat) (Mycostatin (Mouth-Throat)) 500,000 Units/5 Ml Ss, 5 ML MT QID for 14 Days, #60 ML Prov:SALOME ELIZABETH 09/21/23 Baclofen (Baclofen) 10 Mg Tab, 10 MG PO BID, #20 TAB Prov:LOLA SOSA 05/25/21 Ibuprofen (Ibuprofen) 800 Mg Tab, 800 MG PO Q8HP PRN, #30 TAB Prov:LOLA SOSA AVE 05/25/21 Reported Medications Fluoxetine Hcl (Fluoxetine Hcl) 20 Mg Cap, 20 MG PO DAILY for 30 Days, MG 08/05/23 Aripiprazole (Abilify) 20 Mg Tab, 15 MG PO QPM, TAB 08/05/23 Information Source: Patient, Emergency Med Personnel Mode of Arrival: EMS Severity: Moderate Timing: Hours Duration: Since onset, Hours Prehospital treatment: None Past Medical History PAST MEDICAL HISTORY: Anxiety, Depression, DM, GERD, High Lipids, HTN, Schizophrenia Family History Family History: Reviewed,noncontributory to illness Social History Smoker: Cigarettes, Greater Than 1 Pack/Day Alcohol: Denies ETOH Use Drugs: Methamphetamine Lives In: Home Constitutional: reports: weakness; denies: chills, diaphoresis, fatigue, fever, malaise, sweats, others EENTM: denies: blurred vision, double vision, ear bleeding, ear discharge, ear drainage, ear pain, ear ringing, eye pain, eye redness, hearing loss, mouth pain, mouth swelling, nasal discharge, nose bleeding, nose congestion, nose pain, photophobia, tearing, throat pain, throat swelling, voice changes, others Respiratory: denies: cough, hemoptysis, orthopnea, SOB at rest, shortness of breath, SOB with excertion, stridor, wheezing, others Cardiovascular: denies: chest pain, dizzy spells, diaphoresis, Dyspnea on exertion, edema, irregular heart beat, left arm pain, lightheadedness, palpitations, PND, syncope, others Gastrointestinal: denies: abdomen distended, abdominal pain, blood streaked bowels, constipated, diarrhea, dysphagia, difficulty swallowing, hematemesis, melena, nausea, poor appetite, poor fluid intake, rectal bleeding, rectal pain, vomiting, others Genitourinary: denies: burning, dysuria, flank pain, frequency, hematuria, incontinence, penile discharge, penile sore, pain, testicle pain, testicle swelling, urgency, others Neurological: denies: dizziness, fainting, headache, left sided numbness, left sided weakness, numbness, paresthesia, pre-existing deficit, right sided numbness, right sided weakness, seizure, speech problems, tingling, tremors, weakness, others Musculoskeletal: denies: back pain, gout, joint pain, joint swelling, muscle pain, muscle stiffness, neck pain, others Integumetry: denies: bruises, change in color, change in hair/nails, dryness, laceration, lesions, lumps, rash, wounds, others Allergic/Immunocompromised: denies: Difficulty Healing, Frequent Infections, Hives, Itching, others Hematologic/Lymphatic: denies: anemia, blood clots, easy bleeding, easy bruising, swollen glands, others Endocrine: denies: excessive hunger, excessive sweating, excessive thirst, excessive urination, flushing, intolerance to cold, intolerance to heat, unexplained weight gain, unexplained weight loss, others Psychiatric: denies: anxiety, bipolar disorder, depression, hopeless, panic disorder, schizophrenia, sleepless, suicidal, others All Other Systems: Reviewed and Negative Physical Exam General Appearance: Moderate Distress, Normal, Other (chronic ill appeaing) HEENT: Normal ENT Inspection, Pharynx Normal, TMs Normal Neck: Full Range of Motion, Non-Tender, Normal, Normal Inspection Respiratory: Chest Non-Tender, Lungs Clear, No Accessory Muscle Use, No Respiratory Distress, Normal Breath Sounds Cardiovascular: No Edema, No JVD, No Murmur, Normal Peripheral Pulses, Tachycardia Breast Exam: Deferred Gastrointestinal: No Organomegaly, Non Tender, No Pulsatile Mass, Normal Bowel Sounds, Soft Genitalia: Deferred Pelvic: Deferred Rectal: Deferred Extremities: No calf tenderness, Normal capillary refill, Normal inspection, Normal range of motion, Non-tender, No pedal edema Musculoskeletal : Apperance: Normal Neurologic: Alert, contract manager II-XII nml as Tested, No Motor Deficits, Normal Affect, Normal Mood, No Sensory Deficits Cerebellar Function: Normal Reflexes: Normal Skin: Dry, Normal Color, Warm Lymphatic: No Adenopathy Was a procedure done? Was a procedure done?: No Differential Dx Considerations may include: Differential diagnosis includes but is not limited to: coronary ischemia, dehydration, sepsis, electrolyte abnormality, symptomatic anemia, hypovolemia and others X-Ray, Labs, Meds, VS Vital Signs Date Time Temp Pulse Resp B/P (MAP) Pulse Ox O2 Delivery O2 Flow Rate FiO2 10/03/24 01:45 103.0 117 20 103/50 (67) 100 103.0 10/02/24 19:40 122 10/02/24 19:36 98.2 112 18 148/78 98 98.2 Lab Test 10/03/24 02:25 10/02/24 21:30 10/02/24 19:53 10/02/24 19:44 Range/Units Lactic Acid Level 0.9 0.4-2.0 mmol/L Troponin I High Sensitivity 7 6 </=54 ng/L White Blood Count 12.2 H 4.4-10.8 10^3/uL Red Blood Count 5.17 4.5-5.90 10^6/uL Hemoglobin 14.4 13.5-17.5 g/dL Hematocrit 41.4 41.0-53.0 % Mean Corpuscular Volume 79.9 L 80.0-100.0 fL Mean Corpuscular Hemoglobin 27.9 L 28.0-32.0 pg Mean Corpuscular Hemoglobin Concent 34.9 32.0-36.0 g/dL Red Cell Distribution Width 16.1 H 11.8-14.3 % Platelet Count 188 140-450 10^3/uL Mean Platelet Volume 8.8 6.9-10.8 fL Neutrophils (%) (Auto) 85.3 H 37.0-80.0 % Lymphocytes (%) (Auto) 9.5 L 10.0-50.0 % Monocytes (%) (Auto) 4.9 0.0-12.0 % Eosinophils (%) (Auto) 0.1 0.0-7.0 % Basophils (%) (Auto) 0.2 0.0-2.0 % Neutrophils # (Auto) 10.4 H 1.6-8.6 10 ^3/uL Lymphocytes # (Auto) 1.2 0.4-5.4 10 ^3/uL Monocytes # (Auto) 0.6 0-1.3 10 ^3/uL Eosinophils # (Auto) 0 0-0.8 10 ^3/uL Basophils # (Auto) 0 0-0.2 10 ^3/uL Nucleated Red Blood Cells 0.1 % Sodium Level 136 136-145 mmol/L Potassium Level 3.9 3.5-5.1 mmol/L Chloride Level 102 98-107 mmol/L Carbon Dioxide Level 26 20-31 mmol/L Anion Gap 8 5-15 Blood Urea Nitrogen 19 9-23 mg/dL Creatinine 1.23 0.700-1.30 mg/dL Glomerular Filtration Rate Calc 76 >90 mL/min BUN/Creatinine Ratio 15.4 10.0-20.0 Serum Glucose 101 74-106 mg/dL Calcium Level 10.1 8.7-10.4 mg/dL Magnesium Level 1.6 1.6-2.6 mg/dL Total Bilirubin 0.5 0.2-1.0 mg/dL Aspartate Amino Transferase (AST) 39 13-40 U/L Alanine Aminotransferase (ALT) 26 7-40 U/L Alkaline Phosphatase 70 46-116 U/L Total Protein 9.7 H 5.7-8.2 g/dL Albumin 4.0 3.2-4.8 g/dL Plasma/Serum Blood Alcohol < 3.0 <10 mg/dL Urine Color Light-yellow Yellow Urine Clarity Clear Clear Urine pH 6.5 5.0-9.0 Urine Specific [place] 1.022 1.001-1.035 Urine Protein Negative Negative Urine Ketones Negative Negative Urine Blood Negative Negative /uL Urine Nitrite Negative Negative Urine Bilirubin Negative Negative Urine Urobilinogen Normal Negative mg/dL Urine Leukocyte Esterase Negative Negative /uL Urine RBC 1 0 - 3 /hpf Urine Microscopic WBC 1 0-3 /HPF Urine Squamous Epithelial Cells Few <5 /hpf Urine Bacteria None seen None Seen /hpf Urine Glucose Normal Normal mg/dL Urine Opiates Screen Neg NEGATIVE Urine Fentanyl Screen Neg NEGATIVE Urine Barbiturates Screen Neg NEGATIVE Urine Phencyclidine Screen Neg NEGATIVE Urine Amphetamines Screen Neg NEGATIVE Urine Benzodiazepines Screen Neg NEGATIVE Urine Cocaine Screen Neg NEGATIVE Urine Cannabinoids Screen Pos NEGATIVE Current Medications Medications (Trade) Dose Ordered Sig/[facility] Route Start Time Stop Time Status Last Admin Ondansetron HCl (Zofran) 4 mg ONCE ONCE IV 10/02/24 19:45 10/02/24 19:48 DC 10/03/24 02:00 Sodium Chloride 1,000 ml @ 1,000 mls/hr Q1H ONCE IVB 10/02/24 19:45 10/02/24 20:44 DC 10/03/24 02:00 Sodium Chloride 1,000 ml @ 1,000 mls/hr Q1H ONCE IV 10/03/24 02:15 10/03/24 03:14 DC 10/03/24 02:15 Piperacillin Sod/ Tazobactam Sod 100 ml @ 100 mls/hr ONCE ONCE IV 10/03/24 02:15 10/03/24 03:14 DC 10/03/24 02:40 Time of 1ST Reevaluation: 20:15 Reevaluation 1ST: Unchanged Patient Education/Counseling: Diagnosis, Treatment, Need For Follow Up Family Education/Counseling: No Family Present SEPSIS Sepsis Screen Physician Orders Electrocardigram (10/02/24 19:42) Blood Culture (10/03/24 02:10) Rapid Influenza A&B (10/03/24 02:10) Covid19 Antigen Hailey (10/03/24 ) Urinalysis (10/03/24 02:10) Chest Xray 1 View (10/03/24 02:13) Vital Signs Date Time Temp Pulse Resp B/P (MAP) Pulse Ox O2 Delivery O2 Flow Rate FiO2 10/03/24 01:45 103.0 117 20 103/50 (67) 100 103.0 10/02/24 19:40 122 10/02/24 19:36 98.2 112 18 148/78 98 98.2 Laboratory Tests Test 10/02/24 19:53 10/03/24 02:25 White Blood Count 12.2 10^3/uL (4.4-10.8) H Lactic Acid Level 0.9 mmol/L (0.4-2.0) Medications Medications Dose Ordered Sig/Elen Route Start Time Stop Time Status Last Admin Dose Admin Ondansetron HCl 4 mg ONCE ONCE IV 10/02/24 19:45 10/02/24 19:48 DC 10/03/24 02:00 Piperacillin Sod/ Tazobactam Sod 100 ml @ 100 mls/hr ONCE ONCE IV 10/03/24 02:15 10/03/24 03:14 DC 10/03/24 02:40 Sodium Chloride 1,000 ml @ 1,000 mls/hr Q1H ONCE IV 10/03/24 02:15 10/03/24 03:14 DC 10/03/24 02:15 Sodium Chloride 1,000 ml @ 1,000 mls/hr Q1H ONCE IVB 10/02/24 19:45 10/02/24 20:44 DC 10/03/24 02:00 Departure 1 Departure Time of Disposition: 03:42 Impression: Primary Impression: HIV (human immunodeficiency virus infection) Additional Impression: Fever, unknown origin Disposition: 09 ADMITTED INPATIENT Admit to: Med Surg Condition: Guarded Discharged With: Self Comments Generalized Weakness with Fever in HIV Patient Chief Complaint: Generalized weakness for 2 days History of Present Illness: Patient is a 38-year-old male with a history of HIV, hypertension, type 2 diabetes, and hypercholesterolemia who presented to the ED via ambulance with complaints of generalized weakness for the past two days. He also reports myalgias, malaise, and fatigue. Initially, the patient was afebrile, but during his ED stay, he developed a fever of 103F with tachycardia and hypotension, suggesting progression to possible sepsis. The source of infection is currently unknown. Review of Systems: Constitutional: Positive for fever, fatigue, malaise, and myalgias. Cardiovascular: Negative for chest pain, palpitations. Respiratory: Negative for shortness of breath, cough. Gastrointestinal: Not documented. Genitourinary: Not documented. Neurological: Negative for altered mental status. Musculoskeletal: Positive for generalized myalgias. Remainder of systems: Not documented or noncontributory. Medications: Home medications not documented in detail. Presumed to be on antiretroviral therapy for HIV. Likely on antihypertensive medication. Likely on medication for diabetes management. Likely on medication for hypercholesterolemia. Past Medical History: HIV Hypertension Type 2 Diabetes Mellitus Hypercholesterolemia Methamphetamine abuse Social History: Substance use: Positive for methamphetamine abuse. Toxicology screen positive for marijuana and cannabinoids. Other social history details not documented. Family History: No family history documented. Vital Signs: Initial: Temperature: 98.2F Heart rate: 112 bpm Blood pressure: 148/78 mmHg Upon reevaluation: Temperature: 103F Heart rate: 117 bpm Blood pressure: 103/50 mmHg Physical Exam: General: Patient presents with generalized weakness. Vital Signs: As documented above, with development of fever, persistent tachycardia, and hypotension during ED stay. 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 Lab Results: CBC: WBC elevated at 12.2 K/?L Chemistry panel: Unremarkable Lactic acid: Normal at 0.9 mmol/L Hemoglobin: Normal at 6 g/dL Urinalysis: Negative for infection Toxicology screen: Positive for marijuana and cannabinoids, negative for other substances Imaging and Other Relevant Results: Chest X-ray: No acute pathology Medical Decision Making: Summary Statement: 38-year-old male with HIV and multiple comorbidities presenting with generalized weakness who developed fever, tachycardia, and hypotension during ED observation, concerning for sepsis of unknown origin. Problem List: 1. Fever of unknown origin 2. HIV 3. Possible sepsis 4. Hypertension 5. Type 2 Diabetes 6. Hypercholesterolemia 7. Substance abuse Differential Diagnosis: 1. Opportunistic infection related to HIV 2. Community- acquired pneumonia 3. Urinary tract infection 4. Bacteremia 5. Viral syndrome 6. Medication side effect 7. Substance-induced illness ED Course: Patient initially presented with normal temperature but developed fever of 103F with tachycardia and hypotension during observation. Labs showed leukocytosis. Patient was given IV fluids, IV Zosyn (piperacillin-tazobactam) for broad-spectrum antibiotic coverage, and Tylenol for fever. Decision was made to admit for further workup and management of febrile illness in the setting of HIV. Assessment and Plan: 1. Fever of Unknown Origin with Possible Sepsis: - Patient developed fever, tachycardia, and hypotension during ED observation - Elevated WBC count of 12.2 suggests infectious process - Initiated broad-spectrum antibiotics (IV Zosyn) - Administered IV fluid resuscitation for hypotension - Antipyretic therapy with Tylenol - Admit to hospital for continued management and identification of source 2. HIV: - Chronic condition placing patient at risk for opportunistic infections - Will need to review current antiretroviral regimen and adherence - Consider opportunistic infections in differential diagnosis - Check CD4 count and viral load during admission 3. Hypertension: - Currently hypotensive, likely due to acute illness - Hold antihypertensive medications while hypotensive - Resume home medications once hemodynamically stable 4. Type 2 Diabetes: - Monitor blood glucose levels during admission - Adjust diabetic medications as needed during acute illness 5. Hypercholesterolemia: - Continue home medications as appropriate 6. Substance Abuse: - Positive for marijuana use - History of methamphetamine abuse - Consider addiction medicine consult during admission Disposition: Admit to medical floor for management of febrile illness in HIV patient with unknown source. Additional Notes: Patient admitted to medical floor for further management of febrile illness in the setting of HIV. Blood cultures pending at time of admission. Infectious Disease consultation recommended. Billing Information: ICD-10: R53.83 - Other fatigue ICD-10: R50.9 - Fever, unspecified ICD-10: B20 - Human immunodeficiency virus [HIV] disease ICD-10: A41.9 - Sepsis, unspecified organism ICD-10: E11.9 - Type 2 diabetes mellitus without complications ICD-10: I10 - Essential (primary) hypertension ICD-10: E78.5 - Hyperlipidemia, unspecified ICD-10: F15.20 - Methamphetamine dependence, uncomplicated Critical Care Note Critical Care Time?: Yes (35 min-critical care time only) Critical care comment: Total critical care time: Approximately 36 minutes Due to a high probability of clinically significant, life threatening deterioration, the patient required my highest level of preparedness to intervene emergently and I personally spent this critical care time directly and personally managing the patient. This critical care time included obtaining a history; examining the patient; pulse oximetry; ordering and review of studies; arranging urgent treatment with development of a management plan; evaluation of patient's response to treatment; frequent reassessment; and, discussions with other providers. This critical care time was performed to assess and manage the high probability of imminent, life-threatening deterioration that could result in multi-organ failure. It was exclusive of separately billable procedures and treating other patients. Stability Stability form required: No Heart Score Heart Score: Heart Score Response (Comments) Value History N/A 0 EKG N/A 0 Age N/A 0 Risk Factors N/A 0 Troponin N/A 0 Total 0 I personally scribed for JASVIR MATAMOROS MD ([email or web address]) on 10/02/24 at 19:50. Electronically submitted by Marin López ([email or web address]). JASVIR MATAMOROS MD Oct 02, 2024 19:50
[2024-10-02 20:06] LABS: Hematocrit 41.4 % (41.0-53.0); Hemoglobin 14.4 g/dL (13.5-17.5); Mean Corpuscular Hemoglobin 27.9 pg (28.0-32.0); Mean Corpuscular Volume 79.9 fL (80.0-100.0); Nucleated Red Blood Cells % 0.1 %
[2024-10-02 20:27] LABS: Urine Protein, UAD Negative (Negative)
[2024-10-02 20:43] LABS: Cannabinoid Screen, Urine Pos (NEGATIVE)
[2024-10-02 20:44] LABS: Alanine Aminotransferase 26 U/L (7-40); Albumin 4.0 g/dL (3.2-4.8); Alkaline Phosphatase 70 U/L (46-116); Anion Gap 8 (5-15); BUN/Creatinine Ratio 15.4 (10.0-20.0); Blood Urea Nitrogen 19 mg/dL (9-23); Calcium 10.1 mg/dL (8.7-10.4); Carbon Dioxide 26 mmol/L (20-31); Chloride 102 mmol/L (98-107); Glucose 101 mg/dL (74-106); Magnesium 1.6 mg/dL (1.6-2.6); Potassium 3.9 mmol/L (3.5-5.1); Sodium 136 mmol/L (136-145)
[2024-10-02 20:44] LABS: Amphetamine Screen, Urine Neg (NEGATIVE); Barbiturate Scree,Urine Neg (NEGATIVE); Benzodiazephine Screen, Urine Neg (NEGATIVE); Cocaine Screen, Urine Neg (NEGATIVE); Opiate Scree,Urine Neg (NEGATIVE); Phencyclidine Screen, Urine Neg (NEGATIVE)
[2024-10-02 20:45] LABS: Bilirubin, Total 0.5 mg/dL (0.2-1.0); Total Protein 9.7 g/dL (5.7-8.2)
[2024-10-03] MEDS: SODIUM CHLORIDE 0.9% 1,000 ML IVB ONE (02:00)
[2024-10-03] MEDS: ONDANSETRON HCL 4 MG/2 ML VIAL IV ONE (02:00)
[2024-10-03] MEDS: SODIUM CHLORIDE 0.9% 1,000 ML IV ONE (02:15)
[2024-10-03] MEDS: ACETAMINOPHEN 325 MG TAB PO ONE (02:40)
[2024-10-03] MEDS: PIPERACILLIN-TAZOB 3.375GM 100 ML IV ONE (02:40)
--- NOTE | 2024-10-03 03:17 | DVH ---
CHEST RADIOGRAPH Indication: fever Technique: Single frontal view of the chest was obtained COMPARISON: XY CHEST XRAY 1 VIEW on DOS: 06/06/24, XY CHEST PORTABLE on DOS: 04/24/24, XY CHEST PORTABLE on DOS: 08/05/23, RRIBS on DOS: 05/25/21, R RIB XRAY on DOS: 05/25/21 FINDINGS: Lines and Tubes: None Lungs: Clear Pleura: No effusion. No pneumothorax. Cardiomediastinal contours: Unremarkable Bones: Unremarkable IMPRESSION: 1. No acute disease.
[2024-10-03] MEDS ORDERED: DEXTROSE (50%) 50ML SYRG IV PRN (04:00)
[2024-10-03] MEDS ORDERED: MORPHINE SULFATE INJ 2 MG/ml SYRG IV PRN (04:00)
[2024-10-03] MEDS ORDERED: NITROGLYCERIN 0.4 MG SL TAB SL PRN (04:00)
[2024-10-03] MEDS ORDERED: ONDANSETRON HCL 4 MG/2 ML VIAL IV PRN (04:00)
--- NOTE | 2024-10-03 04:02 | DVHHP2 ---
History of Present Illness Reason for Visit: Generalized weakness History of Present Illness The patient is a 38-year-old male with past medical history of schizophrenia, anxiety, depression, DM, GERD, hyperlipidemia, and hypertension who presented to [facility] ED with complaint generalized weakness. Patient reports symptoms progressively get worse with diffuse body pain, rating 8/10 numeric scale, getting worse that prompted this visit. Patient was seen and evaluated in the ED, laboratory data shows WBC 12.2, platelets 188, sodium 136, potassium 3.9, BUN 19, creatinine 1.23, GFR 76, glucose 101, calcium 10.1, troponin 7, protein 9.7, lactic acid 0.9, blood pressure 103/50, heart rate 116 trending down to 104, temperature 103.0 F trending down to 97.6, O2 saturation 98% on room air. Chest x-ray show no acute disease. Patient was started on IV antibiotic regimen Zosyn, please see medication orders section in the computer. On my assessment, patient denied chest pain, no headache, no dizziness, no diaphoresis, no shortness of breaths, no nausea, no vomiting, no fever, no chills. Patient was admitted for further evaluation and medical management. Past Medical History Anxiety, Depression, DM, GERD, High Lipids, HTN, Schizophrenia Past Surgical History Denies all surgeries Family History Reviewed, noncontributory to the management of this case. Past Social History The patient lives at home, smokes cigarettes greater than 1 pack per day, denies alcohol use, uses marijuana and methamphetamine. Review of Systems Constitutional: Yes: Fever, Weakness; No: Chills, Sweats, Malaise, Other Eyes: No: Pain, Vision change, Conjunctivae inflammation, Eyelid inflammation, Other, Redness ENT: No: Ear pain, Ear discharge, Nose pain, Nose discharge, Nose congestion, Mouth pain, Mouth swelling, Throat pain, Throat swelling, Other Respiratory: No: Cough, Dry, Shortness of breath, SOB with excertion, Wheezing, Hemoptysis, Pleuritic Pain, Sputum, Wheezing, Other Cardiovascular: No: Chest Pain, Palpitations, Orthopnea, Paroxysmal Noc. Dyspnea, Edema, Lt Headedness, Other Gastrointestinal: No: Nausea, Vomiting, Abdominal Pain, Diarrhea, Constipation, Melena, Hematochezia, Other Genitourinary: No Dysuria, No Frequency, No Incontinence, No Hematuria, No Retention, No Other Musculoskeletal: No: other, neck pain, shoulder pain, arm pain, back pain, hand pain, leg pain, foot pain Skin: No: Rash, Lesions, Jaundice, Bruising, Other Neurological: No: Weakness, Numbness, Incoordination, Change in speech, Confusion, Seizures, Other Allergies: Coded Allergies: NO KNOWN ALLERGIES (Unverified , 08/25/20) Exam Vital Signs Vital Signs Date Time Temp Pulse Resp B/P (MAP) Pulse Ox O2 Delivery O2 Flow Rate FiO2 10/03/24 01:45 103.0 117 20 103/50 (67) 100 103.0 General Appearance: Alert, Oriented X3, Cooperative HEENT: Atraumatic, PERRLA, EOMI, Mucous membr. moist/pink Respiratory: Clear to auscultation, Normal air movement Cardiovascular: Regular rate, Normal S1, Normal S2, No murmurs Abdominal: Normal bowel sounds, Soft, No tenderness, No hepatospenomegaly, No masses Extremities: No clubbing, No cyanosis, No edema, Normal pulses, No tenderness/swelling Skin: No rashes, No breakdown, No significant lesion Neuro: Normal speech, Normal tone, Sensation intact, Cranial nerves 3-12 NL, Reflexes 2+, Other (Generalized weakness) Psych/Mental Status: Mental status NL, Mood NL Labs/Xrays Labs Test 10/03/24 02:25 10/02/24 21:30 10/02/24 19:53 10/02/24 19:44 Range/Units Lactic Acid Level 0.9 0.4-2.0 mmol/L Troponin I High Sensitivity 7 </=54 ng/L White Blood Count 12.2 H 4.4-10.8 10^3/uL Red Blood Count 5.17 4.5-5.90 10^6/uL Hemoglobin 14.4 13.5-17.5 g/dL Hematocrit 41.4 41.0-53.0 % Mean Corpuscular Volume 79.9 L 80.0-100.0 fL Mean Corpuscular Hemoglobin 27.9 L 28.0-32.0 pg Mean Corpuscular Hemoglobin Concent 34.9 32.0-36.0 g/dL Red Cell Distribution Width 16.1 H 11.8-14.3 % Platelet Count 188 140-450 10^3/uL Mean Platelet Volume 8.8 6.9-10.8 fL Neutrophils (%) (Auto) 85.3 H 37.0-80.0 % Lymphocytes (%) (Auto) 9.5 L 10.0-50.0 % Monocytes (%) (Auto) 4.9 0.0-12.0 % Eosinophils (%) (Auto) 0.1 0.0-7.0 % Basophils (%) (Auto) 0.2 0.0-2.0 % Neutrophils # (Auto) 10.4 H 1.6-8.6 10 ^3/uL Lymphocytes # (Auto) 1.2 0.4-5.4 10 ^3/uL Monocytes # (Auto) 0.6 0-1.3 10 ^3/uL Eosinophils # (Auto) 0 0-0.8 10 ^3/uL Basophils # (Auto) 0 0-0.2 10 ^3/uL Nucleated Red Blood Cells 0.1 % Sodium Level 136 136-145 mmol/L Potassium Level 3.9 3.5-5.1 mmol/L Chloride Level 102 98-107 mmol/L Carbon Dioxide Level 26 20-31 mmol/L Anion Gap 8 5-15 Blood Urea Nitrogen 19 9-23 mg/dL Creatinine 1.23 0.700-1.30 mg/dL Glomerular Filtration Rate Calc 76 >90 mL/min BUN/Creatinine Ratio 15.4 10.0-20.0 Serum Glucose 101 74-106 mg/dL Calcium Level 10.1 8.7-10.4 mg/dL Magnesium Level 1.6 1.6-2.6 mg/dL Total Bilirubin 0.5 0.2-1.0 mg/dL Aspartate Amino Transferase (AST) 39 13-40 U/L Alanine Aminotransferase (ALT) 26 7-40 U/L Alkaline Phosphatase 70 46-116 U/L Total Protein 9.7 H 5.7-8.2 g/dL Albumin 4.0 3.2-4.8 g/dL Plasma/Serum Blood Alcohol < 3.0 <10 mg/dL Urine Color Light-yellow Yellow Urine Clarity Clear Clear Urine pH 6.5 5.0-9.0 Urine Specific [place] 1.022 1.001-1.035 Urine Protein Negative Negative Urine Ketones Negative Negative Urine Blood Negative Negative /uL Urine Nitrite Negative Negative Urine Bilirubin Negative Negative Urine Urobilinogen Normal Negative mg/dL Urine Leukocyte Esterase Negative Negative /uL Urine RBC 1 0 - 3 /hpf Urine Microscopic WBC 1 0-3 /HPF Urine Squamous Epithelial Cells Few <5 /hpf Urine Bacteria None seen None Seen /hpf Urine Glucose Normal Normal mg/dL Urine Opiates Screen Neg NEGATIVE Urine Fentanyl Screen Neg NEGATIVE Urine Barbiturates Screen Neg NEGATIVE Urine Phencyclidine Screen Neg NEGATIVE Urine Amphetamines Screen Neg NEGATIVE Urine Benzodiazepines Screen Neg NEGATIVE Urine Cocaine Screen Neg NEGATIVE Urine Cannabinoids Screen Pos NEGATIVE PATIENT: MATTE[address] L[address] IICCT: [id number] UNIT: [id number] : 1985 LOC: ER ROOM / BED: / AGE / SEX: 38 / M ADM STATUS: REG ER SERVICE 021 ORDERING PHYSICIAN: JASVIR MATAMOROS MD PROCEDURE(s): CXR1 - CHEST XRAY 1 VIEW REASON: fever ORDER NUMBER(s): [id number], ACCESSION NUMBER(s): [id number] CHEST RADIOGRAPH Indication: fever Technique: Single frontal view of the chest was obtained COMPARISON: XY CHEST XRAY 1 VIEW on DOS: 06/06/24, XY CHEST PORTABLE on DOS: 04/24/24, XY CHEST PORTABLE on DOS: 08/05/23, RRIBS on DOS: 05/25/21, R RIB XRAY on DOS: 05/25/21 FINDINGS: Lines and Tubes: None Lungs: Clear Pleura: No effusion. No pneumothorax. Cardiomediastinal contours: Unremarkable Bones: Unremarkable IMPRESSION: 1. No acute disease. SEPSIS Sepsis Screen Date sepsis recognized/suspect: Oct 02, 2024 Time Sepsis recognized/suspect: 1935 Recent Procedure: No On Antibiotic Therapy: No Respiratory Rate >20: No Heart Rate >90: No Temp<36 C (96.8 F) or >38.3 C: No SBP <90 or MAP <65 mmHG: No New Acute Mental Status Change: No Is the patient on CPAP, BIPAP,: No Physician Orders Blood Culture (10/03/24 02:10) Rapid Influenza A&B (10/03/24 02:10) Covid19 Antigen Hailey (10/03/24 ) Urinalysis (10/03/24 02:10) Chest Xray 1 View (10/03/24 02:13) Complete Blood Count (10/03/24 03:53) Comprehensive Metabolic Panel (10/03/24 03:53) Fluoxetine Capsule (Prozac Capsule) (10/03/24 10:00) Zosyn Extended Infusion (10/03/24 06:00) Glucose Blood (Accu-Chek Comfort Curve T (10/03/24 07:00) Mild Sliding Scale (10/03/24 07:00) Dextrose 50% Syringe (10/03/24 04:00) Admit (10/03/24 03:53) Allergies (10/03/24 03:53) Code Status (10/03/24 03:53) 0.9% Ns 1000 Ml (10/03/24 04:00) Oxygen Per Hour (10/03/24 03:53) Hydrocodone-Acet 5/325mg Tab (Dushore 5/32 (10/03/24 04:00) Ondansetron Hcl (Zofran) (10/03/24 04:00) Docusate Sodium Capsule (Colace Capsule) (10/03/24 04:00) Complete Blood Count (10/04/24 04:00) Comprehensive Metabolic Panel (10/04/24 04:00) Condition: Serious (10/03/24 03:53) Acetaminophen Tablet (Tylenol Tablet) (10/03/24 04:00) Bedrest With Bathroom Privileg (10/03/24 03:53) Sequential Compression Device (10/03/24 ) Nitroglycerin Sublingual (Ntrostat Subli (10/03/24 04:00) Morphine Sulfate Injection (10/03/24 04:00) Stat Ekg For Chest Pain (10/03/24 03:53) Notify Md Of Changes From Base (10/03/24 03:53) Drum Sander Setter For 24 Hours (10/03/24 03:53) Emergency Dysrhythmia Protocol (10/03/24 03:53) Rhythm Strips Once Every Shift (10/03/24 03:53) Oxygen By Nasal Cannula (10/03/24 03:53) Consistent Carb(Ccho)Diabetes (10/03/24 Breakfast) Vital Signs Date Time Temp Pulse Resp B/P (MAP) Pulse Ox O2 Delivery O2 Flow Rate FiO2 10/03/24 01:45 103.0 117 20 103/50 (67) 100 103.0 Laboratory Tests Test 10/02/24 19:53 10/03/24 02:25 White Blood Count 12.2 10^3/uL (4.4-10.8) H Lactic Acid Level 0.9 mmol/L (0.4-2.0) Medications Medications Dose Ordered Sig/Elen Route Start Time Stop Time Status Last Admin Dose Admin Ondansetron HCl 4 mg ONCE ONCE IV 10/02/24 19:45 10/02/24 19:48 DC 10/03/24 02:00 4 MG Piperacillin Sod/ Tazobactam Sod 100 ml @ 100 mls/hr ONCE ONCE IV 10/03/24 02:15 10/03/24 03:14 DC 10/03/24 02:40 100 MLS/HR Sodium Chloride 1,000 ml @ 1,000 mls/hr Q1H ONCE IV 10/03/24 02:15 10/03/24 03:14 DC 10/03/24 02:15 1,000 MLS/HR Sodium Chloride 1,000 ml @ 1,000 mls/hr Q1H ONCE IVB 10/02/24 19:45 10/02/24 20:44 DC 10/03/24 02:00 1,000 MLS/HR Assessment/Plan Assessment/Plan Generalized weakness Fever, unknown origin Leukocytosis, unspecified HIV (human immunodeficiency virus infection) Plan 1. Admit to telemetry unit 2. Breathing treatment 3. Pain control management 4. IV antibiotic management 5. Management of fluids and electrolytes 6. Consultation for hospitalist 7. Diagnostic test chest x-ray 8. DVT prophylaxis on SCDs 9. Repeat labs CBC, CMP in a.m. 10. Home medication reviewed and reconciled 11. Continue with current medical management 12. Treatment plan discussed with patient and RN. Patient verbalized understanding. Plan discussed with: Patient, Other (RN) My Orders Orders - BANDAR QUINTERO DNP Procedure Category Date Status Time Complete Blood Count LAB 10/03/24 Transmitted 03:53 Comprehensive LAB 10/03/24 Transmitted Metabolic Panel 03:53 Fluoxetine Capsule PHA 10/03/24 Transmitted (Prozac Capsule) 10:00 Zosyn Extended PHA 10/03/24 Transmitted Infusion 06:00 Glucose Blood PHA 10/03/24 Transmitted (Accu-Chek Comfort 07:00 Mild Sliding Scale PHA 10/03/24 Transmitted 07:00 Dextrose 50% Syringe PHA 10/03/24 Transmitted 04:00 Admit ADMIT 10/03/24 Transmitted 03:53 Allergies [facility] 10/03/24 Transmitted 03:53 Code Status CODE 10/03/24 Transmitted 03:53 0.9% Ns 1000 Ml [facility] 10/03/24 Transmitted 04:00 Oxygen Per Hour RT 10/03/24 Transmitted 03:53 Hydrocodone-Acet [facility] 10/03/24 Transmitted 5/325mg Tab (Dushore 04:00 Ondansetron Hcl [facility] 10/03/24 Transmitted (Zofran) 04:00 Docusate Sodium [facility] 10/03/24 Transmitted Capsule (Colace 04:00 Complete Blood Count LAB 10/04/24 Verified 04:00 Comprehensive LAB 10/04/24 Verified Metabolic Panel 04:00 Condition: Serious [facility] 10/03/24 Transmitted 03:53 Acetaminophen Tablet [facility] 10/03/24 Transmitted (Tylenol Tablet) 04:00 Bedrest With Bathroom [facility] 10/03/24 Transmitted Privileg 03:53 Sequential [facility] 10/03/24 Transmitted Compression Device Nitroglycerin [facility] 10/03/24 Transmitted Sublingual (Ntrostat 04:00 Morphine Sulfate [facility] 10/03/24 Transmitted Injection 04:00 Stat Ekg For Chest [facility] 10/03/24 Transmitted Pain 03:53 Notify Md Of Changes [facility] 10/03/24 Transmitted From Base 03:53 Drum Sander Setter For [facility] 10/03/24 Transmitted 24 Hours 03:53 Emergency Dysrhythmia [facility] 10/03/24 Transmitted Protocol 03:53 Rhythm Strips Once [facility] 10/03/24 Transmitted Every Shift 03:53 Oxygen By Nasal RT 10/03/24 Transmitted Cannula 03:53 Consistent DIET 10/03/24 Transmitted Carb(Ccho)Diabetes Breakfast Problem List: (1) Generalized weakness (2) Leukocytosis, unspecified (3) Fever, unknown origin (4) HIV (human immunodeficiency virus infection) Date of Service: Oct 03, 2024 Billing Provider: BANDAR QUINTERO DNP Common Visit Codes: [id number] INP/OBS CARE (HIGH) BANDAR QUINTERO DNP Oct 03, 2024 04:02
[2024-10-03] MEDS: MORPHINE SULFATE 4 MG/ML SYR/VIAL IV ONE (05:00)
[2024-10-03] MEDS: ACETAMINOPHEN 325 MG TAB PO PRN (05:01)
[2024-10-03] MEDS: SODIUM CHLORIDE 0.9% 1,000 ML IV SCH ×2 (05:45→13:17)
[2024-10-03 07:21] LABS: Hematocrit 37.3 % (41.0-53.0); Hemoglobin 12.8 g/dL (13.5-17.5); Mean Corpuscular Hemoglobin 27.3 pg (28.0-32.0); Mean Corpuscular Volume 79.7 fL (80.0-100.0); Nucleated Red Blood Cells % 0.0 %
[2024-10-03 07:33] LABS: Alanine Aminotransferase 23 U/L (7-40); Albumin 3.7 g/dL (3.2-4.8); Alkaline Phosphatase 54 U/L (46-116); Anion Gap 8 (5-15); BUN/Creatinine Ratio 18.1 (10.0-20.0); Blood Urea Nitrogen 21 mg/dL (9-23); Calcium 9.2 mg/dL (8.7-10.4); Carbon Dioxide 24 mmol/L (20-31); Chloride 103 mmol/L (98-107); Potassium 3.8 mmol/L (3.5-5.1)
[2024-10-03 07:34] LABS: Bilirubin, Total 1.3 mg/dL (0.2-1.0); Glucose 160 mg/dL (74-106); Sodium 135 mmol/L (136-145); Total Protein 8.7 g/dL (5.7-8.2)
[2024-10-03] MEDS: FAMOTIDINE (10MG/ML) 2ML VL IV SCH (08:13)
[2024-10-03] MEDS: ACCU-CHEK COMFORT CURVE STRIP VI SCH (08:14)
[2024-10-03] MEDS: InsuLIN REG 1unit/0.01ml Soln (100units/ml) SC SCH (08:17)
[2024-10-03 08:18] VITALS: PULSE 96; RESP 18; O2SAT 94
[2024-10-03 09:13] LABS: COVID19 ANTIGEN SOFIA FIA NEGATIVE (NEGATIVE)
[2024-10-03] MEDS: HYDROcodone-ACET 5/325MG TAB PO PRN (09:42)
[2024-10-03] MEDS: PIPERACILLIN-TAZOB 3.375GM 100 ML IV SCH (09:43)
[2024-10-03 10:09] VITALS: BP 128/66; PULSE 94; TEMP 99.1; O2SAT 94
[2024-10-03] MEDS ORDERED: VANCOMYCIN PER PHARMACY 0 MG IV SCH (12:15)
[2024-10-03 12:53] VITALS: BP 126/66; PULSE 82; RESP 18; TEMP 97.6
[2024-10-03] MEDS: ERGOCALCIFEROL 50,000 UNIT(1.25MG) CAP PO SCH (13:16)
[2024-10-03] MEDS: MAGNESIUM SULFATE 1GM/100ML 100 ML IV ONE (13:16)
[2024-10-03] MEDS: VANCOMYCIN 1GM/200ML PM 250 ML IV SCH (13:17)
--- NOTE | 2024-10-03 13:39 | DVH ---
Indication: Fever. HIV patient. Thank You! Technique: CT axial images of the abdomen and pelvis are obtained without contrast. Coronal and sagit scott reformats were obtained. Radiation Dose Information: CTDI volume is 7.98 mGy. Dose-length product is 3.92 mGy*cm Comparison: 09/18/2023 FINDINGS: There is limited interpretation of the abdomen and pelvis without administration of intravenous contr ast. Lung bases demonstrate left lower lobe pulmonary airspace consolidation. Adrenal glands unremarkable. Spleen is enlarged measuring 13.1 cm AP. Pancreas, liver unremarkable in shape. Kidneys demonstrate no hydronephrosis /nephrolithiasis. Stomach is partially distended. Small bowel loops are moderately distended. Colonic diverticular disease. Moderate volume stool within the colon. Scattered air-fluid levels with in the small and large bowel. No secondary signs for appendicitis. Bladder partially distended. No free pelvic fluid. No inguinal lymphadenopathy. No aggressive osseous process. Mild thoracolumbar degenerative disc disease. IMPRESSION: Limited evaluation without contrast. Left lower lobe pulmonary airspace consolidation, likely pneumonia. Follow-up to resolution to exclud e underlying lesion/mass. Moderate fluid distention of the small and large bowel loops. Correlate for entero colitis, inflamma tory disease. Splenomegaly. Other findings as described.
[2024-10-03] MEDS ORDERED: PANTOPRAZOLE 40 MG TAB PO PRN (14:30)
--- NOTE | 2024-10-03 15:25 | DVHPNRES ---
Progress Note Date Seen: Oct 03, 2024 Resident Creating Document: CARMEN SALGADO RESIDENT Medical Necessity Reason Pt with a Central, PICC or Fol: No The following are medically ne: Arredondo Catheter Subjective Review of Systems This is a 38-year-old male with past medical history of HTN, HIV, DM2, HLD, and Methamphetamine use but stopped 6 months back, schizophrenia, bipolar disorder, homeless BIBEMS with a complaint of generalized body pain which started suddenly yesterday afternoon rating 8/10 numeric scale, getting worse called EMS and brought to the hospital. Patient patient generalized body pain associated with loss of appetite, malaise, bleach like sensation in taste and fatigue. Patient noncompliance with the medical management, last seen primary care 6 months ago and not on any medications. In ER, patient received Zosyn IV antibiotic, ondansetron, NSS, morphine injection, vancomycin and fluoxetine. On my encounter, patient stated he feels better in compared came to ER earlier. Lab shows leukocytosis with left shift WBC 12.2> 20.7, hemoglobin 14.4, hemoglobin A1c 5.7, troponin x 2-negative, lactic acid 0.9. Vitamin-D 25 hydroxy level 26.9. Urine toxicology positive for cannabinoids, alcohol level <3.0. COVID-19 and influenza type a and B-negative. QuantiFERON TB gold test- pending. CT abdomen and pelvis without contrast:Left lower lobe pulmonary airspace consolidation, likely pneumonia. Follow-up to resolution to exclude underlying lesion/mass. Moderate fluid distention of the small and large bowel loops. Correlate for entero colitis, inflammatory disease. Splenomegaly. CXR-no acute cardiopulmonary disease. Objective vital signs Vital Sign Date Time Temp Pulse Resp B/P (MAP) Pulse Ox O2 Delivery O2 Flow Rate FiO2 10/03/24 12:53 97.6 82 18 126/66 (86) 97.6 10/03/24 10:09 94 10/03/24 08:18 Room Air* 0 21 Total Intake and Output 10/02/24 10/02/24 10/03/24 15:00 23:00 07:00 Intake Total 2100 ml Balance 2100 ml medications Current Medications Medications Dose Ordered Sig/Elen Route Start Time Stop Time Status Last Admin Dose Admin Piperacillin Sod/ Tazobactam Sod 100 ml @ 25 mls/hr Q8HR@0300,1100,1900 IV 8/1/25 11:00 10/03/24 09:43 25 MLS/HR Diagnostic Test (Pha) 1 strip ACHS 10/03/24 07:00 10/03/24 11:44 1 STRIP Insulin Human Regular ACHS SC 10/03/24 07:00 Dextrose 50 ml UD PRN IV 10/03/24 04:00 Acetaminophen/ Hydrocodone Bitart 1 tab Q4HP PRN PO 10/03/24 04:00 10/03/24 09:42 1 TAB Ondansetron HCl 4 mg Q4HP PRN IV 10/03/24 04:00 Docusate Sodium 100 mg BIDPRN PRN PO 10/03/24 04:00 Acetaminophen 650 mg Q6HP PRN PO 10/03/24 04:00 10/03/24 05:01 650 MG Nitroglycerin 0.4 mg Q5MINP PRN SL 10/03/24 04:00 Morphine Sulfate 2 mg Q30M PRN IV 10/03/24 04:00 Famotidine 20 mg DAILY IV 10/03/24 10:00 10/03/24 08:13 20 MG Sodium Chloride 1,000 ml @ 120 mls/hr Q8H20M IV 10/03/24 12:15 10/03/24 13:17 120 MLS/HR Ergocalciferol 50,000 unit Q7D PO 10/03/24 12:15 10/03/24 13:16 50,000 UNIT Vancomycin HCl 0 ml @ 0 mls/hr UD IV 10/03/24 12:15 Fluoxetine HCl 20 mg DAILY PO 10/04/24 10:00 Losartan Potassium 50 mg DAILY PO 10/04/24 10:00 Pantoprazole Sodium 40 mg DAILY PRN PO 10/03/24 14:30 Patient Own Medication 10 mg QPM PO 10/03/24 18:00 Future Hold Vancomycin HCl 200 ml @ 200 mls/hr Q12H IV 10/04/24 01:00 Examination General examination- HEENT- PEERLA, no acute nasal discharge Cardiovascular- S1-S2 audible, rate and rhythm regular, no murmur Respiratory- CTAB, no wheeze or rhonchi Gastrointestinal-nontender, bowel sound+. Nondistended Musculoskeletal-no acute joint swelling or tenderness or redness Lower extremity- no edema, no joint swelling Neurological- cranial nerves intact, no acute dysarthria or dysphagia Psychiatry- denies depression or SI or HI Skin- no acute rash or purpura laboratory and microbiology Laboratory Tests 10/03/24 07:00 Test 10/03/24 07:00 Range/Units Serum Glucose 160 H 74-106 mg/dL Labs and/or images reviewed: Labs reviewed by me, Image(s) reviewed by me Problem List/Assessment/Plan Problem List/Assessment/Plan Assessment and plan: # Sepsis likely pneumonia due to Gram-positive on Gram-negative organism - fever-103.0, tachycardic HR 117, RR 20, -Blood pressure lower side during ED observation 103/50 - leukocytosis, WBC count of 12.2 >20.7 -CT ABDOMEN: Left lower lobe pulmonary airspace consolidation, likely pneumonia. -patient received vancomycin and Zosyn in ER -started broad-spectrum antibiotics (IV Zosyn) and vancomycin as per pharmacy protocol. -continue NSS 120 cc/hour - Tylenol 650 p.o. as needed for pain or fever - lactic acid level 0.9 -Blood culture, MRSA, sputum culture and urine culture will follow. # Suspected enterocolitis -CT abdomen and pelvis-Moderate fluid distention of the small and large bowel loops. Correlate for entero colitis, inflammatory disease. -Patient on Zosyn and vancomycin -Continue IV normal saline as prescribed -Monitor CBC, CMP # Human immunodeficiency virus with unknown CD4, noncompliant - Patient currently homeless, not on medication -Reviewed chart, patient was on Biktarvy - Consider opportunistic infections in differential diagnosis - Check CD4 count and viral load -ID consult # Essential Hypertension: -Start losartan 50 mg p.o. daily -Monitor blood pressure - Patient not on any antihypertensive medication last 6 months # Type 2 Diabetes mellitus with hyperglycemia -Serum glucose 101> 160 - Not on medication for last 6 months -Hemoglobin A1c level we will follow -INSULIN SLIDING SCALE # Hyperlipidemia - Not on medication -Order lipid profile # schizophrenia/bipolar disorder -Start aripiprazole 10 mg p.o. bedtime -Fluoxetine 20 mg p.o. daily # polysubstance use disorder including marijuana and tobacco on regular basis; methamphetamine and alcohol depending on the occasion - Urine drug screening Positive for marijuana use - History of methamphetamine abuse, stopped 6 months earlier -Counseled on polysubstance use cessation for 22 minutes including 14 minutes for tobacco use cessation # Vitamin-D deficiency -Serum vitamin-D level 26.9 -Start vitamin-D 82001 units weekly Diet: Diabetic GI prophylaxis: Famotidine 20 mg p.o. b.i.d. DVT prophylaxis: Patient ambulating Goals of care discussed for 20 minutes with the patient; Full code status. Case discussed with Dr. Johnson. Plan discussed with: Patient, Other (RN) Addendum Addendum Addendum I was physically present for the hoyos portions of the service provided to patient by THE RESIDENT. I have reviewed the documentation, discussed the case with resident and agree with the resident's documentation except as noted. Also the patient's clinical case was discussed with the patient's nurse. This medical document was created using an electronic medical record system with computerized dictation system. Although this document has been carefully reviewed, there might still be some phonetic and typographical errors. These areas are purely typographical due to imperfections of the software programs, and do not reflect any compromise in the patient's medical care. Late signature. Date of Service: Oct 03, 2024 Billing Provider: MARCUS JOHNSON MD Common Visit Codes: [id number] INP/OBS CARE(HIGH) Secondary Visit Codes: [id number] CHNG SMOKING >10MIN (Counseled on polysubstance use cessation for 22 minutes including 14 minutes for tobacco use cessation), [id number] CARE PLAN 30 MINUTES (20 minutes) CARMEN SALGADO RESIDENT Oct 03, 2024 15:25 GIOVANNA GUZMAN RESIDENT Oct 03, 2024 16:08 MARCUS JOHNSON MD Oct 06, 2024 05:35
--- NOTE | 2024-10-03 17:11 | DVHINCON2 ---
Date of service: Oct 03, 2024 Family History: FH: bipolar disorder G8 MOTHER, FH: schizophrenia G8 MOTHER, Allergies: Coded Allergies: NO KNOWN ALLERGIES (Unverified , 08/25/20) Home Meds Active Scripts Hydrocortisone Acetate (Anusol-Hc) 25 Mg Sup, 1 SUPP MN BID, #14 SUPP Prov:TAD VELASCO MD 07/27/24 Doxycycline Monohydrate (Doxycycline Monohydrate) 100 Mg Cap, 1 CAP PO BID for 42 Days, #84 CAP Prov:SALOME ELIZABETH 06/13/24 Levofloxacin Hemihydrate (LEVOFLOXACIN) 750 Mg Tab, 1 TAB PO DAILY for 42 Days, #42 TAB Prov:SALOME ELIZABETH 06/13/24 Losartan Potassium (Losartan Potassium) 50 Mg Tab, 50 MG PO DAILY for 20 Days, #20 TAB Prov:SALOME ELIZABETH 06/13/24 Pantoprazole Sodium Sesquihydr (Protonix) 40 Mg Tab, 40 MG PO DAILY PRN for 90 Days, #90 TAB Prov:SALOME ELIZABETH 09/21/23 Sucralfate (CARAFATE SUSP) 1 Gm/10 Ml Ss, 1 GM PO QID@0600,1130,1700,2200 for 30 Days, #120 ML Prov:SALOME ELIZABETH 09/21/23 Nystatin (Mouth-Throat) (Mycostatin (Mouth-Throat)) 500,000 Units/5 Ml Ss, 5 ML MT QID for 14 Days, #60 ML Prov:SALOME ELIZABETH 09/21/23 Baclofen (Baclofen) 10 Mg Tab, 10 MG PO BID, #20 TAB Prov:LOLA SOSA 05/25/21 Ibuprofen (Ibuprofen) 800 Mg Tab, 800 MG PO Q8HP PRN, #30 TAB Prov:LOLA SOSA 05/25/21 Reported Medications Fluoxetine Hcl (Fluoxetine Hcl) 20 Mg Cap, 20 MG PO DAILY for 30 Days, MG 08/05/23 Aripiprazole (Abilify) 20 Mg Tab, 15 MG PO QPM, TAB 08/05/23 Current Medications Current Medications Medications (Trade) Dose Ordered Sig/Elen Route PRN Reason Start Time Stop Time Status Last Admin Fluoxetine HCl (PROzac CAPSULE) 20 mg DAILY PO 10/03/24 10:00 10/03/24 15:16 DC 10/03/24 08:14 Piperacillin Sod/ Tazobactam Sod 100 ml @ 25 mls/hr Q8HR@0300,1100,1900 IV 10/03/24 11:00 10/03/24 09:43 Diagnostic Test (Pha) (Accu-Chek Comfort Curve T) 1 strip ACHS 10/03/24 07:00 10/03/24 16:12 Insulin Human Regular (InsuLIN R) ACHS SC 10/03/24 07:00 Dextrose 50 ml UD PRN IV Blood Sugar LESS THAN 60 10/03/24 04:00 Sodium Chloride 1,000 ml @ 60 mls/hr [id number] IV 10/03/24 04:00 10/03/24 12:11 DC Acetaminophen/ Hydrocodone Bitart (Vader 5/325MG Tab) 1 tab Q4HP PRN PO MODERATE PAIN (4-6 PAIN SCALE) 10/03/24 04:00 10/03/24 09:42 Ondansetron HCl (Zofran) 4 mg Q4HP PRN IV NAUSEA / VOMITING 10/03/24 04:00 Docusate Sodium (Colace Capsule) 100 mg BIDPRN PRN PO FOR CONSTIPATION 10/03/24 04:00 Acetaminophen (Tylenol Tablet) 650 mg Q6HP PRN PO PAIN SCALE 1-3 OR TEMP>100.4 10/03/24 04:00 10/03/24 05:01 Nitroglycerin (Ntrostat Sublingual) 0.4 mg Q5MINP PRN SL FOR CHEST PAIN 10/03/24 04:00 Morphine Sulfate 2 mg Q30M PRN IV FOR CHEST PAIN 10/03/24 04:00 Famotidine (Pepcid Injection) 20 mg DAILY IV 10/03/24 10:00 10/03/24 08:13 Sodium Chloride 1,000 ml @ 120 mls/hr Q8H20M IV 10/03/24 12:15 10/03/24 13:17 Ergocalciferol (Vitamin D 50,000 Unit) 50,000 unit Q7D PO 10/03/24 12:15 10/03/24 13:16 Vancomycin HCl 0 ml @ 0 mls/hr UD IV 10/03/24 12:15 Vancomycin HCl 250 ml @ 250 mls/hr Q1H IV 10/03/24 12:45 10/03/24 14:28 DC 10/03/24 13:17 Fluoxetine HCl (PROzac CAPSULE) 20 mg DAILY PO 10/04/24 10:00 Losartan Potassium (Cozaar Tablet) 50 mg DAILY PO 10/04/24 10:00 Pantoprazole Sodium (Protonix Tablet) 40 mg DAILY PRN PO FOR STOMACH DISTRESS 10/03/24 14:30 Patient Own Medication 10 mg QPM PO 10/03/24 18:00 Future Hold Vancomycin HCl 200 ml @ 200 mls/hr Q12H IV 10/04/24 01:00 Vital Signs Vital Signs Date Time Temp Pulse Resp B/P (MAP) Pulse Ox O2 Delivery O2 Flow Rate FiO2 10/03/24 12:53 97.6 82 18 126/66 (86) 97.6 10/03/24 10:09 94 10/03/24 08:18 Room Air* 0 21 Labs/Diagnostic Data Labs Test 10/03/24 16:55 10/03/24 16:50 10/03/24 16:06 10/03/24 10:54 Range/Units POC Glucose 120 H 70-106 mg/dl Test 10/03/24 08:23 10/03/24 07:00 10/03/24 02:25 10/02/24 21:30 Range/Units Influenza Type A Antigen Negative Negative Influenza Type B Antigen Negative Negative SARS-CoV-2 Antigen (Rapid) Negative NEGATIVE Mean Platelet Volume 9.0 6.9-10.8 fL Neutrophils # (Auto) 18.2 H 1.6-8.6 10 ^3/uL Lymphocytes # (Auto) 1.8 0.4-5.4 10 ^3/uL Monocytes # (Auto) 0.7 0-1.3 10 ^3/uL Eosinophils # (Auto) 0 0-0.8 10 ^3/uL Basophils # (Auto) 0 0-0.2 10 ^3/uL Sodium Level 135 L 136-145 mmol/L Potassium Level 3.8 3.5-5.1 mmol/L Chloride Level 103 98-107 mmol/L Carbon Dioxide Level 24 20-31 mmol/L Anion Gap 8 5-15 Blood Urea Nitrogen 21 9-23 mg/dL Creatinine 1.16 0.700-1.30 mg/dL Glomerular Filtration Rate Calc 82 >90 mL/min BUN/Creatinine Ratio 18.1 10.0-20.0 Serum Glucose 160 H 74-106 mg/dL Hemoglobin A1c 5.7 <5.7 % A1C Calcium Level 9.2 8.7-10.4 mg/dL Magnesium Level 1.5 L 1.6-2.6 mg/dL Total Bilirubin 1.3 H 0.2-1.0 mg/dL Aspartate Amino Transferase (AST) 31 13-40 U/L Alanine Aminotransferase (ALT) 23 7-40 U/L Alkaline Phosphatase 54 46-116 U/L Total Protein 8.7 H 5.7-8.2 g/dL Albumin 3.7 3.2-4.8 g/dL Vitamin D 25-Hydroxy 26.9 L 30.0-100 ng/mL Folic Acid 14.52 >5.38 ng/mL Lactic Acid Level 0.9 0.4-2.0 mmol/L Troponin I High Sensitivity 7 </=54 ng/L Test 10/02/24 19:53 10/02/24 19:44 Range/Units Plasma/Serum Blood Alcohol < 3.0 <10 mg/dL Urine Color Light-yellow Yellow Urine Clarity Clear Clear Urine pH 6.5 5.0-9.0 Urine Specific [place] 1.022 1.001-1.035 Urine Protein Negative Negative Urine Ketones Negative Negative Urine Blood Negative Negative /uL Urine Nitrite Negative Negative Urine Bilirubin Negative Negative Urine Urobilinogen Normal Negative mg/dL Urine Leukocyte Esterase Negative Negative /uL Urine RBC 1 0 - 3 /hpf Urine Microscopic WBC 1 0-3 /HPF Urine Squamous Epithelial Cells Few <5 /hpf Urine Bacteria None seen None Seen /hpf Urine Glucose Normal Normal mg/dL Urine Opiates Screen Neg NEGATIVE Urine Fentanyl Screen Neg NEGATIVE Urine Barbiturates Screen Neg NEGATIVE Urine Phencyclidine Screen Neg NEGATIVE Urine Amphetamines Screen Neg NEGATIVE Urine Benzodiazepines Screen Neg NEGATIVE Urine Cocaine Screen Neg NEGATIVE Urine Cannabinoids Screen Pos NEGATIVE Problems(with codes): (1) Leukocytosis, unspecified (2) Generalized weakness (3) HIV (human immunodeficiency virus infection) (4) Fever, unknown origin (5) Schizophrenia (6) Cellulitis of left foot (7) Osteomyelitis of left foot Plan/Recommendation ASSESSMENT AND PLAN: ID Problem List: \\-- HIV infection (uncontrolled, non-compliant with ART; recent viral load 44,100 copies/mL; CD4 count 313, CD4% 13.6; known T97A mutation conferring resistance to elvitegravir/raltegravir; sensitive to bictegravir, emtricitabine, tenofovir) \\-- Recurrent left great toe osteomyelitis/cellulitis (history) \\-- Schizophrenia \\-- Anxiety and depression \\-- Diabetes mellitus \\-- GERD \\-- Hyperlipidemia \\-- Hypertension \\-- Homelessness \\-- Substance use (methamphetamine, marijuana, tobacco; no alcohol) \\-- Poor medication adherence Assessment This is a 38 y.o. male with a significant history of HIV infection (uncontrolled, non-compliant with antiretroviral therapy), recurrent left great toe osteomyelitis and cellulitis, schizophrenia, anxiety, depression, diabetes, hyperlipidemia, hypertension, and multiple social determinants of health barriers including homelessness and substance use. He presented to [facility] with diffuse body pain worsening over time, fevers (Tmax 103F), and was found to have leukocytosis (WBC as high as 20.7 x10^3/L), thrombocytosis, acute kidney injury (BUN 1921 mg/dL, creatinine up to 1.23 mg/dL), and hypotension (BP as low as 103/50 mmHg). Imaging notable for CT chest/abdomen/pelvis with left lower lobe consolidation (concern for pneumonia/possible mass) and moderate fluid within small and large bowel loops (cannot exclude enterocolitis/inflammatory disease). Chest X-ray without acute disease. No recent surgeries. Labs significant for lactic acid 0.9 mmol/L, sodium 135 mmol/L, hemoglobin 12.8 g/dL, platelets 814929 x10^3/L. Patient is febrile and tachycardic, with diffuse body pain and prior left foot infection. He remains non-compliant with antiretroviral regimen (previously on Biktarvy), and expresses inability to reliably take ART due to unstable housing; currently has known resistance mutation (T97A), but remains sensitive to components of Biktarvy. He reports ongoing tobacco, marijuana, and metha mphetamine use; denies alcohol. Patient is currently empirically treated with IV vancomycin, piperacillin- tazobactam, and was started on IV TMP-SMX for concern of possible Pneumocystis jiroveci pneumonia (PJP) in the setting of immunosuppression and pulmonary findings. Plan: \\-- Continue IV vancomycin and piperacillin-tazobactam for broad-spectrum coverage of sepsis/pneumonia. \\-- Initiate IV TMP-SMX for empiric coverage of PJP while awaiting sputum and further infectious workup. \\-- Obtain blood cultures, respiratory culture, urine culture, and procalcitonin; monitor for bacteremia or other infectious etiologies. \\-- Follow-up on HIV viral load, CD4 count, Quantiferon. \\-- Do not restart home ART regimen at this time due to inability to ensure adherence and potential for resistance development; will reassess if patient becomes agreeable/compliant. \\-- Review psychiatric regimens (fluoxetine, aripiprazole) as potential contributors to diffuse body pain; consider switching to alternatives with fewer side effects and better tolerability in light of adherence concerns. \\-- Infectious disease, psychiatry, and case management to coordinate for comprehensive care addressing medical/psychiatric/social needs. \\-- Continue to monitor for further signs of opportunistic infection and reassess as new studies become available. Isolation Precautions: standard \\*Assessment and plan was discussed with the patient as written above \\*Plan is subject to change pending incorporation of new incoming information/diagnostics. Updates may be added as addendum at the bottom (OR TOP) of this note Thank you for interesting consult. ID will continue to follow. Please contact Infectious disease for any questions or concerns. Adilia Sabillon M.D. [facility] Ph: ? Teams text: [email or web address] Electronically signed by: Adilia Sabillon MD, 10/03/2024 \\ History: The patient's chart and current encounter were reviewed in detail and the patient was seen and examined. History obtained from patient and available medical records. Mr. Nguyen is a 38 y.o. male with a past medical history including uncontrolled HIV (non-compliant with ART; known T97A resistance mutation), diabetes, schizophrenia, anxiety, depression, GERD, hyperlipidemia, hypertension, and substance use (tobacco, methamphetamine, marijuana), who currently resides in unstable housing. He presents with fevers, diffuse body pain, and is noted to have a history of prior left great toe osteomyelitis/cellulitis. He reports increased body pain and malaise. He remains a poor historian regarding the onset/duration of some symptoms. No recent surgeries. He is not currently taking antiretroviral medications and is not ready to restart ART due to homelessness and concerns about compliance. He reports ongoing use of methamphetamine, marijuana, and daily tobacco. Review of Systems: A complete 10 system review of systems was completed and negative except as noted in the HPI or here. ROS: -CONSTITUTIONAL: Reports fever and diffuse body pain. -HEENT: Denies changes in vision or hearing. -RESPIRATORY: Denies shortness of breath or cough. -CARDIOVASCULAR: Denies chest pain or palpitations. -GI: No complaint of nausea, vomiting, or abdominal pain. Notes possible diarrheal symptoms associated with HIV. -: Denies dysuria or urinary frequency. -MSK: Reports diffuse body pain. -SKIN: No acute rashes reported. History of left great toe infection. -NEUROLOGICAL: Denies headache or syncope. -PSYCHIATRIC: Reports history of anxiety and depression. Poor historian regarding current psychiatric symptoms. Past Medical History: Diagnosis Date HIV infection (uncontrolled, non-compliant with ART; T97A mutation) Diabetes mellitus Schizophrenia Anxiety Depression GERD Hyperlipidemia Hypertension IV drug use (methamphetamine, marijuana, tobacco) Past Surgical History: History reviewed. No pertinent surgical history. Home Medications: Patient is not currently taking home medications due to non-compliance and unstable housing. Last known HIV regimen: Biktarvy (bictegravir, emtricitabine, tenofovir alafenamide). Also with history of fluoxetine, aripiprazole. Allergies: No Known Drug Allergies Family History: Not provided in transcript. Social History: Socioeconomic History Marital status: Not provided Number of children: Not provided Years of education: Not provided Occupational History Not provided Tobacco Use Smokes daily ("sigmoid on Papaday's smoking of cigarettes" interpreted as regular daily smoking) Smokeless tobacco: Not provided Vaping Use Not provided Substance and Sexual Activity Methamphetamine and marijuana use ongoing Alcohol use: Denies Sexual activity: Not provided Other Topics Concern Homelessness and poor compliance with medication Social History Narrative Patient is homeless, expresses inability to reliably take daily medications due to lack of stable housing. Social Determinants of Health Significant barriers to medication adherence related to homelessness and unstable resources. No further details provided. Objective: Vital Signs on Arrival: Temp: 103F?BP: 103/50?Pulse: [id number]?Resp: 20?SpO2: 100% on room air Most Recent Vital Signs: Temp: 103F?BP: 103/50?Pulse: 117?Resp: 20?SpO2: 100% on room air Admission Weight: Not provided BMI: Not provided Physical Exam: General: NAD Neck: Supple. No masses. HEENT: PERRL. Normal lids and conjunctiva. Moist mucous membranes. Oropharynx without lesions, exudates or excessive erythema. Normal appearance of the external aspects of the nose and ears. Heart: Regular rhythm, normal rate. No murmur. No lower extremity edema. Lungs: Normal respiratory effort. Clear to auscultation bilaterally. No wheezes. No crackles. Abdomen: Soft. Non-tender. Non-distended. No masses or abdominal hernia. Msk: No digital cyanosis. Normal strength and tone in all 4 limbs. Skin: Warm and dry, no rashes. Neuro: Alert. No facial droop or slurred speech. Extra-ocular movements intact. Sensation intact to soft touch in all 4 limbs. Psych: Appropriate mood. Full affect. Oriented to person, place, time, and situation. Diagnostic Studies: Available diagnostic studies were reviewed personally. Significant relevant results and findings are outlined below or addressed in the Assessment and Plan above. Pertinent Imaging: CT Chest/Abdomen/Pelvis Impression: -Left lower lobe consolidation, likely pneumonia. Follow-up recommended to exclude underlying lesion/mass. -Moderate fluid in small/large bowel loops; correlate for enterocolitis or inflammatory disease. Chest X-ray Impression: -No acute disease. Laboratory Studies: -WBC: up to 20.7 x10^3/L -Hemoglobin: 12.8 g/dL -Platelet count: 514310 x10^3/L -Sodium: 135 mmol/L -BUN: 1921 mg/dL -Creatinine: 1.161.23 mg/dL -Lactic acid: 0.9 mmol/L -HIV viral load: 44,100 copies/mL -CD4 count: 313 (/L); CD4%: 13.6% -Other labs (procalcitonin, blood/respiratory/urine cultures): pending Pending: QuantiFERON, further infectious workup. Lines: Not provided in transcript. End of note. Plan discussed with: Patient ADILIA SABILLON MD Oct 03, 2024 17:11
[2024-10-03] MEDS ORDERED: BACTRIM 5MG/KG Q8HR PER RX 0 ML IV SCH (17:30)
[2024-10-03] MEDS ORDERED: PATIENTS OWN MEDICATION (Aripiprazole (Abilify) 10 MG) PO SCH (18:00)
--- NOTE | 2024-10-03 19:21 | DVH ---
EXAM: CT CT L FOOT WO CONTRAST INDICATION: evaluate interval change to foot infection TECHNIQUE: Axial images of left foot have been obtained along with coronal and sagittal reformatted i mages. All CT scans at this facility use dose modulation, iterative reconstruction, and/or weight bas ed dosing when appropriate to reduce radiation dose to as low as reasonably achievable. COMPARISON: MRI MRI L FOOT WO CONTRAST on DOS: 06/06/24 FINDINGS: BONES: No CT evidence of an acute fracture or aggressive osseous lesion. No abnormal periosteal react ion or osseous erosion along the distal phalanx of the great toe with possible overlying soft tissue ulceration. No drainable fluid collection. MUSCLES: No abnormal attenuation. JOINT SPACES: No joint effusion. TENDONS/LIGAMENTS: Intact. OTHER: None. IMPRESSION: 1. No abnormal periosteal reaction or osseous erosion along the distal phalanx of the great toe with possible overlying soft tissue ulceration. No drainable fluid collection.
[2024-10-03 21:00] VITALS: BP 123/79; PULSE 68; RESP 17; TEMP 98.4; O2SAT 95
[2024-10-03 22:47] VITALS: BP 121/82; PULSE 67; RESP 17; TEMP 98.2; O2SAT 96
[2024-10-03 22:48] VITALS: PULSE 67; RESP 17; O2SAT 96
[2024-10-03] MEDS: SULFAMETH-TRIMETH 80/16MG-ML 25 ML in D5W 5% 500 ML IV SCH (23:29)
[2024-10-04] VITALS (7 sets, daily range): BP systolic 107–139; BP diastolic 73–96; PULSE 58–79; RESP 17–20; TEMP 98–98.5; O2SAT 95–99
[2024-10-04] MEDS: VANCOMYCIN 1GM/200ML PM 200 ML IV SCH (00:59)
[2024-10-04 06:41] LABS: Hematocrit 37.3 % (41.0-53.0); Hemoglobin 12.5 g/dL (13.5-17.5); Mean Corpuscular Hemoglobin 27.7 pg (28.0-32.0); Mean Corpuscular Volume 82.4 fL (80.0-100.0); Nucleated Red Blood Cells % 0.0 %
[2024-10-04 06:51] LABS: Alanine Aminotransferase 23 U/L (7-40); Albumin 3.3 g/dL (3.2-4.8); Alkaline Phosphatase 50 U/L (46-116); Anion Gap 4 (5-15); BUN/Creatinine Ratio 12.4 (10.0-20.0); Bilirubin, Total 0.5 mg/dL (0.2-1.0); Blood Urea Nitrogen 14 mg/dL (9-23); Carbon Dioxide 25 mmol/L (20-31); Cholesterol 107 mg/dL (< 200); Glucose 96 mg/dL (74-106); HDL Cholesterol 41 mg/dL (40-59); Potassium 4.4 mmol/L (3.5-5.1); Sodium 137 mmol/L (136-145); Total Protein 7.9 g/dL (5.7-8.2); Triglycerides 100 mg/dL (< 150)
[2024-10-04 06:55] LABS: Calcium 8.5 mg/dL (8.7-10.4); Chloride 108 mmol/L (98-107)
[2024-10-04] MEDS: LOSARTAN POTASSIUM 50 MG TAB PO SCH (09:54)
--- NOTE | 2024-10-04 15:53 | DVHPN2 ---
Subjective No more fever; decreased generalized body ache Reviewed: Care Plan, H&P, Labs, Medications, Previous Orders, Radiology, Other (Consultation) Changes from previous H/P or p: Changes Objective Vitals Vital Signs Date Time Temp Pulse Resp B/P (MAP) Pulse Ox O2 Delivery O2 Flow Rate FiO2 10/04/24 13:00 98.2 67 20 128/79 (95) 97 98.2 10/03/24 22:48 Room Air* 0 21 Intake/Output Intake and Output 10/04/24 07:00 Intake Total 400 ml Balance 400 ml Intake Oral 400 ml # Voids 4 General Appearance: Alert, Oriented X3, Cooperative, No acute distress HEENT: Atraumatic Lungs: Clear to auscultation, Normal air movement Cardiovascular: Regular rate, Normal S1, Normal S2, No murmurs Abdomen: Normal bowel sounds, Soft, No tenderness Neuro: Normal speech, Cranial nerves 3-12 NL Psych/Mental Status: Mental status NL, Mood NL Medications Current Medications Medications Dose Ordered Sig/Elen Route Start Time Stop Time Status Last Admin Dose Admin Piperacillin Sod/ Tazobactam Sod 100 ml @ 25 mls/hr Q8HR@0300,1100,1900 IV 10/03/24 11:00 10/04/24 11:18 25 MLS/HR Diagnostic Test (Pha) 1 strip ACHS 10/03/24 07:00 10/04/24 11:18 1 STRIP Insulin Human Regular ACHS SC 10/03/24 07:00 Dextrose 50 ml UD PRN IV 10/03/24 04:00 Acetaminophen/ Hydrocodone Bitart 1 tab Q4HP PRN PO 10/03/24 04:00 10/04/24 00:57 1 TAB Ondansetron HCl 4 mg Q4HP PRN IV 10/03/24 04:00 Docusate Sodium 100 mg BIDPRN PRN PO 10/03/24 04:00 Acetaminophen 650 mg Q6HP PRN PO 10/03/24 04:00 10/03/24 05:01 650 MG Nitroglycerin 0.4 mg Q5MINP PRN SL 10/03/24 04:00 Morphine Sulfate 2 mg Q30M PRN IV 10/03/24 04:00 Famotidine 20 mg DAILY IV 10/03/24 10:00 10/04/24 09:54 20 MG Sodium Chloride 1,000 ml @ 120 mls/hr Q8H20M IV 10/03/24 12:15 10/04/24 04:50 120 MLS/HR Ergocalciferol 50,000 unit Q7D PO 10/03/24 12:15 10/03/24 13:16 50,000 UNIT Vancomycin HCl 0 ml @ 0 mls/hr UD IV 10/03/24 12:15 Fluoxetine HCl 20 mg DAILY PO 10/04/24 10:00 10/04/24 09:54 20 MG Losartan Potassium 50 mg DAILY PO 10/04/24 10:00 10/04/24 09:54 50 MG Pantoprazole Sodium 40 mg DAILY PRN PO 10/03/24 14:30 Patient Own Medication 10 mg QPM PO 10/03/24 18:00 Hold Vancomycin HCl 200 ml @ 200 mls/hr Q12H IV 10/04/24 01:00 10/04/24 13:51 200 MLS/HR Trimethoprim/ Sulfamethoxazole 0 ml @ 0 mls/hr PER PHARMACY IV 10/03/24 17:30 Trimethoprim/ Sulfamethoxazole 25 ml/Dextrose 525 ml @ 250 mls/hr Q8HR IV 10/03/24 22:00 10/04/24 05:38 250 MLS/HR Laboratory Results Laboratory Tests 10/04/24 06:05 Chemistry Test 10/04/24 06:05 Albumin 3.3 g/dL (3.2-4.8) Calcium Level 8.5 mg/dL (8.7-10.4) L Total Protein 7.9 g/dL (5.7-8.2) Lipid panel Test 10/04/24 06:05 Cholesterol Level 107 mg/dL (< 200) HDL Cholesterol 41 mg/dL (40-59) Triglycerides Level 100 mg/dL (< 150) LFT Test 10/04/24 06:05 Alanine Aminotransferase (ALT) 23 U/L (7-40) Alkaline Phosphatase 50 U/L (46-116) Aspartate Amino Transferase (AST) 31 U/L (13-40) Total Bilirubin 0.5 mg/dL (0.2-1.0) HgA1c, TSH Test 10/04/24 06:05 Thyroid Stimulating Hormone (TSH) 2.16 uIU/mL (0.55-4.78) Urinalysis Test 10/02/24 19:44 Urine Color Light-yellow (Yellow) Urine Clarity Clear (Clear) Urine pH 6.5 (5.0-9.0) Urine Specific [place] 1.022 (1.001-1.035) Urine Protein Negative (Negative) Urine Ketones Negative (Negative) Urine Blood Negative /uL (Negative) Urine Nitrite Negative (Negative) Urine Bilirubin Negative (Negative) Urine Urobilinogen Normal mg/dL (Negative) Urine Leukocyte Esterase Negative /uL (Negative) Urine RBC 1 /hpf (0 - 3) Urine Microscopic WBC 1 /HPF (0-3) Urine Squamous Epithelial Cells Few /hpf (<5) Urine Bacteria None seen /hpf (None Seen) Urine Glucose Normal mg/dL (Normal) Microbiology Microbiology Date/Time Source Procedure Growth Status 10/03/24 02:25 Blood Blood Culture - Preliminary Resulted Labs and/or images reviewed: Labs reviewed by me, Image(s) reviewed by me Assessment/Plan Assessment/Plan A 38-year-old male patient; multiple comorbidities; who presented to the emergency department with were generalized body ache. 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; most likely vasomotor nephropathy in the setting of sepsis Diabetes mellitus type 2 with hemoglobin A1c of 5.7% Schizophrenia with bipolar disease; no suicide ideation/plan Polysubstance (marijuana and tobacco on a regular basis; methamphetamine and alcohol occasionally) use disorder Dyslipidemia Vitamin-D deficiency Homelessness Continue broad-spectrum IV antibiotics as per Infectious Disease Infectious disease is following Copy Room Technician is following Avoid nephrotoxic agents Continue pain management as indicated Continue insulin therapy as indicated and adjust according to blood glucose monitoring Continue antihypertensive medications and adjust according to blood pressure monitoring Continue psychiatric medications Continue vitamin D supplement Counseled on polysubstance use cessation On GI prophylaxis No need for DVT prophylaxis as the patient is ambulatory Continue monitoring Late Entry. This medical document was created using an electronic medical record system with computerized dictation system. Although this document has been carefully reviewed, there might still be some phonetic and typographical errors. These areas are purely typographical due to imperfections of the software programs, and do not reflect any compromise in the patient's medical care. Plan discussed with: Patient, Other (Nurse) Date of Service: Oct 04, 2024 Billing Provider: MARCUS JOHNSON MD Common Visit Codes: 27227-[id number] INP/OBS CARE(HIGH) MARCUS JOHNSON MD Oct 04, 2024 15:53
--- NOTE | 2024-10-04 23:04 | DVHPN2 ---
Consult Progress Note Date Seen: Oct 04, 2024 Subjective Patient reports: No new complaints (fever to 103 yesterday, hemoptysis episode noted yesterday, smoking. encourage smoking cessation ) Objective vital signs Vital Sign Date Time Temp Pulse Resp B/P (MAP) Pulse Ox O2 Delivery O2 Flow Rate FiO2 10/04/24 21:00 98.0 68 17 130/73 (92) 99 98.0 10/03/24 22:48 Room Air* 0 21 Total Intake and Output 10/03/24 10/03/24 10/04/24 15:00 23:00 07:00 Intake Total 400 ml Balance 400 ml medications Current Medications Medications Dose Ordered Sig/Elen Route Start Time Stop Time Status Last Admin Dose Admin Piperacillin Sod/ Tazobactam Sod 100 ml @ 25 mls/hr Q8HR@0300,1100,1900 IV 10/03/24 11:00 10/04/24 11:18 25 MLS/HR Diagnostic Test (Pha) 1 strip ACHS 10/03/24 07:00 10/04/24 22:00 1 STRIP Insulin Human Regular ACHS SC 10/03/24 07:00 10/04/24 17:59 2 UNITS Dextrose 50 ml UD PRN IV 10/03/24 04:00 Acetaminophen/ Hydrocodone Bitart 1 tab Q4HP PRN PO 10/03/24 04:00 10/04/24 19:50 1 TAB Ondansetron HCl 4 mg Q4HP PRN IV 10/03/24 04:00 Docusate Sodium 100 mg BIDPRN PRN PO 10/03/24 04:00 Acetaminophen 650 mg Q6HP PRN PO 10/03/24 04:00 10/03/24 05:01 650 MG Nitroglycerin 0.4 mg Q5MINP PRN SL 10/03/24 04:00 Morphine Sulfate 2 mg Q30M PRN IV 10/03/24 04:00 Famotidine 20 mg DAILY IV 10/03/24 10:00 10/04/24 09:54 20 MG Sodium Chloride 1,000 ml @ 120 mls/hr Q8H20M IV 10/03/24 12:15 10/04/24 19:10 120 MLS/HR Ergocalciferol 50,000 unit Q7D PO 10/03/24 12:15 10/03/24 13:16 50,000 UNIT Vancomycin HCl 0 ml @ 0 mls/hr UD IV 10/03/24 12:15 Fluoxetine HCl 20 mg DAILY PO 10/04/24 10:00 10/04/24 09:54 20 MG Losartan Potassium 50 mg DAILY PO 10/04/24 10:00 10/04/24 09:54 50 MG Pantoprazole Sodium 40 mg DAILY PRN PO 10/03/24 14:30 Patient Own Medication 10 mg QPM PO 10/03/24 18:00 Hold Vancomycin HCl 200 ml @ 200 mls/hr Q12H IV 10/04/24 01:00 10/04/24 13:51 200 MLS/HR Trimethoprim/ Sulfamethoxazole 0 ml @ 0 mls/hr PER PHARMACY IV 10/03/24 17:30 Trimethoprim/ Sulfamethoxazole 25 ml/Dextrose 525 ml @ 250 mls/hr Q8HR IV 10/03/24 22:00 10/04/24 22:31 250 MLS/HR Physical Exam: General: NAD Neck: Supple. No masses. HEENT: PERRL. Normal lids and conjunctiva. Moist mucous membranes. Oropharynx without lesions, exudates or excessive erythema. Normal appearance of the external aspects of the nose and ears. Heart: Regular rhythm, normal rate. No murmur. No lower extremity edema. Lungs: Normal respiratory effort. Clear to auscultation bilaterally. No wheezes. No crackles. Abdomen: Soft. Non-tender. Non-distended. No masses or abdominal hernia. Msk: No digital cyanosis. Normal strength and tone in all 4 limbs. Skin: Warm and dry, no rashes. Neuro: Alert. No facial droop or slurred speech. Extra-ocular movements intact. Sensation intact to soft touch in all 4 limbs. Psych: Appropriate mood. Full affect. Oriented to person, place, time, and situation. laboratory and microbiology Laboratory Tests 10/04/24 06:05 Test 10/04/24 06:05 Range/Units Serum Glucose 96 74-106 mg/dL Problem List/Assessment/Plan Problems(with codes): (1) Cellulitis of left foot (2) Osteomyelitis of left foot (3) Leukocytosis, unspecified (4) Generalized weakness (5) HIV (human immunodeficiency virus infection) (6) Fever, unknown origin Problem List/Assessment/Plan ASSESSMENT AND PLAN: ID Problem List: \-- HIV infection (uncontrolled, non-compliant with ART; recent viral load 44,100 copies/mL; CD4 count 313, CD4% 13.6; known T97A mutation conferring resistance to elvitegravir/raltegravir; sensitive to bictegravir, emtricitabine, tenofovir) \-- Recurrent left great toe osteomyelitis/cellulitis (history) \-- Schizophrenia \-- Anxiety and depression \-- Diabetes mellitus \-- GERD \-- Hyperlipidemia \-- Hypertension \-- Homelessness \-- Substance use (methamphetamine, marijuana, tobacco; no alcohol) \-- Poor medication adherence Assessment This is a 38 y.o. male with a significant history of HIV infection (uncontrolled, non-compliant with antiretroviral therapy), recurrent left great toe osteomyelitis and cellulitis, schizophrenia, anxiety, depression, diabetes, hyperlipidemia, hypertension, and multiple social determinants of health barriers including homelessness and substance use. He presented to [facility] with diffuse body pain worsening over time, fevers (Tmax 103F), and was found to have leukocytosis (WBC as high as 20.7 x10^3/L), thrombocytosis, acute kidney injury (BUN 1921 mg/dL, creatinine up to 1.23 mg/dL), and hypotension (BP as low as 103/50 mmHg). Imaging notable for CT chest/abdomen/pelvis with left lower lobe consolidation (concern for pneumonia/possible mass) and moderate fluid within small and large bowel loops (cannot exclude enterocolitis/inflammatory disease). Chest X-ray without acute disease. No recent surgeries. Labs significant for lactic acid 0.9 mmol/L, sodium 135 mmol/L, hemoglobin 12.8 g/dL, platelets 013030 x10^3/L. Patient is febrile and tachycardic, with diffuse body pain and prior left foot infection. He remains non-compliant with antiretroviral regimen (previously on Biktarvy), and expresses inability to reliably take ART due to unstable housing; currently has known resistance mutation (T97A), but remains sensitive to components of Biktarvy. He reports ongoing tobacco, marijuana, and methamphetamine use; denies alcohol. Patient is currently empirically treated with IV vancomycin, piperacillin- tazobactam, and was started on IV TMP-SMX for concern of possible Pneumocystis jiroveci pneumonia (PJP) in the setting of immunosuppression and pulmonary findings. 8/: defer to primary team to medicate. diarrhea is slowing down . awaiting cd4 and viral load. no ART. Plan: - reasonable to provide 21 days of bactrim (2DS TID x 21 days) + oral levofloxacin 500mg po qd x 5 days when patient is ready for discharge \-- continue vancomycin, bactrim, and zosyn for now \-- Initiate IV TMP-SMX for empiric coverage of PJP while awaiting sputum and further infectious workup. \-- Obtain blood cultures, respiratory culture, urine culture, and procalcitonin; monitor for bacteremia or other infectious etiologies. \-- Follow-up on HIV viral load, CD4 count, Quantiferon. \-- Do not restart home ART regimen at this time due to inability to ensure adherence and potential for resistance development; will reassess if patient becomes agreeable/compliant. \-- Review psychiatric regimens (fluoxetine, aripiprazole) as potential contributors to diffuse body pain; consider switching to alternatives with fewer side effects and better tolerability in light of adherence concerns. \-- Infectious disease, psychiatry, and case management to coordinate for comprehensive care addressing medical/psychiatric/social needs. \-- Continue to monitor for further signs of opportunistic infection and reassess as new studies become available. Isolation Precautions: standard Plan discussed with: Patient ADILIA FRIEDMAN MD Oct 04, 2024 23:04
[2024-10-05] VITALS (7 sets, daily range): BP systolic 122–141; BP diastolic 58–93; PULSE 50–91; RESP 17–20; TEMP 97.6–98.3; O2SAT 94–97
[2024-10-05 05:07] LABS: Hematocrit 38.2 % (37.5-51.0); Hemoglobin 12.2 g/dL (13.0-17.7); MCH 26.8 pg (26.6-33.0); MCHC 31.9 g/dL (31.5-35.7); MCV 84 fL (79-97); RBC 4.56 x10E6/uL (4.14-5.80); RDW 15.7 % (11.6-15.4); WBC 11.0 x10E3/uL (3.4-10.8)
[2024-10-05 05:37] LABS: Hematocrit 40.9 % (41.0-53.0); Hemoglobin 13.8 g/dL (13.5-17.5); Mean Corpuscular Hemoglobin 27.8 pg (28.0-32.0); Mean Corpuscular Volume 82.4 fL (80.0-100.0); Nucleated Red Blood Cells % 0.1 %
[2024-10-05 05:42] LABS: Alanine Aminotransferase 27 U/L (7-40); Albumin 4.0 g/dL (3.2-4.8); Alkaline Phosphatase 55 U/L (46-116); Anion Gap 7 (5-15); BUN/Creatinine Ratio 9.9 (10.0-20.0); Blood Urea Nitrogen 13 mg/dL (9-23); Calcium 8.8 mg/dL (8.7-10.4); Carbon Dioxide 23 mmol/L (20-31); Chloride 105 mmol/L (98-107); Glucose 91 mg/dL (74-106); Potassium 4.2 mmol/L (3.5-5.1)
[2024-10-05 05:45] LABS: Bilirubin, Total 0.2 mg/dL (0.2-1.0); Sodium 135 mmol/L (136-145); Total Protein 9.1 g/dL (5.7-8.2)
[2024-10-05 15:06] LABS: CD4/CD8 Ratio 0.26 (0.92-3.72)
--- NOTE | 2024-10-05 15:07 | DVHPN2 ---
Subjective Still with no fever; decreasing body ache Reviewed: Care Plan, H&P, Labs, Medications, Previous Orders, Radiology, Other Changes from previous H/P or p: Changes Objective Vitals Vital Signs Date Time Temp Pulse Resp B/P (MAP) Pulse Ox O2 Delivery O2 Flow Rate FiO2 10/05/24 13:09 97.6 62 20 136/85 (102) 97 97.6 10/03/24 22:48 Room Air* 0 21 Intake/Output Intake and Output 10/05/24 07:00 Intake Total 3021 ml Balance 3021 ml Intake Oral 1420 ml IV Total 1601 ml # Voids 8 # Bowel Movements 2 General Appearance: Alert, Oriented X3, Cooperative, No acute distress HEENT: Atraumatic Lungs: Clear to auscultation, Normal air movement Cardiovascular: Regular rate, Normal S1, Normal S2, No murmurs Abdomen: Normal bowel sounds, Soft, No tenderness Neuro: Normal speech, Cranial nerves 3-12 NL Psych/Mental Status: Mental status NL, Mood NL Medications Current Medications Medications Dose Ordered Sig/Elen Route Start Time Stop Time Status Last Admin Dose Admin Piperacillin Sod/ Tazobactam Sod 100 ml @ 25 mls/hr Q8HR@0300,1100,1900 IV 10/03/24 11:00 10/05/24 11:18 25 MLS/HR Diagnostic Test (Pha) 1 strip ACHS 10/03/24 07:00 10/05/24 11:18 1 STRIP Insulin Human Regular ACHS SC 10/03/24 07:00 10/04/24 17:59 2 UNITS Dextrose 50 ml UD PRN IV 10/03/24 04:00 Acetaminophen/ Hydrocodone Bitart 1 tab Q4HP PRN PO 10/03/24 04:00 10/05/24 13:23 1 TAB Ondansetron HCl 4 mg Q4HP PRN IV 10/03/24 04:00 Docusate Sodium 100 mg BIDPRN PRN PO 10/03/24 04:00 Acetaminophen 650 mg Q6HP PRN PO 10/03/24 04:00 10/03/24 05:01 650 MG Nitroglycerin 0.4 mg Q5MINP PRN SL 10/03/24 04:00 Morphine Sulfate 2 mg Q30M PRN IV 10/03/24 04:00 Famotidine 20 mg DAILY IV 10/03/24 10:00 10/05/24 10:27 20 MG Sodium Chloride 1,000 ml @ 120 mls/hr Q8H20M IV 10/03/24 12:15 10/05/24 05:55 120 MLS/HR Ergocalciferol 50,000 unit Q7D PO 10/03/24 12:15 10/03/24 13:16 50,000 UNIT Vancomycin HCl 0 ml @ 0 mls/hr UD IV 10/03/24 12:15 Fluoxetine HCl 20 mg DAILY PO 10/04/24 10:00 10/05/24 10:27 20 MG Losartan Potassium 50 mg DAILY PO 10/04/24 10:00 10/05/24 10:27 50 MG Pantoprazole Sodium 40 mg DAILY PRN PO 10/03/24 14:30 Patient Own Medication 10 mg QPM PO 10/03/24 18:00 Hold Vancomycin HCl 200 ml @ 200 mls/hr Q12H IV 10/04/24 01:00 10/05/24 13:11 200 MLS/HR Trimethoprim/ Sulfamethoxazole 0 ml @ 0 mls/hr PER PHARMACY IV 10/03/24 17:30 Trimethoprim/ Sulfamethoxazole 25 ml/Dextrose 525 ml @ 250 mls/hr Q8HR IV 10/03/24 22:00 10/05/24 14:36 250 MLS/HR Laboratory Results Laboratory Tests 10/05/24 04:36 Chemistry Test 10/05/24 04:36 Albumin 4.0 g/dL (3.2-4.8) Calcium Level 8.8 mg/dL (8.7-10.4) Total Protein 9.1 g/dL (5.7-8.2) H LFT Test 10/05/24 04:36 Alanine Aminotransferase (ALT) 27 U/L (7-40) Alkaline Phosphatase 55 U/L (46-116) Aspartate Amino Transferase (AST) 28 U/L (13-40) Total Bilirubin 0.2 mg/dL (0.2-1.0) Urinalysis Test 10/02/24 19:44 Urine Color Light-yellow (Yellow) Urine Clarity Clear (Clear) Urine pH 6.5 (5.0-9.0) Urine Specific [place] 1.022 (1.001-1.035) Urine Protein Negative (Negative) Urine Ketones Negative (Negative) Urine Blood Negative /uL (Negative) Urine Nitrite Negative (Negative) Urine Bilirubin Negative (Negative) Urine Urobilinogen Normal mg/dL (Negative) Urine Leukocyte Esterase Negative /uL (Negative) Urine RBC 1 /hpf (0 - 3) Urine Microscopic WBC 1 /HPF (0-3) Urine Squamous Epithelial Cells Few /hpf (<5) Urine Bacteria None seen /hpf (None Seen) Urine Glucose Normal mg/dL (Normal) Microbiology Microbiology Date/Time Source Procedure Growth Status 10/05/24 08:13 Nose MRSA Screen - Final Complete 10/03/24 02:25 Blood Blood Culture - Final Staphylococcus epidermidis Complete 10/02/24 19:14 Voided Urine Urine Culture - Preliminary Resulted Labs and/or images reviewed: Labs reviewed by me, Image(s) reviewed by me Assessment/Plan Assessment/Plan A 38-year-old male patient; multiple comorbidities; who presented to the emergency department with were generalized body ache. 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; most likely vasomotor nephropathy in the setting of sepsis Diabetes mellitus type 2 with hemoglobin A1c of 5.7% Schizophrenia with bipolar disease; no suicide ideation/plan Polysubstance (marijuana and tobacco on a regular basis; methamphetamine and alcohol occasionally) use disorder Dyslipidemia Vitamin-D deficiency Homelessness Reviewed lab work and imaging studies including drug screen and alcohol Reviewed the available cultures; ordered repeat of blood cultures Continue broad-spectrum IV antibiotics as per Infectious Disease Infectious disease is following Employment And Claims Aide is following Avoid nephrotoxic agents Continue pain management as indicated Continue insulin therapy as indicated and adjust according to blood glucose monitoring Continue antihypertensive medications and adjust according to blood pressure monitoring Continue psychiatric medications Continue vitamin D supplement Counseled on polysubstance use cessation On GI prophylaxis No need for DVT prophylaxis as the patient is ambulatory Continue monitoring Late Entry. This medical document was created using an electronic medical record system with computerized dictation system. Although this document has been carefully reviewed, there might still be some phonetic and typographical errors. These areas are purely typographical due to imperfections of the software programs, and do not reflect any compromise in the patient's medical care. Plan discussed with: Patient, Other My Orders Orders - MARCUS JOHNSON MD Procedure Category Date Status Time * Employment And Claims Aide CONS 10/05/24 Transmitted Consult Date of Service: Oct 05, 2024 Billing Provider: MARCUS JOHNSON MD Common Visit Codes: [id number] INP/OBS CARE(HIGH) MARCUS JOHNSON MD Oct 05, 2024 15:07
[2024-10-05] MEDS: VANCOMYCIN 1GM/200ML PM 200 ML IV SCH (23:34)
[2024-10-06 08:00] VITALS: PULSE 58
[2024-10-06 08:25] VITALS: PULSE 62; RESP 18; O2SAT 100
--- NOTE | 2024-10-06 08:29 | ECG ---
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
[2024-10-06 08:56] VITALS: BP 127/86; PULSE 56; RESP 18; TEMP 98.6; O2SAT 100
[2024-10-06 11:18] LABS: Hematocrit 39.8 % (41.0-53.0); Hemoglobin 13.5 g/dL (13.5-17.5); Mean Corpuscular Hemoglobin 27.7 pg (28.0-32.0); Mean Corpuscular Volume 81.7 fL (80.0-100.0); Nucleated Red Blood Cells % 0.3 %
[2024-10-06 11:29] LABS: Anion Gap 7 (5-15); Carbon Dioxide 24 mmol/L (20-31); Chloride 103 mmol/L (98-107); Potassium 4.6 mmol/L (3.5-5.1)
[2024-10-06 11:30] LABS: Calcium 9.0 mg/dL (8.7-10.4)
[2024-10-06 11:33] LABS: Sodium 134 mmol/L (136-145)
[2024-10-06 11:35] LABS: BUN/Creatinine Ratio 7.6 (10.0-20.0); Blood Urea Nitrogen 9 mg/dL (9-23); Glucose 80 mg/dL (74-106)
--- NOTE | 2024-10-06 13:31 | DVHPN2 ---
Subjective Patient states that his abdominal pain has improved. Reviewed: Care Plan, H&P, Labs, Medications, Previous Orders, Radiology, Other Changes from previous H/P or p: No Changes General: Per HPI Objective Vitals Vital Signs Date Time Temp Pulse Resp B/P (MAP) Pulse Ox O2 Delivery O2 Flow Rate FiO2 10/06/24 09:49 129/85 10/06/24 08:56 98.6 56 18 100 98.6 Intake/Output Intake and Output 10/06/24 07:00 Intake Total 3623 ml Output Total 1602 ml Balance 2021 ml Intake Oral 1778 ml IV Total 1845 ml Output Urine Total 1600 ml Stool Total 2 ml # Voids 6 General Appearance: Alert, Oriented X3, Cooperative, No acute distress HEENT: Atraumatic, PERRLA Lungs: Clear to auscultation, Normal air movement Cardiovascular: Regular rate, Normal S1, Normal S2, No murmurs Abdomen: Normal bowel sounds, Soft, No tenderness Neuro: Normal speech, Cranial nerves 3-12 NL Skin: Dry, Intact Psych/Mental Status: Mental status NL, Mood NL Medications Current Medications Medications Dose Ordered Sig/Elen Route Start Time Stop Time Status Last Admin Dose Admin Piperacillin Sod/ Tazobactam Sod 100 ml @ 25 mls/hr Q8HR@0300,1100,1900 IV 10/03/24 11:00 10/06/24 12:10 25 MLS/HR Diagnostic Test (Pha) 1 strip ACHS 10/03/24 07:00 10/06/24 06:21 1 STRIP Insulin Human Regular ACHS SC 10/03/24 07:00 10/04/24 17:59 2 UNITS Dextrose 50 ml UD PRN IV 10/03/24 04:00 Acetaminophen/ Hydrocodone Bitart 1 tab Q4HP PRN PO 10/03/24 04:00 10/05/24 13:23 1 TAB Ondansetron HCl 4 mg Q4HP PRN IV 10/03/24 04:00 Docusate Sodium 100 mg BIDPRN PRN PO 10/03/24 04:00 Acetaminophen 650 mg Q6HP PRN PO 10/03/24 04:00 10/06/24 12:49 650 MG Nitroglycerin 0.4 mg Q5MINP PRN SL 10/03/24 04:00 Morphine Sulfate 2 mg Q30M PRN IV 10/03/24 04:00 Famotidine 20 mg DAILY IV 10/03/24 10:00 10/06/24 09:49 20 MG Sodium Chloride 1,000 ml @ 120 mls/hr Q8H20M IV 10/03/24 12:15 10/06/24 06:20 120 MLS/HR Ergocalciferol 50,000 unit Q7D PO 10/03/24 12:15 10/03/24 13:16 50,000 UNIT Vancomycin HCl 0 ml @ 0 mls/hr UD IV 10/03/24 12:15 Fluoxetine HCl 20 mg DAILY PO 10/04/24 10:00 10/06/24 09:49 20 MG Losartan Potassium 50 mg DAILY PO 10/04/24 10:00 10/06/24 09:49 50 MG Pantoprazole Sodium 40 mg DAILY PRN PO 10/03/24 14:30 Patient Own Medication 10 mg QPM PO 10/03/24 18:00 Hold Trimethoprim/ Sulfamethoxazole 0 ml @ 0 mls/hr PER PHARMACY IV 10/03/24 17:30 Trimethoprim/ Sulfamethoxazole 25 ml/Dextrose 525 ml @ 250 mls/hr Q8HR IV 10/03/24 22:00 10/06/24 05:45 250 MLS/HR Vancomycin HCl 200 ml @ 200 mls/hr Q10H IV 10/05/24 23:00 10/06/24 09:43 200 MLS/HR Laboratory Results Laboratory Tests 10/06/24 10:50 Chemistry Test 10/06/24 10:50 Calcium Level 9.0 mg/dL (8.7-10.4) Urinalysis Test 10/02/24 19:44 Urine Color Light-yellow (Yellow) Urine Clarity Clear (Clear) Urine pH 6.5 (5.0-9.0) Urine Specific [place] 1.022 (1.001-1.035) Urine Protein Negative (Negative) Urine Ketones Negative (Negative) Urine Blood Negative /uL (Negative) Urine Nitrite Negative (Negative) Urine Bilirubin Negative (Negative) Urine Urobilinogen Normal mg/dL (Negative) Urine Leukocyte Esterase Negative /uL (Negative) Urine RBC 1 /hpf (0 - 3) Urine Microscopic WBC 1 /HPF (0-3) Urine Squamous Epithelial Cells Few /hpf (<5) Urine Bacteria None seen /hpf (None Seen) Urine Glucose Normal mg/dL (Normal) Microbiology Microbiology Date/Time Source Procedure Growth Status 10/05/24 08:13 Nose MRSA Screen - Final Complete 10/03/24 02:25 Blood Blood Culture - Final Staphylococcus epidermidis Complete 10/02/24 19:14 Voided Urine Urine Culture - Final Complete Labs and/or images reviewed: Labs reviewed by me, Image(s) reviewed by me Assessment/Plan Assessment/Plan Impression: -sepsis secondary to probable enterocolitis. Staphylococcus epidermis noted in one set of blood cultures. -nicotine dependence -diabetes mellitus -primary hypertension -HIV with noncompliance -homelessness -schizophrenia -bipolar disorder -dyslipidemia -polysubstance abuse Plan: -cultures reviewed. Patient now without any abdominal pain. Denied having any shortness of breath. Deescalate antibiotics to Zosyn -repeat blood culture -social service consultation for discharge planning. Patient requesting to be placed back in recuperative care -infectious disease consultation: Recommendations reviewed -regular insulin sliding scale -discharge planning once social human services assistants establishes a facility/residency for the patient. Total time spent with patient discussing and formulating plan of care: 35 minutes. This medical document was created using an electronic medical record system with [employer] dictation system. Although this document has been carefully reviewed, there may still be some phonetic and typographical errors. These areas are purely typographical due to imperfections of the software programs, and do not reflect any compromise in the patient's medical care. Plan discussed with: Patient, Other (RN) Date of Service: Oct 06, 2024 Billing Provider: ADOLFO COLES NP Common Visit Codes: [id number] INP/OBS CARE(HIGH) ADOLFO COLES NP Oct 06, 2024 13:31
[2024-10-06 16:55] VITALS: BP 122/80; PULSE 55; RESP 18; TEMP 98.3; O2SAT 94
[2024-10-06 20:00] VITALS: PULSE 68; PULSE 71; RESP 18; O2SAT 97
[2024-10-06 21:00] VITALS: BP 118/78; PULSE 71; RESP 18; TEMP 98.1; O2SAT 97
[2024-10-07] VITALS (7 sets, daily range): BP systolic 129–141; BP diastolic 73–94; PULSE 52–86; RESP 16–18; TEMP 97.1–98.1; O2SAT 96–100
--- NOTE | 2024-10-07 13:14 | DVHPN2 ---
Subjective Patient states that his abdominal pain has improved. Reviewed: Care Plan, H&P, Labs, Medications, Previous Orders, Radiology, Other Changes from previous H/P or p: No Changes General: Per HPI Objective Vitals Vital Signs Date Time Temp Pulse Resp B/P (MAP) Pulse Ox O2 Delivery O2 Flow Rate FiO2 10/07/24 10:20 124/87 10/07/24 08:56 97.9 66 16 99 97.9 10/07/24 08:00 Room Air* 0 21 Intake/Output Intake and Output 10/07/24 07:00 Intake Total 3225 ml Balance 3225 ml Intake Oral 1500 ml IV Total 1725 ml # Voids 11 # Bowel Movements 2 General Appearance: Alert, Oriented X3, Cooperative, No acute distress HEENT: Atraumatic, PERRLA Lungs: Clear to auscultation, Normal air movement Cardiovascular: Regular rate, Normal S1, Normal S2, No murmurs Abdomen: Normal bowel sounds, Soft, No tenderness Neuro: Normal speech, Cranial nerves 3-12 NL Skin: Dry, Intact Psych/Mental Status: Mental status NL, Mood NL Medications Current Medications Medications Dose Ordered Sig/Elen Route Start Time Stop Time Status Last Admin Dose Admin Piperacillin Sod/ Tazobactam Sod 100 ml @ 25 mls/hr Q8HR@0300,1100,1900 IV 10/03/24 11:00 10/07/24 02:50 25 MLS/HR Diagnostic Test (Pha) 1 strip ACHS 10/03/24 07:00 10/07/24 11:43 1 STRIP Insulin Human Regular ACHS SC 10/03/24 07:00 10/04/24 17:59 2 UNITS Dextrose 50 ml UD PRN IV 10/03/24 04:00 Acetaminophen/ Hydrocodone Bitart 1 tab Q4HP PRN PO 10/03/24 04:00 10/07/24 01:40 1 TAB Ondansetron HCl 4 mg Q4HP PRN IV 10/03/24 04:00 Docusate Sodium 100 mg BIDPRN PRN PO 10/03/24 04:00 Acetaminophen 650 mg Q6HP PRN PO 10/03/24 04:00 10/06/24 12:49 650 MG Nitroglycerin 0.4 mg Q5MINP PRN SL 10/03/24 04:00 Morphine Sulfate 2 mg Q30M PRN IV 10/03/24 04:00 Famotidine 20 mg DAILY IV 10/03/24 10:00 10/07/24 10:20 20 MG Ergocalciferol 50,000 unit Q7D PO 10/03/24 12:15 10/03/24 13:16 50,000 UNIT Fluoxetine HCl 20 mg DAILY PO 10/04/24 10:00 10/07/24 10:20 20 MG Losartan Potassium 50 mg DAILY PO 10/04/24 10:00 10/07/24 10:20 50 MG Pantoprazole Sodium 40 mg DAILY PRN PO 10/03/24 14:30 Patient Own Medication 10 mg QPM PO 10/03/24 18:00 Hold Laboratory Results Laboratory Tests 10/06/24 10:50 Urinalysis Test 10/02/24 19:44 Urine Color Light-yellow (Yellow) Urine Clarity Clear (Clear) Urine pH 6.5 (5.0-9.0) Urine Specific [place] 1.022 (1.001-1.035) Urine Protein Negative (Negative) Urine Ketones Negative (Negative) Urine Blood Negative /uL (Negative) Urine Nitrite Negative (Negative) Urine Bilirubin Negative (Negative) Urine Urobilinogen Normal mg/dL (Negative) Urine Leukocyte Esterase Negative /uL (Negative) Urine RBC 1 /hpf (0 - 3) Urine Microscopic WBC 1 /HPF (0-3) Urine Squamous Epithelial Cells Few /hpf (<5) Urine Bacteria None seen /hpf (None Seen) Urine Glucose Normal mg/dL (Normal) Microbiology Microbiology Date/Time Source Procedure Growth Status 10/05/24 17:06 Blood Blood Culture - Preliminary NO GROWTH AFTER 24 HOURS OF INCUBATION. Resulted 10/05/24 08:13 Nose MRSA Screen - Final Complete 10/02/24 19:14 Voided Urine Urine Culture - Final Complete Labs and/or images reviewed: Labs reviewed by me, Image(s) reviewed by me Assessment/Plan Assessment/Plan Impression: -sepsis secondary to probable enterocolitis. Staphylococcus epidermis noted in one set of blood cultures. -nicotine dependence -diabetes mellitus -primary hypertension -HIV with noncompliance -homelessness -schizophrenia -bipolar disorder -dyslipidemia -polysubstance abuse Plan: Events: No events overnight. Awaiting DC placement -repeat blood culture no growth x 24hrs -social service consultation for discharge planning. Patient requesting to be placed back in recuperative care -infectious disease consultation: Recommendations reviewed -regular insulin sliding scale -discharge planning once social services manager establishes a facility/residency for the patient. Total time spent with patient discussing and formulating plan of care: 35 minutes. This medical document was created using an electronic medical record system with [employer] dictation system. Although this document has been carefully reviewed, there may still be some phonetic and typographical errors. These areas are purely typographical due to imperfections of the software programs, and do not reflect any compromise in the patient's medical care. Plan discussed with: Patient, Other Date of Service: Oct 07, 2024 Billing Provider: ADOLFO COLES NP Common Visit Codes: [id number] INP/OBS CARE(HIGH) ADOLFO COLES NP Oct 07, 2024 13:14
--- NOTE | 2024-10-07 18:08 | DVHPN2 ---
Consult Progress Note Date Seen: Oct 06, 2024 Subjective Patient reports: Feels better (a bit hypernatremic , improving diet intake and no new episodes of hemoptasis ) Objective vital signs Vital Sign Date Time Temp Pulse Resp B/P (MAP) Pulse Ox O2 Delivery O2 Flow Rate FiO2 10/07/24 16:56 97.1 61 18 141/94 (110) 100 97.1 10/07/24 08:00 Room Air* 0 21 Total Intake and Output 10/06/24 10/06/24 10/07/24 15:00 23:00 07:00 Intake Total 1525 ml 1100 ml 600 ml Balance 1525 ml 1100 ml 600 ml medications Current Medications Medications Dose Ordered Sig/Elen Route Start Time Stop Time Status Last Admin Dose Admin Piperacillin Sod/ Tazobactam Sod 100 ml @ 25 mls/hr Q8HR@0300,1100,1900 IV 10/03/24 11:00 10/07/24 02:50 25 MLS/HR Diagnostic Test (Pha) 1 strip ACHS 10/03/24 07:00 10/07/24 17:44 1 STRIP Insulin Human Regular ACHS SC 10/03/24 07:00 10/04/24 17:59 2 UNITS Dextrose 50 ml UD PRN IV 10/03/24 04:00 Acetaminophen/ Hydrocodone Bitart 1 tab Q4HP PRN PO 10/03/24 04:00 10/07/24 01:40 1 TAB Ondansetron HCl 4 mg Q4HP PRN IV 10/03/24 04:00 Docusate Sodium 100 mg BIDPRN PRN PO 10/03/24 04:00 Acetaminophen 650 mg Q6HP PRN PO 10/03/24 04:00 10/07/24 17:48 650 MG Nitroglycerin 0.4 mg Q5MINP PRN SL 10/03/24 04:00 Morphine Sulfate 2 mg Q30M PRN IV 10/03/24 04:00 Famotidine 20 mg DAILY IV 10/03/24 10:00 10/07/24 10:20 20 MG Ergocalciferol 50,000 unit Q7D PO 10/03/24 12:15 10/03/24 13:16 50,000 UNIT Fluoxetine HCl 20 mg DAILY PO 10/04/24 10:00 10/07/24 10:20 20 MG Losartan Potassium 50 mg DAILY PO 10/04/24 10:00 10/07/24 10:20 50 MG Pantoprazole Sodium 40 mg DAILY PRN PO 10/03/24 14:30 Patient Own Medication 10 mg QPM PO 10/03/24 18:00 Hold Physical Exam: General: NAD Neck: Supple. No masses. HEENT: PERRL. Normal lids and conjunctiva. Moist mucous membranes. Oropharynx without lesions, exudates or excessive erythema. Normal appearance of the external aspects of the nose and ears. Heart: Regular rhythm, normal rate. No murmur. No lower extremity edema. Lungs: Normal respiratory effort. Clear to auscultation bilaterally. No wheezes. No crackles. Abdomen: Soft. Non-tender. Non-distended. No masses or abdominal hernia. Msk: No digital cyanosis. Normal strength and tone in all 4 limbs. Skin: Warm and dry, no rashes. Neuro: Alert. No facial droop or slurred speech. Extra-ocular movements intact. Sensation intact to soft touch in all 4 limbs. Psych: Appropriate mood. Full affect. Oriented to person, place, time, and situation. laboratory and microbiology Laboratory Tests 10/06/24 10:50 Test 10/06/24 10:50 Range/Units Serum Glucose 80 74-106 mg/dL Problem List/Assessment/Plan Problems(with codes): (1) Cellulitis of left foot (2) Osteomyelitis of left foot (3) Leukocytosis, unspecified (4) Generalized weakness (5) HIV (human immunodeficiency virus infection) Problem List/Assessment/Plan ASSESSMENT AND PLAN: ID Problem List: \-- HIV infection (uncontrolled, non-compliant with ART; recent viral load 44,100 copies/mL; CD4 count 313, CD4% 13.6; known T97A mutation conferring resistance to elvitegravir/raltegravir; sensitive to bictegravir, emtricitabine, tenofovir) \-- Recurrent left great toe osteomyelitis/cellulitis (history) \-- Schizophrenia \-- Anxiety and depression \-- Diabetes mellitus \-- GERD \-- Hyperlipidemia \-- Hypertension \-- Homelessness \-- Substance use (methamphetamine, marijuana, tobacco; no alcohol) \-- Poor medication adherence Assessment This is a 38 y.o. male with a significant history of HIV infection (uncontrolled, non-compliant with antiretroviral therapy), recurrent left great toe osteomyelitis and cellulitis, schizophrenia, anxiety, depression, diabetes, hyperlipidemia, hypertension, and multiple social determinants of health barriers including homelessness and substance use. He presented to [facility] with diffuse body pain worsening over time, fevers (Tmax 103F), and was found to have leukocytosis (WBC as high as 20.7 x10^3/L), thrombocytosis, acute kidney injury (BUN 1921 mg/dL, creatinine up to 1.23 mg/dL), and hypotension (BP as low as 103/50 mmHg). Imaging notable for CT chest/abdomen/pelvis with left lower lobe consolidation (concern for pneumonia/possible mass) and moderate fluid within small and large bowel loops (cannot exclude enterocolitis/inflammatory disease). Chest X-ray without acute disease. No recent surgeries. Labs significant for lactic acid 0.9 mmol/L, sodium 135 mmol/L, hemoglobin 12.8 g/dL, platelets [id number] x10^3/L. Patient is febrile and tachycardic, with diffuse body pain and prior left foot infection. He remains non-compliant with antiretroviral regimen (previously on Biktarvy), and expresses inability to reliably take ART due to unstable housing; currently has known resistance mutation (T97A), but remains sensitive to components of Biktarvy. He reports ongoing tobacco, marijuana, and methamphetamine use; denies alcohol. Patient is currently empirically treated with IV vancomycin, piperacillin- tazobactam, and was started on IV TMP-SMX for concern of possible Pneumocystis jiroveci pneumonia (PJP) in the setting of immunosuppression and pulmonary findings. 8/2: defer to primary team to medicate. diarrhea is slowing down . awaiting cd4 and viral load. no ART. 8/3:patient is having a little bit of hemophosis with morning sputum collection , likely related to aspiration pneumonia . patient has staph epidermitis in blood suspect likely skin priya contamination . cd 4 count is 372 making patient unlikely to have the most common opportunistic infections 8/4: viral HIV load is pending , negative for influenza A and B and covid Plan: - repeat blood cultures in light of staph 1/4 cultures - continue coverage for gram positive organism - reasonable to provide 21 days of bactrim (2DS TID x 21 days) + oral levofloxacin 500mg po qd x 5 days when patient is ready for discharge \-- continue vancomycin, bactrim, and zosyn for now \-- Initiate IV TMP-SMX for empiric coverage of PJP while awaiting sputum and further infectious workup. \-- Obtain blood cultures, respiratory culture, urine culture, and procalcitonin; monitor for bacteremia or other infectious etiologies. \-- Follow-up on HIV viral load, CD4 count, Quantiferon. \-- Do not restart home ART regimen at this time due to inability to ensure adherence and potential for resistance development; will reassess if patient becomes agreeable/compliant. \-- Review psychiatric regimens (fluoxetine, aripiprazole) as potential contributors to diffuse body pain; consider switching to alternatives with fewer side effects and better tolerability in light of adherence concerns. \-- Infectious disease, psychiatry, and case management to coordinate for comprehensive care addressing medical/psychiatric/social needs. \-- Continue to monitor for further signs of opportunistic infection and reassess as new studies become available. Isolation Precautions: standard Plan discussed with: Other Dietary Evaluation Review Comments: Follow [facility] diet Monitor updated lab values Expected Outcomes/Goals: controlled DM ADILIA FRIEDMAN MD Oct 07, 2024 18:08
--- NOTE | 2024-10-07 18:08 | DVHPN2 ---
Consult Progress Note Date Seen: Oct 07, 2024 Subjective Patient reports: Other (being evaluated to go to rehab facility to avoid frequent readmission ) Objective vital signs Vital Sign Date Time Temp Pulse Resp B/P (MAP) Pulse Ox O2 Delivery O2 Flow Rate FiO2 10/07/24 16:56 97.1 61 18 141/94 (110) 100 97.1 10/07/24 08:00 Room Air* 0 21 Total Intake and Output 10/06/24 10/06/24 10/07/24 15:00 23:00 07:00 Intake Total 1525 ml 1100 ml 600 ml Balance 1525 ml 1100 ml 600 ml medications Current Medications Medications Dose Ordered Sig/Elen Route Start Time Stop Time Status Last Admin Dose Admin Piperacillin Sod/ Tazobactam Sod 100 ml @ 25 mls/hr Q8HR@0300,1100,1900 IV 10/03/24 11:00 10/07/24 02:50 25 MLS/HR Diagnostic Test (Pha) 1 strip ACHS 10/03/24 07:00 10/07/24 17:44 1 STRIP Insulin Human Regular ACHS SC 10/03/24 07:00 10/04/24 17:59 2 UNITS Dextrose 50 ml UD PRN IV 10/03/24 04:00 Acetaminophen/ Hydrocodone Bitart 1 tab Q4HP PRN PO 10/03/24 04:00 10/07/24 01:40 1 TAB Ondansetron HCl 4 mg Q4HP PRN IV 10/03/24 04:00 Docusate Sodium 100 mg BIDPRN PRN PO 10/03/24 04:00 Acetaminophen 650 mg Q6HP PRN PO 10/03/24 04:00 10/07/24 17:48 650 MG Nitroglycerin 0.4 mg Q5MINP PRN SL 10/03/24 04:00 Morphine Sulfate 2 mg Q30M PRN IV 10/03/24 04:00 Famotidine 20 mg DAILY IV 10/03/24 10:00 10/07/24 10:20 20 MG Ergocalciferol 50,000 unit Q7D PO 10/03/24 12:15 10/03/24 13:16 50,000 UNIT Fluoxetine HCl 20 mg DAILY PO 10/04/24 10:00 10/07/24 10:20 20 MG Losartan Potassium 50 mg DAILY PO 10/04/24 10:00 10/07/24 10:20 50 MG Pantoprazole Sodium 40 mg DAILY PRN PO 10/03/24 14:30 Patient Own Medication 10 mg QPM PO 10/03/24 18:00 Hold Physical Exam: General: NAD Neck: Supple. No masses. HEENT: PERRL. Normal lids and conjunctiva. Moist mucous membranes. Oropharynx without lesions, exudates or excessive erythema. Normal appearance of the external aspects of the nose and ears. Heart: Regular rhythm, normal rate. No murmur. No lower extremity edema. Lungs: Normal respiratory effort. Clear to auscultation bilaterally. No wheezes. No crackles. Abdomen: Soft. Non-tender. Non-distended. No masses or abdominal hernia. Msk: No digital cyanosis. Normal strength and tone in all 4 limbs. Skin: Warm and dry, no rashes. Neuro: Alert. No facial droop or slurred speech. Extra-ocular movements intact. Sensation intact to soft touch in all 4 limbs. Psych: Appropriate mood. Full affect. Oriented to person, place, time, and situation. laboratory and microbiology Laboratory Tests 10/06/24 10:50 Test 10/06/24 10:50 Range/Units Serum Glucose 80 74-106 mg/dL Problem List/Assessment/Plan Problems(with codes): (1) Leukocytosis, unspecified (2) Osteomyelitis of left foot (3) Cellulitis of left foot (4) Generalized weakness (5) HIV (human immunodeficiency virus infection) (6) Fever, unknown origin Problem List/Assessment/Plan ASSESSMENT AND PLAN: ID Problem List: \-- HIV infection (uncontrolled, non-compliant with ART; recent viral load 44,100 copies/mL; CD4 count 313, CD4% 13.6; known T97A mutation conferring resistance to elvitegravir/raltegravir; sensitive to bictegravir, emtricitabine, tenofovir) \-- Recurrent left great toe osteomyelitis/cellulitis (history) \-- Schizophrenia \-- Anxiety and depression \-- Diabetes mellitus \-- GERD \-- Hyperlipidemia \-- Hypertension \-- Homelessness \-- Substance use (methamphetamine, marijuana, tobacco; no alcohol) \-- Poor medication adherence Assessment This is a 38 y.o. male with a significant history of HIV infection (uncontrolled, non-compliant with antiretroviral therapy), recurrent left great toe osteomyelitis and cellulitis, schizophrenia, anxiety, depression, diabetes, hyperlipidemia, hypertension, and multiple social determinants of health barriers including homelessness and substance use. He presented to [facility] with diffuse body pain worsening over time, fevers (Tmax 103F), and was found to have leukocytosis (WBC as high as 20.7 x10^3/L), thrombocytosis, acute kidney injury (BUN 1921 mg/dL, creatinine up to 1.23 mg/dL), and hypotension (BP as low as 103/50 mmHg). Imaging notable for CT chest/abdomen/pelvis with left lower lobe consolidation (concern for pneumonia/possible mass) and moderate fluid within small and large bowel loops (cannot exclude enterocolitis/inflammatory disease). Chest X-ray without acute disease. No recent surgeries. Labs significant for lactic acid 0.9 mmol/L, sodium 135 mmol/L, hemoglobin 12.8 g/dL, platelets [phone] x10^3/L. Patient is febrile and tachycardic, with diffuse body pain and prior left foot infection. He remains non-compliant with antiretroviral regimen (previously on Biktarvy), and expresses inability to reliably take ART due to unstable housing; currently has known resistance mutation (T97A), but remains sensitive to components of Biktarvy. He reports ongoing tobacco, marijuana, and methamphetamine use; denies alcohol. Patient is currently empirically treated with IV vancomycin, piperacillin- tazobactam, and was started on IV TMP-SMX for concern of possible Pneumocystis jiroveci pneumonia (PJP) in the setting of immunosuppression and pulmonary findings. 8/2: defer to primary team to medicate. diarrhea is slowing down . awaiting cd4 and viral load. no ART. 8/3:patient is having a little bit of hemophosis with morning sputum collection , likely related to aspiration pneumonia . patient has staph epidermitis in blood suspect likely skin priya contamination . cd 4 count is 372 making patient unlikely to have the most common opportunistic infections 8: viral HIV load is pending , negative for influenza A and B and covid . quantifier is pending 10/07: blood cultures are no growth to date , quantifier is pending Plan: - if patient gets accepted to rehab facility would not be unreasonable to restart home biktarvy to treat HIV , will continue to hold off til plans are finalized - Stop Zosyn s/p 5 day course , switch to oral bactrum 1 double strength tablet PO BID - f/u on blood cultures - continue coverage for gram positive organism - reasonable to provide 21 days of bactrim (2DS TID x 21 days) + oral levofloxacin 500mg po qd x 5 days when patient is ready for discharge \-- continue vancomycin, bactrim, and zosyn for now \-- Initiate IV TMP-SMX for empiric coverage of PJP while awaiting sputum and further infectious workup. \-- Obtain respiratory culture, urine culture, and procalcitonin; monitor for bacteremia or other infectious etiologies. \-- Do not restart home ART regimen at this time due to inability to ensure adherence and potential for resistance development; will reassess if patient becomes agreeable/compliant. \-- Review psychiatric regimens (fluoxetine, aripiprazole) as potential contributors to diffuse body pain; consider switching to alternatives with fewer side effects and better tolerability in light of adherence concerns. \-- Infectious disease, psychiatry, and case management to coordinate for comprehensive care addressing medical/psychiatric/social needs. \-- Continue to monitor for further signs of opportunistic infection and reassess as new studies become available. Isolation Precautions: standard Plan discussed with: Other Dietary Evaluation Review Comments: Follow [facility] diet Monitor updated lab values Expected Outcomes/Goals: controlled DM ADILIA FRIEDMAN MD Oct 07, 2024 18:08
--- NOTE | 2024-10-07 18:08 | DVHPN2 ---
Consult Progress Note Date Seen: Oct 05, 2024 Subjective Patient reports: Other (no new fevers , denies feeling SOB and is having more energy ) Objective vital signs Vital Sign Date Time Temp Pulse Resp B/P (MAP) Pulse Ox O2 Delivery O2 Flow Rate FiO2 10/07/24 16:56 97.1 61 18 141/94 (110) 100 97.1 10/07/24 08:00 Room Air* 0 21 Total Intake and Output 10/06/24 10/06/24 10/07/24 15:00 23:00 07:00 Intake Total 1525 ml 1100 ml 600 ml Balance 1525 ml 1100 ml 600 ml medications Current Medications Medications Dose Ordered Sig/Elen Route Start Time Stop Time Status Last Admin Dose Admin Piperacillin Sod/ Tazobactam Sod 100 ml @ 25 mls/hr Q8HR@0300,1100,1900 IV 10/03/24 11:00 10/07/24 02:50 25 MLS/HR Diagnostic Test (Pha) 1 strip ACHS 10/03/24 07:00 10/07/24 17:44 1 STRIP Insulin Human Regular ACHS SC 10/03/24 07:00 10/04/24 17:59 2 UNITS Dextrose 50 ml UD PRN IV 10/03/24 04:00 Acetaminophen/ Hydrocodone Bitart 1 tab Q4HP PRN PO 10/03/24 04:00 10/07/24 01:40 1 TAB Ondansetron HCl 4 mg Q4HP PRN IV 10/03/24 04:00 Docusate Sodium 100 mg BIDPRN PRN PO 10/03/24 04:00 Acetaminophen 650 mg Q6HP PRN PO 10/03/24 04:00 10/07/24 17:48 650 MG Nitroglycerin 0.4 mg Q5MINP PRN SL 10/03/24 04:00 Morphine Sulfate 2 mg Q30M PRN IV 10/03/24 04:00 Famotidine 20 mg DAILY IV 10/03/24 10:00 10/07/24 10:20 20 MG Ergocalciferol 50,000 unit Q7D PO 10/03/24 12:15 10/03/24 13:16 50,000 UNIT Fluoxetine HCl 20 mg DAILY PO 10/04/24 10:00 10/07/24 10:20 20 MG Losartan Potassium 50 mg DAILY PO 10/04/24 10:00 10/07/24 10:20 50 MG Pantoprazole Sodium 40 mg DAILY PRN PO 10/03/24 14:30 Patient Own Medication 10 mg QPM PO 10/03/24 18:00 Hold Physical Exam: General: NAD Neck: Supple. No masses. HEENT: PERRL. Normal lids and conjunctiva. Moist mucous membranes. Oropharynx without lesions, exudates or excessive erythema. Normal appearance of the external aspects of the nose and ears. Heart: Regular rhythm, normal rate. No murmur. No lower extremity edema. Lungs: Normal respiratory effort. Clear to auscultation bilaterally. No wheezes. No crackles. Abdomen: Soft. Non-tender. Non-distended. No masses or abdominal hernia. Msk: No digital cyanosis. Normal strength and tone in all 4 limbs. Skin: Warm and dry, no rashes. Neuro: Alert. No facial droop or slurred speech. Extra-ocular movements intact. Sensation intact to soft touch in all 4 limbs. Psych: Appropriate mood. Full affect. Oriented to person, place, time, and situation. laboratory and microbiology Laboratory Tests 10/06/24 10:50 Test 10/06/24 10:50 Range/Units Serum Glucose 80 74-106 mg/dL Problem List/Assessment/Plan Problems(with codes): (1) Cellulitis of left foot (2) Osteomyelitis of left foot (3) Leukocytosis, unspecified (4) Generalized weakness (5) HIV (human immunodeficiency virus infection) (6) Fever, unknown origin Problem List/Assessment/Plan ASSESSMENT AND PLAN: ID Problem List: \-- HIV infection (uncontrolled, non-compliant with ART; recent viral load 44,100 copies/mL; CD4 count 313, CD4% 13.6; known T97A mutation conferring resistance to elvitegravir/raltegravir; sensitive to bictegravir, emtricitabine, tenofovir) \-- Recurrent left great toe osteomyelitis/cellulitis (history) \-- Schizophrenia \-- Anxiety and depression \-- Diabetes mellitus \-- GERD \-- Hyperlipidemia \-- Hypertension \-- Homelessness \-- Substance use (methamphetamine, marijuana, tobacco; no alcohol) \-- Poor medication adherence Assessment This is a 38 y.o. male with a significant history of HIV infection (uncontrolled, non-compliant with antiretroviral therapy), recurrent left great toe osteomyelitis and cellulitis, schizophrenia, anxiety, depression, diabetes, hyperlipidemia, hypertension, and multiple social determinants of health barriers including homelessness and substance use. He presented to [facility] with diffuse body pain worsening over time, fevers (Tmax 103F), and was found to have leukocytosis (WBC as high as 20.7 x10^3/L), thrombocytosis, acute kidney injury (BUN 1921 mg/dL, creatinine up to 1.23 mg/dL), and hypotension (BP as low as 103/50 mmHg). Imaging notable for CT chest/abdomen/pelvis with left lower lobe consolidation (concern for pneumonia/possible mass) and moderate fluid within small and large bowel loops (cannot exclude enterocolitis/inflammatory disease). Chest X-ray without acute disease. No recent surgeries. Labs significant for lactic acid 0.9 mmol/L, sodium 135 mmol/L, hemoglobin 12.8 g/dL, platelets [id number] x10^3/L. Patient is febrile and tachycardic, with diffuse body pain and prior left foot infection. He remains non-compliant with antiretroviral regimen (previously on Biktarvy), and expresses inability to reliably take ART due to unstable housing; currently has known resistance mutation (T97A), but remains sensitive to components of Biktarvy. He reports ongoing tobacco, marijuana, and methamphetamine use; denies alcohol. Patient is currently empirically treated with IV vancomycin, piperacillin- tazobactam, and was started on IV TMP-SMX for concern of possible Pneumocystis jiroveci pneumonia (PJP) in the setting of immunosuppression and pulmonary findings. 82: defer to primary team to medicate. diarrhea is slowing down . awaiting cd4 and viral load. no ART. 3:patient is having a little bit of hemophosis with morning sputum collection , likely related to aspiration pneumonia . patient has staph epidermitis in blood suspect likely skin priya contamination . cd 4 count is 372 making patient unlikely to have the most common opportunistic infections Plan: - repeat blood cultures in light of staph 1/4 cultures - continue coverage for gram positive organism - reasonable to provide 21 days of bactrim (2DS TID x 21 days) + oral levofloxacin 500mg po qd x 5 days when patient is ready for discharge \-- continue vancomycin, bactrim, and zosyn for now \-- Initiate IV TMP-SMX for empiric coverage of PJP while awaiting sputum and further infectious workup. \-- Obtain blood cultures, respiratory culture, urine culture, and procalcitonin; monitor for bacteremia or other infectious etiologies. \-- Follow-up on HIV viral load, CD4 count, Quantiferon. \-- Do not restart home ART regimen at this time due to inability to ensure adherence and potential for resistance development; will reassess if patient becomes agreeable/compliant. \-- Review psychiatric regimens (fluoxetine, aripiprazole) as potential contributors to diffuse body pain; consider switching to alternatives with fewer side effects and better tolerability in light of adherence concerns. \-- Infectious disease, psychiatry, and case management to coordinate for comprehensive care addressing medical/psychiatric/social needs. \-- Continue to monitor for further signs of opportunistic infection and reassess as new studies become available. Isolation Precautions: standard Plan discussed with: Other Dietary Evaluation Review Comments: [facility] Monitor updated lab values Expected Outcomes/Goals: controlled DM ADILIA FRIEDMAN MD Oct 07, 2024 18:08
[2024-10-07] MEDS: SULFAMETHOX W/TRIMETH(800/160MG) DS TAB PO SCH (21:06)
[2024-10-08] VITALS (8 sets, daily range): BP systolic 125–150; BP diastolic 80–90; PULSE 60–90; RESP 16–22; TEMP 96.7–98.4; O2SAT 96–97
--- NOTE | 2024-10-08 11:37 | DVHPN2 ---
Subjective Patient states that his abdominal pain has improved. Reviewed: Care Plan, H&P, Labs, Medications, Previous Orders, Radiology, Other Changes from previous H/P or p: No Changes General: Per HPI Objective Vitals Vital Signs Date Time Temp Pulse Resp B/P (MAP) Pulse Ox O2 Delivery O2 Flow Rate FiO2 10/08/24 09:10 97.1 72 19 125/84 (98) 97 97.1 10/08/24 08:00 Room Air* 0 21 Intake/Output Intake and Output 10/08/24 07:00 Intake Total 1450 ml Output Total 300 ml Balance 1150 ml Intake Oral 1450 ml Output Urine Total 300 ml # Voids 8 # Bowel Movements 1 General Appearance: Alert, Oriented X3, Cooperative, No acute distress HEENT: Atraumatic, PERRLA Lungs: Clear to auscultation, Normal air movement Cardiovascular: Regular rate, Normal S1, Normal S2, No murmurs Abdomen: Normal bowel sounds, Soft, No tenderness Neuro: Normal speech, Cranial nerves 3-12 NL Skin: Dry, Intact Psych/Mental Status: Mental status NL, Mood NL Medications Current Medications Medications Dose Ordered Sig/Elen Route Start Time Stop Time Status Last Admin Dose Admin Diagnostic Test (Pha) 1 strip ACHS 10/03/24 07:00 10/08/24 06:23 1 STRIP Insulin Human Regular ACHS SC 10/03/24 07:00 10/07/24 21:07 2 UNITS Dextrose 50 ml UD PRN IV 10/03/24 04:00 Acetaminophen/ Hydrocodone Bitart 1 tab Q4HP PRN PO 10/03/24 04:00 10/07/24 01:40 1 TAB Ondansetron HCl 4 mg Q4HP PRN IV 10/03/24 04:00 Docusate Sodium 100 mg BIDPRN PRN PO 10/03/24 04:00 Acetaminophen 650 mg Q6HP PRN PO 10/03/24 04:00 10/07/24 17:48 650 MG Nitroglycerin 0.4 mg Q5MINP PRN SL 10/03/24 04:00 Morphine Sulfate 2 mg Q30M PRN IV 10/03/24 04:00 Famotidine 20 mg DAILY IV 10/03/24 10:00 10/08/24 09:09 20 MG Ergocalciferol 50,000 unit Q7D PO 10/03/24 12:15 10/03/24 13:16 50,000 UNIT Fluoxetine HCl 20 mg DAILY PO 10/04/24 10:00 10/08/24 09:09 20 MG Losartan Potassium 50 mg DAILY PO 10/04/24 10:00 10/08/24 09:09 50 MG Pantoprazole Sodium 40 mg DAILY PRN PO 10/03/24 14:30 Patient Own Medication 10 mg QPM PO 10/03/24 18:00 Hold Trimethoprim/ Sulfamethoxazole 1 tab Q12HR PO 10/07/24 22:00 10/08/24 09:09 1 TAB Laboratory Results Laboratory Tests 10/06/24 10:50 Urinalysis Test 10/02/24 19:44 Urine Color Light-yellow (Yellow) Urine Clarity Clear (Clear) Urine pH 6.5 (5.0-9.0) Urine Specific [place] 1.022 (1.001-1.035) Urine Protein Negative (Negative) Urine Ketones Negative (Negative) Urine Blood Negative /uL (Negative) Urine Nitrite Negative (Negative) Urine Bilirubin Negative (Negative) Urine Urobilinogen Normal mg/dL (Negative) Urine Leukocyte Esterase Negative /uL (Negative) Urine RBC 1 /hpf (0 - 3) Urine Microscopic WBC 1 /HPF (0-3) Urine Squamous Epithelial Cells Few /hpf (<5) Urine Bacteria None seen /hpf (None Seen) Urine Glucose Normal mg/dL (Normal) Microbiology Microbiology Date/Time Source Procedure Growth Status 10/05/24 17:06 Blood Blood Culture - Preliminary NO GROWTH AFTER 48 HOURS OF INCUBATION. Resulted 10/05/24 08:13 Nose MRSA Screen - Final Complete 10/02/24 19:14 Voided Urine Urine Culture - Final Complete Labs and/or images reviewed: Labs reviewed by me, Image(s) reviewed by me Assessment/Plan Assessment/Plan Impression: -sepsis secondary to probable enterocolitis. Staphylococcus epidermis noted in one set of blood cultures. -nicotine dependence -diabetes mellitus -primary hypertension -HIV with noncompliance -homelessness -schizophrenia -bipolar disorder -dyslipidemia -polysubstance abuse Plan: Events: No events overnight. Awaiting DC placement -repeat blood culture no growth x 48hrs -social service consultation for discharge planning. Patient requesting to be placed back in recuperative care -infectious disease consultation: Recommendations reviewed -DC accucheck -discharge planning once social welfare clerk establishes a facility/residency for the patient. Total time spent with patient discussing and formulating plan of care: 35 minutes. This medical document was created using an electronic medical record system with [email or web address] dictation system. Although this document has been carefully reviewed, there may still be some phonetic and typographical errors. These areas are purely typographical due to imperfections of the software programs, and do not reflect any compromise in the patient's medical care. Plan discussed with: Patient, Other (RN) Date of Service: Oct 08, 2024 Billing Provider: ADOLFO COLES NP Common Visit Codes: [id number] INP/OBS CARE(HIGH) ADOLFO COLES NP Oct 08, 2024 11:37
[2024-10-09] VITALS (7 sets, daily range): BP systolic 136–159; BP diastolic 72–102; PULSE 52–98; RESP 17–19; TEMP 96–97.8; O2SAT 92–100
--- NOTE | 2024-10-09 09:22 | DVHPN2 ---
Subjective Patient states that his abdominal pain has improved. Reviewed: Care Plan, H&P, Labs, Medications, Previous Orders, Radiology, Other Changes from previous H/P or p: No Changes General: Per HPI Objective Vitals Vital Signs Date Time Temp Pulse Resp B/P (MAP) Pulse Ox O2 Delivery O2 Flow Rate FiO2 10/09/24 04:58 97.2 52 17 140/92 (108) 99 97.2 10/08/24 20:00 Room Air* 0 21 Intake/Output Intake and Output 10/09/24 07:00 Intake Total 1850 ml Balance 1850 ml Intake Oral 1850 ml # Voids 13 # Bowel Movements 5 General Appearance: Alert, Oriented X3, Cooperative, No acute distress HEENT: Atraumatic, PERRLA Lungs: Clear to auscultation, Normal air movement Cardiovascular: Regular rate, Normal S1, Normal S2, No murmurs Abdomen: Normal bowel sounds, Soft, No tenderness Neuro: Normal speech, Cranial nerves 3-12 NL Skin: Dry, Intact Psych/Mental Status: Mental status NL, Mood NL Medications Current Medications Medications Dose Ordered Sig/Elen Route Start Time Stop Time Status Last Admin Dose Admin Dextrose 50 ml UD PRN IV 10/03/24 04:00 Acetaminophen/ Hydrocodone Bitart 1 tab Q4HP PRN PO 10/03/24 04:00 10/08/24 22:27 1 TAB Ondansetron HCl 4 mg Q4HP PRN IV 10/03/24 04:00 Docusate Sodium 100 mg BIDPRN PRN PO 10/03/24 04:00 Acetaminophen 650 mg Q6HP PRN PO 10/03/24 04:00 10/07/24 17:48 650 MG Nitroglycerin 0.4 mg Q5MINP PRN SL 10/03/24 04:00 Morphine Sulfate 2 mg Q30M PRN IV 10/03/24 04:00 Famotidine 20 mg DAILY IV 10/03/24 10:00 10/08/24 09:09 20 MG Ergocalciferol 50,000 unit Q7D PO 10/03/24 12:15 10/03/24 13:16 50,000 UNIT Fluoxetine HCl 20 mg DAILY PO 10/04/24 10:00 10/08/24 09:09 20 MG Losartan Potassium 50 mg DAILY PO 10/04/24 10:00 10/08/24 09:09 50 MG Pantoprazole Sodium 40 mg DAILY PRN PO 10/03/24 14:30 Patient Own Medication 10 mg QPM PO 10/03/24 18:00 Hold Trimethoprim/ Sulfamethoxazole 1 tab Q12HR PO 10/07/24 22:00 10/08/24 22:20 1 TAB Laboratory Results Laboratory Tests 10/06/24 10:50 Urinalysis Test 10/02/24 19:44 Urine Color Light-yellow (Yellow) Urine Clarity Clear (Clear) Urine pH 6.5 (5.0-9.0) Urine Specific [place] 1.022 (1.001-1.035) Urine Protein Negative (Negative) Urine Ketones Negative (Negative) Urine Blood Negative /uL (Negative) Urine Nitrite Negative (Negative) Urine Bilirubin Negative (Negative) Urine Urobilinogen Normal mg/dL (Negative) Urine Leukocyte Esterase Negative /uL (Negative) Urine RBC 1 /hpf (0 - 3) Urine Microscopic WBC 1 /HPF (0-3) Urine Squamous Epithelial Cells Few /hpf (<5) Urine Bacteria None seen /hpf (None Seen) Urine Glucose Normal mg/dL (Normal) Microbiology Microbiology Date/Time Source Procedure Growth Status 10/05/24 17:06 Blood Blood Culture - Preliminary NO GROWTH AFTER 72 HOURS OF INCUBATION. Resulted 10/05/24 08:13 Nose MRSA Screen - Final Complete 10/02/24 19:14 Voided Urine Urine Culture - Final Complete Labs and/or images reviewed: Labs reviewed by me, Image(s) reviewed by me Assessment/Plan Assessment/Plan Impression: -sepsis secondary to probable enterocolitis. Staphylococcus epidermis noted in one set of blood cultures. -nicotine dependence -diabetes mellitus -primary hypertension -HIV with noncompliance -homelessness -schizophrenia -bipolar disorder -dyslipidemia -polysubstance abuse Plan: Events: No events overnight. Awaiting DC placement. No change in A/P on 10/09/24 -repeat blood culture no growth x 48hrs -social service consultation for discharge planning. Patient requesting to be placed back in recuperative care -infectious disease consultation: Recommendations reviewed -discharge planning once social services director establishes a facility/residency for the patient. Total time spent with patient discussing and formulating plan of care: 35 minutes. This medical document was created using an electronic medical record system with [employer] system. Although this document has been carefully reviewed, there may still be some phonetic and typographical errors. These areas are purely typographical due to imperfections of the software programs, and do not reflect any compromise in the patient's medical care. Plan discussed with: Patient, Other (RN) Date of Service: Oct 09, 2024 Billing Provider: ADOLFO COLES NP Common Visit Codes: [id number] INP/OBS CARE(HIGH) ADOLFO COLES NP Oct 09, 2024 09:22
[2024-10-10] VITALS (7 sets, daily range): BP systolic 125–156; BP diastolic 80–101; PULSE 80–114; RESP 16–20; TEMP 96.4–99.8; O2SAT 96–100
--- NOTE | 2024-10-10 12:10 | DVHPN2 ---
Subjective Patient states that his abdominal pain has improved. Reviewed: Care Plan, H&P, Labs, Medications, Previous Orders, Radiology, Other Changes from previous H/P or p: No Changes General: Per HPI Objective Vitals Vital Signs Date Time Temp Pulse Resp B/P (MAP) Pulse Ox O2 Delivery O2 Flow Rate FiO2 10/10/24 10:32 138/99 10/10/24 09:00 99.5 83 20 99 99.5 10/10/24 08:00 Room Air* 0 21 Intake/Output Intake and Output 10/10/24 07:00 Intake Total 1110 ml Output Total 0 ml Balance 1110 ml Intake Oral 1110 ml Output Urine Total 0 ml # Voids 6 # Bowel Movements 3 General Appearance: Alert, Oriented X3, Cooperative, No acute distress HEENT: Atraumatic, PERRLA Lungs: Clear to auscultation, Normal air movement Cardiovascular: Regular rate, Normal S1, Normal S2, No murmurs Abdomen: Normal bowel sounds, Soft, No tenderness Neuro: Normal speech, Cranial nerves 3-12 NL Skin: Dry, Intact Psych/Mental Status: Mental status NL, Mood NL Medications Current Medications Medications Dose Ordered Sig/Elen Route Start Time Stop Time Status Last Admin Dose Admin Dextrose 50 ml UD PRN IV 10/03/24 04:00 Acetaminophen/ Hydrocodone Bitart 1 tab Q4HP PRN PO 10/03/24 04:00 10/10/24 10:31 1 TAB Ondansetron HCl 4 mg Q4HP PRN IV 10/03/24 04:00 Docusate Sodium 100 mg BIDPRN PRN PO 10/03/24 04:00 Acetaminophen 650 mg Q6HP PRN PO 10/03/24 04:00 10/07/24 17:48 650 MG Nitroglycerin 0.4 mg Q5MINP PRN SL 10/03/24 04:00 Morphine Sulfate 2 mg Q30M PRN IV 10/03/24 04:00 Famotidine 20 mg DAILY IV 10/03/24 10:00 10/10/24 10:30 20 MG Ergocalciferol 50,000 unit Q7D PO 10/03/24 12:15 10/03/24 13:16 50,000 UNIT Fluoxetine HCl 20 mg DAILY PO 10/04/24 10:00 10/10/24 10:30 20 MG Losartan Potassium 50 mg DAILY PO 10/04/24 10:00 10/10/24 10:32 50 MG Pantoprazole Sodium 40 mg DAILY PRN PO 10/03/24 14:30 Patient Own Medication 10 mg QPM PO 10/03/24 18:00 Hold Trimethoprim/ Sulfamethoxazole 1 tab Q12HR PO 10/07/24 22:00 10/10/24 10:30 1 TAB Laboratory Results Laboratory Tests 10/06/24 10:50 Urinalysis Test 10/02/24 19:44 Urine Color Light-yellow (Yellow) Urine Clarity Clear (Clear) Urine pH 6.5 (5.0-9.0) Urine Specific [place] 1.022 (1.001-1.035) Urine Protein Negative (Negative) Urine Ketones Negative (Negative) Urine Blood Negative /uL (Negative) Urine Nitrite Negative (Negative) Urine Bilirubin Negative (Negative) Urine Urobilinogen Normal mg/dL (Negative) Urine Leukocyte Esterase Negative /uL (Negative) Urine RBC 1 /hpf (0 - 3) Urine Microscopic WBC 1 /HPF (0-3) Urine Squamous Epithelial Cells Few /hpf (<5) Urine Bacteria None seen /hpf (None Seen) Urine Glucose Normal mg/dL (Normal) Microbiology Microbiology Date/Time Source Procedure Growth Status 10/05/24 17:06 Blood Blood Culture - Preliminary NO GROWTH AFTER 72 HOURS OF INCUBATION. Resulted 10/05/24 08:13 Nose MRSA Screen - Final Complete 10/02/24 19:14 Voided Urine Urine Culture - Final Complete Labs and/or images reviewed: Labs reviewed by me, Image(s) reviewed by me Assessment/Plan Assessment/Plan Impression: -sepsis secondary to probable enterocolitis. Staphylococcus epidermis noted in one set of blood cultures. -nicotine dependence -diabetes mellitus -primary hypertension -HIV with noncompliance -homelessness -schizophrenia -bipolar disorder -dyslipidemia -polysubstance abuse Plan: Events: No events overnight. Awaiting DC placement. No change in A/P on 10/10/2024 -repeat blood culture no growth x 48hrs -social service consultation for discharge planning. Patient requesting to be placed back in recuperative care -infectious disease consultation: Recommendations reviewed -discharge planning once licensed clinical social worker establishes a facility/residency for the patient. Total time spent with patient discussing and formulating plan of care: 35 minutes. This medical document was created using an electronic medical record system with [employer] computerized dictation system. Although this document has been carefully reviewed, there may still be some phonetic and typographical errors. These areas are purely typographical due to imperfections of the software programs, and do not reflect any compromise in the patient's medical care. Plan discussed with: Patient, Other (RN) Date of Service: Oct 10, 2024 Billing Provider: AODLFO COLES NP Common Visit Codes: [id number] INP/OBS CARE(MOD) ADOLFO COLES NP Oct 10, 2024 12:10
[2024-10-10] MEDS: DOCUSATE SOD 100 MG CAP PO PRN (14:21)
--- NOTE | 2024-10-10 22:03 | DVHPN2 ---
Consult Progress Note Date Seen: Oct 08, 2024 Subjective Patient reports: Other (continues to take smoke breaks , no signs of worsening hypoxia and has a chronic cough without any sputum production ) Objective vital signs Vital Sign Date Time Temp Pulse Resp B/P (MAP) Pulse Ox O2 Delivery O2 Flow Rate FiO2 10/10/24 13:00 99.8 97 20 156/98 (117) 99 99.8 10/10/24 08:00 Room Air* 0 21 Total Intake and Output 10/09/24 10/09/24 10/10/24 15:00 23:00 07:00 Intake Total 460 ml 650 ml Output Total 0 ml Balance 460 ml 650 ml medications Current Medications Medications Dose Ordered Sig/Elen Route Start Time Stop Time Status Last Admin Dose Admin Dextrose 50 ml UD PRN IV 10/03/24 04:00 Acetaminophen/ Hydrocodone Bitart 1 tab Q4HP PRN PO 10/03/24 04:00 10/10/24 21:00 1 TAB Ondansetron HCl 4 mg Q4HP PRN IV 10/03/24 04:00 Docusate Sodium 100 mg BIDPRN PRN PO 10/03/24 04:00 10/10/24 14:21 100 MG Acetaminophen 650 mg Q6HP PRN PO 10/03/24 04:00 10/07/24 17:48 650 MG Nitroglycerin 0.4 mg Q5MINP PRN SL 10/03/24 04:00 Morphine Sulfate 2 mg Q30M PRN IV 10/03/24 04:00 Famotidine 20 mg DAILY IV 10/03/24 10:00 10/10/24 10:30 20 MG Ergocalciferol 50,000 unit Q7D PO 10/03/24 12:15 10/10/24 14:21 50,000 UNIT Fluoxetine HCl 20 mg DAILY PO 10/04/24 10:00 10/10/24 10:30 20 MG Losartan Potassium 50 mg DAILY PO 10/04/24 10:00 10/10/24 10:32 50 MG Pantoprazole Sodium 40 mg DAILY PRN PO 10/03/24 14:30 Patient Own Medication 10 mg QPM PO 10/03/24 18:00 Hold Trimethoprim/ Sulfamethoxazole 1 tab Q12HR PO 10/07/24 22:00 10/10/24 20:59 1 TAB Physical Exam: General: NAD Neck: Supple. No masses. HEENT: PERRL. Normal lids and conjunctiva. Moist mucous membranes. Oropharynx without lesions, exudates or excessive erythema. Normal appearance of the external aspects of the nose and ears. Heart: Regular rhythm, normal rate. No murmur. No lower extremity edema. Lungs: Normal respiratory effort. Clear to auscultation bilaterally. No wheezes. No crackles. Abdomen: Soft. Non-tender. Non-distended. No masses or abdominal hernia. Msk: No digital cyanosis. Normal strength and tone in all 4 limbs. Skin: Warm and dry, no rashes. Neuro: Alert. No facial droop or slurred speech. Extra-ocular movements intact. Sensation intact to soft touch in all 4 limbs. Psych: Appropriate mood. Full affect. Oriented to person, place, time, and situation. laboratory and microbiology Laboratory Tests 10/06/24 10:50 Test 10/06/24 10:50 Range/Units Serum Glucose 80 74-106 mg/dL Problem List/Assessment/Plan Problems(with codes): (1) Cellulitis of left foot (2) Osteomyelitis of left foot (3) Leukocytosis, unspecified (4) Generalized weakness (5) HIV (human immunodeficiency virus infection) (6) Fever, unknown origin (7) Schizophrenia Problem List/Assessment/Plan ASSESSMENT AND PLAN: ID Problem List: \-- HIV infection (uncontrolled, non-compliant with ART; recent viral load 44,100 copies/mL; CD4 count 313, CD4% 13.6; known T97A mutation conferring resistance to elvitegravir/raltegravir; sensitive to bictegravir, emtricitabine, tenofovir) \-- Recurrent left great toe osteomyelitis/cellulitis (history) \-- Schizophrenia \-- Anxiety and depression \-- Diabetes mellitus \-- GERD \-- Hyperlipidemia \-- Hypertension \-- Homelessness \-- Substance use (methamphetamine, marijuana, tobacco; no alcohol) \-- Poor medication adherence Assessment This is a 38 y.o. male with a significant history of HIV infection (uncontrolled, non-compliant with antiretroviral therapy), recurrent left great toe osteomyelitis and cellulitis, schizophrenia, anxiety, depression, diabetes, hyperlipidemia, hypertension, and multiple social determinants of health barriers including homelessness and substance use. He presented to [facility] with diffuse body pain worsening over time, fevers (Tmax 103F), and was found to have leukocytosis (WBC as high as 20.7 x10^3/L), thrombocytosis, acute kidney injury (BUN 1921 mg/dL, creatinine up to 1.23 mg/dL), and hypotension (BP as low as 103/50 mmHg). Imaging notable for CT chest/abdomen/pelvis with left lower lobe consolidation (concern for pneumonia/possible mass) and moderate fluid within small and large bowel loops (cannot exclude enterocolitis/inflammatory disease). Chest X-ray without acute disease. No recent surgeries. Labs significant for lactic acid 0.9 mmol/L, sodium 135 mmol/L, hemoglobin 12.8 g/dL, platelets [id number] x10^3/L. Patient is febrile and tachycardic, with diffuse body pain and prior left foot infection. He remains non-compliant with antiretroviral regimen (previously on Biktarvy), and expresses inability to reliably take ART due to unstable housing; currently has known resistance mutation (T97A), but remains sensitive to components of Biktarvy. He reports ongoing tobacco, marijuana, and methamphetamine use; denies alcohol. Patient is currently empirically treated with IV vancomycin, piperacillin- tazobactam, and was started on IV TMP-SMX for concern of possible Pneumocystis jiroveci pneumonia (PJP) in the setting of immunosuppression and pulmonary findings. 8/2: defer to primary team to medicate. diarrhea is slowing down . awaiting cd4 and viral load. no ART. 8/3:patient is having a little bit of hemophosis with morning sputum collection , likely related to aspiration pneumonia . patient has staph epidermitis in blood suspect likely skin priya contamination . cd 4 count is 372 making patient unlikely to have the most common opportunistic infections 8: viral HIV load is pending , negative for influenza A and B and covid . quantifier is pending 10/07: blood cultures are no growth to date , quantifier is pending 10/08: appears clinically well and awaiting to be discharged to a recuperative care Plan: - provide bictarvy while awaiting to be discharged , can acquire from discharge pharmacy and staart 1 tablet dialy of 50 mg dose - if patient gets accepted to rehab facility would not be unreasonable to restart home biktarvy to treat HIV , will continue to hold off til plans are finalized - continue oral bactrum 1 double strength tablet PO TID empirically to treat PJP pneumonia - f/u on blood cultures - continue coverage for gram positive organism \-- Review psychiatric regimens (fluoxetine, aripiprazole) as potential contributors to diffuse body pain; consider switching to alternatives with fewer side effects and better tolerability in light of adherence concerns. \-- Infectious disease, psychiatry, and case management to coordinate for comprehensive care addressing medical/psychiatric/social needs. \-- Continue to monitor for further signs of opportunistic infection and reassess as new studies become available. Isolation Precautions: standard Plan discussed with: Other Dietary Evaluation Review Comments: Follow [facility] diet Monitor updated lab values Expected Outcomes/Goals: controlled DM ADILIA FRIEDMAN MD Oct 10, 2024 22:03
--- NOTE | 2024-10-10 22:04 | DVHPN2 ---
Consult Progress Note Date Seen: Oct 09, 2024 Subjective Patient reports: Other (reporting wanting to be more compliant with his HIV medication and be healtier ) Objective vital signs Vital Sign Date Time Temp Pulse Resp B/P (MAP) Pulse Ox O2 Delivery O2 Flow Rate FiO2 10/10/24 13:00 99.8 97 20 156/98 (117) 99 99.8 10/10/24 08:00 Room Air* 0 21 Total Intake and Output 10/09/24 10/09/24 10/10/24 15:00 23:00 07:00 Intake Total 460 ml 650 ml Output Total 0 ml Balance 460 ml 650 ml medications Current Medications Medications Dose Ordered Sig/Elen Route Start Time Stop Time Status Last Admin Dose Admin Dextrose 50 ml UD PRN IV 10/03/24 04:00 Acetaminophen/ Hydrocodone Bitart 1 tab Q4HP PRN PO 10/03/24 04:00 10/10/24 21:00 1 TAB Ondansetron HCl 4 mg Q4HP PRN IV 10/03/24 04:00 Docusate Sodium 100 mg BIDPRN PRN PO 10/03/24 04:00 10/10/24 14:21 100 MG Acetaminophen 650 mg Q6HP PRN PO 10/03/24 04:00 10/07/24 17:48 650 MG Nitroglycerin 0.4 mg Q5MINP PRN SL 10/03/24 04:00 Morphine Sulfate 2 mg Q30M PRN IV 10/03/24 04:00 Famotidine 20 mg DAILY IV 10/03/24 10:00 10/10/24 10:30 20 MG Ergocalciferol 50,000 unit Q7D PO 10/03/24 12:15 10/10/24 14:21 50,000 UNIT Fluoxetine HCl 20 mg DAILY PO 10/04/24 10:00 10/10/24 10:30 20 MG Losartan Potassium 50 mg DAILY PO 10/04/24 10:00 10/10/24 10:32 50 MG Pantoprazole Sodium 40 mg DAILY PRN PO 10/03/24 14:30 Patient Own Medication 10 mg QPM PO 10/03/24 18:00 Hold Trimethoprim/ Sulfamethoxazole 1 tab Q12HR PO 10/07/24 22:00 10/10/24 20:59 1 TAB Physical Exam: General: NAD Neck: Supple. No masses. HEENT: PERRL. Normal lids and conjunctiva. Moist mucous membranes. Oropharynx without lesions, exudates or excessive erythema. Normal appearance of the external aspects of the nose and ears. Heart: Regular rhythm, normal rate. No murmur. No lower extremity edema. Lungs: Normal respiratory effort. Clear to auscultation bilaterally. No wheezes. No crackles. Abdomen: Soft. Non-tender. Non-distended. No masses or abdominal hernia. Msk: No digital cyanosis. Normal strength and tone in all 4 limbs. Skin: Warm and dry, no rashes. Neuro: Alert. No facial droop or slurred speech. Extra-ocular movements intact. Sensation intact to soft touch in all 4 limbs. Psych: Appropriate mood. Full affect. Oriented to person, place, time, and situation. laboratory and microbiology Laboratory Tests 10/06/24 10:50 Test 10/06/24 10:50 Range/Units Serum Glucose 80 74-106 mg/dL Problem List/Assessment/Plan Problems(with codes): (1) Cellulitis of left foot (2) Osteomyelitis of left foot (3) Leukocytosis, unspecified (4) Generalized weakness (5) HIV (human immunodeficiency virus infection) (6) Fever, unknown origin (7) Schizophrenia Problem List/Assessment/Plan ASSESSMENT AND PLAN: ID Problem List: \-- HIV infection (uncontrolled, non-compliant with ART; recent viral load 44,100 copies/mL; CD4 count 313, CD4% 13.6; known T97A mutation conferring resistance to elvitegravir/raltegravir; sensitive to bictegravir, emtricitabine, tenofovir) \-- Recurrent left great toe osteomyelitis/cellulitis (history) \-- Schizophrenia \-- Anxiety and depression \-- Diabetes mellitus \-- GERD \-- Hyperlipidemia \-- Hypertension \-- Homelessness \-- Substance use (methamphetamine, marijuana, tobacco; no alcohol) \-- Poor medication adherence Assessment This is a 38 y.o. male with a significant history of HIV infection (uncontrolled, non-compliant with antiretroviral therapy), recurrent left great toe osteomyelitis and cellulitis, schizophrenia, anxiety, depression, diabetes, hyperlipidemia, hypertension, and multiple social determinants of health barriers including homelessness and substance use. He presented to [facility] with diffuse body pain worsening over time, fevers (Tmax 103F), and was found to have leukocytosis (WBC as high as 20.7 x10^3/L), thrombocytosis, acute kidney injury (BUN 1921 mg/dL, creatinine up to 1.23 mg/dL), and hypotension (BP as low as 103/50 mmHg). Imaging notable for CT chest/abdomen/pelvis with left lower lobe consolidation (concern for pneumonia/possible mass) and moderate fluid within small and large bowel loops (cannot exclude enterocolitis/inflammatory disease). Chest X-ray without acute disease. No recent surgeries. Labs significant for lactic acid 0.9 mmol/L, sodium 135 mmol/L, hemoglobin 12.8 g/dL, platelets [id number] x10^3/L. Patient is febrile and tachycardic, with diffuse body pain and prior left foot infection. He remains non-compliant with antiretroviral regimen (previously on Biktarvy), and expresses inability to reliably take ART due to unstable housing; currently has known resistance mutation (T97A), but remains sensitive to components of Biktarvy. He reports ongoing tobacco, marijuana, and methamphetamine use; denies alcohol. Patient is currently empirically treated with IV vancomycin, piperacillin- tazobactam, and was started on IV TMP-SMX for concern of possible Pneumocystis jiroveci pneumonia (PJP) in the setting of immunosuppression and pulmonary findings. 8/2: defer to primary team to medicate. diarrhea is slowing down . awaiting cd4 and viral load. no ART. 8/3:patient is having a little bit of hemophosis with morning sputum collection , likely related to aspiration pneumonia . patient has staph epidermitis in blood suspect likely skin priya contamination . cd 4 count is 372 making patient unlikely to have the most common opportunistic infections 8/4: viral HIV load is pending , negative for influenza A and B and covid . quantifier is pending 8: blood cultures are no growth to date , quantifier is pending 86: appears clinically well and awaiting to be discharged to a recuperative care 87: appears clinically stable , tolerating bactrim without any side effects Plan: - provide bictarvy while awaiting to be discharged , can acquire from discharge pharmacy and staart 1 tablet dialy of 50 mg dose - if patient gets accepted to rehab facility would not be unreasonable to restart home biktarvy to treat HIV , will continue to hold off til plans are finalized - continue oral bactrum 1 double strength tablet PO TID empirically to treat PJP pneumonia - f/u on blood cultures - continue coverage for gram positive organism \-- Review psychiatric regimens (fluoxetine, aripiprazole) as potential contributors to diffuse body pain; consider switching to alternatives with fewer side effects and better tolerability in light of adherence concerns. \-- Infectious disease, psychiatry, and case management to coordinate for comprehensive care addressing medical/psychiatric/social needs. \-- Continue to monitor for further signs of opportunistic infection and reassess as new studies become available. Isolation Precautions: standard Plan discussed with: Other Dietary Evaluation Review Comments: [facility] Monitor updated lab values Expected Outcomes/Goals: controlled DM ADLIIA FRIEDMAN MD Oct 10, 2024 22:04
--- NOTE | 2024-10-10 22:07 | DVHPN2 ---
Consult Progress Note Date Seen: Oct 10, 2024 Subjective Patient reports: No new complaints (mildly hypertensive , no pains ) Objective vital signs Vital Sign Date Time Temp Pulse Resp B/P (MAP) Pulse Ox O2 Delivery O2 Flow Rate FiO2 10/10/24 13:00 99.8 97 20 156/98 (117) 99 99.8 10/10/24 08:00 Room Air* 0 21 Total Intake and Output 10/09/24 10/09/24 10/10/24 15:00 23:00 07:00 Intake Total 460 ml 650 ml Output Total 0 ml Balance 460 ml 650 ml medications Current Medications Medications Dose Ordered Sig/Elen Route Start Time Stop Time Status Last Admin Dose Admin Dextrose 50 ml UD PRN IV 10/03/24 04:00 Acetaminophen/ Hydrocodone Bitart 1 tab Q4HP PRN PO 10/03/24 04:00 10/10/24 21:00 1 TAB Ondansetron HCl 4 mg Q4HP PRN IV 10/03/24 04:00 Docusate Sodium 100 mg BIDPRN PRN PO 10/03/24 04:00 10/10/24 14:21 100 MG Acetaminophen 650 mg Q6HP PRN PO 10/03/24 04:00 10/07/24 17:48 650 MG Nitroglycerin 0.4 mg Q5MINP PRN SL 10/03/24 04:00 Morphine Sulfate 2 mg Q30M PRN IV 10/03/24 04:00 Famotidine 20 mg DAILY IV 10/03/24 10:00 10/10/24 10:30 20 MG Ergocalciferol 50,000 unit Q7D PO 10/03/24 12:15 10/10/24 14:21 50,000 UNIT Fluoxetine HCl 20 mg DAILY PO 10/04/24 10:00 10/10/24 10:30 20 MG Losartan Potassium 50 mg DAILY PO 10/04/24 10:00 10/10/24 10:32 50 MG Pantoprazole Sodium 40 mg DAILY PRN PO 10/03/24 14:30 Patient Own Medication 10 mg QPM PO 10/03/24 18:00 Hold Trimethoprim/ Sulfamethoxazole 1 tab Q12HR PO 10/07/24 22:00 10/10/24 20:59 1 TAB Physical Exam: General: NAD Neck: Supple. No masses. HEENT: PERRL. Normal lids and conjunctiva. Moist mucous membranes. Oropharynx without lesions, exudates or excessive erythema. Normal appearance of the external aspects of the nose and ears. Heart: Regular rhythm, normal rate. No murmur. No lower extremity edema. Lungs: Normal respiratory effort. Clear to auscultation bilaterally. No wheezes. No crackles. Abdomen: Soft. Non-tender. Non-distended. No masses or abdominal hernia. Msk: No digital cyanosis. Normal strength and tone in all 4 limbs. Skin: Warm and dry, no rashes. Neuro: Alert. No facial droop or slurred speech. Extra-ocular movements intact. Sensation intact to soft touch in all 4 limbs. Psych: Appropriate mood. Full affect. Oriented to person, place, time, and situation. laboratory and microbiology Laboratory Tests 10/06/24 10:50 Test 10/06/24 10:50 Range/Units Serum Glucose 80 74-106 mg/dL Problem List/Assessment/Plan Problems(with codes): (1) Cellulitis of left foot (2) Osteomyelitis of left foot (3) Leukocytosis, unspecified (4) Generalized weakness (5) HIV (human immunodeficiency virus infection) (6) Fever, unknown origin (7) Schizophrenia Problem List/Assessment/Plan ASSESSMENT AND PLAN: ID Problem List: \-- HIV infection (uncontrolled, non-compliant with ART; recent viral load 44,100 copies/mL; CD4 count 313, CD4% 13.6; known T97A mutation conferring resistance to elvitegravir/raltegravir; sensitive to bictegravir, emtricitabine, tenofovir) \-- Recurrent left great toe osteomyelitis/cellulitis (history) \-- Schizophrenia \-- Anxiety and depression \-- Diabetes mellitus \-- GERD \-- Hyperlipidemia \-- Hypertension \-- Homelessness \-- Substance use (methamphetamine, marijuana, tobacco; no alcohol) \-- Poor medication adherence Assessment This is a 38 y.o. male with a significant history of HIV infection (uncontrolled, non-compliant with antiretroviral therapy), recurrent left great toe osteomyelitis and cellulitis, schizophrenia, anxiety, depression, diabetes, hyperlipidemia, hypertension, and multiple social determinants of health barriers including homelessness and substance use. He presented to [facility] with diffuse body pain worsening over time, fevers (Tmax 103F), and was found to have leukocytosis (WBC as high as 20.7 x10^3/L), thrombocytosis, acute kidney injury (BUN 1921 mg/dL, creatinine up to 1.23 mg/dL), and hypotension (BP as low as 103/50 mmHg). Imaging notable for CT chest/abdomen/pelvis with left lower lobe consolidation (concern for pneumonia/possible mass) and moderate fluid within small and large bowel loops (cannot exclude enterocolitis/inflammatory disease). Chest X-ray without acute disease. No recent surgeries. Labs significant for lactic acid 0.9 mmol/L, sodium 135 mmol/L, hemoglobin 12.8 g/dL, platelets [id number] x10^3/L. Patient is febrile and tachycardic, with diffuse body pain and prior left foot infection. He remains non-compliant with antiretroviral regimen (previously on Biktarvy), and expresses inability to reliably take ART due to unstable housing; currently has known resistance mutation (T97A), but remains sensitive to components of Biktarvy. He reports ongoing tobacco, marijuana, and methamphetamine use; denies alcohol. Patient is currently empirically treated with IV vancomycin, piperacillin- tazobactam, and was started on IV TMP-SMX for concern of possible Pneumocystis jiroveci pneumonia (PJP) in the setting of immunosuppression and pulmonary findings. 8/2: defer to primary team to medicate. diarrhea is slowing down . awaiting cd4 and viral load. no ART. 8/3:patient is having a little bit of hemophosis with morning sputum collection , likely related to aspiration pneumonia . patient has staph epidermitis in blood suspect likely skin priya contamination . cd 4 count is 372 making patient unlikely to have the most common opportunistic infections 8: viral HIV load is pending , negative for influenza A and B and covid . quantifier is pending 10/07: blood cultures are no growth to date , quantifier is pending 10/08: appears clinically well and awaiting to be discharged to a recuperative care 10/09: appears clinically stable , tolerating bactrim without any side effects 10/10: whitecount is normal Plan: - provide bictarvy while awaiting to be discharged , can acquire from discharge pharmacy and staart 1 tablet dialy of 50 mg dose - if patient gets accepted to rehab facility would not be unreasonable to restart home biktarvy to treat HIV , will continue to hold off til plans are finalized - continue oral bactrum 1 double strength tablet PO TID empirically to treat PJP pneumonia - f/u on blood cultures - continue coverage for gram positive organism \-- Review psychiatric regimens (fluoxetine, aripiprazole) as potential contributors to diffuse body pain; consider switching to alternatives with fewer side effects and better tolerability in light of adherence concerns. \-- Infectious disease, psychiatry, and case management to coordinate for comprehensive care addressing medical/psychiatric/social needs. \-- Continue to monitor for further signs of opportunistic infection and reassess as new studies become available. Isolation Precautions: standard Plan discussed with: Other Dietary Evaluation Review Comments: [facility] Monitor updated lab values Expected Outcomes/Goals: controlled DM ADILIA FRIEDMAN MD Oct 10, 2024 22:07
--- NOTE | 2024-10-10 22:14 | DVHPN2 ---
Consult Progress Note Objective vital signs Vital Sign Date Time Temp Pulse Resp B/P (MAP) Pulse Ox O2 Delivery O2 Flow Rate FiO2 10/10/24 13:00 99.8 97 20 156/98 (117) 99 99.8 10/10/24 08:00 Room Air* 0 21 Total Intake and Output 10/09/24 10/09/24 10/10/24 15:00 23:00 07:00 Intake Total 460 ml 650 ml Output Total 0 ml Balance 460 ml 650 ml medications Current Medications Medications Dose Ordered Sig/Elen Route Start Time Stop Time Status Last Admin Dose Admin Dextrose 50 ml UD PRN IV 10/03/24 04:00 Acetaminophen/ Hydrocodone Bitart 1 tab Q4HP PRN PO 10/03/24 04:00 10/10/24 21:00 1 TAB Ondansetron HCl 4 mg Q4HP PRN IV 10/03/24 04:00 Docusate Sodium 100 mg BIDPRN PRN PO 10/03/24 04:00 10/10/24 14:21 100 MG Acetaminophen 650 mg Q6HP PRN PO 10/03/24 04:00 10/07/24 17:48 650 MG Nitroglycerin 0.4 mg Q5MINP PRN SL 10/03/24 04:00 Morphine Sulfate 2 mg Q30M PRN IV 10/03/24 04:00 Famotidine 20 mg DAILY IV 10/03/24 10:00 10/10/24 10:30 20 MG Ergocalciferol 50,000 unit Q7D PO 10/03/24 12:15 10/10/24 14:21 50,000 UNIT Fluoxetine HCl 20 mg DAILY PO 10/04/24 10:00 10/10/24 10:30 20 MG Losartan Potassium 50 mg DAILY PO 10/04/24 10:00 10/10/24 10:32 50 MG Pantoprazole Sodium 40 mg DAILY PRN PO 10/03/24 14:30 Patient Own Medication 10 mg QPM PO 10/03/24 18:00 Hold Trimethoprim/ Sulfamethoxazole 2 tab TID PO 10/11/24 06:00 UNV laboratory and microbiology Laboratory Tests 10/06/24 10:50 Test 10/06/24 10:50 Range/Units Serum Glucose 80 74-106 mg/dL Problem List/Assessment/Plan Problem List/Assessment/Plan ASSESSMENT AND PLAN: ID Problem List: \-- HIV infection (uncontrolled, non-compliant with ART; recent viral load 44,100 copies/mL; CD4 count 313, CD4% 13.6; known T97A mutation conferring resistance to elvitegravir/raltegravir; sensitive to bictegravir, emtricitabine, tenofovir) \-- Recurrent left great toe osteomyelitis/cellulitis (history) \-- Schizophrenia \-- Anxiety and depression \-- Diabetes mellitus \-- GERD \-- Hyperlipidemia \-- Hypertension \-- Homelessness \-- Substance use (methamphetamine, marijuana, tobacco; no alcohol) \-- Poor medication adherence Assessment This is a 38 y.o. male with a significant history of HIV infection (uncontrolled, non-compliant with antiretroviral therapy), recurrent left great toe osteomyelitis and cellulitis, schizophrenia, anxiety, depression, diabetes, hyperlipidemia, hypertension, and multiple social determinants of health barriers including homelessness and substance use. He presented to [facility] with diffuse body pain worsening over time, fevers (Tmax 103F), and was found to have leukocytosis (WBC as high as 20.7 x10^3/L), thrombocytosis, acute kidney injury (BUN 1921 mg/dL, creatinine up to 1.23 mg/dL), and hypotension (BP as low as 103/50 mmHg). Imaging notable for CT chest/abdomen/pelvis with left lower lobe consolidation (concern for pneumonia/possible mass) and moderate fluid within small and large bowel loops (cannot exclude enterocolitis/inflammatory disease). Chest X-ray without acute disease. No recent surgeries. Labs significant for lactic acid 0.9 mmol/L, sodium 135 mmol/L, hemoglobin 12.8 g/dL, platelets [id number] x10^3/L. Patient is febrile and tachycardic, with diffuse body pain and prior left foot infection. He remains non-compliant with antiretroviral regimen (previously on Biktarvy), and expresses inability to reliably take ART due to unstable housing; currently has known resistance mutation (T97A), but remains sensitive to components of Biktarvy. He reports ongoing tobacco, marijuana, and methamphetamine use; denies alcohol. Patient is currently empirically treated with IV vancomycin, piperacillin- tazobactam, and was started on IV TMP-SMX for concern of possible Pneumocystis jiroveci pneumonia (PJP) in the setting of immunosuppression and pulmonary findings. 82: defer to primary team to medicate. diarrhea is slowing down . awaiting cd4 and viral load. no ART. 10/05:patient is having a little bit of hemophosis with morning sputum collection , likely related to aspiration pneumonia . patient has staph epidermitis in blood suspect likely skin priya contamination . cd 4 count is 372 making patient unlikely to have the most common opportunistic infections 10/06: viral HIV load is pending , negative for influenza A and B and covid . quantifier is pending 10/07: blood cultures are no growth to date , quantifier is pending Plan: - if patient gets accepted to rehab facility would not be unreasonable to restart home biktarvy to treat HIV , will continue to hold off til plans are finalized - Stop Zosyn s/p 5 day course , switch to oral bactrum 1 double strength tablet PO BID - f/u on blood cultures - continue coverage for gram positive organism \-- continue vancomycin, bactrim, and zosyn for now \-- Initiate IV TMP-SMX for empiric coverage of PJP while awaiting sputum and further infectious workup. \-- Obtain respiratory culture, urine culture, and procalcitonin; monitor for bacteremia or other infectious etiologies. \-- Do not restart home ART regimen at this time due to inability to ensure adherence and potential for resistance development; will reassess if patient becomes agreeable/compliant. \-- Review psychiatric regimens (fluoxetine, aripiprazole) as potential contributors to diffuse body pain; consider switching to alternatives with fewer side effects and better tolerability in light of adherence concerns. \-- Infectious disease, psychiatry, and case management to coordinate for comprehensive care addressing medical/psychiatric/social needs. \-- Continue to monitor for further signs of opportunistic infection and reassess as new studies become available. Isolation Precautions: standard Dietary Evaluation Review Comments: [facility] Monitor updated lab values Expected Outcomes/Goals: controlled DM ADILIA FRIEDMAN MD Oct 10, 2024 22:14
[2024-10-11] MEDS: SULFAMETHOX W/TRIMETH(800/160MG) DS TAB PO SCH (05:44)
[2024-10-11 08:00] VITALS: PULSE 76; RESP 18; O2SAT 96
[2024-10-11 08:30] VITALS: BP 122/92; PULSE 107; RESP 18; TEMP 97.4; O2SAT 99
--- NOTE | 2024-10-11 10:44 | DVHPN2 ---
Subjective Patient states that his abdominal pain has improved. Reviewed: Care Plan, H&P, Labs, Medications, Previous Orders, Radiology, Other Changes from previous H/P or p: No Changes General: Per HPI Objective Vitals Vital Signs Date Time Temp Pulse Resp B/P (MAP) Pulse Ox O2 Delivery O2 Flow Rate FiO2 10/11/24 10:13 144/101 10/11/24 08:30 97.4 107 18 99 97.4 10/10/24 20:00 Room Air* 0 21 Intake/Output Intake and Output 10/11/24 07:00 Intake Total 1500 ml Balance 1500 ml Intake Oral 1500 ml # Voids 10 # Bowel Movements 1 General Appearance: Alert, Oriented X3, Cooperative, No acute distress HEENT: Atraumatic, PERRLA Lungs: Clear to auscultation, Normal air movement Cardiovascular: Regular rate, Normal S1, Normal S2, No murmurs Abdomen: Normal bowel sounds, Soft, No tenderness Neuro: Normal speech, Cranial nerves 3-12 NL Skin: Dry, Intact Psych/Mental Status: Mental status NL, Mood NL Medications Current Medications Medications Dose Ordered Sig/Elen Route Start Time Stop Time Status Last Admin Dose Admin Dextrose 50 ml UD PRN IV 10/03/24 04:00 Acetaminophen/ Hydrocodone Bitart 1 tab Q4HP PRN PO 10/03/24 04:00 10/11/24 05:44 1 TAB Ondansetron HCl 4 mg Q4HP PRN IV 10/03/24 04:00 Docusate Sodium 100 mg BIDPRN PRN PO 10/03/24 04:00 10/11/24 01:58 100 MG Acetaminophen 650 mg Q6HP PRN PO 10/03/24 04:00 10/07/24 17:48 650 MG Nitroglycerin 0.4 mg Q5MINP PRN SL 10/03/24 04:00 Morphine Sulfate 2 mg Q30M PRN IV 10/03/24 04:00 Famotidine 20 mg DAILY IV 10/03/24 10:00 10/11/24 10:11 20 MG Ergocalciferol 50,000 unit Q7D PO 10/03/24 12:15 10/10/24 14:21 50,000 UNIT Fluoxetine HCl 20 mg DAILY PO 10/04/24 10:00 10/11/24 10:11 20 MG Losartan Potassium 50 mg DAILY PO 10/04/24 10:00 10/11/24 10:13 50 MG Pantoprazole Sodium 40 mg DAILY PRN PO 10/03/24 14:30 Patient Own Medication 10 mg QPM PO 10/03/24 18:00 Hold Trimethoprim/ Sulfamethoxazole 2 tab TID PO 10/11/24 06:00 10/11/24 05:44 2 TAB Laboratory Results Laboratory Tests 10/06/24 10:50 Urinalysis Test 10/02/24 19:44 Urine Color Light-yellow (Yellow) Urine Clarity Clear (Clear) Urine pH 6.5 (5.0-9.0) Urine Specific [place] 1.022 (1.001-1.035) Urine Protein Negative (Negative) Urine Ketones Negative (Negative) Urine Blood Negative /uL (Negative) Urine Nitrite Negative (Negative) Urine Bilirubin Negative (Negative) Urine Urobilinogen Normal mg/dL (Negative) Urine Leukocyte Esterase Negative /uL (Negative) Urine RBC 1 /hpf (0 - 3) Urine Microscopic WBC 1 /HPF (0-3) Urine Squamous Epithelial Cells Few /hpf (<5) Urine Bacteria None seen /hpf (None Seen) Urine Glucose Normal mg/dL (Normal) Microbiology Microbiology Date/Time Source Procedure Growth Status 10/05/24 17:06 Blood Blood Culture - Final NO GROWTH AFTER 5 DAYS OF INCUBATION. Complete 10/05/24 08:13 Nose MRSA Screen - Final Complete 10/02/24 19:14 Voided Urine Urine Culture - Final Complete Labs and/or images reviewed: Labs reviewed by me, Image(s) reviewed by me Assessment/Plan Assessment/Plan Impression: -sepsis secondary to probable enterocolitis. Staphylococcus epidermis noted in one set of blood cultures. -nicotine dependence -diabetes mellitus -primary hypertension -HIV with noncompliance -homelessness -schizophrenia -bipolar disorder -dyslipidemia -polysubstance abuse Plan: Events: No events overnight. Pt spoke with appropriate representative government relations from recuperative care as requested by [facility]. Awaiting placement. Patient requesting sleep aid. Patient will be provided Seroquel 100 mg p.o. q.h.s.. -repeat blood culture no growth x 48hrs -social service consultation for discharge planning. Patient requesting to be placed back in recuperative care -infectious disease consultation: Recommendations reviewed -discharge planning once social work lecturer establishes a facility/residency for the patient. Total time spent with patient discussing and formulating plan of care: 35 minutes. This medical document was created using an electronic medical record system with [employer] dictation system. Although this document has been carefully reviewed, there may still be some phonetic and typographical errors. These areas are purely typographical due to imperfections of the software programs, and do not reflect any compromise in the patient's medical care. Plan discussed with: Patient, Other (RN) My Orders Orders - ADOLFO COLES NP Procedure Category Date Status Time Discontinue Tele VELVET 10/10/24 In Process 20:23 Discontinue Tele VELVET 10/10/24 In Process 16:00 Date of Service: Oct 11, 2024 Billing Provider: ADOLFO COLES NP Common Visit Codes: [id number] INP/OBS CARE(HIGH) ADOLFO COLES NP Oct 11, 2024 10:44
[2024-10-11 13:00] VITALS: BP 137/99; PULSE 96; RESP 18; TEMP 98; O2SAT 97
[2024-10-11 17:30] VITALS: BP 130/91; PULSE 95; RESP 19; TEMP 97.7; O2SAT 98
[2024-10-11 20:00] VITALS: RESP 18; O2SAT 99
[2024-10-11 21:00] VITALS: BP_SYST 122; BP_SYST 142; BP_DIAS 91; BP_DIAS 95; PULSE 67; RESP 18; TEMP 98.2; O2SAT 99
[2024-10-12] VITALS (8 sets, daily range): BP systolic 138–153; BP diastolic 87–95; PULSE 65–109; RESP 16–22; TEMP 97.1–98.2; O2SAT 93–100
--- NOTE | 2024-10-12 09:49 | DVHPN2 ---
Subjective Denies any symptoms Reviewed: Care Plan, H&P, Labs, Medications, Previous Orders, Radiology, Other Changes from previous H/P or p: No Changes General: Per HPI Objective Vitals Vital Signs Date Time Temp Pulse Resp B/P (MAP) Pulse Ox O2 Delivery O2 Flow Rate FiO2 10/12/24 05:00 98.2 96 19 146/90 (108) 97 98.2 10/11/24 20:00 Room Air* 0 21 Intake/Output Intake and Output 10/12/24 07:00 Intake Total 2840 ml Balance 2840 ml Intake Oral 2840 ml # Voids 7 General Appearance: Alert, Oriented X3, Cooperative, No acute distress HEENT: Atraumatic, PERRLA Lungs: Clear to auscultation, Normal air movement Cardiovascular: Regular rate, Normal S1, Normal S2, No murmurs Abdomen: Normal bowel sounds, Soft, No tenderness Neuro: Normal speech, Cranial nerves 3-12 NL Skin: Dry, Intact Psych/Mental Status: Mental status NL, Mood NL Medications Current Medications Medications Dose Ordered Sig/Elen Route Start Time Stop Time Status Last Admin Dose Admin Dextrose 50 ml UD PRN IV 10/03/24 04:00 Acetaminophen/ Hydrocodone Bitart 1 tab Q4HP PRN PO 10/03/24 04:00 10/12/24 04:01 1 TAB Ondansetron HCl 4 mg Q4HP PRN IV 10/03/24 04:00 Docusate Sodium 100 mg BIDPRN PRN PO 10/03/24 04:00 10/11/24 01:58 100 MG Acetaminophen 650 mg Q6HP PRN PO 10/03/24 04:00 10/07/24 17:48 650 MG Nitroglycerin 0.4 mg Q5MINP PRN SL 10/03/24 04:00 Ergocalciferol 50,000 unit Q7D PO 10/03/24 12:15 10/10/24 14:21 50,000 UNIT Fluoxetine HCl 20 mg DAILY PO 10/04/24 10:00 10/11/24 10:11 20 MG Losartan Potassium 50 mg DAILY PO 10/04/24 10:00 10/11/24 10:13 50 MG Pantoprazole Sodium 40 mg DAILY PRN PO 10/03/24 14:30 Patient Own Medication 10 mg QPM PO 10/03/24 18:00 Hold Trimethoprim/ Sulfamethoxazole 2 tab TID PO 10/11/24 06:00 10/12/24 06:23 2 TAB Quetiapine Fumarate 100 mg HS PO 10/11/24 22:00 10/11/24 21:24 100 MG Laboratory Results Laboratory Tests 10/06/24 10:50 Urinalysis Test 10/02/24 19:44 Urine Color Light-yellow (Yellow) Urine Clarity Clear (Clear) Urine pH 6.5 (5.0-9.0) Urine Specific [place] 1.022 (1.001-1.035) Urine Protein Negative (Negative) Urine Ketones Negative (Negative) Urine Blood Negative /uL (Negative) Urine Nitrite Negative (Negative) Urine Bilirubin Negative (Negative) Urine Urobilinogen Normal mg/dL (Negative) Urine Leukocyte Esterase Negative /uL (Negative) Urine RBC 1 /hpf (0 - 3) Urine Microscopic WBC 1 /HPF (0-3) Urine Squamous Epithelial Cells Few /hpf (<5) Urine Bacteria None seen /hpf (None Seen) Urine Glucose Normal mg/dL (Normal) Microbiology Microbiology Date/Time Source Procedure Growth Status 10/05/24 17:06 Blood Blood Culture - Final NO GROWTH AFTER 5 DAYS OF INCUBATION. Complete 10/05/24 08:13 Nose MRSA Screen - Final Complete 10/02/24 19:14 Voided Urine Urine Culture - Final Complete Labs and/or images reviewed: Labs reviewed by me, Image(s) reviewed by me Assessment/Plan Assessment/Plan Impression: -sepsis secondary to probable enterocolitis. Staphylococcus epidermis noted in one set of blood cultures. -nicotine dependence -diabetes mellitus -primary hypertension -HIV with noncompliance -homelessness -schizophrenia -bipolar disorder -dyslipidemia -polysubstance abuse Plan: Events: No events overnight. Patient reports that he was able to sleep last night after Seroquel. Awaiting placement for discharge -repeat blood culture no growth x 48hrs -social service consultation for discharge planning. Patient requesting to be placed back in recuperative care -infectious disease consultation: Recommendations reviewed. Continue Bactrim Total time spent with patient discussing and formulating plan of care: 35 minutes. This medical document was created using an electronic medical record system with [employer] system. Although this document has been carefully reviewed, there may still be some phonetic and typographical errors. These areas are purely typographical due to imperfections of the software programs, and do not reflect any compromise in the patient's medical care. Plan discussed with: Patient, Other (RN) My Orders Orders - ADOLFO COLES NP Procedure Category Date Status Time Quetiapine Fumarate PHA 10/11/24 In Process Tablet (Seroquel Tab 22:00 Date of Service: Oct 12, 2024 Billing Provider: ADOLFO COLES NP Common Visit Codes: [id number] INP/OBS CARE(MOD) ADOLFO COLES NP Oct 12, 2024 09:49
[2024-10-13 00:55] VITALS: BP 130/88; PULSE 102; RESP 18; TEMP 98.4; O2SAT 95
[2024-10-13 05:00] VITALS: BP 123/86; PULSE 79; RESP 20; TEMP 98.3; O2SAT 98
[2024-10-13 07:50] VITALS: BP 132/88; PULSE 86; RESP 18; TEMP 98.8; O2SAT 97
[2024-10-13 08:15] VITALS: RESP 17
--- NOTE | 2024-10-13 09:51 | DVHDS2 ---
Discharge Summary Date of Admission Oct 03, 2024 at 03:53 Date of Discharge: Oct 13, 2024 Admitting Diagnosis Generalized weakness, fever of unknown origin Labs/Diagnostic Data: Laboratory Results Test 10/08/24 15:19 10/08/24 06:22 10/06/24 10:50 10/05/24 12:00 HIV-1 RNA (PCR) 9010 copies/mL (.) HIV-1 RNA (PCR) log10 Value 3.955 (.) POC Glucose 107 mg/dl (70-106) White Blood Count 4.9 10^3/uL (4.4-10.8) Red Blood Count 4.87 10^6/uL (4.5-5.90) Hemoglobin 13.5 g/dL (13.5-17.5) Hematocrit 39.8 % (41.0-53.0) Mean Corpuscular Volume 81.7 fL (80.0-100.0) Mean Corpuscular Hemoglobin 27.7 pg (28.0-32.0) Mean Corpuscular Hemoglobin Concent 33.9 g/dL (32.0-36.0) Red Cell Distribution Width 16.1 % (11.8-14.3) Platelet Count 194 10^3/uL (140-450) Mean Platelet Volume 8.7 fL (6.9-10.8) Neutrophils (%) (Auto) 57.9 % (37.0-80.0) Lymphocytes (%) (Auto) 28.0 % (10.0-50.0) Monocytes (%) (Auto) 10.6 % (0.0-12.0) Eosinophils (%) (Auto) 3.4 % (0.0-7.0) Basophils (%) (Auto) 0.1 % (0.0-2.0) Neutrophils # (Auto) 2.8 10 ^3/uL (1.6-8.6) Lymphocytes # (Auto) 1.4 10 ^3/uL (0.4-5.4) Monocytes # (Auto) 0.5 10 ^3/uL (0-1.3) Eosinophils # (Auto) 0.2 10 ^3/uL (0-0.8) Basophils # (Auto) 0 10 ^3/uL (0-0.2) Nucleated Red Blood Cells 0.3 % Sodium Level 134 mmol/L (136-145) Potassium Level 4.6 mmol/L (3.5-5.1) Chloride Level 103 mmol/L (98-107) Carbon Dioxide Level 24 mmol/L (20-31) Anion Gap 7 (5-15) Blood Urea Nitrogen 9 mg/dL (9-23) Creatinine 1.18 mg/dL (0.700-1.30) Glomerular Filtration Rate Calc 80 mL/min (>90) BUN/Creatinine Ratio 7.6 (10.0-20.0) Serum Glucose 80 mg/dL (74-106) Calcium Level 9.0 mg/dL (8.7-10.4) Vancomycin Level Trough 7.8 ug/mL (5-10) Test 10/05/24 04:36 10/04/24 16:14 10/04/24 06:05 10/03/24 10:54 Total Bilirubin 0.2 mg/dL (0.2-1.0) Aspartate Amino Transferase (AST) 28 U/L (13-40) Alanine Aminotransferase (ALT) 27 U/L (7-40) Alkaline Phosphatase 55 U/L (46-116) Total Protein 9.1 g/dL (5.7-8.2) Albumin 4.0 g/dL (3.2-4.8) Absolute Neutrophils (auto) 8.0 x10E3/uL (1.4-7.0) Absolute Lymphocytes (auto) 2.1 x10E3/uL (0.7-3.1) Absolute Monocytes (auto) 0.6 x10E3/uL (0.1-0.9) Absolute Eosinophils (auto) 0.2 x10E3/uL (0.0-0.4) Absolute Basophils (auto) 0.0 x10E3/uL (0.0-0.2) Immature Granulocytes % 1 % (Not Estab.) Immature Granulocytes # 0.1 x10E3/uL (0.0-0.1) Immature Blood Cells (.) Hematology Comments (.) Percent CD4 Cells 17.7 % (30.8-58.5) Absolute CD4 Count 372 /uL (359-1519) T-Lymphocyte CD4/CD8 Ratio 0.26 (0.92-3.72) Percent CD8 Cells 68.3 % (12.0-35.5) Absolute CD8 Count 1434 /uL (109-897) Triglycerides Level 100 mg/dL (< 150) Cholesterol Level 107 mg/dL (< 200) LDL Cholesterol 48 mg/dL (< 100) HDL Cholesterol 41 mg/dL (40-59) Thyroid Stimulating Hormone (TSH) 2.16 uIU/mL (0.55-4.78) TB Test (QFT) Gold Plus Negative (Negative) TB Test (QFT) Nil 0.01 IU/mL (.) TB Test (QFT) Mitogen >10.00 IU/mL (.) TB Test (QFT) Antigen 1 0.02 IU/mL (.) TB Test (QFT) Antigen 2 0.03 IU/mL (.) TB Test (QFT) Criteria Comment (.) Test 10/03/24 08:23 10/03/24 07:00 10/03/24 02:25 10/02/24 21:30 Influenza Type A Antigen Negative (Negative) Influenza Type B Antigen Negative (Negative) SARS-CoV-2 Antigen (Rapid) Negative (NEGATIVE) Hemoglobin A1c 5.7 % A1C (<5.7) Magnesium Level 1.5 mg/dL (1.6-2.6) Vitamin D 25-Hydroxy 26.9 ng/mL (30.0-100) Folic Acid 14.52 ng/mL (>5.38) Lactic Acid Level 0.9 mmol/L (0.4-2.0) Troponin I High Sensitivity 7 ng/L (</=54) Test 10/02/24 19:53 10/02/24 19:44 Plasma/Serum Blood Alcohol < 3.0 mg/dL (<10) Urine Color Light-yellow (Yellow) Urine Clarity Clear (Clear) Urine pH 6.5 (5.0-9.0) Urine Specific [place] 1.022 (1.001-1.035) Urine Protein Negative (Negative) Urine Ketones Negative (Negative) Urine Blood Negative /uL (Negative) Urine Nitrite Negative (Negative) Urine Bilirubin Negative (Negative) Urine Urobilinogen Normal mg/dL (Negative) Urine Leukocyte Esterase Negative /uL (Negative) Urine RBC 1 /hpf (0 - 3) Urine Microscopic WBC 1 /HPF (0-3) Urine Squamous Epithelial Cells Few /hpf (<5) Urine Bacteria None seen /hpf (None Seen) Urine Glucose Normal mg/dL (Normal) Urine Opiates Screen Neg (NEGATIVE) Urine Fentanyl Screen Neg (NEGATIVE) Urine Barbiturates Screen Neg (NEGATIVE) Urine Phencyclidine Screen Neg (NEGATIVE) Urine Amphetamines Screen Neg (NEGATIVE) Urine Benzodiazepines Screen Neg (NEGATIVE) Urine Cocaine Screen Neg (NEGATIVE) Urine Cannabinoids Screen Pos (NEGATIVE) Other Laboratory Tests 10/06/24 10:50 Brief Hx & Hospital Course: History of Present Illness The patient is a 38-year-old male with past medical history of schizophrenia, anxiety, depression, DM, GERD, hyperlipidemia, and hypertension who presented to [facility] ED with complaint generalized weakness. Patient reports symptoms progressively get worse with diffuse body pain, rating 8/10 numeric scale, getting worse that prompted this visit. Patient was seen and evaluated in the ED, laboratory data shows WBC 12.2, platelets 188, sodium 136, potassium 3.9, BUN 19, creatinine 1.23, GFR 76, glucose 101, calcium 10.1, troponin 7, protein 9.7, lactic acid 0.9, blood pressure 103/50, heart rate 116 trending down to 104, temperature 103.0 F trending down to 97.6, O2 saturation 98% on room air. Chest x-ray show no acute disease. Patient was started on IV antibiotic regimen Zosyn, please see medication orders section in the computer. On my assessment, patient denied chest pain, no headache, no dizziness, no diaphoresis, no shortness of breaths, no nausea, no vomiting, no fever, no chills. Patient was admitted for further evaluation and medical management. Course of hospitalization: Patient was found to has a history of HIV. Infectious Disease consultation was placed. Patient was initially placed on empiric antibiotic therapy. Patient's abdominal pain has improved. White blood cell count is normal. Patient was deescalated with respect to antibiotics with Bactrim. Patient has been ambulating around in the hospital, as well as smoking. Patient was started on antipsychotic medication given his history of schizophrenia. This hospital does not carry Abilify. Patient was started on Seroquel 100 mg p.o. q.h.s. with some improvement with his quality of sleep. Patient will be discharged back to a recuperative care facility once available. He will continue all of his previous home medications. Patient was agreeable with discharge plan. All questions answered. Physical examination General: Alert and Oriented x3. No acute distress. Well-nourished. Eyes: EOMI. Anicteric. HENT: Moist mucous membranes. Lungs: Clear to auscultation bilaterally. No accessory muscle use. Cardiovascular: Regular rate and rhythm. No murmur. No JVD. Abdomen: Soft, non-tender and non-distended. No palpable masses. Extremities: No edema. Non-tender. Skin: No rashes or lesions. Warm. Neurologic: No focal neurological deficits. CN II-XII grossly intact, but not individually tested. Psychiatric: Cooperative. Appropriate mood and affect. Total time spent with patient discussing and formulating plan of care: 35 minutes. This medical document was created using an electronic medical record system with [employer] dictation system. Although this document has been carefully reviewed, there may still be some phonetic and typographical errors. These areas are purely typographical due to imperfections of the software programs, and do not reflect any compromise in the patient's medical care. Consults/Reason for consult Infectious disease: HIV, sepsis Condition at Discharge: Guarded Final Diagnosis/Problems List Sepsis secondary to gastroenteritis Secondary diagnosis: -nicotine dependence -diabetes mellitus -primary hypertension -HIV with noncompliance -homelessness -schizophrenia -bipolar disorder -dyslipidemia -polysubstance abuse Discharge Disposition: Home Discharge Instruct/Medications Diet: Consistent carbohydrate Medications: Continue all home medications Scheduled Aripiprazole (Abilify), 15 MG PO QPM, (Reported) Baclofen (Baclofen), 10 MG PO BID Doxycycline Monohydrate (Doxycycline Monohydrate), 1 CAP PO BID Fluoxetine Hcl (Fluoxetine Hcl), 20 MG PO DAILY, (Reported) Hydrocortisone Acetate (Anusol-Hc), 1 SUPP [place] BID Levofloxacin Hemihydrate (Levofloxacin), 1 TAB PO DAILY Losartan Potassium (Losartan Potassium), 50 MG PO DAILY Nystatin (Mouth-Throat) (Mycostatin (Mouth-Throat)), 5 ML MT QID Sucralfate (Carafate Susp), 1 GM PO QID@0600,1130,1700,2200 Scheduled PRN Ibuprofen (Ibuprofen), 800 MG PO Q8HP PRN Pantoprazole Sodium Sesquihydr (Protonix), 40 MG PO DAILY PRN 36 Discharge Statement: "Patient was advised to return to the ER or call 911 if any headaches, dizziness, shortness of breath, chest pain, abdominal pain, bleeding, fevers, or worsening of medical condition. Patient was counseled about treatment plan, medications, possible side effects, patientverbalized understanding. All questions were answered to the best of my ability. This discharge took greater then 30 minutes in planning, reviewing documentation, counseling the patient, and discussing with other team members." ASSESSMENT ASSESSMENT Assessment Date of Service: Oct 13, 2024 Billing Provider: ADOLFO COLES NP Common Visit Codes: [id number] DISCH DAY >30min ADOLFO COLES NP Oct 13, 2024 09:51
[2024-10-13 13:15] VITALS: BP 119/84; PULSE 107; RESP 20; TEMP 99.2; O2SAT 97
[2024-10-23 06:07] LABS: Vitamin B1, Whole Blood 103.8 nmol/L (66.5-200.0)
== END 2024-10-13 18:20 | disposition home or self-care (01) | DRG 720 ==
LOC: EDBD 19:36 → EDSEX 19:36 → ER 19:36 → OVERFLOW 10-03 03:53 → TELE-CENTR 10-03 04:00 → CENTRAL 10-11 02:52 → TELE-EAST 10-13 16:17
PROVIDERS: ADMIT Nurse Practitioner Acute Care; ATTEND Nurse Practitioner Acute Care
DX: A41.9 Sepsis, unspecified organism (principal); E11.65 Type 2 diabetes mellitus with hyperglycemia; I11.9 Hypertensive heart disease without heart failure; D75.839 Thrombocytosis, unspecified; E11.9 Type 2 diabetes mellitus without complications; A04.9 Bacterial intestinal infection, unspecified; E55.9 Vitamin D deficiency, unspecified; F19.10 Other psychoactive substance abuse, uncomplicated; F20.9 Schizophrenia, unspecified; K21.9 Gastro-esophageal reflux disease without esophagitis; F41.9 Anxiety disorder, unspecified; F15.10 Other stimulant abuse, uncomplicated; F17.210 Nicotine dependence, cigarettes, uncomplicated; F31.9 Bipolar disorder, unspecified; Z59.00 Homelessness unspecified; Z79.01 Long term (current) use of anticoagulants; Z79.899 Other long term (current) drug therapy; Z81.8 Family history of other mental and behavioral disorders; Z91.148 Patient's other noncompliance with medication regimen for other reason
CPT/HCPCS: 36415; 71045; 73700; 74176; 80048; 80053; 80061; 80202; 80307; 80320; 81001; 82306; 82746; 82962; 83036; 83605; 83735; 84425; 84443; 84484; 85025; 86360; 87040; 87077; 87081; 87086; 87186; 87426; 87536; 87804; 93005; 96361; 96365; 96375; 99291; G0378; J1815; J2405; J2543; J3490

== ENCOUNTER 2024-10-14 04:48 | Emergency (ER) | payer MEDICAID ==
[~2024-10-14] VITALS: Ht 177.8 cm; Wt 77.0 kg
[2024-10-14 05:10] VITALS: BP 152/77; PULSE 98; RESP 16; TEMP 99; O2SAT 98
--- NOTE | 2024-10-14 06:40 | ED.PDOC ---
GI ASSESSMENT HPI Comments 39 y/o M, with PMHx of anxiety, depression, schizophrenia, GERD, HTN, and DM presents to the ED for CC of rectal bleeding. Patient complains of rectal bleeding s/p having a bowel movement after being constipated for a couple of xdays. Patient relays, that he believes symptoms maybe d/t taking to many [place]. Patient denies nausea, vomiting, abdominal pain, fever, chills, or weakness. No other symptoms or modifying factors present at this time. Chief Complaint: Rectal Pain Time Seen by MD: 06:15 Primary Care Provider: GREY Reviewed Notes: Nurses Notes, Project Construction Assistant Manager Notes, Medications, Allergies Allergies: Coded Allergies: NO KNOWN ALLERGIES (Unverified , 08/25/20) Home Meds Active Scripts Hydrocortisone Acetate (Anusol-Hc) 25 Mg Sup, 1 SUPP [place] BID, #14 SUPP Prov:TAD VELASCO MD 07/27/24 Doxycycline Monohydrate (Doxycycline Monohydrate) 100 Mg Cap, 1 CAP PO BID for 42 Days, #84 CAP Prov:SALOME ELIZABETH 06/13/24 Levofloxacin Hemihydrate (LEVOFLOXACIN) 750 Mg Tab, 1 TAB PO DAILY for 42 Days, #42 TAB Prov:SALOME ELIZABETH 06/13/24 Losartan Potassium (Losartan Potassium) 50 Mg Tab, 50 MG PO DAILY for 20 Days, #20 TAB Prov:SALOME ELIZABETH 06/13/24 Pantoprazole Sodium Sesquihydr (Protonix) 40 Mg Tab, 40 MG PO DAILY PRN for 90 Days, #90 TAB Prov:SALOME ELIZABETH 09/21/23 Sucralfate (CARAFATE SUSP) 1 Gm/10 Ml Ss, 1 GM PO QID@0600,1130,1700,2200 for 30 Days, #120 ML Prov:SALOME ELIZABETH 09/21/23 Nystatin (Mouth-Throat) (Mycostatin (Mouth-Throat)) 500,000 Units/5 Ml Ss, 5 ML MT QID for 14 Days, #60 ML Prov:SALOME ELIZABETH 09/21/23 Baclofen (Baclofen) 10 Mg Tab, 10 MG PO BID, #20 TAB Prov:LOLA SOSA 05/25/21 Ibuprofen (Ibuprofen) 800 Mg Tab, 800 MG PO Q8HP PRN, #30 TAB Prov:LOLA SOSA AVE 05/25/21 Reported Medications Fluoxetine Hcl (Fluoxetine Hcl) 20 Mg Cap, 20 MG PO DAILY for 30 Days, MG 08/05/23 Aripiprazole (Abilify) 20 Mg Tab, 15 MG PO QPM, TAB 08/05/23 Information Source: Patient, Emergency Med Personnel Mode of Arrival: EMS Timing: Days Duration: Since onset Prehospital treatment: None Quality: None Vomitus: None Stool: Impaction, Blood Streaked Severity: Moderate Recent: None Recent Hx of: None Pain Location: None Modifying Factors: Nothing Associated sign and symptoms: Constipation Past Medical History PAST MEDICAL HISTORY: Anxiety, Depression, DM, GERD, High Lipids, HTN, Schizophrenia Family History Family History: Reviewed,noncontributory to illness Social History Smoker: Cigarettes, Greater Than 1 Pack/Day Alcohol: Denies ETOH Use Drugs: Methamphetamine Lives In: Home Constitutional: denies: chills, diaphoresis, fatigue, fever, malaise, sweats, weakness, others EENTM: denies: blurred vision, double vision, ear bleeding, ear discharge, ear drainage, ear pain, ear ringing, eye pain, eye redness, hearing loss, mouth pain, mouth swelling, nasal discharge, nose bleeding, nose congestion, nose pain, photophobia, tearing, throat pain, throat swelling, voice changes, others Respiratory: denies: cough, hemoptysis, orthopnea, SOB at rest, shortness of breath, SOB with excertion, stridor, wheezing, others Cardiovascular: denies: chest pain, dizzy spells, diaphoresis, Dyspnea on exertion, edema, irregular heart beat, left arm pain, lightheadedness, palpitations, PND, syncope, others Gastrointestinal: reports: constipated, rectal bleeding; denies: abdomen distended, abdominal pain, blood streaked bowels, diarrhea, dysphagia, difficulty swallowing, hematemesis, melena, nausea, poor appetite, poor fluid intake, rectal pain, vomiting, others Genitourinary: denies: burning, dysuria, flank pain, frequency, hematuria, incontinence, penile discharge, penile sore, pain, testicle pain, testicle swelling, urgency, others Neurological: denies: dizziness, fainting, headache, left sided numbness, left sided weakness, numbness, paresthesia, pre-existing deficit, right sided numbness, right sided weakness, seizure, speech problems, tingling, tremors, weakness, others Musculoskeletal: denies: back pain, gout, joint pain, joint swelling, muscle pain, muscle stiffness, neck pain, others Integumetry: denies: bruises, change in color, change in hair/nails, dryness, laceration, lesions, lumps, rash, wounds, others Allergic/Immunocompromised: denies: Difficulty Healing, Frequent Infections, Hives, Itching, others Hematologic/Lymphatic: denies: anemia, blood clots, easy bleeding, easy bruising, swollen glands, others Endocrine: denies: excessive hunger, excessive sweating, excessive thirst, excessive urination, flushing, intolerance to cold, intolerance to heat, unexplained weight gain, unexplained weight loss, others Psychiatric: denies: anxiety, bipolar disorder, depression, hopeless, panic disorder, schizophrenia, sleepless, suicidal, others All Other Systems: Reviewed and Negative Physical Exam General Appearance: No Apparent Distress, Normal HEENT: Normal ENT Inspection, Pharynx Normal Neck: Full Range of Motion, Non-Tender, Normal, Normal Inspection Respiratory: Chest Non-Tender, Lungs Clear, No Accessory Muscle Use, No Respiratory Distress, Normal Breath Sounds Cardiovascular: No Edema, No Murmur, No Gallop, Normal Peripheral Pulses, Regular Rate/Rhythm Breast Exam: Deferred Gastrointestinal: No Organomegaly, Non Tender, No Pulsatile Mass, Normal Bowel Sounds, Soft Genitalia: Deferred Pelvic: Deferred Rectal: Deferred Extremities: No calf tenderness, Normal capillary refill, Normal inspection, Normal range of motion, Non-tender, No pedal edema Musculoskeletal : Apperance: Normal Neurologic: Alert, compotype operator II-XII nml as Tested, No Motor Deficits, Normal Affect, Normal Mood, No Sensory Deficits Cerebellar Function: Normal Reflexes: Normal Skin: Dry, Normal Color, Warm Lymphatic: No Adenopathy Was a procedure done? Was a procedure done?: No GI differential Dx Differential Diagnosis: Constipation, Diverticular disease, GI hemorrhage, Inflammatory BD X-Ray, Labs, Meds, VS Vital Signs Date Time Temp Pulse Resp B/P (MAP) Pulse Ox O2 Delivery O2 Flow Rate FiO2 10/14/24 05:10 99.0 98 16 152/77 98 99.0 Lab Test 10/14/24 06:51 Range/Units White Blood Count 10.0 4.4-10.8 10^3/uL Red Blood Count 5.20 4.5-5.90 10^6/uL Hemoglobin 14.7 13.5-17.5 g/dL Hematocrit 41.9 41.0-53.0 % Mean Corpuscular Volume 80.5 80.0-100.0 fL Mean Corpuscular Hemoglobin 28.2 28.0-32.0 pg Mean Corpuscular Hemoglobin Concent 35.0 32.0-36.0 g/dL Red Cell Distribution Width 16.7 H 11.8-14.3 % Platelet Count 205 140-450 10^3/uL Mean Platelet Volume 8.5 6.9-10.8 fL Neutrophils (%) (Auto) 64.4 37.0-80.0 % Lymphocytes (%) (Auto) 26.2 10.0-50.0 % Monocytes (%) (Auto) 9.1 0.0-12.0 % Eosinophils (%) (Auto) 0.2 0.0-7.0 % Basophils (%) (Auto) 0.1 0.0-2.0 % Neutrophils # (Auto) 6.4 1.6-8.6 10 ^3/uL Lymphocytes # (Auto) 2.6 0.4-5.4 10 ^3/uL Monocytes # (Auto) 0.9 0-1.3 10 ^3/uL Eosinophils # (Auto) 0 0-0.8 10 ^3/uL Basophils # (Auto) 0 0-0.2 10 ^3/uL Nucleated Red Blood Cells 0.1 % Prothrombin Time 11.3 9.3-11.8 sec Prothrombin Time INR 1.07 0.9-1.15 Activated Partial Thromboplast Time 26.2 24.5-34.5 SEC Sodium Level 134 L 136-145 mmol/L Potassium Level 3.9 3.5-5.1 mmol/L Chloride Level 99 98-107 mmol/L Carbon Dioxide Level 27 20-31 mmol/L Anion Gap 8 5-15 Blood Urea Nitrogen 18 9-23 mg/dL Creatinine 1.81 H 0.700-1.30 mg/dL Glomerular Filtration Rate Calc 48 >90 mL/min BUN/Creatinine Ratio 9.9 L 10.0-20.0 Serum Glucose 81 74-106 mg/dL Calcium Level 10.0 8.7-10.4 mg/dL Time of 1ST Reevaluation: 06:45 Reevaluation 1ST: Unchanged Patient Education/Counseling: Diagnosis, Treatment Family Education/Counseling: No Family Present SEPSIS Sepsis Screen Date sepsis recognized/suspect: Oct 14, 2024 Time Sepsis recognized/suspect: 05 Recent Procedure: No On Antibiotic Therapy: No Respiratory Rate >20: No Heart Rate >90: Yes Temp<36 C (96.8 F) or >38.3 C: No SBP <90 or MAP <65 mmHG: No New Acute Mental Status Change: No Is the patient on CPAP, BIPAP,: No Physician Orders Chest Portable (10/14/24 06:27) Vital Signs Date Time Temp Pulse Resp B/P (MAP) Pulse Ox O2 Delivery O2 Flow Rate FiO2 10/14/24 05:10 99.0 98 16 152/77 98 99.0 Laboratory Tests Test 10/14/24 06:51 White Blood Count 10.0 10^3/uL (4.4-10.8) Departure 1 Departure Time of Disposition: 08:39 (Patient with bright red blood per rectum. Will admit for further workup.) Impression: Primary Impression: BRBPR (bright red blood per rectum) Additional Impressions: Generalized weakness HIV (human immunodeficiency virus infection) Qualified Codes: Z21 - Asymptomatic human immunodeficiency virus [hiv] infection status Disposition: 09 ADMITTED INPATIENT Admit to: Med Surg Condition: Serious Critical Care Note Critical Care Time?: No Stability Stability form required: No Heart Score Heart Score: Heart Score Response (Comments) Value History N/A 0 EKG N/A 0 Age N/A 0 Risk Factors N/A 0 Troponin N/A 0 Total 0 I personally scribed for LATASHA VIVEROS MD ([email or web address]) on 10/14/24 at 06:39. Electronically submitted by Florida Sidhu ([email or web address]). LATASHA VIVEROS MD Oct 14, 2024 06:39
[2024-10-14 07:14] LABS: Hematocrit 41.9 % (41.0-53.0); Hemoglobin 14.7 g/dL (13.5-17.5); Mean Corpuscular Hemoglobin 28.2 pg (28.0-32.0); Mean Corpuscular Volume 80.5 fL (80.0-100.0); Nucleated Red Blood Cells % 0.1 %
[2024-10-14 07:23] LABS: Chloride 99 mmol/L (98-107); Potassium 3.9 mmol/L (3.5-5.1)
[2024-10-14 07:24] LABS: Anion Gap 8 (5-15); Carbon Dioxide 27 mmol/L (20-31)
[2024-10-14 07:25] LABS: Calcium 10.0 mg/dL (8.7-10.4)
[2024-10-14 07:26] LABS: INR 1.07 (0.9-1.15); Partial Thromboplastin Time 26.2 SEC (24.5-34.5); Prothrombin Time 11.3 sec (9.3-11.8)
[2024-10-14 07:29] LABS: BUN/Creatinine Ratio 9.9 (10.0-20.0); Blood Urea Nitrogen 18 mg/dL (9-23); Glucose 81 mg/dL (74-106)
[2024-10-14 07:33] LABS: Sodium 134 mmol/L (136-145)
--- NOTE | 2024-10-14 08:09 | DVH ---
CHEST RADIOGRAPH Indication: brbpr Technique: Single frontal view of the chest was obtained Comparison: XY CHEST XRAY 1 VIEW on DOS: 10/03/24 FINDINGS: Lines and Tubes: None Lungs: No focal consolidation. Pleura: No effusion. No pneumothorax. Cardiomediastinal contours: Unremarkable Bones: No acute osseous abnormality. IMPRESSION: 1. No acute cardiopulmonary disease.
[2024-10-14] MEDS ORDERED: PANTOPRAZOLE 40 MG/10 ML VIAL INJ IV ONE (08:45)
--- NOTE | 2024-10-14 09:45 | DVH ---
Exam: XY KUB ABDOMEN SINGLE VIEW Indication: constipation Comparison: XY KUB ABDOMEN SINGLE VIEW on DOS: 07/27/24 Technique: 1 radiographic views of the abdomen. Findings: Nonspecific bowel-gas pattern. There is no definite evidence for pneumoperitoneum. No abnormal calcifications noted. Impression: Nonspecific bowel-gas pattern.
--- NOTE | 2024-10-14 11:27 | ED.PDOC ---
Departure 1 Departure Time of Disposition: 11:27 (Patient is feeling better and wants to go home.) Impression: Primary Impression: BRBPR (bright red blood per rectum) Additional Impressions: HIV (human immunodeficiency virus infection) Qualified Codes: Z21 - Asymptomatic human immunodeficiency virus [hiv] infection status Generalized weakness Disposition: 01 HOME / SELF CARE / HOMELESS Condition: Stable LATASHA VIVEROS MD Oct 14, 2024 11:27
--- NOTE | 2024-10-14 11:52 | DVHINCON2 ---
Date Seen: Oct 14, 2024 Reason for Consultation Assess for admission History of Present Illness Mason Nguyen II is a 39-year-old male with past medical history of schizophrenia, bipolar, HIV, hyperlipidemia, hypertension, diabetes, anxiety, and depression, who came to the hospital with complaints of constipation and rectal bleeding. Patient was discharged from this facility yesterday. He states he came back today due to having rectal bleeding this morning. Denies any pain, nausea, or vomiting. States he thinks his medications are messing with his body. Past Medical History schizophrenia, bipolar, HIV, hyperlipidemia, hypertension, diabetes, anxiety, and depression Smokes cigarettes more than 1 pack/day, denies alcohol, uses marijuana and methamphetamines, Past Surgical History Denies past surgical history Family History: FH: bipolar disorder G8 MOTHER, FH: schizophrenia G8 MOTHER, Allergies: Coded Allergies: NO KNOWN ALLERGIES (Unverified , 08/25/20) Home Meds Active Scripts Hydrocortisone Acetate (Anusol-Hc) 25 Mg Sup, 1 SUPP [place] BID, #14 SUPP Prov:TAD VELASCO MD 07/27/24 Doxycycline Monohydrate (Doxycycline Monohydrate) 100 Mg Cap, 1 CAP PO BID for 42 Days, #84 CAP Prov:SALOME ELIZABETH 06/13/24 Levofloxacin Hemihydrate (LEVOFLOXACIN) 750 Mg Tab, 1 TAB PO DAILY for 42 Days, #42 TAB Prov:SALOME ELIZABETH 06/13/24 Losartan Potassium (Losartan Potassium) 50 Mg Tab, 50 MG PO DAILY for 20 Days, #20 TAB Prov:SALOME ELIZABETH 06/13/24 Pantoprazole Sodium Sesquihydr (Protonix) 40 Mg Tab, 40 MG PO DAILY PRN for 90 Days, #90 TAB Prov:SALOME ELIZABETH 09/21/23 Sucralfate (CARAFATE SUSP) 1 Gm/10 Ml Ss, 1 GM PO QID@0600,1130,1700,2200 for 30 Days, #120 ML Prov:SALOME ELIZABETH 09/21/23 Nystatin (Mouth-Throat) (Mycostatin (Mouth-Throat)) 500,000 Units/5 Ml Ss, 5 ML MT QID for 14 Days, #60 ML Prov:SALOME ELIZABETH 09/21/23 Baclofen (Baclofen) 10 Mg Tab, 10 MG PO BID, #20 TAB Prov:LOLA SOSA AVE 05/25/21 Ibuprofen (Ibuprofen) 800 Mg Tab, 800 MG PO Q8HP PRN, #30 TAB Prov:LOLA SOSA AVE 05/25/21 Reported Medications Fluoxetine Hcl (Fluoxetine Hcl) 20 Mg Cap, 20 MG PO DAILY for 30 Days, MG 08/05/23 Aripiprazole (Abilify) 20 Mg Tab, 15 MG PO QPM, TAB 08/05/23 Review of Systems ROS negative except what's in HPI. Vital Signs Vital Signs Date Time Temp Pulse Resp B/P (MAP) Pulse Ox O2 Delivery O2 Flow Rate FiO2 10/14/24 05:10 99.0 98 16 152/77 98 99.0 Physical Exam Constitutional: denies: chills, diaphoresis, fatigue, fever, malaise, sweats, weakness, others EENTM: denies: blurred vision, double vision, ear bleeding, ear discharge, ear drainage, ear pain, ear ringing, eye pain, eye redness, hearing loss, mouth pain, mouth swelling, nasal discharge, nose bleeding, nose congestion, nose pain, photophobia, tearing, throat pain, throat swelling, voice changes, others Respiratory: denies: cough, hemoptysis, orthopnea, SOB at rest, shortness of breath, SOB with excertion, stridor, wheezing, others Cardiovascular: denies: chest pain, dizzy spells, diaphoresis, Dyspnea on exertion, edema, irregular heart beat, left arm pain, lightheadedness, palpitations, PND, syncope, others Gastrointestinal: reports: constipated, rectal bleeding; denies: abdomen distended, abdominal pain, blood streaked bowels, diarrhea, dysphagia, difficulty swallowing, hematemesis, melena, nausea, poor appetite, poor fluid intake, rectal pain, vomiting, others Genitourinary: denies: burning, dysuria, flank pain, frequency, hematuria, incontinence, penile discharge, penile sore, pain, testicle pain, testicle swelling, urgency, others Neurological: denies: dizziness, fainting, headache, left sided numbness, left sided weakness, numbness, paresthesia, pre-existing deficit, right sided numbnes s, right sided weakness, seizure, speech problems, tingling, tremors, weakness, others Musculoskeletal: denies: back pain, gout, joint pain, joint swelling, muscle pain, muscle stiffness, neck pain, others Integumetry: denies: bruises, change in color, change in hair/nails, dryness, laceration, lesions, lumps, rash, wounds, others Allergic/Immunocompromised: denies: Difficulty Healing, Frequent Infections, Hives, Itching, others Hematologic/Lymphatic: denies: anemia, blood clots, easy bleeding, easy bruising, swollen glands, others Endocrine: denies: excessive hunger, excessive sweating, excessive thirst, excessive urination, flushing, intolerance to cold, intolerance to heat, unexplained weight gain, unexplained weight loss, others Psychiatric: denies: anxiety, bipolar disorder, depression, hopeless, panic disorder, schizophrenia, sleepless, suicidal, others All Other Systems: Reviewed and Negative Labs/Diagnostic Data Labs Test 10/14/24 06:51 Range/Units White Blood Count 10.0 4.4-10.8 10^3/uL Red Blood Count 5.20 4.5-5.90 10^6/uL Hemoglobin 14.7 13.5-17.5 g/dL Hematocrit 41.9 41.0-53.0 % Mean Corpuscular Volume 80.5 80.0-100.0 fL Mean Corpuscular Hemoglobin 28.2 28.0-32.0 pg Mean Corpuscular Hemoglobin Concent 35.0 32.0-36.0 g/dL Red Cell Distribution Width 16.7 H 11.8-14.3 % Platelet Count 205 140-450 10^3/uL Mean Platelet Volume 8.5 6.9-10.8 fL Neutrophils (%) (Auto) 64.4 37.0-80.0 % Lymphocytes (%) (Auto) 26.2 10.0-50.0 % Monocytes (%) (Auto) 9.1 0.0-12.0 % Eosinophils (%) (Auto) 0.2 0.0-7.0 % Basophils (%) (Auto) 0.1 0.0-2.0 % Neutrophils # (Auto) 6.4 1.6-8.6 10 ^3/uL Lymphocytes # (Auto) 2.6 0.4-5.4 10 ^3/uL Monocytes # (Auto) 0.9 0-1.3 10 ^3/uL Eosinophils # (Auto) 0 0-0.8 10 ^3/uL Basophils # (Auto) 0 0-0.2 10 ^3/uL Nucleated Red Blood Cells 0.1 % Prothrombin Time 11.3 9.3-11.8 sec Prothrombin Time INR 1.07 0.9-1.15 Activated Partial Thromboplast Time 26.2 24.5-34.5 SEC Sodium Level 134 L 136-145 mmol/L Potassium Level 3.9 3.5-5.1 mmol/L Chloride Level 99 98-107 mmol/L Carbon Dioxide Level 27 20-31 mmol/L Anion Gap 8 5-15 Blood Urea Nitrogen 18 9-23 mg/dL Creatinine 1.81 H 0.700-1.30 mg/dL Glomerular Filtration Rate Calc 48 >90 mL/min BUN/Creatinine Ratio 9.9 L 10.0-20.0 Serum Glucose 81 74-106 mg/dL Calcium Level 10.0 8.7-10.4 mg/dL Assessment Assessment: Constipation, Rectal bleeding, Possible hemorrhoids, Plan: KUB, Patient to discharge back to [facility], Follow up with primary care provider within a week, Counseled on importance of smoking cessation, Counseled on importance of quitting illicit drugs, Plan discussed with: Patient Date of Service: Oct 14, 2024 Billing Provider: FRENCH SINCLAIR Common Visit Codes: [id number] INP/OBS CARE (MOD) FRENCH SINCLAIR Oct 14, 2024 11:52
== END 2024-10-14 12:01 | disposition left against medical advice (07) ==
LOC: ER 04:48 → EDBD 04:48 → ER 12:01
DX: K62.5 Hemorrhage of anus and rectum (principal); R53.1 Weakness; F17.210 Nicotine dependence, cigarettes, uncomplicated; F19.90 Other psychoactive substance use, unspecified, uncomplicated; F41.9 Anxiety disorder, unspecified; F32.A Depression, unspecified; I10 Essential (primary) hypertension; F20.9 Schizophrenia, unspecified; E78.5 Hyperlipidemia, unspecified; E11.9 Type 2 diabetes mellitus without complications; K21.9 Gastro-esophageal reflux disease without esophagitis; Z21 Asymptomatic human immunodeficiency virus [HIV] infection status; Z79.899 Other long term (current) drug therapy
CPT/HCPCS: 36415; 71045; 74018; 80048; 85025; 85610; 85730

== ENCOUNTER 2024-11-29 20:56 | Emergency (ER) | payer MEDICAID ==
[~2024-11-29] VITALS: Ht 177.8 cm; Wt 75.0 kg
[2024-11-29 21:01] VITALS: BP 129/65; PULSE 100; RESP 22; TEMP 98; O2SAT 98
== END 2024-11-29 21:50 | disposition left against medical advice (07) ==
LOC: EDBD 20:56 → EDUNIT# 20:56 → ER 20:56
DX: R21 Rash and other nonspecific skin eruption (principal); Z79.899 Other long term (current) drug therapy

== ENCOUNTER 2024-12-05 23:06 | Emergency (ER) | payer MEDICAID ==
[~2024-12-05] VITALS: Ht 180.3 cm; Wt 78.6 kg
[2024-12-05 23:07] VITALS: BP 146/112; PULSE 92; RESP 20; TEMP 97.7; O2SAT 97
[2024-12-05 23:38] LABS: Hemoglobin 12.0 g/dL (13.5-17.5)
[2024-12-05 23:40] LABS: Hematocrit 36.2 % (41.0-53.0); Mean Corpuscular Hemoglobin 25.6 pg (28.0-32.0); Mean Corpuscular Volume 77.5 fL (80.0-100.0); Nucleated Red Blood Cells % 0.2 %
[2024-12-05 23:43] LABS: Chloride 106 mmol/L (98-107); Potassium 3.9 mmol/L (3.5-5.1); Sodium 139 mmol/L (136-145)
[2024-12-05 23:44] LABS: Anion Gap 7 (5-15); Calcium 9.0 mg/dL (8.7-10.4); Carbon Dioxide 26 mmol/L (20-31)
[2024-12-05 23:49] LABS: BUN/Creatinine Ratio 9.5 (10.0-20.0); Blood Urea Nitrogen 10 mg/dL (9-23); Glucose 91 mg/dL (74-106)
--- NOTE | 2024-12-06 00:04 | ED.PDOC ---
History of Present Illness HPI Comments 39 y/o M presents with c/c of blood-streaked stools, with associated nonradiating, lower abdominal pain. Patient endorses on 4x day history of symptoms. He comments on noticing blood whenever he has a bowel movement and described blood as 'beige' in appearance. No reported modifying factors. No stated recent injuries, sick contact, prior ailments, travel, or pertinent events. Significant history of anxiety, bipolar disorder, depression, DM, GERD, HLD, HIV, HTN, polysubstance abuse, and schizophrenia. Denial of any nausea, vomiting, rectal pain, lightheadedness, weakness, or further associated symptoms. Chief Complaint: GI Bleed Time Seen by MD: 23:20 Primary Care Provider: GREY Reviewed Notes: Nurses Notes, Medications, Allergies Allergies: Coded Allergies: NO KNOWN ALLERGIES (Unverified , 08/25/20) Home Meds Active Scripts Hydrocortisone Acetate (Anusol-Hc) 25 Mg Sup, 1 SUPP [place] BID, #14 SUPP Prov:TAD VELASCO MD 07/27/24 Doxycycline Monohydrate (Doxycycline Monohydrate) 100 Mg Cap, 1 CAP PO BID for 42 Days, #84 CAP Prov:SALOME ELIZABETH 06/13/24 Levofloxacin Hemihydrate (LEVOFLOXACIN) 750 Mg Tab, 1 TAB PO DAILY for 42 Days, #42 TAB Prov:SALOME ELIZABETH 06/13/24 Losartan Potassium (Losartan Potassium) 50 Mg Tab, 50 MG PO DAILY for 20 Days, #20 TAB Prov:SALOME ELIZABETH 06/13/24 Pantoprazole Sodium Sesquihydr (Protonix) 40 Mg Tab, 40 MG PO DAILY PRN for 90 Days, #90 TAB Prov:SALOME ELIZABETH 09/21/23 Sucralfate (CARAFATE SUSP) 1 Gm/10 Ml Ss, 1 GM PO QID@0600,1130,1700,2200 for 30 Days, #120 ML Prov:SALOME ELIZABETH 09/21/23 Nystatin (Mouth-Throat) (Mycostatin (Mouth-Throat)) 500,000 Units/5 Ml Ss, 5 ML MT QID for 14 Days, #60 ML Prov:SALOME ELIZABETH 09/21/23 Baclofen (Baclofen) 10 Mg Tab, 10 MG PO BID, #20 TAB Prov:LOLA SOSA A[address] 05/25/21 Ibuprofen (Ibuprofen) 800 Mg Tab, 800 MG PO Q8HP PRN, #30 TAB Prov:LOLA SOSA A[address] 05/25/21 Reported Medications Fluoxetine Hcl (Fluoxetine Hcl) 20 Mg Cap, 20 MG PO DAILY for 30 Days, MG 08/05/23 Aripiprazole (Abilify) 20 Mg Tab, 15 MG PO QPM, TAB 08/05/23 Information Source: Patient Mode of Arrival: Ambulatory Severity: Moderate Timing: Days Duration: Since onset Prehospital treatment: None Past Medical History PAST MEDICAL HISTORY: Anxiety, Depression, DM, GERD, High Lipids, HIV, HTN, Schizophrenia Past Medical History (Other): Bipolar disorder Surgical History: Denies all surgeries Family History Family History: Reviewed,noncontributory to illness Social History Smoker: Cigarettes, Greater Than 1 Pack/Day Alcohol: Denies ETOH Use Drugs: Methamphetamine Lives In: Home All Other Systems: Reviewed and Negative (Comprehensive review of systems are negative unless stated in HPI) Physical Exam General Appearance: Moderate Distress HEENT: Normal ENT Inspection, Pharynx Normal, TMs Normal Neck: Full Range of Motion, Non-Tender, Normal, Normal Inspection Respiratory: Chest Non-Tender, Lungs Clear, No Accessory Muscle Use, No Respiratory Distress, Normal Breath Sounds Cardiovascular: No Edema, No JVD, No Murmur, No Gallop, Normal Peripheral Pulses, Regular Rate/Rhythm Breast Exam: Deferred Gastrointestinal: No Organomegaly, Non Tender, No Pulsatile Mass, Normal Bowel Sounds, Soft Genitalia: Deferred Pelvic: Deferred Rectal: Deferred Extremities: No calf tenderness, Normal capillary refill, Normal inspection, Normal range of motion, Non-tender, No pedal edema Musculoskeletal : Apperance: Normal Neurologic: Alert, bottom wheeler II-XII nml as Tested, No Motor Deficits, Normal Affect, Normal Mood, No Sensory Deficits Cerebellar Function: Normal Reflexes: Normal Skin: Dry, Normal Color, Warm Peripheral Pulses: 3+ Radial (R), 3+ Radial (L) Lymphatic: No Adenopathy Was a procedure done? Was a procedure done?: No Differential Dx Considerations may include: upper GI bleed, hemorrhoids, anal fissure, viral syndrome, anemia, among others X-Ray, Labs, Meds, VS Vital Signs Date Time Temp Pulse Resp B/P (MAP) Pulse Ox O2 Delivery O2 Flow Rate FiO2 12/05/24 23:07 97.7 92 20 146/112 97 97.7 Lab Test 12/05/24 23:19 Range/Units White Blood Count 4.6 4.4-10.8 10^3/uL Red Blood Count 4.67 4.5-5.90 10^6/uL Hemoglobin 12.0 L 13.5-17.5 g/dL Hematocrit 36.2 L 41.0-53.0 % Mean Corpuscular Volume 77.5 L 80.0-100.0 fL Mean Corpuscular Hemoglobin 25.6 L 28.0-32.0 pg Mean Corpuscular Hemoglobin Concent 33.0 32.0-36.0 g/dL Red Cell Distribution Width 17.6 H 11.8-14.3 % Platelet Count 296 140-450 10^3/uL Mean Platelet Volume 8.0 6.9-10.8 fL Neutrophils (%) (Auto) 41.8 37.0-80.0 % Lymphocytes (%) (Auto) 43.5 10.0-50.0 % Monocytes (%) (Auto) 12.4 H 0.0-12.0 % Eosinophils (%) (Auto) 2.2 0.0-7.0 % Basophils (%) (Auto) 0.1 0.0-2.0 % Neutrophils # (Auto) 1.9 1.6-8.6 10 ^3/uL Lymphocytes # (Auto) 2.0 0.4-5.4 10 ^3/uL Monocytes # (Auto) 0.6 0-1.3 10 ^3/uL Eosinophils # (Auto) 0.1 0-0.8 10 ^3/uL Basophils # (Auto) 0 0-0.2 10 ^3/uL Nucleated Red Blood Cells 0.2 % Sodium Level 139 136-145 mmol/L Potassium Level 3.9 3.5-5.1 mmol/L Chloride Level 106 98-107 mmol/L Carbon Dioxide Level 26 20-31 mmol/L Anion Gap 7 5-15 Blood Urea Nitrogen 10 9-23 mg/dL Creatinine 1.05 0.700-1.30 mg/dL Glomerular Filtration Rate Calc 91 >90 mL/min BUN/Creatinine Ratio 9.5 L 10.0-20.0 Serum Glucose 91 74-106 mg/dL Calcium Level 9.0 8.7-10.4 mg/dL Patient alert. Complaining of dark colored stool. Vitals stable. Answering all questions. Possibly need colonoscopy. Continues to smoke cigarettes. Counseled patient on effects of smoking cigarettes for 15 minutes. WBC within normal limits. Blood pressure elevated. Explained to the patient. Continue monitoring. Time of 1ST Reevaluation: 23:50 Reevaluation 1ST: Unchanged Patient Education/Counseling: Need For Follow Up Family Education/Counseling: No Family Present SEPSIS Sepsis Screen Date sepsis recognized/suspect: Dec 05, 2024 Time Sepsis recognized/suspect: 2308 Recent Procedure: No On Antibiotic Therapy: No Respiratory Rate >20: No Heart Rate >90: Yes Temp<36 C (96.8 F) or >38.3 C: No SBP <90 or MAP <65 mmHG: No New Acute Mental Status Change: No Is the patient on CPAP, BIPAP,: No Physician Orders Ct Ab Pel Wo Con-No Oral Or Iv (12/05/24 23:49) Vital Signs Date Time Temp Pulse Resp B/P (MAP) Pulse Ox O2 Delivery O2 Flow Rate FiO2 12/05/24 23:07 97.7 92 20 146/112 97 97.7 Laboratory Tests Test 12/05/24 23:19 White Blood Count 4.6 10^3/uL (4.4-10.8) Departure 1 Departure Time of Disposition: 00:29 Impression: Primary Impression: GI bleed Qualified Codes: K92.2 - Gastrointestinal hemorrhage, unspecified Additional Impression: Hypertensive urgency Disposition: ADMITTED INPATIENT Admit to: Med Surg Condition: Guarded Critical Care Note Critical Care Time?: No Stability Stability form required: No Heart Score Heart Score: Heart Score Response (Comments) Value History N/A 0 EKG N/A 0 Age N/A 0 Risk Factors N/A 0 Troponin N/A 0 Total 0 I personally scribed for ANGE NORIEGA MD ([email or web address]) on 12/06/24 at 00:04. Electronically submitted by Simon Lacy [email or web address]). ANGE NORIEGA MD Dec 06, 2024 00:04
--- NOTE | 2024-12-06 00:35 | DVH ---
Exam: CT CT AB PEL WO CON-NO ORAL OR IV History: gibleed Comparison Study: CT CT AB PEL WO CON-NO ORAL OR IV on DOS: 10/03/24, CT CT AB PEL WO CON-NO ORAL OR IV on DOS: 09/18/23, CT ABD/PEL on DOS: 09/12/23 Technique: Multidetector spiral CT of the abdomen was performed from lung bases to pubic symphysis. I maging was performed without IV contrast. Axial, coronal and sagittal multiplanar reformats were obta ined from the axial data set by the technologist. Radiation Dose : 1. Abdomen/Pelvis: CTDIvol 5.21 mGy, DLP 318.87 mGy*cm. Findings: Evaluation of solid organs is limited due to lack of intravenous contrast use. Lung Bases: No acute or significant lung base finding. Normal heart size. No pleural or pericardial effusion. Liver: The liver is normal in size. No focal lesions. Gallbladder and Biliary Tree: Unremarkable Spleen: Unremarkable Pancreas: The pancreas is grossly normal in appearance. Adrenal Glands: Unremarkable Kidneys: Kidneys are grossly normal without calculi or hydronephrosis. Bladder: Grossly unremarkable for degree of distention. Bowel: The stomach is grossly normal in appearance. Small bowel and colon are normal in caliber and d istribution. The appendix is normal. Ascites: Absent Lymphadenopathy: No mesenteric, retroperitoneal or periportal lymphadenopathy. Abdominal Wall and Mesentery: Unremarkable. Vasculature: The visualized abdominal aorta is normal in size and caliber. Minimal atherosclerotic va scular calcifications. Evaluation of abdominal and pelvic vessels is limited due to lack of intraveno us contrast. Pelvic Organs: Unremarkable Musculoskeletal: No aggressive focal bony lesions, acute fractures or dislocation. IMPRESSION: 1. No acute abdominal or pelvic findings. Radiation optimization: All CT scans at this facility use at least one of these dose optimization jluis hniques: automated exposure control mA and/or kV adjustment per patient size (includes targeted exam s where dose is matched to clinical indication) or iterative reconstruction.
[2024-12-06] MEDS: PANTOPRAZOLE 40 MG/10 ML VIAL INJ IV ONE (01:30)
[2024-12-06 01:33] LABS: INR 1.03 (0.9-1.15); Partial Thromboplastin Time 25.1 SEC (24.5-34.5); Prothrombin Time 10.9 sec (9.3-11.8)
[2024-12-06 02:18] LABS: Alanine Aminotransferase 37 U/L (7-40); Albumin 3.8 g/dL (3.2-4.8); Alkaline Phosphatase 69 U/L (46-116); Bilirubin, Total 0.3 mg/dL (0.2-1.0); Magnesium 1.8 mg/dL (1.6-2.6)
[2024-12-06 02:48] LABS: Bilirubin, Direct < 0.1 mg/dL (<0.3); Total Protein 9.8 g/dL (5.7-8.2)
== END 2024-12-06 01:38 | disposition left against medical advice (07) ==
LOC: ER 23:06
DX: K92.2 Gastrointestinal hemorrhage, unspecified (principal); I16.0 Hypertensive urgency; E11.9 Type 2 diabetes mellitus without complications; E78.5 Hyperlipidemia, unspecified; F17.210 Nicotine dependence, cigarettes, uncomplicated; F20.9 Schizophrenia, unspecified; F31.9 Bipolar disorder, unspecified; F41.9 Anxiety disorder, unspecified; I10 Essential (primary) hypertension; Z79.899 Other long term (current) drug therapy
CPT/HCPCS: 36415; 74176; 80048; 80076; 82306; 82607; 83036; 83735; 84100; 84443; 85025; 85610; 85730; 96374; 99285; J2470